=== PATIENT | male | born 1940 | race Caucasian/White ===

== ENCOUNTER → 2016-12-17 | Outpatient (CLI) | payer OTHER ==
[~2016-12-17] MED LIST: ALBUAER2 INH; ALFU10TA30 PO; ATOR-26 PO; B-CO1CAP3 PO; BUPR-79 PO; CALC600T9 PO; FLUT1INH INH; GABA1CAP4 PO; HYDR-4079 PO; HYDR-4313 PO; KLN5 PO; LATA0.009 OPB; LISI-729 PO; MAGN400T5 PO; MOME100A INH; MULT-506 PO; OMEG12006 PO; SENN-61 PO; TEST1INJ3 IM
--- NOTE | 2016-12-17 13:38 | DIAGNOSTIC IMAGING REPORT ---
TWO VIEW CHEST CLINICAL HISTORY: Bronchitis. Bronchospasm. FINDINGS: PA and lateral chest radiographs are compared to study dated 08/18/2016. The examination is modestly degraded by large body habitus. The heart is mildly enlarged and there is atherosclerotic calcification of the thoracic aorta. Bibasilar atelectasis is noted. The lungs and pleural spaces are otherwise clear. There is no pneumothorax. The skeletal structures are osteopenic. Fusion hardware is partially seen in the upper lumbar region. Degenerative change is seen throughout the thoracic spine. IMPRESSION: Mild cardiac enlargement with no active disease in the chest. Electronically signed by: Avery Morgan M.D. 12/17/2016 1:36 PM Dictated Date/Time: 12/17/2016 1:35 PM
== END | disposition home or self-care (01) ==
LOC: C.RADPV 13:19
PROVIDERS: ATTEND Family Medicine
DX: J20.9 Acute bronchitis, unspecified (principal)

== ENCOUNTER → 2016-12-19 | Outpatient (CLI) | payer OTHER | END | disposition home or self-care (01) | LOC: C.LAB1850 15:29 | PROVIDERS: ATTEND Internal Medicine Pulmonary Disease | DX: R00.0 Tachycardia, unspecified (principal); R06.02 Shortness of breath ==

== ENCOUNTER → 2017-02-24 | Outpatient (CLI) | payer OTHER ==
[~2017-02-24] MED LIST changes: +ALFU10TA2 PO; -ALFU10TA30 PO; -BUPR-79 PO; -HYDR-4079 PO; -KLN5 PO; -MOME100A INH; -SENN-61 PO
[2017-02-24 12:31] LABS: ALT/SGPT 45 U/L (12-78); BLOOD UREA NITROGEN 27 mg/dl (7-18); BUN/CREATININE RATIO 31.8 (10-20); CARBON DIOXIDE 26 mmol/L (21-32); CHLORIDE 104 mmol/L (98-107); CHOLESTEROL 243 mg/dl (0-200); CREATININE 0.84 mg/dl (0.60-1.40); GLUCOSE 94 mg/dl (70-99); POTASSIUM 4.3 mmol/L (3.5-5.1); SODIUM 138 mmol/L (136-145); TRIGLYCERIDES 92 mg/dl (0-150); VERY LOW DENSITY LIPOPROT CALC 18 mg/dl
[2017-02-24 12:40] LABS: CALCIUM 10.2 mg/dl (8.5-10.1)
[2017-02-24 12:46] LABS: ALB/GLOB RATIO 1.3 (0.9-2); ALKALINE PHOSPHATASE 64 U/L (45-117); AST/SGOT 26 U/L (15-37); HDL CHOLESTEROL 158 mg/dl
[2017-02-26 07:26] LABS: LDL CHOLESTEROL CALCULATED 67 mg/dl
[2017-02-26 07:27] LABS: CHOLESTEROL/HDL RATIO 1.5
== END | disposition home or self-care (01) ==
LOC: C.LABPVFM 08:44
PROVIDERS: ATTEND Internal Medicine
DX: R97.20 Elevated prostate specific antigen [PSA] (principal); E78.2 Mixed hyperlipidemia; I10 Essential (primary) hypertension

== ENCOUNTER → 2017-06-02 | Outpatient (CLI) | payer OTHER ==
[~2017-06-02] MED LIST changes: -ALFU10TA2 PO; +ALFU10TA30 PO
[2017-06-02 13:33] LABS: CHOLESTEROL/HDL RATIO 2.9
== END | disposition home or self-care (01) ==
LOC: C.LABPVFM 08:47
PROVIDERS: ATTEND Family Medicine
DX: E78.2 Mixed hyperlipidemia (principal)

== ENCOUNTER → 2017-07-01 | Outpatient (CLI) | payer OTHER | END | disposition home or self-care (01) | LOC: C.PATHSPEC 17:50 | PROVIDERS: ATTEND Dermatology | DX: L82.0 Inflamed seborrheic keratosis (principal) ==

== ENCOUNTER → 2017-08-06 | Outpatient (CLI) | payer OTHER | END | disposition home or self-care (01) | LOC: C.MAMM 11:17 | PROVIDERS: ATTEND Family Medicine | DX: M81.0 Age-related osteoporosis without current pathological fracture (principal); M84.30XA Stress fracture, unspecified site, initial encounter for fracture ==

== ENCOUNTER → 2017-08-24 | Outpatient (CLI) | payer OTHER ==
[2017-08-24 13:55] LABS: ALT/SGPT 41 U/L (12-78); BLOOD UREA NITROGEN 23 mg/dl (7-18); BUN/CREATININE RATIO 21.9 (10-20); CALCIUM 9.6 mg/dl (8.5-10.1); CARBON DIOXIDE 25 mmol/L (21-32); CHLORIDE 105 mmol/L (98-107); CHOLESTEROL 241 mg/dl (0-200); CREATININE 1.05 mg/dl (0.60-1.40); GLUCOSE 102 mg/dl (70-99); MAGNESIUM 2.1 mg/dl (1.8-2.4); POTASSIUM 4.3 mmol/L (3.5-5.1); SODIUM 137 mmol/L (136-145)
[2017-08-24 14:01] LABS: ALB/GLOB RATIO 1.2 (0.9-2); ALKALINE PHOSPHATASE 63 U/L (45-117); AST/SGOT 31 U/L (15-37); HDL CHOLESTEROL 118 mg/dl; LDL CHOLESTEROL CALCULATED 95 mg/dl; TRIGLYCERIDES 138 mg/dl (0-150); VERY LOW DENSITY LIPOPROT CALC 28 mg/dl
== END | disposition home or self-care (01) ==
LOC: C.LABPVFM 08:38
PROVIDERS: ATTEND Family Medicine
DX: E83.42 Hypomagnesemia (principal); R97.20 Elevated prostate specific antigen [PSA]; E78.2 Mixed hyperlipidemia; M79.1 Myalgia

== ENCOUNTER → 2017-10-13 | Outpatient (CLI) | payer OTHER ==
[~2017-10-13] MED LIST changes: +ALFU10TA2 PO; -ALFU10TA30 PO
[2017-10-13 13:20] LABS: PROSTATE SPECIFIC ANTIGEN 9.18 ng/ml (0.000-4.000)
== END | disposition home or self-care (01) ==
LOC: C.LABPVFM 09:01
PROVIDERS: ATTEND Family Medicine
DX: R97.20 Elevated prostate specific antigen [PSA] (principal); M79.1 Myalgia

== ENCOUNTER → 2018-06-07 | Outpatient (CLI) | payer BC ==
[~2018-06-07] MED LIST changes: -ALFU10TA2 PO; +FLUO20CA34 PO; +FLUO20CA37 PO; -GABA1CAP4 PO; -LISI-729 PO; +SULF800T23 PO; -TEST1INJ3 IM; +TRAM-10 PO
== END | disposition home or self-care (01) ==
LOC: C.LABBC 14:56
PROVIDERS: ATTEND Internal Medicine
DX: R35.0 Frequency of micturition (principal)

== ENCOUNTER → 2018-06-15 | Day surgery (SDC) | payer BC ==
[2018-06-09 10:17] VITALS: Ht 175.3 cm; Wt 89.1 kg
[~2018-06-15] VITALS: Ht 175.3 cm; Wt 89.1 kg
[~2018-06-15] MED LIST changes: +ATROPINE SULFATE 0.1 MG/ML 5ML SYR IV PRN; -B-CO1CAP3 PO; +BUPIVACAINE 0.5 % 5 MG/1 ML PF 10ML VIAL ONE; -CALC600T9 PO; +CEFAZOLIN 2000MG IV PUSH 15 ML IV SCH; +DEXAMETHASONE SOD INJ 4 MG/ML VIAL ONE; +EpHEDrine SULFATE INJ 50 MG/ML AMP IV PRN; +FENTANYL CITRATE INJ 50 MCG/1 ML 2 ML VIAL ONE; -HYDR-4313 PO; +LIDOCAINE HCL 2% 2 ML VIAL (20MG/ML) ONE; -MAGN400T5 PO; +METHYLPREDNISOLONE ACETATE 80 MG/ML VIAL ONE; +MIDAZOLAM HCL 1 MG/ML 2ML VIAL ONE; -OMEG12006 PO; +ONDANSETRON INJ 2 MG/ML 2 ML VIAL IV PRN; +ONDANSETRON INJ 2 MG/ML 2 ML VIAL ONE; +OXYCODONE/ACETAMINOPHEN 5-325 TAB PO PRN; +PROPOFOL IV EMULSION 10 MG/ML 20 ML VIAL ONE; +SODIUM CHLORIDE 0.9% 1000ML 1,000 ML IV SCH
--- NOTE | 2018-06-15 06:40 | History & Physical Bridge - [place] ---
H&P Re-Evaluation Bridge Note: I have examined the patient, reviewed the History & Physical and in the interval since the performance of the History & Physical I have noted the following changes of clinical significance: No changes noted
[2018-06-15] MEDS: LACTATED RINGER'S 1000ML 1,000 ML IV SCH ×2 (06:54→08:09)
--- NOTE | 2018-06-15 07:38 | [facility] Post Operative Brief Note ---
Immediate Operative Summary Operative Date Jun 15, 2018. Pre-Operative Diagnosis Right Ulnar Nerve Entrapment Post-Operative Diagnosis Same Procedure(s) Performed Right Ulnar Nerve Decompression, Right Carpometacarpal Joint Injection Surgeon Dr. Limon [employer]gr[employer] Internship Surgeon(s) Juan Carlos Cheung PA-C Estimated Blood Loss 0 mL Findings Consistent with Post-Op Diagnosis Specimens None Drains None Anesthesia Type General Complication(s) none Disposition Accompanied Pt To Recover: no Disposition: Recovery Room / PACU
--- NOTE | 2018-06-15 07:48 | Discharge Instructions-SurgCtr ---
Discharge Instructions Date of Service Jun 15, 2018. Visit Reason for Visit: Right Ulnar Nerve Entrapment Discharge Discharge Diagnosis / Problem: SAME ABOVE Discharge Goals Goal(s): Decrease discomfort, Improve function Medications Stopped Medications Name(s): no blood thinners Activity Recommendations Activity Limitations: as noted below Lifting Limitations: gradually increase as tolerated Exercise/Sports Limitations: until after follow-up appointment Shower/Bathe: keep incision dry Anesthesia . Post Anesthesia Instructions: If you have had General Anesthesia or IV Sedation: * Do not drive today. * Resume driving when surgeon permits. * Do not make important decisions or sign legal documents today. * Call surgeon for: 1. Temperature elevations greater than 101 degrees F. 2. Uncontrollable pain. 3. Excessive bleeding. 4. Persistent nausea and vomiting. 5. Medication intolerance (nausea, vomiting or rash). * For nausea and vomiting use only clear liquids such as: tea, soda, bouillon until nausea subsides, then gradually increase diet as tolerated. * If you have any concerns or questions, call your surgeon's office. If physician is unavailable and it is an emergency, call 911 or go to the nearest emergency room. . Instructions / Follow-Up Instructions / Follow-Up MEDICATIONS: * Resume previous medications unless instructed otherwise by your surgeon. * Always take pain medication on a full stomach or with food to avoid upset stomach. * Do not drink alcohol or drive while taking narcotics. * Ibuprofen or Tylenol may be taken if narcotic not needed. SPECIAL CARE INSTRUCTIONS: __ None _X_ Keep extremity elevated and iced x 48 hours; apply ice 20-30 minutes 8-10 times/day. May remove at night. __ Sling __24 hrs/day __ Remove at night __ Shoulder Immobilizer __ 24 hrs/day __ Remove at night _X_ Dressing _X_ Maintain until seen in office, may shower with plastic over site __ Remove dressings in 24-48 hours and then may shower __ Cover incisions with band-aids after showering __ Do not remove steri-strips Call physician if chills or temperature rises above 102 degrees or pain unrelieved by prescribed pain medications at . . Diet Recommendations Home Diet: resume previous diet Procedures Procedures Performed: Right Ulnar Nerve Decompression, Right Carpometacarpal Joint Injection Pending Studies Studies pending at discharge: no Medical Emergencies . Who to Call and When: Medical Emergencies: If at any time you feel your situation is an emergency, please call 911 immediately. . Non-Emergent Contact Non-Emergency issues call your: Primary Care Provider . . "Provider Documentation" section prepared by Bo Cheung. .
[2018-06-15] MEDS: FENTANYL CITRATE INJ 50 MCG/1 ML 2 ML VIAL IV PRN ×2 (07:58→08:14)
--- NOTE | 2018-06-15 08:09 | Anesthesia Progress Nt - [facility] ---
Anesthesia Post Op Note Date & Time Jun 15, 2018 at 08:09 Vital Signs Pain Intensity: 5.0 Vital Signs Past 12 Hours Date Time Temp Pulse Resp B/P (MAP) Pulse Ox O2 Delivery O2 Flow Rate FiO2 06/15/18 08:01 156/96 06/15/18 07:59 76 19 06/15/18 07:59 75 19 95 06/15/18 07:56 145/87 06/15/18 07:54 78 19 06/15/18 07:54 79 19 95 06/15/18 07:51 145/86 06/15/18 07:49 77 15 06/15/18 07:49 78 15 96 06/15/18 07:46 139/79 06/15/18 07:45 140/82 06/15/18 07:44 36.5 66 16 140/82 99 Mask 6 06/15/18 06:34 36.8 86 18 148/78 (101) 94 Room Air Notes Mental Status: alert / awake / arousable, participated in evaluation Pt Amnestic to Procedure: Yes Nausea / Vomiting: adequately controlled Pain: adequately controlled Airway Patency, RR, SpO2: stable & adequate BP & HR: stable & adequate Hydration State: stable & adequate Anesthetic Complications: no major complications apparent
--- NOTE | 2018-06-15 09:11 | OPERATIVE REPORT ---
DATE OF OPERATION: 06/15/2018 PREOPERATIVE DIAGNOSES: 1. Cubital tunnel syndrome, right elbow. 2. Carpometacarpal arthritis grade 4, right thumb. POSTOPERATIVE DIAGNOSES: Same. PROCEDURES: 1. Decompression, ulnar nerve, right elbow. 2. Cortisone injection to right thumb. SURGEON: Jorge Limon MD DIGITAL CARTOGRAPHIC TECHNICIAN: Bo Cheung PA-C. ANESTHESIOLOGIST: Dr. Blancas. ANESTHESIA: LMA. DRAINS: None. COMPLICATIONS: None. CONDITION: Patient tolerated the procedure well and returned to recovery room in apparent satisfactory condition. 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 He has also had chronic CMC arthritis, so would like to go ahead with surgery of decompression nerve, possible transposition and/or do an injection to the thumb. Procedure, expected outcomes, and side effects were all explained in detail. DESCRIPTION OF PROCEDURE: Patient was taken to the OR, at which time he was placed supine on the operating table and put to sleep by anesthesia department. I did a Depo-Medrol 1.5 mL injection into the CMC joint of the thumb. The right arm then was prepped and draped in the usual sterile fashion for surgery. Tourniquet was placed high up in the axilla. Arm was exsanguinated. A curvilinear incision was made over the cubital tunnel, and we dissected down. Identified the ulnar nerve, did see where it was being compressed, right at about a couple of millimeters distal to the epicondyle. There was a plexus of veins there that was compressing the nerve. Very carefully dissected them off and cauterized them. A small portion of the flexor ulnaris muscle was divided to decompress this area and then we went proximally up, divided some and it was decompressed proximally. Arm was taken through range of motion. Nerve was not subluxating but to be freely compressed. Wound then was copiously irrigated, closed with interrupted 2-0 nylon sutures. Marcaine without epinephrine was placed in skin edges and benzoin and Steri-Strips. He was placed in a postop dressing including Xeroform, 4x4, soft roll, posterior splint, and Kyree bandage. Return back to recovery room in apparent satisfactory condition. I attest to the content of the Intraoperative Record and any orders documented therein. Any exception s are noted below.
[2018-06-15 09:13] VITALS: BP 147/86; PULSE 80; O2SAT 93
== END | disposition home or self-care (01) ==
LOC: X.SURG 06:18
PROVIDERS: ATTEND Orthopaedic Surgery
DX: G56.21 Lesion of ulnar nerve, right upper limb (principal); M18.11 Unilateral primary osteoarthritis of first carpometacarpal joint, right hand; J45.909 Unspecified asthma, uncomplicated; I10 Essential (primary) hypertension; Z85.46 Personal history of malignant neoplasm of prostate

== ENCOUNTER → 2018-06-21 | Outpatient (CLI) | payer BC ==
[~2018-06-21] MED LIST changes: -ATROPINE SULFATE 0.1 MG/ML 5ML SYR IV PRN; -BUPIVACAINE 0.5 % 5 MG/1 ML PF 10ML VIAL ONE; -CEFAZOLIN 2000MG IV PUSH 15 ML IV SCH; -DEXAMETHASONE SOD INJ 4 MG/ML VIAL ONE; -EpHEDrine SULFATE INJ 50 MG/ML AMP IV PRN; -FENTANYL CITRATE INJ 50 MCG/1 ML 2 ML VIAL ONE; -LIDOCAINE HCL 2% 2 ML VIAL (20MG/ML) ONE; -METHYLPREDNISOLONE ACETATE 80 MG/ML VIAL ONE; -MIDAZOLAM HCL 1 MG/ML 2ML VIAL ONE; -ONDANSETRON INJ 2 MG/ML 2 ML VIAL IV PRN; -ONDANSETRON INJ 2 MG/ML 2 ML VIAL ONE; -OXYCODONE/ACETAMINOPHEN 5-325 TAB PO PRN; -PROPOFOL IV EMULSION 10 MG/ML 20 ML VIAL ONE; -SODIUM CHLORIDE 0.9% 1000ML 1,000 ML IV SCH
[2018-06-25 10:28] LABS: HERPES SIMPLEX VIRUS CULT NOT ISOLATED (NOT ISOLATED)
== END | disposition home or self-care (01) ==
LOC: C.LABSPEC 14:42
PROVIDERS: ATTEND Internal Medicine
DX: N48.5 Ulcer of penis (principal)

== ENCOUNTER 2021-02-20 04:33 | Observation (INO) ==
[2021-02-20] MEDS ORDERED: oxyCODONE HCL IR 5 MG TAB (IMMEDIATE RELEASE) PO STA (04:54)
--- NOTE | 2021-02-20 04:55 | Emergency Department Note ---
Impression & Plan Left rib fracture ED Provider Note Name: JULIAN BARRERA Jr Age: 80 Sex: M Arrives Via: Family Vehicle Informant: Patient, Daughter ED Provider: Evan Smith MD Chief Complaint: Left rib pain Impression: Left Rib Fractures (Multiple) Medical Decision Makin yr old male with significant COPD arrives after slip and injury to left ribs this evening. This is actually second injury in 2 week with initially being a fall at Gym landing on left side. Initial exam with good breath sounds and thus CXR indicated which revealed multiple left rib fracture and questionable effusion left side. No head injury, headache, neck pain, abdominal pain, blood in urine. CT Chest indicated in setting of pleural effusion and rib fractures. Fortunately CT without evidence pneumothorax nor hemothorax but evidence of ribs 5 through 9 fractured with 8&9 acute, rest sub acute. Suspect may have broken all 2 weeks ago and rebroke tonight. Patient recieved 3 rounds of narcotics while in ED and still unable to move without significant discomfort. Mild hypoxia in to low 90s but no shortness of breath. With these findings hospitalist consulted for management. Prior Medical Record and Triage/Nursing Notes reviewed by Me Additional history obtained from chart Differentials:Fracture, dislocation, pneumothorax, hemothorax, intraabdominal injury amongst other pathologies. Vital Signs: reviewed and remarkable for no significant abnormalities Interventions: Oxy ir po, fentanyl iv, dilaudid iv Labs:Reviewed and remarkable for no significant abnormalities Imaging:X ray results are stated below per my interpretation: Chest with left ribs: 3 view: left lower rib fractures, small pleural effusion Consults:Dr Alice LOERA Hospitalist Plan: Disposition:Hospitalization. Condition: Good History of Present Illness:80 yr old male arrives for evaluation of left rib pain. Patient notes he was working out a gym 2 weeks ago when he had a fall landing on left ribs. Pain with cough/breathing/moving the last 2 weeks but m anageable. Last night he was in the shower when he slipped and landed again awkwardly. No overt trauma to left chest but immediate pain in location of fall last week. Associated with pain on deep inspiration. Worse with cough. Used Vicodin with mild improvement. Unable to sleep due to pain. No syncope, fevers, chills, neck pain, headache, weakness, urinary symptoms, blood in urine/stool, nor other symptoms. Denies other injuries nor head injury. Movement make worse, rest makes better. Is on no blood thinners. Long history of COPD which he notes has been OK recently. ROS: See above HPI for pertinent positives & negatives. A total of 10 systems reviewed and were otherwise negative. Past Medical History:See Below Past Surgical History:See Below Family History:See Below Social History:See Below Home Medications:See Below Allergies:Sulfa, Gentamicin Vitals:Blood Pressure: 151/87, Pulse 96, RR 20, T 36.5C, O2 95% on RA Physical Exam: GENERAL: Patient is uncomfortable appearing and in mild distress. EYES: No scleral icterus, unremarkable pupils. ENT: Mucous membranes moist, no nasal congestion. NECK: No masses appreciated, nomeningismus, trachea is midline. RESPIRATORY: No dyspnea. Clear to auscultation and equal bilaterally. No wheeze, no rhonchi. CHEST: TTP over left lower lateral ribs, no crepitus, no bruising CARDIOVASCULAR: Regular rate and rhythm.No murmurs, rubs, gallops appreciated. GASTROINTESTINAL: Abdomen soft, non-tender, no peritonitis.Bowel sounds positive.No masses appreciated. BACK: No midline tenderness, no CVA tenderness EXTREMITIES: Normal motion all extremities, no cyanosis, no edema. NEUROLOGIC: Alert and oriented, no acute motor or sensory deficits, no focal weakness, cranial nerves grossly intact. SKIN: No rash, no jaundice, no diaphoresis. PSYCH: Appropriate GCS: 15 ED Course: Times/Reassessments: Improvement in pain though still unable to sit up without significant pain/discomfort Evna Smith MD Past Med/Surg History Medical History (Updated 02/20/21 @ 17:32 by Evan Smith MD) Allergic rhinitis Arthritis of carpometacarpal (CMC) joint of right thumb Arthritis of right knee Asthma last asthma attack ~July 2020. treated with prednisone (finished 07/23/20). typically has 3 asthma attacks. Cervical radiculitis Cervical spinal stenosis Multifactorial multilevel most severe at C5-6. 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 to see PCP 08/23/20. Hypomagnesemia Lumbar radiculopathy Macrocytic anemia Moderate persistent asthma Osteoarthritis Spondylolisthesis of lumbar region (12/04/14) Thyroid nodule Surgical History History of cataract surgery RT History of colonoscopy History of endoscopic sinus surgery 1998 History of esophagogastroduodenoscopy (EGD) History of laminectomy lumbar laminectomy (Dr Marcos May 02 2020 -- [facility]) History of parotid gland removal Left gland removal (1964) History of surgical removal of skin lesion History of vasectomy Hx of decompression of ulnar nerve right S/P carpal tunnel release Right S/P lumbar fusion L4-07 December 2014 Family History Grandmother (Paternal) Stroke Sister Breast cancer Father Prostate cancer Mother Atrial fibrillation Social History (Updated 02/20/21 @ 16:56 by Vanna Jenkins MD) Smoking Status: Never smoker Second Hand Exposure: No (N/a); Do You Dip or Chew Tobacco: No (N/a); Tobacco Cessation Education Requested by Patient: No Hx Alcohol Use: Yes Alcohol type: wine Hx Substance Use: No Preferred Language: [place] Communication Ability: Effective Visual Impairment: Limited Hearing Ability: Normal Batch Heat Treat Operator Required: No Beliefs That Will Affect Care: Spiritual marital status: Current Living Situation: Spouse current occupational status: retired current occupation: Physician Other Information That Helps Us Care for You: No Feels Safe at Home: Yes Safety Concerns: Feels Safe At This Time Assistive Devices: Cane Allergies Allergies Allergy/AdvReac Type Severity Reaction Status Date / Time sulfamethoxazole Allergy Severe Rash Verified 02/20/21 07:41 [From Bactrim] trimethoprim [From Bactrim] Allergy Severe Hives Verified 02/20/21 07:41 gentamicin AdvReac Intermediate MADE Verified 02/20/21 07:41 CONDITION WORSE Home Meds Home Medications Medication Instructions Recorded Confirmed albuterol sulfate 1 puff INHALATION Q6H PRN 09/01/18 02/20/21 multivitamin 1 tab PO QDD 09/01/18 02/20/21 vitamin B complex 1 tab PO QDD 09/01/18 02/20/21 latanoprost 0.005 % eye drops 1 drp OPHTHALMIC (EYE) HS ml 03/22/19 02/20/21 alfuzosin 10 mg tablet,extended 10 mg PO QDD 08/10/19 02/20/21 release 24 hr atorvastatin 40 mg tablet 40 mg PO QDD 10/03/19 02/20/21 duloxetine 60 mg capsule,delayed 60 mg PO QAM 10/03/19 02/20/21 release ipratropium 0.5 mg-albuterol 3 mg 3 ml INHALATION TID PRN ml 07/03/20 02/20/21 (2.5 mg base)/3 mL nebulization soln magnesium oxide 400 mg PO BID 07/25/20 02/20/21 cholecalciferol (vitamin D3) 50 mcg PO QDD 08/07/20 02/20/21 [Vitamin D3] acetaminophen [Tylenol Arthritis] 1,300 mg PO Q12H 02/20/21 02/20/21 bupropion HCl 100 mg PO BID 02/20/21 02/20/21 dextromethorphan-guaifenesin 1 tab PO Q12H 02/20/21 02/20/21 [Mucinex DM] fluticasone furoate-vilanterol 1 ea INHALATION QAM 02/20/21 02/20/21 [Breo Ellipta] fluticasone propionate [Flonase 2 spray INTRANASAL DAILY PRN 02/20/21 02/20/21 Allergy Relief] lidocaine 1 applic TOPICAL BID 02/20/21 02/20/21 montelukast 10 mg PO QDD 02/20/21 02/20/21 Previous Rx's Medication Instructions Recorded azithromycin 250 mg tablet See Rx Instructions PO .COMPLEX #6 02/11/21 tab Results & Data (ED) Vital Signs Vital Signs - 24 hr 02/20/21 04:35 02/20/21 06:00 02/20/21 07:01 Temperature 36.5 C Temperature Source Oral Pulse Rate 96 H 77 75 Pulse Rate from SpO2 Sensor 76 76 Respiratory Rate 20 15 15 Blood Pressure 151/87 H 146/92 H 156/76 H Blood Pressure Mean 108 110 102 Blood Pressure Position Sitting Pulse Oximetry 95 93 94 Oxygen Delivery Method Room Air Room Air Sepsis Recent Fever Within 48 Hours No Sepsis New/Unexplained Change in Mental Status No Sepsis Action Taken by Nursing No Action Required 02/20/21 07:30 02/20/21 08:00 02/20/21 08:35 Temperature Temperature Source Pulse Rate 78 75 74 Pulse Rate from SpO2 Sensor 78 74 77 Respiratory Rate 20 15 15 Blood Pressure 137/76 137/86 137/86 Blood Pressure Mean 96 103 103 Blood Pressure Position Pulse Oximetry 92 91 95 Oxygen Delivery Method Room Air Room Air Sepsis Recent Fever Within 48 Hours Sepsis New/Unexplained Change in Mental Status Sepsis Action Taken by Nursing 02/20/21 09:01 Temperature Temperature Source Pulse Rate 77 Pulse Rate from SpO2 Sensor 79 Respiratory Rate 23 Blood Pressure 151/97 H Blood Pressure Mean 115 Blood Pressure Position Pulse Oximetry 90 Oxygen Delivery Method Sepsis Recent Fever Within 48 Hours Sepsis New/Unexplained Change in Mental Status Sepsis Action Taken by Nursing Laboratory Data Result diagrams: 02/20/21 05:50 02/20/21 05:50 Lab Results 02/20/21 02/20/21 02/20/21 Range/Units 05:50 05:50 05:50 WBC 4.74 L (4.8-10.8) K/uL RBC 3.81 L (4.7-6.1) M/uL Hgb 12.8 L (14.0-18.0) g/dL POC Hgb (14.0-18.0) g/dl Hct 37.8 L (42-52) % POC Hct (42-52) % MCV 99.2 (80-100) fL MCH 33.6 (25-34) pg MCHC 33.9 (32-36) g/dL RDW Std Deviation 46.8 H (36.4-46.3) fL RDW Coeff of Shona 13.0 (11.5-14.5) % Plt Count 172 (130-400) K/uL MPV 9.5 (7.4-10.4) fL Immature Gran % (Auto) 0.2 % Neut % (Auto) 59.9 % Lymph % (Auto) 22.2 % [place] % (Auto) 13.9 % Eos % (Auto) 3.2 % Baso % (Auto) 0.6 % Neut # (Auto) 2.84 (1.4-6.5) K/uL Lymph # (Auto) 1.05 L (1.2-3.4) K/uL [place] # (Auto) 0.66 H (0.11-0.59) K/uL Eos # (Auto) 0.15 (0-0.5) K/uL Baso # (Auto) 0.03 (0-0.2) K/uL Immature Gran # (Auto) 0.01 (0.00-0.02) K/uL PT 9.8 (9.0-12.0) Seconds INR 1.0 (0.9-1.1) POC Sodium (135-144) mmol/L Sodium 137 (136-145) mmol/L POC Potassium (3.3-5.0) mmol/L Potassium 4.1 (3.5-5.1) mmol/L POC Chloride (101-112) mmol/L Chloride 105 (98-107) mmol/L Carbon Dioxide 26 (21-32) mmol/L POC Total CO2 (24-31) mmol/L Anion Gap 5.0 (3-11) POC Anion Gap (16-25) mmol/L POC BUN (7-18) mg/dl BUN 26 H (7-18) mg/dl Creatinine 0.88 (0.6-1.4) mg/dl POC Creatinine (0.6-1.3) mg/dl Est Cr Clr Drug Dosing 73.6 ml/min Est GFR ( Amer) 93.4 Est GFR (Non-Af Amer) 80.6 BUN/Creatinine Ratio 28.9 H (10-20) Glucose 118 H (70-99) mg/dl POC Glucose (other) (70-99) mg/dl Calcium 9.7 (8.5-10.1) mg/dl POC Ioniz Calcium Devin (1.12-1.32) mmol/l Troponin I < 0.015 (0-0.045) ng/ml COVID-19 Eval Order SARS-CoV-2 (PCR) (Negative) Influenza Type A (PCR) (Neg) Influenza Type B (PCR) (Neg) RSV (RT-PCR) (Neg) 02/20/21 02/20/21 02/20/21 Range/Units 05:56 07:47 07:47 WBC (4.8-10.8) K/uL RBC (4.7-6.1) M/uL Hgb (14.0-18.0) g/dL POC Hgb 12.6 L (14.0-18.0) g/dl Hct (42-52) % POC Hct 37 L (42-52) % MCV (80-100) fL MCH (25-34) pg MCHC (32-36) g/dL RDW Std Deviation (36.4-46.3) fL RDW Coeff of Sh[place] (11.5-14.5) % Plt Count (130-400) K/uL MPV (7.4-10.4) fL Immature Gran % (Auto) % Neut % (Auto) % Lymph % (Auto) % [place] % (Auto) % Eos % (Auto) % Baso % (Auto) % Neut # (Auto) (1.4-6.5) K/uL Lymph # (Auto) (1.2-3.4) K/uL [place] # (Auto) (0.11-0.59) K/uL Eos # (Auto) (0-0.5) K/uL Baso # (Auto) (0-0.2) K/uL Immature Gran # (Auto) (0.00-0.02) K/uL PT (9.0-12.0) Seconds INR (0.9-1.1) POC Sodium 137 (135-144) mmol/L Sodium (136-145) mmol/L POC Potassium 4.2 (3.3-5.0) mmol/L Potassium (3.5-5.1) mmol/L POC Chloride 103 (101-112) mmol/L Chloride (98-107) mmol/L Carbon Dioxide (21-32) mmol/L POC Total CO2 25 (24-31) mmol/L Anion Gap (3-11) POC Anion Gap 15.0 L (16-25) mmol/L POC BUN 24 H (7-18) mg/dl BUN (7-18) mg/dl Creatinine (0.6-1.4) mg/dl POC Creatinine 0.8 (0.6-1.3) mg/dl Est Cr Clr Drug Dosing ml/min Est GFR ( Amer) Est GFR (Non-Af Amer) BUN/Creatinine Ratio (10-20) Glucose (70-99) mg/dl POC Glucose (other) 120 H (70-99) mg/dl Calcium (8.5-10.1) mg/dl POC Ioniz Calcium Devin 1.33 H (1.12-1.32) mmol/l Troponin I (0-0.045) ng/ml COVID-[address] Eval [address] CovFluRsv at [facility] SARS-CoV-2 (PCR) NEGATIVE (Negative) Influenza Type A (PCR) Negative (Neg) Influenza Type B (PCR) Negative (Neg) RSV (RT-PCR) Negative (Neg) Administered Medications Acetaminophen (Acetaminophen 500 Mg Tab) 1,000 mg PO BID [facility] Stop: 03/22/21 11:59 Last Admin: 02/20/21 12:52 Dose: 1,000 mg Documented by: [id number] Albuterol (Albut/Ipratrop 3mg/0.5mg Neb 3 Ml Vial) 3 ml INH TIDR [facility] Stop: 03/22/21 12:59 Last Admin: 02/20/21 12:04 Dose: 3 ml Documented by: [id number] Budesonide (Budesonide 0.5 Mg/2 Ml Vial (Pulmicort)) 0.5 mg NEB BIDR [facility] Stop: 03/22/21 09:19 Last Admin: 02/20/21 12:04 Dose: 0.5 mg Documented by: [id number] Bupropion HCl (Bupropion Sr 100 Mg Tabcr) 100 mg PO BID [facility] Stop: 03/22/21 09:19 Last Admin: 02/20/21 12:54 Dose: Not Given Documented by: [id number] Duloxetine HCl (Duloxetine Hcl 60 Mg Cap) 60 mg PO QAM [facility] Stop: 03/22/21 09:19 Last Admin: 02/20/21 12:55 Dose: Not Given Documented by: [id number] Lidocaine (Lidocaine 5% 1 Patch) 1 patch TD QAM [facility] Stop: 03/22/21 09:29 Last Admin: 02/20/21 13:35 Dose: 1 patch Documented by: [id number] Magnesium Oxide (Magnesium Oxide 400 Mg Tab) 400 mg PO BID [facility] Stop: 03/22/21 11:59 Last Admin: 02/20/21 12:51 Dose: 400 mg Documented by: [id number] Discontinued Medications Fentanyl Citrate (Fentanyl Citrate 100 Mcg/2 Ml Vial) 50 mcg IV NOW STA Stop: 02/20/21 05:28 Last Admin: 02/20/21 05:53 Dose: 50 mcg Documented by: [id number] Hydromorphone HCl (Hydromorphone Inj 0.5 Mg/0.5 Ml Syr) 0.5 mg IV NOW STA Stop: 02/20/21 06:07 Last Admin: 02/20/21 06:10 Dose: 0.5 mg Documented by: [id number] Hydromorphone HCl (Hydromorphone Inj 0.5 Mg/0.5 Ml Syr) 0.5 mg IV Q15M PRN PRN Reason: Pain Stop: 03/06/21 07:58 Last Admin: 02/20/21 11:10 Dose: 0.5 mg Documented by: [id number] Sodium Chloride (Nss 1000ml) 500 mls @ 999 mls/hr IV .Q31M ONE Stop: 02/20/21 05:57 Last Infusion: 02/20/21 06:27 Dose: 0 mls/hr Documented by: [id number] Admin: 02/20/21 05:53 Dose: 999 mls/hr Documented by: [id number] Ioversol (Optiray 320 100ml) 100 ml IV ONCE ONE Stop: 02/20/21 06:31 Last Admin: 02/20/21 06:30 Dose: 81 ml Documented by: [id number] Non-Formulary Medication (Acetaminophen) 1,300 mg PO Q12H [facility] Stop: 03/22/21 09:19 Last Admin: 02/20/21 13:21 Dose: Not Given Documented by: [id number] Non-Formulary Medication (Magnesium Oxide) 400 mg PO BID [facility] Stop: 03/22/21 09:19 Last Admin: 02/20/21 13:22 Dose: Not Given Documented by: [id number] Oxycodone HCl (Oxycodone Hcl Ir 5 Mg Tab (Immediate Release)) 5 mg PO NOW STA Stop: 02/20/21 04:55 Last Admin: 02/20/21 05:01 Dose: 5 mg Documented by: [id number] Oxycodone HCl (Oxycodone Hcl Ir 5 Mg Tab (Immediate Release)) 5 mg PO Q4H PRN PRN Reason: Pain Stop: 03/06/21 09:19 Last Admin: 02/20/21 12:07 Dose: 5 mg Documented by: [id number] Imaging Data Radiologist's Impression: Ribs w/Chest X-Ray 02/20/21 04:54 XR ribs LT min 2V w CXR1V CLINICAL HISTORY: Left rib pain following fall. COMPARISON: Chest CT December 27, 2020. FINDINGS: There is no pneumothorax. There is a trace left pleural effusion. There are multiple subacute to chronic bilateral rib fractures. Note is made of acute appearing nondisplaced fractures of the lateral left eighth and ninth ribs. Cardiomegaly is noted. No evidence for pneumonia or pulmonary edema. IMPRESSION: 1. No pneumothorax. 2. Acute appearing nondisplaced fractures of the lateral left eighth and ninth ribs. 3. Numerous subacute to chronic bilateral rib fractures. ACT 112: Negative or not required by law. Electronically signed by: Johnson Llamas M.D. 02/20/2021 6:[address] 02/20/21 05:27 CT OF THE CHEST WITH IV CONTRAST CLINICAL HISTORY: left rib fracture, worsening shob COMPARISON STUDY: Chest CT December 27, 2020. Chest radiograph and left rib series February 20, 2021 at 5:20 AM. TECHNIQUE: Following IV administration of Optiray, helical axial images of the chest were obtained. Sagittal and coronal reconstructions were viewed as well as maximal intensity projections on an independent 3-D workstation. Automated exposure control was utilized for the study. A dose lowering technique was utilized adhering to the principles of ALARA. CT DOSE: 660.88 mGy.cm FINDINGS: There is no pneumothorax. Trace bilateral pleural effusions are noted with associated atelectasis. Note is made of mild cardiomegaly with moderate coronary artery calcification. There is no thoracic lymphadenopathy. There are acute nondisplaced fractures of the lateral left eighth and ninth ribs. There are multiple subacute left-sided rib fractures, including subacute fractures of the left fifth, sixth and seventh ribs. These fractures are new since CT of December 27, 2020. Additional bilateral rib fractures are also noted. These are subacute to chronic. Many of these were present on prior examination. There is no consolidation to suggest pneumonia. Subpleural opacities reflect atelectasis. There is no pulmonary contusion. IMPRESSION: 1. Acute nondisplaced fractures of the lateral left eighth and ninth ribs. Subacute healing fractures of the left fifth, sixth and seventh ribs. Numerous additional subacute to chronic bilateral rib fractures. No pneumothorax. 2. Trace bilateral pleural effusions. 3. No consolidation to suggest pneumonia. ACT 112: Negative or not required by law. Electronically signed by: Johnson Llamas M.D. 02/20/2021 6:44 AM Discharge Plan Visit Data Chief Complaint: Rib Injury/Pain Stated Complaint: SEVERE RIB PAIN ED Provider: Evan Smith Discharge Problem: Left rib fracture Patient Disposition: Admitted As Inpatient Discharge Instructions Interventions: ED Discharge Assessment Last Done: 02/20/21 11:10 Discharge Problem: Left rib fracture Qualifiers: Encounter type: initial encounter Rib fracture type: multiple ribs Fracture type: closed Qualified Code(s): S22.42XA - Multiple fractures of ribs, left s rocio, initial encounter for closed fracture
[2021-02-20] MEDS ORDERED: SODIUM CHLORIDE 0.9% 1000ML 500 ML IV ONE (05:27)
[2021-02-20] MEDS ORDERED: fentaNYL citrate 100 MCG/2 ML VIAL IV STA (05:27)
[2021-02-20 06:00] LABS: Basophils # (auto) 0.03 K/uL (0-0.2); Basophils % (auto) 0.6 %; Eosinophils # (auto) 0.15 K/uL (0-0.5); Eosinophils % (auto) 3.2 %; Hematocrit (blood only) 37.8 % (42-52); Hemoglobin 12.8 g/dL (14.0-18.0); Immature Granulocytes # (auto) 0.01 K/uL (0.00-0.02); Immature Granulocytes % (auto) 0.2 %; Lymphocytes # (auto) 1.05 K/uL (1.2-3.4); Lymphocytes % (auto) 22.2 %; Mean Corpuscular Hemoglobin 33.6 pg (25-34); Mean Corpuscular Hgb Conc 33.9 g/dL (32-36); Mean Corpuscular Volume 99.2 fL (80-100); Mean Platelet Volume 9.5 fL (7.4-10.4); Monocytes # (auto) 0.66 K/uL (0.11-0.59); Monocytes % (auto) 13.9 %; Neutrophils # (auto) 2.84 K/uL (1.4-6.5); Neutrophils % (auto) 59.9 %; Platelet Count 172 K/uL (130-400); RDW Standard Deviation 46.8 fL (36.4-46.3); Red Blood Count 3.81 M/uL (4.7-6.1); White Blood Count 4.74 K/uL (4.8-10.8)
[2021-02-20 06:06] LABS: Prothrombin Time 9.8 Seconds (9.0-12.0)
[2021-02-20] MEDS ORDERED: HYDROmorphone INJ 0.5 MG/0.5 ML SYR IV STA (06:06)
[2021-02-20 06:24] LABS: BUN Creatinine Ratio 28.9 (10-20); Blood Urea Nitrogen 26 mg/dl (7-18); Calcium 9.7 mg/dl (8.5-10.1); Carbon Dioxide 26 mmol/L (21-32); Chloride 105 mmol/L (98-107); Creatinine Clr Calc Pharmacy 73.6 ml/min; Est GFR (African American) 93.4; Est GFR (Non-African American) 80.6; Glucose 118 mg/dl (70-99); Potassium 4.1 mmol/L (3.5-5.1); Sodium 137 mmol/L (136-145)
[2021-02-20 06:29] LABS: Troponin I < 0.015 ng/ml (0-0.045)
[2021-02-20] MEDS ORDERED: OPTIRAY 320 100ml IV ONE (06:30)
--- NOTE | 2021-02-20 06:45 | CT Scan Report ---
CT OF THE CHEST WITH IV CONTRAST CLINICAL HISTORY: left rib fracture, worsening shob COMPARISON STUDY: Chest CT December 27, 2020. Chest radiograph and left rib series February 20, 2021 at 5:20 AM. TECHNIQUE: Following IV administration of Optiray, helical axial images of the chest were obtained. Sagittal and coronal reconstructions were viewed as well as maximal intensity projections on an [employer] 3-D workstation. Automated exposure control was utilized for the study. A dose lowering simon hnique was utilized adhering to the principles of ALARA. CT DOSE: 660.88 mGy.cm FINDINGS: There is no pneumothorax. Trace bilateral pleural effusions are noted with associated atel ectasis. Note is made of mild cardiomegaly with moderate coronary artery calcification. There is no t horacic lymphadenopathy. There are acute nondisplaced fractures of the lateral left eighth and ninth ribs. There are multiple subacute left-sided rib fractures, including subacute fractures of the left fifth, sixth and seventh ribs. These fractures are new since CT of December 27, 2020. Additional bila teral rib fractures are also noted. These are subacute to chronic. Many of these were present on prio r examination. There is no consolidation to suggest pneumonia. Subpleural opacities reflect atelectas is. There is no pulmonary contusion. IMPRESSION: 1. Acute nondisplaced fractures of the lateral left eighth and ninth ribs. Subacute healing fractures of the left fifth, sixth and seventh ribs. Numerous additional subacute to chronic bilateral rib fra ctures. No pneumothorax. 2. Trace bilateral pleural effusions. 3. No consolidation to suggest pneumonia. ACT 112: Negative or not required by law. Electronically signed by: Johnson Llamas M.D. 02/20/2021 6:44 AM
--- NOTE | 2021-02-20 06:47 | XRay Report ---
XR ribs LT min 2V w CXR1V CLINICAL HISTORY: Left rib pain following fall. COMPARISON: Chest CT December 27, 2020. FINDINGS: There is no pneumothorax. There is a trace left pleural effusion. There are multiple subac mi'kmaq to chronic bilateral rib fractures. Note is made of acute appearing nondisplaced fractures of the lateral left eighth and ninth ribs. Cardiomegaly is noted. No evidence for pneumonia or pulmonary edema. IMPRESSION: 1. No pneumothorax. 2. Acute appearing nondisplaced fractures of the lateral left eighth and ninth ribs. 3. Numerous subacute to chronic bilateral rib fractures. ACT 112: Negative or not required by law. Electronically signed by: Johnson Llamas M.D. 02/20/2021 6:46 AM
[2021-02-20 07:12] LABS: iSTAT Creatinine 0.8 mg/dl (0.6-1.3); iSTAT Hemoglobin 12.6 g/dl (14.0-18.0); iSTAT Ionized Calcium 1.33 mmol/l (1.12-1.32); iSTAT Potassium 4.2 mmol/L (3.3-5.0)
--- NOTE | 2021-02-20 07:33 | History & Physical Report ---
Date of Service February 20, 2021 Assessment & Plan (1) Rib fractures: With left fifth through ninth subacute and acute rib fractures due to multiple falls last 3 weeks. Here with intractable pain, causing some atelectasis No evidence of pneumonia or pneumothorax, no pleural effusion on CT scan, and no flail chest -Bring in on observation for pain control -Continue Dilaudid 0.5 mg IV every 4 hours as needed severe pain, continue oxycodone 5-10 mg p.o. every 4 hours as needed pain, continue Tylenol 1000 mg p.o. twice daily from home -Start lidocaine patch to the rib -Incentive spirometry every hour while awake encouraged -Follow chest x-ray in the morning to ensure no development of pleural effusion -Supplemental O2 as needed to keep pulse ox greater than 92% (2) Fall: With 2 falls in the last several weeks He attributes this to his history of spinal stenosis in the lumbar spine Consider PT/OT consults if not stable on his feet by tomorrow No other acute injuries except right fourth and fifth fingers with mild edema, he declines x-ray at this time as the fingers are functional (3) Asthma: No acute issues although pulse ox slightly lower than his baseline at 92 of 93% He has been unable to inhale his maintenance inhalers and has not taken them for 2 weeks due to his pain from the rib fractures -Start inhaled budesonide nebulizers twice daily and DuoNeb scheduled (4) Dyslipidemia: Continue Lipitor (5) Essential hypertension: No longer taking lisinopril as blood pressures have normalized since retir ement Follow blood pressures here (6) Lumbar spinal stenosis: Status post L4-5 fusion and subsequent lumbar laminectomy Continue Tylenol twice daily Continue Cymbalta (7) Enlarged prostate with lower urinary tract symptoms (LUTS): No acute issues but will watch for this given opioid use Continue Uroxatrol at bedtime (8) Hypomagnesemia: Follow magnesium level in the morning Continue on home magnesium twice daily (9) Depression: No acute issues, stable Continue home Cymbalta and Wellbutrin (10) Macrocytic anemia: Mild, hemoglobin 12.8, MCV 99.2 B12 and folate levels were normal 6 months ago Follow-up with PCP (11) DVT prophylaxis: SCDs only in case of bleeding from rib fractures Disposition-bring in on observation medical telemetry Full code History of Present Illness Chief Complaint: Rib pain Primary Care Provider: Carmelo Haddad MD This patient is an 80-year-old now with a history of asthma, BPH, depression, chronic lower back pain, hyperlipidemia, and hypertension not currently on medications, who presents to the ER with left-sided rib pain that is severe. He reports he tripped over a rug and fell approximately 3 weeks ago. He had some left-sided rib pain at the time but it was manageable at home. He then fell again about 1-1/2 weeks ago after slipping and again hurt the left side after falling onto it. He denies hitting his head or loss of consciousness, denies any injuries anywhere else except for his right fourth and fifth fingers have been swollen but functional. Then, last evening, he stretched his left arm out and all of a sudden had severe left-sided rib pain. He tried taking hydrocodone he had at home but continued to have severe pain. In the ER, he was found on CT scan of the chest to have numerous left-sided rib fractures; the left 5th-7th ribs had subacute fractures and the left eighth and ninth ribs were fractured and appeared more acute. He was given IV fentanyl, 5 mg of p.o. oxycodone, and finally had some relief with Dilaudid 0.5 mg IV x1. His pulse ox was mildly low at 92 with 93% on room air down from his baseline of 95-96%. He had no pneumothorax or hemothorax, no pneumonia but did have evidence of small amount of atelectasis on CT scan. He denies any fevers or chills, no nausea or vomiting, no chest pain other than the rib pain, no cough. He has not been able to use his typical Breo Ellipta or albuterol inhalers as he cannot take deep breaths to get them into his lungs. His laboratory values were otherwise fairly unremarkable except for mild macrocytic anemia, and a mildly elevated BUN and ionized calcium likely secondary to dehydration. Covid test was negative. Troponin was negative. He will be brought in on observation for intractable pain due to falls with rib fractures. Allergies Allergy/AdvReac Type Severity Reaction Status Date / Time sulfamethoxazole Allergy Severe Rash Verified 02/20/21 07:41 [From Bactrim] trimethoprim [From Bactrim] Allergy Severe Hives Verified 02/20/21 07:41 gentamicin AdvReac Intermediate MADE Verified 02/20/21 07:41 CONDITION WORSE Home Medications Medication Instructions Recorded Confirmed Type albuterol sulfate 1 puff INHALATION Q6H PRN 09/01/18 02/20/21 History multivitamin 1 tab PO QDD 09/01/18 02/20/21 History vitamin B complex 1 tab PO QDD 09/01/18 02/20/21 History latanoprost 0.005 % eye drops 1 drp OPHTHALMIC (EYE) HS ml 03/22/19 02/20/21 History alfuzosin 10 mg tablet,extended 10 mg PO QDD 08/10/19 02/20/21 History release 24 hr atorvastatin 40 mg tablet 40 mg PO QDD 10/03/19 02/20/21 History duloxetine 60 mg capsule,delayed 60 mg PO QAM 10/03/19 02/20/21 History release ipratropium 0.5 mg-albuterol 3 mg 3 ml INHALATION TID PRN ml 07/03/20 02/20/21 History (2.5 mg base)/3 mL nebulization soln magnesium oxide 400 mg PO BID 07/25/20 02/20/21 History cholecalciferol (vitamin D3) 50 mcg PO QDD 08/07/20 02/20/21 History [Vitamin D3] azithromycin 250 mg tablet See Rx Instructions PO .COMPLEX #6 02/11/21 02/20/21 Rx tab acetaminophen [Tylenol Arthritis] 1,300 mg PO Q12H 02/20/21 02/20/21 History bupropion HCl 100 mg PO BID 02/20/21 02/20/21 History dextromethorphan-guaifenesin 1 tab PO Q12H 02/20/21 02/20/21 History [Mucinex DM] fluticasone furoate-vilanterol 1 ea INHALATION QAM 02/20/21 02/20/21 History [Breo Ellipta] fluticasone propionate [Flonase 2 spray INTRANASAL DAILY PRN 02/20/21 02/20/21 History Allergy Relief] lidocaine 1 applic TOPICAL BID 02/20/21 02/20/21 History montelukast 10 mg PO QDD 02/20/21 02/20/21 History Past Med/Surg History Medical History (Updated 02/20/21 @ 17:06 by Vanna Jenkins MD) Allergic rhinitis Arthritis of carpometacarpal (CMC) joint of right thumb Arthritis of right knee Asthma last asthma attack ~July 2020. treated with prednisone (finished 07/23/20). typically has 3 asthma attacks. Cervical radiculitis Cervical spinal stenosis Multifactorial multilevel most severe at C5-6. 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 to see PCP 08/23/20. Hypomagnesemia Lumbar radiculopathy Macrocytic anemia Moderate persistent asthma Osteoarthritis Spondylolisthesis of lumbar region (12/04/14) Thyroid nodule Surgical History History of cataract surgery RT History of colonoscopy History of endoscopic sinus surgery 1998 History of esophagogastroduodenoscopy (EGD) History of laminectomy lumbar laminectomy (Dr Marcos May 02 2020 -- [facility]) History of parotid gland removal Left gland removal (1964) History of surgical removal of skin lesion History of vasectomy Hx of decompression of ulnar nerve right S/P carpal tunnel release Right S/P lumbar fusion L4-07 December 2014 Family History Grandmother (Paternal) Stroke Sister Breast cancer Father Prostate cancer Mother Atrial fibrillation Social History (Updated 02/20/21 @ 16:56 by Vanna Jenkins MD) Smoking Status: Never smoker Second Hand Exposure: No (N/a); Do You Dip or Chew Tobacco: No (N/a); Tobacco Cessation Education Requested by Patient: No Hx Alcohol Use: Yes Alcohol type: wine Hx Substance Use: No Preferred Language: Turkish Communication Ability: Effective Visual Impairment: Limited Hearing Ability: Normal Tensile Tester Required: No Beliefs That Will Affect Care: Spiritual marital status: Current Living Situation: Spouse current occupational status: retired current occupation: Physician Other Information That Helps Us Care for You: No Feels Safe at Home: Yes Safety Concerns: Feels Safe At This Time Assistive Devices: Cane Review of Systems Review of Systems: All systems reviewed & are unremarkable except as noted in HPI & below Physical Exam Constitutional: WD/WN, vitals as above Eyes: PERRL, conjunctivae normal, anicteric sclerae ENMT: external ear and nose normal, oropharynx normal (except mild erythema posterior oropharynx) Neck: trachea midline, no thyromegaly Respiratory: normal respiratory effort; no cough and not tachypneic Auscultation: + crackles (at left base); no rhonchi and no wheezes Cardiovascular: RRR, no murmur, no edema Chest (Breasts): Chest: normal inspection of chest Additional Comments: +TTP over left anterior mid rib cage Gastrointestinal (Abdomen): normal bowel sounds, soft, nontender, no hepatosplenomegaly Musculoskeletal: Extremities: extremities normal to inspection; no cyanosis and no clubbing Skin: no rashes, warm and dry Neurologic: moves all extremities and awake; no focal motor deficits Psychiatric: A+Ox3, euthymic affect Lymphatic: no lymphedema Results & Data Results & Data ([facility]) Vital Signs (Past 12 Hours) Vital Signs Temp Pulse Resp BP Pulse Ox 02/20/21 06:00 77 15 146/92 H 93 02/20/21 04:35 36.5 C 96 H 20 151/87 H 95 Laboratory Results 02/20/21 02/20/21 02/20/21 Range/Units 07:47 07:47 05:56 WBC (4.8-10.8) K/uL RBC (4.7-6.1) M/uL Hgb (14.0-18.0) g/dL POC Hgb 12.6 L (14.0-18.0) g/dl Hct (42-52) % POC Hct 37 L (42-52) % MCV (80-100) fL MCH (25-34) pg MCHC (32-36) g/dL RDW Std Deviation (36.4-46.3) fL RDW Coeff of Shona (11.5-14.5) % Plt Count (130-400) K/uL MPV (7.4-10.4) fL Immature Gran % (Auto) % Neut % (Auto) % Lymph % (Auto) % [place] % (Auto) % Eos % (Auto) % Baso % (Auto) % Neut # (Auto) (1.4-6.5) K/uL Lymph # (Auto) (1.2-3.4) K/uL [place] # (Auto) (0.11-0.59) K/uL Eos # (Auto) (0-0.5) K/uL Baso # (Auto) (0-0.2) K/uL Immature Gran # (Auto) (0.00-0.02) K/uL PT (9.0-12.0) Seconds INR (0.9-1.1) POC Sodium 137 (135-144) mmol/L Sodium (136-145) mmol/L POC Potassium 4.2 (3.3-5.0) mmol/L Potassium (3.5-5.1) mmol/L POC Chloride 103 (101-112) mmol/L Chloride (98-107) mmol/L Carbon Dioxide (21-32) mmol/L POC Total CO2 25 (24-31) mmol/L Anion Gap (3-11) POC Anion Gap 15.0 L (16-25) mmol/L POC BUN 24 H (7-18) mg/dl BUN (7-18) mg/dl Creatinine (0.6-1.4) mg/dl POC Creatinine 0.8 (0.6-1.3) mg/dl Est Cr Clr Drug Dosing ml/min Est GFR ( Amer) Est GFR (Non-Af Amer) BUN/Creatinine Ratio (10-20) Glucose (70-99) mg/dl POC Glucose (other) 120 H (70-99) mg/dl Calcium (8.5-10.1) mg/dl POC Ioniz Calcium Devin 1.33 H (1.12-1.32) mmol/l Troponin I (0-0.045) ng/ml COVID-19 Eval Order CovFluRsv at [facility] SARS-CoV-2 (PCR) NEGATIVE (Negative) Influenza Type A (PCR) Negative (Neg) Influenza Type B (PCR) Negative (Neg) RSV (RT-PCR) Negative (Neg) 02/20/21 02/20/21 02/20/21 Range/Units 05:50 05:50 05:50 WBC 4.74 L (4.8-10.8) K/uL RBC 3.81 L (4.7-6.1) M/uL Hgb 12.8 L (14.0-18.0) g/dL POC Hgb (14.0-18.0) g/dl Hct 37.8 L (42-52) % POC Hct (42-52) % MCV 99.2 (80-100) fL MCH 33.6 (25-34) pg MCHC 33.9 (32-36) g/dL RDW Std Deviation 46.8 H (36.4-46.3) fL RDW Coeff of Shona 13.0 (11.5-14.5) % Plt Count 172 (130-400) K/uL MPV 9.5 (7.4-10.4) fL Immature Gran % (Auto) 0.2 % Neut % (Auto) 59.9 % Lymph % (Auto) 22.2 % [place] % (Auto) 13.9 % Eos % (Auto) 3.2 % Baso % (Auto) 0.6 % Neut # (Auto) 2.84 (1.4-6.5) K/uL Lymph # (Auto) 1.05 L (1.2-3.4) K/uL [place] # (Auto) 0.66 H (0.11-0.59) K/uL Eos # (Auto) 0.15 (0-0.5) K/uL Baso # (Auto) 0.03 (0-0.2) K/uL Immature Gran # (Auto) 0.01 (0.00-0.02) K/uL PT 9.8 (9.0-12.0) Seconds INR 1.0 (0.9-1.1) POC Sodium (135-144) mmol/L Sodium 137 (136-145) mmol/L POC Potassium (3.3-5.0) mmol/L Potassium 4.1 (3.5-5.1) mmol/L POC Chloride (101-112) mmol/L Chloride 105 (98-107) mmol/L Carbon Dioxide 26 (21-32) mmol/L POC Total CO2 (24-31) mmol/L Anion Gap 5.0 (3-11) POC Anion Gap (16-25) mmol/L POC BUN (7-18) mg/dl BUN 26 H (7-18) mg/dl Creatinine 0.88 (0.6-1.4) mg/dl POC Creatinine (0.6-1.3) mg/dl Est Cr Clr Drug Dosing 73.6 ml/min Est GFR ( Amer) 93.4 Est GFR (Non-Af Amer) 80.6 BUN/Creatinine Ratio 28.9 H (10-20) Glucose 118 H (70-99) mg/dl POC Glucose (other) (70-99) mg/dl Calcium 9.7 (8.5-10.1) mg/dl POC Ioniz Calcium Devin (1.12-1.32) mmol/l Troponin I < 0.015 (0-0.045) ng/ml COVID-19 Eval Order SARS-CoV-2 (PCR) (Negative) Influenza Type A (PCR) (Neg) Influenza Type B (PCR) (Neg) RSV (RT-PCR) (Neg) Diagnostic Findings Ribs w/Chest X-Ray 02/20/21 04:54 XR ribs LT min 2V w CXR1V CLINICAL HISTORY: Left rib pain following fall. COMPARISON: Chest CT December 27, 2020. FINDINGS: There is no pneumothorax. There is a trace left pleural effusion. There are multiple subacute to chronic bilateral rib fractures. Note is made of acute appearing nondisplaced fractures of the lateral left eighth and ninth ribs. Cardiomegaly is noted. No evidence for pneumonia or pulmonary edema. IMPRESSION: 1. No pneumothorax. 2. Acute appearing nondisplaced fractures of the lateral left eighth and ninth ribs. 3. Numerous subacute to chronic bilateral rib fractures. ACT 112: Negative or not required by law. Electronically signed by: Johnson Llamas M.D. 02/20/2021 6:[address] 02/20/21 05:27 CT OF THE CHEST WITH IV CONTRAST CLINICAL HISTORY: left rib fracture, worsening shob COMPARISON STUDY: Chest CT December 27, 2020. Chest radiograph and left rib series February 20, 2021 at 5:20 AM. TECHNIQUE: Following IV administration of Optiray, helical axial images of the chest were obtained. Sagittal and coronal reconstructions were viewed as well as maximal intensity projections on an independent 3-D workstation. Automated exposure control was utilized for the study. A dose lowering technique was utilized adhering to the principles of ALARA. CT DOSE: 660.88 mGy.cm FINDINGS: There is no pneumothorax. Trace bilateral pleural effusions are noted with associated atelectasis. Note is made of mild cardiomegaly with moderate coronary artery calcification. There is no thoracic lymphadenopathy. There are acute nondisplaced fractures of the lateral left eighth and ninth ribs. There are multiple subacute left-sided rib fractures, including subacute fractures of the left fifth, sixth and seventh ribs. These fractures are new since CT of December 27, 2020. Additional bilateral rib fractures are also noted. These are subacute to chronic. Many of these were present on prior examination. There is no consolidation to suggest pneumonia. Subpleural opacities reflect atelectasis. There is no pulmonary contusion. IMPRESSION: 1. Acute nondisplaced fractures of the lateral left eighth and ninth ribs. Subacute healing fractures of the left fifth, sixth and seventh ribs. Numerous additional subacute to chronic bilateral rib fractures. No pneumothorax. 2. Trace bilateral pleural effusions. 3. No consolidation to suggest pneumonia. ACT 112: Negative or not required by law. Electronically signed by: Johnson Llamas M.D. 02/20/2021 6:44 AM ECG Additional Comments: No ECG performed Code Status & VTE Plan Code Status Full code, but has advanced directive that if he is in a state with a very poor prognosis such as stroke and inability eat, would not want to prolong his life with artificial hydration or nutrition or ventilation VTE Prophylaxis Plan VTE Prophylaxis will be ordered: Yes PG Care Time/CCT Total # of Minutes Spent Total Time Spent with Patient: Total time spent is greater than 50% in coordination of care (as documented) at patient's floor/unit and/or counseling patient: Coding Level of Care Code 11723 OBS Care - Level 3 Diagnoses Rib fractures S22.49XA Fall W19.XXXA Asthma J45.909 Dyslipidemia E78.5 Essential hypertension I10 Lumbar spinal stenosis M48.061 Enlarged prostate with lower urinary tract symptoms (LUTS) N40.1 Hypomagnesemia E83.42 Depression F32.9 Macrocytic anemia D53.9 DVT prophylaxis Z29.9
[2021-02-20] MEDS ORDERED: HYDROmorphone INJ 0.5 MG/0.5 ML SYR IV PRN (07:59)
[2021-02-20 09:07] LABS: Influenza A virus by PCR Negative (Neg); Influenza B virus by PCR Negative (Neg); RSV by PCR Negative (Neg); SARS CoV2 RNA(COVID-19) InHosp NEGATIVE (Negative)
[2021-02-20] MEDS ORDERED: oxyCODONE HCL IR 5 MG TAB (IMMEDIATE RELEASE) PO PRN (09:20)
[2021-02-20] MEDS ORDERED: FLUTICASONE PROPIONATE NA SPR 16 GM BTL NAE PRN (11:22)
[2021-02-20] MEDS ORDERED: POLYETHYLENE (MIRALAX) 17 GM PACK PO PRN (11:22)
[2021-02-20] MEDS ORDERED: ONDANSETRON INJ 2 MG/ML 2 ML VIAL IV PRN (11:22)
[2021-02-20] MEDS: BUDESONIDE 0.5 MG/2 ML VIAL (PULMICORT) NEB SCH ×2 (12:04→19:55)
[2021-02-20] MEDS: ALBUT/IPRATROP 3MG/0.5MG NEB 3 ML VIAL INH SCH ×2 (12:04→19:55)
[2021-02-20] MEDS: MAGNESIUM OXIDE 400 MG TAB PO SCH ×2 (12:51→20:30)
[2021-02-20] MEDS: ACETAMINOPHEN 500 MG TAB PO SCH ×2 (12:52→20:27)
[2021-02-20] MEDS: buPROPion SR 100 MG TABCR PO SCH ×2 (12:54→20:30)
[2021-02-20] MEDS: DULoxetine HCL 60 MG CAP PO SCH (12:55)
[2021-02-20] MEDS: LIDOCAINE 5% 1 PATCH TD SCH (13:35)
[2021-02-20] MEDS ORDERED: ALBUT/IPRATROP 3MG/0.5MG NEB 3 ML VIAL INH SCH (14:00)
[2021-02-20] MEDS ORDERED: ALFUZOSIN HCL 10 MG TAB PO SCH (16:30)
[2021-02-20] MEDS ORDERED: MONTELUKAST SODIUM 10 MG TABLET PO SCH (16:30)
[2021-02-20] MEDS ORDERED: ATORVASTATIN 40 MG TAB PO SCH (16:30)
[2021-02-20] MEDS: HYDROmorphone INJ 0.5 MG/0.5 ML SYR IV PRN ×2 (17:36→22:45)
[2021-02-20] MEDS: oxyCODONE HCL IR 5 MG TAB (IMMEDIATE RELEASE) PO PRN (20:30)
[2021-02-20] MEDS ORDERED: LATANOPROST 0.005% OP SOLN 2.5 ML BTL OP SCH (21:00)
[2021-02-20] MEDS: LIDOCAINE 4% CREAM 15 GM TUBE EXT SCH (21:51)
[2021-02-21] MEDS ORDERED: oxyCODONE HCL IR 5 MG TAB (IMMEDIATE RELEASE) PO STA (00:35)
[2021-02-21] MEDS: HYDROmorphone INJ 0.5 MG/0.5 ML SYR IV PRN (02:31)
[2021-02-21 06:32] LABS: Basophils # (auto) 0.02 K/uL (0-0.2); Basophils % (auto) 0.4 %; Eosinophils # (auto) 0.13 K/uL (0-0.5); Eosinophils % (auto) 2.3 %; Hematocrit (blood only) 36.1 % (42-52); Hemoglobin 12.1 g/dL (14.0-18.0); Immature Granulocytes # (auto) 0.01 K/uL (0.00-0.02); Immature Granulocytes % (auto) 0.2 %; Lymphocytes # (auto) 0.61 K/uL (1.2-3.4); Lymphocytes % (auto) 10.8 %; Mean Corpuscular Hemoglobin 33.4 pg (25-34); Mean Corpuscular Hgb Conc 33.5 g/dL (32-36); Mean Corpuscular Volume 99.7 fL (80-100); Mean Platelet Volume 10.2 fL (7.4-10.4); Monocytes # (auto) 0.68 K/uL (0.11-0.59); Neutrophils # (auto) 4.21 K/uL (1.4-6.5); Neutrophils % (auto) 74.3 %; Platelet Count 166 K/uL (130-400); RDW Coefficient of Variation 13.1 % (11.5-14.5); RDW Standard Deviation 47.6 fL (36.4-46.3); Red Blood Count 3.62 M/uL (4.7-6.1); White Blood Count 5.66 K/uL (4.8-10.8)
[2021-02-21 07:04] LABS: BUN Creatinine Ratio 23.1 (10-20); Calcium 9.3 mg/dl (8.5-10.1); Creatinine Clr Calc Pharmacy 80.3 ml/min; Est GFR (African American) 96.6; Est GFR (Non-African American) 83.4; Magnesium 2.2 mg/dl (1.8-2.4); Potassium 3.9 mmol/L (3.5-5.1)
[2021-02-21] MEDS: BUDESONIDE 0.5 MG/2 ML VIAL (PULMICORT) NEB SCH (07:24)
[2021-02-21] MEDS: ALBUT/IPRATROP 3MG/0.5MG NEB 3 ML VIAL INH SCH ×2 (07:24→13:18)
[2021-02-21] MEDS: oxyCODONE HCL IR 5 MG TAB (IMMEDIATE RELEASE) PO PRN (07:42)
[2021-02-21] MEDS: buPROPion SR 100 MG TABCR PO SCH (07:43)
[2021-02-21] MEDS: MAGNESIUM OXIDE 400 MG TAB PO SCH (07:43)
[2021-02-21] MEDS: DULoxetine HCL 60 MG CAP PO SCH (07:43)
[2021-02-21] MEDS: ACETAMINOPHEN 500 MG TAB PO SCH (07:44)
[2021-02-21] MEDS: LIDOCAINE 5% 1 PATCH TD SCH (07:45)
[2021-02-21] MEDS: LIDOCAINE 4% CREAM 15 GM TUBE EXT SCH (07:47)
--- NOTE | 2021-02-21 07:47 | XRay Report ---
XR chest 1V portable CLINICAL HISTORY: f/u rib fractures,assess for effusion COMPARISON STUDY: Chest radiograph and chest CT February 20, 2021. FINDINGS: There is no pneumothorax. Left-sided rib fractures shown on prior chest radiograph and ches t CT are not well visualized on this exam due to technique. Left basilar opacity has increased. A sma ll left pleural effusion is increased. There is no evidence for pulmonary edema. Cardiomediastinal si lhouette is stable. IMPRESSION: 1. No pneumothorax. 2. Increase in left basilar opacity and a small left pleural effusion since prior exams. 3. Left-sided rib fractures on prior chest CT not well visualized on this exam due to radiographic te chnique. ACT 112: Negative or not required by law. Electronically signed by: Johnson Llamas M.D. 02/21/2021 7:46 AM
--- NOTE | 2021-02-21 08:24 | Pulmonary Consultation ---
Date of Consultation February 21, 2021 Assessment & Plan (1) Left rib fracture: CT chest 02/20/2021 personally reviewed: Right upper lobe accessory lobe appreciated, minimal dependent atelectasis bilateral lower lobes Multiple nondisplaced left-sided rib fractures appreciated. No mediastinal lymphadenopathy Chest x-ray 02/21/2021 personally reviewed: Portable film, there is blunting of the left costophrenic and cardiophrenic angles, increased cardiac silhouette. --Atelectasis left lower lobe Not appreciated on CAT scan yesterday It seems to be from likely splinting because of the pain that patient is having from the fractured ribs. It is undisplaced fracture Pain management along with incentive spirometry will help with that I highly doubt it to be infectious or any other etiology. --Nondisplaced left-sided rib fracture Pain management Continue with incentive spirometry --Asthma Well-controlled Continue with Breo on a daily basis along with Singulair As needed albuterol Plan: Continue with incentive spirometry and pain management. Continue with Breo. Case was discussed with Dr. Jenkins Please note the above document was generated using voice recognition software. It may contain grammatical, syntax or spelling errors.Any formal questions or concerns about the content, text or information contained within the body of this dictation should be directly addressed to the provider for clarification. Encounter type: initial encounter Fracture type: closed Rib fracture type: multiple ribs Qualified Code(s): S22.42XA - Multiple fractures of ribs, left side, initial encounter for closed fracture (2) Rib fractures: (3) Asthma: (4) Atelectasis: History of Present Illness Attending Physician: Vanna Jenkins MD History of Present Illness 80-year-old male past medical history of asthma, depression, BPH, chronic low back pain, dyslipidemia and hypertension was admitted to the hospital because of left-sided rib pain status post fall Pulmonary were consulted because of abnormal chest x-ray which was done today. At the time of examination patient was sitting on the bed. Not in any acute dis tress. He did say that he is having pain when he takes deep breath. He has been using incentive spirometry. Denies any cough. He is compliant with his inhaler when it comes to his asthma. He has been using Breo inhaler 1 puff on a daily basis. He is also using Singulair. He hardly has to use the rescue. Last time he has to use the rescue and it was more than 3 weeks ago. Denies any fever or chills. No hemoptysis. No headache, no dizziness. Social history: Non-smoker, no exposure to any chemicals or fumes. History of asthma since childhood. Allergies Allergy/AdvReac Type Severity Reaction Status Date / Time sulfamethoxazole Allergy Severe Rash Verified 02/20/21 07:41 [From Bactrim] trimethoprim [From Bactrim] Allergy Severe Hives Verified 02/20/21 07:41 gentamicin AdvReac Intermediate MADE Verified 02/20/21 07:41 CONDITION WORSE Home Medications Medication Instructions Recorded Confirmed Type albuterol sulfate 1 puff INHALATION Q6H PRN 09/01/18 02/20/21 History multivitamin 1 tab PO QDD 09/01/18 02/20/21 History vitamin B complex 1 tab PO QDD 09/01/18 02/20/21 History latanoprost 0.005 % eye drops 1 drp OPHTHALMIC (EYE) HS ml 03/22/19 02/20/21 History alfuzosin 10 mg tablet,extended 10 mg PO QDD 08/10/19 02/20/21 History release 24 hr atorvastatin 40 mg tablet 40 mg PO QDD 10/03/19 02/20/21 History duloxetine 60 mg capsule,delayed 60 mg PO QAM 10/03/19 02/20/21 History release ipratropium 0.5 mg-albuterol 3 mg 3 ml INHALATION TID PRN ml 07/03/20 02/20/21 History (2.5 mg base)/3 mL nebulization soln magnesium oxide 400 mg PO BID 07/25/20 02/20/21 History cholecalciferol (vitamin D3) 50 mcg PO QDD 08/07/20 02/20/21 History [Vitamin D3] Breo Ellipta 1 ea INHALATION QAM 02/20/21 02/20/21 History Mucinex DM 1 tab PO Q12H 02/20/21 02/20/21 History acetaminophen 1,300 mg PO Q12H 02/20/21 02/20/21 History bupropion HCl 100 mg PO BID 02/20/21 02/20/21 History fluticasone propionate [Flonase 2 spray INTRANASAL DAILY PRN 02/20/21 02/20/21 History Allergy Relief] lidocaine 1 applic TOPICAL BID 02/20/21 02/20/21 History montelukast 10 mg PO QDD 02/20/21 02/20/21 History budesonide 0.5 mg NEB BIDR 30 Days #120 ml 02/21/21 Rx oxycodone 10 mg PO Q6 PRN #30 tab 02/21/21 Rx Patient History Medical History (Updated 02/21/21 @ 14:14 by Valdo Coronado MD) Allergic rhinitis Arthritis of carpometacarpal (CMC) joint of right thumb Arthritis of right knee Asthma last asthma attack ~July 2020. treated with prednisone (finished 07/23/20). typically has 3 asthma attacks. Cervical radiculitis Cervical spinal stenosis Multifactorial multilevel most severe at C5-6. 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 to see PCP 08/23/20. Hypomagnesemia Lumbar radiculopathy Macrocytic anemia Moderate persistent asthma Osteoarthritis Spondylolisthesis of lumbar region (12/04/14) Thyroid nodule Surgical History History of cataract surgery RT History of colonoscopy History of endoscopic sinus surgery 1998 History of esophagogastroduodenoscopy (EGD) History of laminectomy lumbar laminectomy (Dr Marcos May 02 2020 -- [facility]) History of parotid gland removal Left gland removal (1964) History of surgical removal of skin lesion History of vasectomy Hx of decompression of ulnar nerve right S/P carpal tunnel release Right S/P lumbar fusion L4-07 December 2014 Family History Grandmother (Paternal) Stroke Sister Breast cancer Father Prostate cancer Mother Atrial fibrillation Social History (Updated 02/20/21 @ 16:56 by Vanna Jenkins MD) Smoking Status: Never smoker Second Hand Exposure: No (N/a); Do You Dip or Chew Tobacco: No (N/a); Tobacco Cessation Education Requested by Patient: No Hx Alcohol Use: Yes Alcohol type: wine Hx Substance Use: No Preferred Language: Ethiopian Communication Ability: Effective Visual Impairment: Limited Hearing Ability: Normal Animal Assisted Therapist Required: No Beliefs That Will Affect Care: Spiritual marital status: Current Living Situation: Spouse current occupational status: retired current occupation: Physician Other Information That Helps Us Care for You: No Feels Safe at Home: Yes Safety Concerns: Feels Safe At This Time Assistive Devices: None Review of Systems Review of Systems: All systems reviewed & are unremarkable except as noted in HPI & below Physical Exam Physical Exam: Constitutional: No acute distress HEENT: EOMI, PERRLA Respiratory system: Mild decrease in air entry on the left lower side, no wheeze, no rhonchi, no crackles CVS: S1-S2 positive, no murmurs or gallops Abdomen: Soft, nontender, nondistended, positive bowel sounds x4 Extremities: +2 pulses bilaterally radialis/ dorsalis pedis, no cyanosis, +2 pitting edema bilateral lower extremity Neuro: Awake alert oriented x3 Psych: Normal mood and affect G/U: No Blunt Skin: no rashes, warm and dry Lymphatic: no cervical or axillary lymphadenopathy Results & Data Results & Data ([facility]) Vital Signs (Past 12 Hours) Vital Signs Temp Pulse Pulse Resp BP Pulse Ox 02/21/21 07:44 36.6 C 76 20 123/80 92 02/21/21 07:27 72 16 93 02/21/21 03:58 36.7 C 71 16 128/74 90 02/20/21 23:59 74 02/20/21 23:11 36.6 C 78 18 128/70 93 02/21/21 05:44 02/21/21 05:44 PG Care Time/CCT Total # of Minutes Spent Total Time Spent with Patient: Total time spent is greater than 50% in coordination of care (as documented) at patient's floor/unit and/or counseling patient: Coding Level of Care Code 47097 Office/OBS Consult Lvl 3 Diagnoses Left rib fracture S22.42XA Encounter type: initial encounter Fracture type: closed Rib fracture type: multiple ribs Rib fractures S22.49XA Asthma J45.909 Atelectasis J98.11
--- NOTE | 2021-02-21 13:28 | Discharge Summary ---
Date of Service February 21, 2021 Admission HPI Per Admitting Provider This patient is an 80-year-old now with a history of asthma, BPH, depression, chronic lower back pain, hyperlipidemia, and hypertension not currently on medications, who presents to the ER with left-sided rib pain that is severe. He reports he tripped over a rug and fell approximately 3 weeks ago. He had some left-sided rib pain at the time but it was manageable at home. He then fell again about 1-1/2 weeks ago after slipping and again hurt the left side after falling onto it. He denies hitting his head or loss of consciousness, denies any injuries anywhere else except for his right fourth and fifth fingers have been swollen but functional. Then, last evening, he stretched his left arm out and all of a sudden had severe left-sided rib pain. He tried taking hydrocodone he had at home but continued to have severe pain. In the ER, he was found on CT scan of the chest to have numerous left-sided rib fractures; the left 5th-7th ribs had subacute fractures and the left eighth and ninth ribs were fractured and appeared more acute. He was given IV fentanyl, 5 mg of p.o. oxycodone, and finally had some relief with Dilaudid 0.5 mg IV x1. His pulse ox was mildly low at 92 with 93% on room air down from his baseline of 95-96%. He had no pneumothorax or hemothorax, no pneumonia but did have evidence of small amount of atelectasis on CT scan. He denies any fevers or chills, no nausea or vomiting, no chest pain other than the rib pain, no cough. He has not been able to use his typical Breo Ellipta or albuterol inhalers as he cannot take deep breaths to get them into his lungs. His laboratory values were otherwise fairly unremarkable except for mild macrocytic anemia, and a mildly elevated BUN and ionized calcium likely secondary to dehydration. Covid test was negative. Troponin was negative. He will be brought in on observation for intractable pain due to falls with rib fractures. Principal Diagnosis Fall with left sided multiple rib fractures, intractable pain Discharge Exam Constitutional WD/WN, vitals as above Eyes + anicteric sclerae Neck trachea midline, no thyromegaly Respiratory normal respiratory effort; no cough and not tachypneic Auscultation: + diminished lung sounds (at left base); no crackles, no rhonchi and no wheezes Cardiovascular RRR, no murmur, no edema Chest (Breasts) Chest: normal inspection of chest Gastrointestinal (Abdomen) normal bowel sounds, soft, nontender, no hepatosplenomegaly Musculoskeletal Extremities: extremities normal to inspection; no cyanosis and no clubbing Skin no rashes, warm and dry Neurologic moves all extremities and awake; no focal motor deficits Psychiatric A+Ox3, euthymic affect Lymphatic no lymphedema Discharge Data Allergies Allergy/AdvReac Type Severity Reaction Status Date / Time sulfamethoxazole Allergy Severe Rash Verified 02/20/21 07:41 [From Bactrim] trimethoprim [From Bactrim] Allergy Severe Hives Verified 02/20/21 07:41 gentamicin AdvReac Intermediate MADE Verified 02/20/21 07:41 CONDITION WORSE Consultations 02/20/21 07:28 ED Decision to Admit Stat 02/21/21 07:44 Consult Pulmonology Routine Ordered Studies 02/20/21 05:27 CT chest diagnostic w con Stat Ribs w/Chest X-Ray 02/20/21 04:54 XR ribs LT min 2V w CXR1V CLINICAL HISTORY: Left rib pain following fall. COMPARISON: Chest CT December 27, 2020. FINDINGS: There is no pneumothorax. There is a trace left pleural effusion. There are multiple subacute to chronic bilateral rib fractures. Note is made of acute appearing nondisplaced fractures of the lateral left eighth and ninth ribs. Cardiomegaly is noted. No evidence for pneumonia or pulmonary edema. IMPRESSION: 1. No pneumothorax. 2. Acute appearing nondisplaced fractures of the lateral left eighth and ninth ribs. 3. Numerous subacute to chronic bilateral rib fractures. ACT 112: Negative or not required by law. Electronically signed by: Johnson Llamas M.D. 02/20/2021 6:[address] 02/20/21 05:27 CT OF THE CHEST WITH IV CONTRAST CLINICAL HISTORY: left rib fracture, worsening shob COMPARISON STUDY: Chest CT December 27, 2020. Chest radiograph and left rib series February 20, 2021 at 5:20 AM. TECHNIQUE: Following IV administration of Optiray, helical axial images of the chest were obtained. Sagittal and coronal reconstructions were viewed as well as maximal intensity projections on an independent 3-D workstation. Automated exposure control was utilized for the study. A dose lowering technique was utilized adhering to the principles of ALARA. CT DOSE: 660.88 mGy.cm FINDINGS: There is no pneumothorax. Trace bilateral pleural effusions are noted with associated atelectasis. Note is made of mild cardiomegaly with moderate coronary artery calcification. There is no thoracic lymphadenopathy. There are acute nondisplaced fractures of the lateral left eighth and ninth ribs. There are multiple subacute left-sided rib fractures, including subacute fractures of the left fifth, sixth and seventh ribs. These fractures are new since CT of December 27, 2020. Additional bilateral rib fractures are also noted. These are subacute to chronic. Many of these were present on prior examination. There is no consolidation to suggest pneumonia. Subpleural opacities reflect atelectasis. There is no pulmonary contusion. IMPRESSION: 1. Acute nondisplaced fractures of the lateral left eighth and ninth ribs. Subacute healing fractures of the left fifth, sixth and seventh ribs. Numerous additional subacute to chronic bilateral rib fractures. No pneumothorax. 2. Trace bilateral pleural effusions. 3. No consolidation to suggest pneumonia. ACT 112: Negative or not required by law. Electronically signed by: Johnson Llamas M.D. 02/20/2021 6:44 AM Chest X-Ray 02/21/21 07:00 XR chest 1V portable CLINICAL HISTORY: f/u rib fractures,assess for effusion COMPARISON STUDY: Chest radiograph and chest CT February 20, 2021. FINDINGS: There is no pneumothorax. Left-sided rib fractures shown on prior chest radiograph and chest CT are not well visualized on this exam due to technique. Left basilar opacity has increased. A small left pleural effusion is increased. There is no evidence for pulmonary edema. Cardiomediastinal silhouette is stable. IMPRESSION: 1. No pneumothorax. 2. Increase in left basilar opacity and a small left pleural effusion since prior exams. 3. Left-sided rib fractures on prior chest CT not well visualized on this exam due to radiographic technique. ACT 112: Negative or not required by law. Electronically signed by: Johnson Llamas M.D. 02/21/2021 7:46 AM Hospital Course (1) Rib fractures: With left fifth through ninth subacute and acute rib fractures due to multiple falls last 3 weeks. Here with intractable pain, causing some atelectasis No evidence of pneumonia or pneumothorax, no pleural effusion on CT scan, and no flail chest -Brought in on observation for pain control -received Dilaudid 0.5 mg IV every 4 hours as needed for severe pain, oxycodone 5-10 mg p.o. every 4 hours as needed pain, Tylenol 1000 mg p.o. twice daily, and added lidocaine patch -pain much improved by the next day and was not requiring IV dilaudid -repeat CXR the next day showed slightly worse atelectasis--> consulted PULM who suggested continued pain control, incentive spirometry -Incentive spirometry every hour while awake encouraged -was not hypoxic, doing well, stable for dc to home with po oxycodone, lidocaine patch -advised good bowel regimen with opioids (2) Fall: With 2 falls in the last several weeks He attributes this to his history of spinal stenosis in the lumbar spine No other acute injuries except right fourth and fifth fingers with mild edema, he declines x-ray at this time as the fingers are functional AMbulating independently in room (3) Asthma: No acute issues although pulse ox slightly lower than his baseline at 92 of 93% He has been unable to inhale his maintenance inhalers and has not taken them for 2 weeks due to his pain from the rib fractures -Started inhaled budesonide nebulizers twice daily and DuoNeb scheduled (4) Dyslipidemia: Continue Lipitor (5) Essential hypertension: No longer taking lisinopril as blood pressures have normalized since nursing home Follow blood pressures here (6) Lumbar spinal stenosis: Status post L4-5 fusion and subsequent lumbar laminectomy Continue Tylenol twice daily Continue Cymbalta (7) Enlarged prostate with lower urinary tract symptoms (LUTS): No acute issues but will watch for this given opioid use Continue Uroxatrol at bedtime (8) Hypomagnesemia: magnesium level here is normal Continue on home magnesium twice daily (9) Depression: No acute issues, stable Continue home Cymbalta and Wellbutrin (10) Macrocytic anemia: Mild, hemoglobin 12.8, MCV 99.2 B12 and folate levels were normal 6 months ago Follow-up with PCP (11) DVT prophylaxis: SCDs Disposition-stable for dc to home Full code Total Time Total Time Spent Total Time Spent (In Minutes): 35 min Total Time Includes: Examination of the Patient, Discharge Planning, Medication Reconciliation and Communication With Other Providers (Pulmonology) Discharge Plan Discharge Items Patient Disposition: Home - Self-Care Reason For Visit: RIB FRACTURES Discharge Diagnosis: Rib fractures, intractable pain Condition on Discharge: Good Activity: As commented below Lifting: None Bathing: No limitations Exercise/Sports: Gradually increase as tolerated Non-emergency contact: Primary Care Provider Call non-emergency contact if: you have any medication questions, your symptoms worsen, your pain is not controlled, your pain is worsening, your pain is unusual for you, your pain is concerning for you and you have a fever Follow-up/Referrals: Carmelo Haddad MD [Primary Care Provider] - (Please follow-up with your PCP within 1 to 2 weeks. Patient prefers to make his own appointment.) Diet: Regular Addtl Attending Provider Instructions: Please continue to use your incentive spirometer 10 times each hour while awake. You can continue to take your usual Tylenol as well as oxycodone as needed for pain. Be sure to take stool softeners and/or laxatives as needed to prevent opioid-induced constipation. Please follow-up with your primary care physician within 1 to 2 weeks after discharge. It was a pleasure taking care of you! -Vanna Jenkins MD Pending Studies at Discharge: No Stand-Alone Forms: My [facility] DigitalMR Medications and DC Order Prescriptions: New budesonide 0.5 mg/2 mL Suspension For Nebulization 0.5 mg NEB BIDR 30 Days Qty: 120 RF: 0 oxycodone 5 mg Tablet 10 mg PO Q6 PRN (Reason: pain) Qty: 30 RF: 0 Continued alfuzosin [Uroxatral] 10 mg tablet extended release 24 hr 10 mg PO QDD RF: 0 duloxetine [Cymbalta] 60 mg capsule,delayed release(DR/EC) 60 mg PO QAM RF: 0 atorvastatin [Lipitor] 40 mg tablet 40 mg PO QDD RF: 0 ipratropium-albuterol 0.5 mg-3 mg(2.5 mg base)/3 mL solution for nebulization 3 ml inhalation TID PRN (Reason: sob) RF: 0 magnesium oxide 400 mg magnesium tablet 400 mg PO BID RF: 0 multivitamin Tablet 1 tab PO QDD RF: 0 vitamin B complex Tablet 1 tab PO QDD RF: 0 albuterol sulfate 90 mcg/actuation Aerosol Powdr Breath Activated 1 puff INHALATION Q6H PRN (Reason: Wheezing) RF: 0 latanoprost 0.005 % drops 1 drp ophthalmic (eye) HS RF: 0 cholecalciferol (vitamin D3) [Vitamin D3] 50 mcg (2,000 unit) Capsule 50 mcg PO QDD RF: 0 lidocaine 4 % Cream 1 applic TOPICAL BID RF: 0 bupropion HCl 100 mg tablet sustained-release 12 hr 100 mg PO BID RF: 0 acetaminophen 650 mg Tablet Extended Release 1,300 mg PO Q12H RF: 0 Mucinex DM 30-600 mg Tablet Extended Release 12 Hr 1 tab PO Q12H RF: 0 montelukast 10 mg tablet 10 mg PO QDD RF: 0 fluticasone propionate [Flonase Allergy Relief] 50 mcg/actuation spray,suspension 2 spray intranasal DAILY PRN (Reason: Congestion) RF: 0 Breo Ellipta 200-25 mcg/dose blister with device 1 ea Inhalation QAM RF: 0 Discontinued pneumoc 13-sadia conj-dip cr(PF) 0.5 mL syringe 0.5 ml IM ONCE Qty: 0.5 RF: 0 azithromycin 250 mg tablet See Rx Instructions PO .COMPLEX Qty: 6 RF: 1 Discharge Orders: Discharge Order (Routine); Ordered 02/21/21 Ordered By: Vanna Jenkins Admission Data Admit Date/Time: 02/20/21 09:20 Attending Provider: Vanna Jenkins Admit Provider: Vanna Jenkins Primary Care Provider: Carmelo Haddad Other Providers: Vanna Jenkins ; Valdo Coronado Other Interventions: Discharge Summary Assessment (RN) Last Done: 02/21/21 13:16 Coding Level of Care Code 51108 OBS Care - Discharge Diagnoses Rib fractures S22.49XA Fall W19.XXXA Asthma J45.909 Dyslipidemia E78.5 Essential hypertension I10 Lumbar spinal stenosis M48.061 Enlarged prostate with lower urinary tract symptoms (LUTS) N40.1 Hypomagnesemia E83.42 Depression F32.9 Macrocytic anemia D53.9 DVT prophylaxis Z29.9
== END 2021-02-21 14:31 | disposition home or self-care (01) ==
LOC: 2N 04:33 → ED 04:33 → 2N 11:10

== ENCOUNTER 2023-07-07 05:18 | Observation (INO) ==
--- NOTE | 2023-05-28 12:59 | PAT Medication Instructions ---
Medication Instructions Date of Service May 28, 2023 Home Medications Medication Instructions Recorded alfuzosin 10 mg tablet,extended 10 mg PO QDD #90 tabs 08/24/22 release 24 hr (Uroxatral) atorvastatin 40 mg tablet (Lipitor) 40 mg PO QDD #90 tabs 08/24/22 ipratropium 0.5 mg-albuterol 3 mg 3 ml inhalation TID PRN sob #180 mL 11/13/22 (2.5 mg base)/3 mL nebulization soln hydrocodone 5 mg-acetaminophen 325 1 tab PO Q6 PRN pain #12 tabs 02/05/23 mg tablet pregabalin 150 mg capsule 150 mg PO BID #60 caps 04/07/23 albuterol sulfate 90 mcg/actuation breath activated powder inhaler 1 puff inhalation Q6H PRN multivitamin 1 tab PO QDD vitamin B complex 1 tab PO QDD latanoprost 0.005 % eye drops 1 drp ophthalmic (eye) HS magnesium oxide 400 mg PO BID cholecalciferol (vitamin D3) 50 mcg (2,000 unit) capsule (Vitamin D3) 50 mcg PO QDD acetaminophen 650 mg tablet,extended release 1,300 mg PO QAM lidocaine 4 % topical cream 1 applic topical UD PRN guaifenesin 1,200 mg tablet, extended release 12 hr (Mucinex) 1,200 mg PO BID alfuzosin 10 mg tablet,extended release 24 hr (Uroxatral) 10 mg PO QDD atorvastatin 40 mg tablet (Lipitor) 40 mg PO QDD ipratropium 0.5 mg-albuterol 3 mg (2.5 mg base)/3 mL nebulization soln 3 ml inha lation TID PRN hydrocodone 5 mg-acetaminophen 325 mg tablet 1 tab PO Q6 PRN diclofenac sodium 1 % topical gel 2 g topical QID PRN pregabalin 150 mg capsule 150 mg PO BID bupropion HCl 100 mg tablet,12 hr sustained-release 100 mg PO HS bupropion HCl 100 mg tablet,12 hr sustained-release 200 mg PO QAM fluticasone furoate 100 mcg-vilanterol 25 mcg/dose inhalation powder (Breo Ellipta) 1 inh inhalation QAM fluticasone propionate 50 mcg/actuation nasal spray,suspension (Flonase Allergy Relief) 2 spray intranasal UD PRN montelukast 10 mg tablet 10 mg PO QDD triamcinolone acetonide 0.1 % topical cream 1 applic topical UD PRN Continue as directed alfuzosin 10 mg tablet,extended release 24 hr (Uroxatral) 10 mg PO QDD montelukast 10 mg tablet 10 mg PO QDD atorvastatin 40 mg tablet (Lipitor) 40 mg PO QDD fluticasone propionate 50 mcg/actuation nasal spray,suspension (Flonase Allergy Relief) 2 spray intranasal UD PRN(if needed) STOP taking 24 hours before surgery lidocaine 4 % topical cream 1 applic topical UD PRN diclofenac sodium 1 % topical gel 2 g topical QID PRN triamcinolone acetonide 0.1 % topical cream 1 applic topical UD PRN DO NOT take the morning of surgery multivitamin 1 tab PO QDD vitamin B complex 1 tab PO QDD magnesium oxide 400 mg PO BID cholecalciferol (vitamin D3) 50 mcg (2,000 unit) capsule (Vitamin D3) 50 mcg PO QDD guaifenesin 1,200 mg tablet, extended release 12 hr (Mucinex) 1,200 mg PO BID Take morning of surgery With a small sip of water, OTHERWISE NOTHING TO EAT OR DRINK AFTER MIDNIGHT: albuterol sulfate 90 mcg/actuation breath activated powder inhaler 1 puff inhalation Q6H PRN(use if needed; please bring with you to hospital day of surgery if possible) acetaminophen 650 mg tablet,extended release 1,300 mg PO QAM ipratropium 0.5 mg-albuterol 3 mg (2.5 mg base)/3 mL nebulization soln 3 ml inhalation TID PRN(if needed) hydrocodone 5 mg-acetaminophen 325 mg tablet 1 tab PO Q6 PRN(if needed) pregabalin 150 mg capsule 150 mg PO BID bupropion HCl 100 mg tablet,12 hr sustained-release 200 mg PO QAM fluticasone furoate 100 mcg-vilanterol 25 mcg/dose inhalation powder (Breo Ellipta) 1 inh inhalation QAM Take evening before surgery albuterol sulfate 90 mcg/actuation breath activated powder inhaler 1 puff inhalation Q6H PRN(if needed) latanoprost 0.005 % eye drops 1 drp ophthalmic (eye) HS magnesium oxide 400 mg PO BID guaifenesin 1,200 mg tablet, extended release 12 hr (Mucinex) 1,200 mg PO BID ipratropium 0.5 mg-albuterol 3 mg (2.5 mg base)/3 mL nebulization soln 3 ml inhalation TID PRN(if needed) hydrocodone 5 mg-acetaminophen 325 mg tablet 1 tab PO Q6 PRN(if needed) pregabalin 150 mg capsule 150 mg PO BID bupropion HCl 100 mg tablet,12 hr sustained-release 100 mg PO HS Other Notes If you have any questions please call us at [phone] or [phone] or [phone] or [phone]
--- NOTE | 2023-06-16 13:55 | Anesthesiology Consultation ---
Date of Service June 16, 2023 Assessment & Plan (1) Encounter for pre-operative examination: - awaiting PCP clearance. - recent COVID illness, patient reporting residual cough and last used rescue inhaler several nights ago. He was advised to follow-up with his PCP. Case also discussed with Dr. Russell who advised patient will need PCP clearance prior to surgery. This has been scheduled for 06/18/23 at which time EKG will be completed confirmed by Alfonso and Bhavana Fuller PA-C with PCP office. He plans to also keep PCP appointment 06/26/23. Carolin with surgeon's office made aware of needed PCP clearance and labs/CXR being moved back to Dr. Ramirez's orders. (Gely was not available today). - allergy visit 03/03/23 [place]: "...will continue to monitor his antibody and strep pneumonia titers. The latter has been consistently decreasing over time. Some of this is expected for everyone, and right now his levels are still mostly protective assuming we use a cutoff of 1 mcg/mL. I will touch base with him once I get the most recent blood work, and if they have dropped off significantly for the last 1, I recommend that we give him a booster vaccine Prevnar this fall. It would be ideal to give Prevnar 20 if it is available. If we do not have this, I would recommend we give Prevnar 13 and then 6 months later give the Pneumovax 23. This will hopefully promote better long-lasting protection..." - pulmonology 11/13/22 [place]: "...Uncertain of asthma diagnosis given no significant postbronchodilator response in the last 2 PFTs. Will defer methacholine challenge test at this time and simply decrease the dose of Breo to see response. PFTs without obstructive pathology. Moderate restriction seen possibly related to weight gain. His DLCO was actually improved compared to prior. I do not suspect ILD given the normal chest imaging and unremarkable DLCO. He did have COVID-19 last year which she recovered from completely. His x-ray as noted above was unremarkable. Cardiac work-up was also unremarkable. D yspnea is likely multifactorial from deconditioning and weight gain. I prescribed him azithromycin and Augmentin to be used in case of infectious symptoms given his history of hypogammaglobulinemia..." - cardiology 10/06/22 [place]: "...Dyspnea on exertion: Significantly improved. Noncardiac etiology. Advanced age and some deconditioning per his admission. Encourage increased cardiovascular exercise. Dyslipidemia: No more than intermediate risk with normal coronaries and absence of diabetes..." - Outpatient joint assessment: Patient is currently scheduled for inpatient p athway. If re-evaluated and patient/surgeon requests outpatient pathway, patient is not acceptable candidate for outpatient joint program from anesthesia standpoint. Chart Review Chart Review: Pending: Refer to Additional Notes / Consult section and Patient seen in Pre Admission Testing Teaching & Discussion Pre-Anesthesia Teaching/Discussion Notes: Instructed NPO after midnight before surgery, except medications with 15 cc of water. Medication instructions provided according to the PAT guidelines. History Surgery Operation Date: 07/07/23 07:00 Proposed Procedures p Right Unicompartmental Knee versus - Mauro Ramirez MD s Right Total Knee Arthroplasty - Mauro Ramirez MD Height/Weight Height: 5 ft 8.5 in Weight: 102.4 kg Allergies Allergy/AdvReac Type Severity Reaction Status Date / Time sulfamethoxazole Allergy Severe major Verified 05/28/23 11:20 [From Bactrim] reaction - serum sickness / hives, profound fatigue gentamicin Allergy Unknown compounded Verified 06/16/23 13:57 infection, was advised not to have gentamicin trimethoprim [From Bactrim] Allergy Unknown major Verified 05/28/23 11:20 reaction- serum sickness/hives, profound fatigue Medications Home Medications Medication Instructions Recorded Confirmed Last Taken albuterol sulfate 90 mcg/actuation 1 puff inhalation Q6H PRN Wheezing 09/01/18 05/28/23 05/08/21 05:30 breath activated powder inhaler multivitamin 1 tab PO QDD 09/01/18 05/28/23 05/07/21 vitamin B complex 1 tab PO QDD 09/01/18 05/28/23 05/07/21 latanoprost 0.005 % eye drops 1 drp ophthalmic (eye) HS 03/22/19 05/28/23 05/07/21 magnesium oxide 400 mg PO BID 07/25/20 05/28/23 05/07/21 cholecalciferol (vitamin D3) 50 50 mcg PO QDD 08/07/20 05/28/23 05/07/21 mcg (2,000 unit) capsule (Vitamin D3) acetaminophen 650 mg 1,300 mg PO QAM 02/20/21 05/28/23 02/19/21 tablet,extended release lidocaine 4 % topical cream 1 applic topical UD PRN right 02/20/21 05/28/23 05/07/21 wrist arthritis guaifenesin 1,200 mg tablet, 1,200 mg PO BID 02/19/22 05/28/23 Unknown extended release 12 hr (Mucinex) alfuzosin 10 mg tablet,extended 10 mg PO QDD #90 tabs 08/24/22 05/28/23 Unknown release 24 hr (Uroxatral) atorvastatin 40 mg tablet (Lipitor) 40 mg PO QDD #90 tabs 08/24/22 05/28/23 Unknown ipratropium 0.5 mg-albuterol 3 mg 3 ml inhalation TID PRN sob #180 mL 11/13/22 05/28/23 Unknown (2.5 mg base)/3 mL nebulization soln hydrocodone 5 mg-acetaminophen 325 1 tab PO Q6 PRN pain #12 tabs 02/05/23 05/28/23 Unknown mg tablet diclofenac sodium 1 % topical gel 2 g topical QID PRN Pain 03/05/23 05/28/23 Unknown bupropion HCl 100 mg tablet,12 hr 100 mg PO HS 05/28/23 05/28/23 Unknown sustained-release bupropion HCl 100 mg tablet,12 hr 200 mg PO QAM 05/28/23 05/28/23 Unknown sustained-release fluticasone furoate 100 1 inh inhalation QAM 05/28/23 05/28/23 Unknown mcg-vilanterol 25 mcg/dose inhalation powder (Breo Ellipta) fluticasone propionate 50 2 spray intranasal UD PRN 05/28/23 05/28/23 Unknown mcg/actuation nasal Congestion spray,suspension (Flonase Allergy Relief) montelukast 10 mg tablet 10 mg PO QDD 05/28/23 05/28/23 Unknown triamcinolone acetonide 0.1 % 1 applic topical UD PRN Skin 05/28/23 05/28/23 Unknown topical cream Irritation pregabalin 150 mg capsule 150 mg PO BID #60 caps 06/01/23 Unknown Past Medical History Medical History (Updated 06/17/23 @ 12:48 by Bhavana Barrientos PA-C) Anemia mild Cervical radiculitis Cervical spinal stenosis Multifactorial multilevel most severe at C5-6. 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 Rodriguez, ongoing monitoring Hypomagnesemia hx following with PCP --> r/t recent prednisone treatment and pantoprazole which has since been stopped. Lumbar radiculopathy Moderate persistent asthma well controlled per pt > last rescue inhaler use last evening since covid illness Spondylolisthesis of lumbar region (12/04/14) Thyroid nodule Patient denies h/o stroke, seizures, heart attack, DM, blood clots or blood transfusions. Exercise / Class Metabolic Activity III < 4 Walking/Shop/Light housework (dyspnea on exertion ongoing since 2019 with usual activities, denies chest discomfort with usual activities) Past Family History Family History Grandmother (Paternal) Stroke Sister Breast cancer Father Prostate cancer Mother Atrial fibrillation Denies family history of Ovarian cancer Myocardial infarction Colorectal cancer Past Surgical History Surgical History History of cardiac cath questionable stress test .fall cath/ no stent(s) - [facility] History of cataract surgery bilat History of colonoscopy History of endoscopic sinus surgery 1998 History of esophagogastroduodenoscopy (EGD) 1989 History of laminectomy lumbar laminectomy (Dr Marcos May 02 2020 -- [facility]) History of parotid gland removal Left gland removal (1964) History of surgical removal of skin lesion forehead, removal of SCC History of vasectomy Hx of decompression of ulnar nerve right, transposition S/P carpal tunnel release Right S/P lumbar fusion L4-L5 December 2014 Past Anesthesia History No Hx of Anesthesia Complications and No Family Hx of Anesthesia Complications History of PONV No Hx of PONV and No Hx of Motion Sickness Social History Smoking Status: Never smoker Do You Dip or Chew Tobacco: No Hx Alcohol Use: Yes Alcohol type: wine alcohol intake frequency: 3 or more drinks per day (6 oz liquor and 12 oz wine, denies any withdrawal history, DTs, seizures) Hx Substance Use: No substance use type: does not use Review of Systems Occasional snoring, denies witnessed apneas. Patient denies chest pain, fever, chills, or palpitations. Physical Exam Vital Signs Vitals BP 144/80 P 72 TEMP 98.2 SP02 95% on RA RESP 18 Physical Patient resting comfortably in chair in NAD, alert and oriented, responding appropriately throughout visit Full cervical extension range of motion without pain TMD 3.5 finger breadths Mallampati Score 3 Dentition: permanent bridge right lower side, implant left lower back and a crown, denies chipped or loose teeth Lungs: normal respiratory effort. Good air movement, clear throughout to auscultation, no adventitious breath sounds Cardiac: regular rate and rhythm, no murmurs noted Carotid arteries: negative bruit bilat Lab Results Anesthesia Preop Results Results Anesthesia Widget: WBC 4.19 K/ul (4.8-10.8) L 06/16/23 Hgb 12.8 g/dl (14.0-18.0) L 06/16/23 Hct 38.3 % (42.0-52.0) L 06/16/23 Plt 141 K/uL (130-400) 06/16/23 Na 138 mmol/L (136-145) 06/16/23 K 4.2 mmol/L (3.5-5.1) 06/16/23 Cl 106 mmol/L (98-107) 06/16/23 CO2 28 mmol/L (21-32) 06/16/23 BUN 19 mg/dl (6-23) 06/16/23 Creat 0.88 mg/dl (0.6-1.4) 06/16/23 Glucose Level 108 mg/dl (70-99(Fasting)) H 06/16/23 PT 10.4 Seconds (9.0-12.0) 06/16/23 PTT 23.6 Seconds (21.0-31.0) 06/16/23 INR 0.9 (0.9-1.1) 06/16/23 Urine Color Dark Yellow 05/29/23 Urine Appearance Clear (Clear) 05/29/23 Urine pH 8.5 (4.5-7.5) H 05/29/23 Urine Specific [place] 1.024 (1.000-1.030) 05/29/23 Urine Protein Trace (Negative) H 05/29/23 Urine Glucose (UA) Negative (Negative) 05/29/23 Urine Ketones Trace (Negative) H 05/29/23 Urine Blood Negative (Negative) 05/29/23 Urine Nitrite Negative (Negative) 05/29/23 Urine Bilirubin Negative (Negative) 05/29/23 Urine Urobilinogen Negative (Negative) 05/29/23 Urine Leukocyte Esterase Negative (Negative) 05/29/23 Urine WBC (Auto) 1-5 /hpf (0-5) 05/29/23 Urine RBC (Auto) 0-4 /hpf (0-4) 05/29/23 Urine Hyaline Casts (Auto) 1-5 /lpf (0-5) 05/29/23 Urine Epithelial Cells (Auto) 0-5 /lpf (0-5) 05/29/23 Urine Bacteria (Auto) Negative (Negative) 05/29/23 Blood Type AB Negative 06/16/23 Antibody Screen POSITIVE A 06/16/23 Testing Laboratory Results Nothing additional needed with antibodies per Kate with blood bank. Chest X-Ray Date: 06/16/23 1. Right basilar linear densities are nonspecific but favor subsegmental atelectasis. Follow-up chest x-ray in 3 months is recommended to ensure stability/resolution. 2. Otherwise, no acute process within the chest. Echocardiogram Date: 04/24/20 EF 60-65% No regional wall motion abnormalities Mild cLVH No significant valvular pathology Stress Test Date: 08/01/22 Dobutamine Negative stress echo for myocardial ischemia at 94% MPHR Peak stress EKG with borderline [address] depression in leads III, aVF Baseline first degree AVB progresses to intermittent Weinkebach 2nd degree AVB with dobutamine infusion Mild cLVH No evidence of wall motion abnormalities Cardiac Catheterization Date: 09/19/22 LMT: Large-caliber short vessel which bifurcates into the LAD and left circumflex. It has no angiographically evident disease. LAD: Large caliber and transapical vessel. Proximal segment is normal. Provides a medium to large caliber branching first diagonal. It then has a larg e septal branch followed by several smaller septal branches. The mid segment has mild diffuse luminal irregularities there is a small to medium caliber second diagonal and the distal LAD becomes a medium in caliber tapering as it wraps the apex and terminates. It is somewhat tortuous in the distal segment and has no more than mild luminal irregularities. LCx: This is a large caliber and dominant vessel. First major branch arising from the AV groove is a large in caliber and branching. The branches are very tortuous consistent with age and hypertension. The AV groove vessel continues as a large caliber vessel distally where it provides a large caliber posterior lateral branch followed by a small to medium caliber posterior lateral branch #2 and finally terminates as a large caliber long PDA. These vessels have mild distal tortuosity. There is no angiographically evident disease in the remainder of the circumflex and its branches. RCA: Medium caliber nondominant vessel providing the RV marginal branches which are very tortuous. There is no significant disease in this vessel. Summary: 1. There is no angiographically significant coronary disease. Branch vessels demonstrate findings consistent with hypertension and advanced age. 2. Normal LV filling pressures 3. Incidentally noted brief episodes of Mobitz type I second-degree AV block. 4. 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 Should the patient require further cardiac catheterization I would recommend femoral approach for left radial approach. Other Testing PFT 11/23/22 Nonspecific spirometric pattern without a significant postbronchodilator response. Lung volumes with evidence of mild restrictive physiology. DLCO unremarkable.
--- NOTE | 2023-07-04 09:49 | History & Physical Report ---
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 He failed conservative treatment would like to proceed with intervention/surgical management/arthroplasty. He is really hoping to have a partial knee replacement. Plan: We will take him to the operating plan doing a right partial knee replacement. If we get in there is too bad we will do a full knee replacement. The risks and benefits of this procedure plan the patient include but not limited to DVT PE infection neurological and vascular bleeding palm pain limb range of motion test is fairly with symptoms incomplete relief of symptoms need for further surgery in the future fracture dislocation exceptor. Patient understands and desires to proceed. Informed consent was obtained. Especially considering his multiple comorbidities I think a partial knee replacement is a good option for this gentleman. Hopefully his intraoperative exam will confirm this. As far as pain control he is not done well with tramadol. Will likely use oxycodone. Avoid using a Blunt catheter at his request. He is plan on staying overnight and discharged postop day 1 if does okay in therapy (2) Knee pain with avascular necrosis determined by x-ray: History of Present Illness Chief Complaint: . Persistent right medial knee pain and discomfort. Primary Care Provider: Bernice Mitchell MD . 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 I been following for the past 4 years for medial compartment arthritis likely related to avascular necrosis. He has been treated extensively with injections which really did not help too much. He did have a cryoablation treatment which did help him for a while ago. He had this repeated and the most recent one did not help much. Describes mostly of knee medial pain. He is interested in a partial knee replacement. He does use a cane to get around due to the pain. Once again his pain is all medial. Allergies Allergy/AdvReac Type Severity Reaction Status Date / Time sulfamethoxazole Allergy Severe major Verified 06/26/23 13:21 [From Bactrim] reaction - serum sickness / hives, profound fatigue gentamicin Allergy Unknown compounded Verified 06/26/23 13:21 infection, was advised not to have gentamicin trimethoprim [From Bactrim] Allergy Unknown major Verified 06/26/23 13:21 reaction- serum sickness/hives, profound fatigue Home Medications Medication Instructions Recorded Confirmed Type albuterol sulfate 90 mcg/actuation 1 puff inhalation Q6H PRN Wheezing 09/01/18 06/26/23 History breath activated powder inhaler multivitamin 1 tab PO QDD 09/01/18 06/26/23 History vitamin B complex 1 tab PO QDD 09/01/18 06/26/23 History latanoprost 0.005 % eye drops 1 drp ophthalmic (eye) HS 03/22/19 06/26/23 History magnesium oxide 400 mg PO BID 07/25/20 06/26/23 History cholecalciferol (vitamin D3) 50 50 mcg PO QDD 08/07/20 06/26/23 History mcg (2,000 unit) capsule (Vitamin D3) acetaminophen 650 mg 1,300 mg PO QAM 02/20/21 06/26/23 History tablet,extended release lidocaine 4 % topical cream 1 applic topical UD PRN right 02/20/21 06/26/23 History wrist arthritis guaifenesin 1,200 mg tablet, 1,200 mg PO BID 02/19/22 06/26/23 History extended release 12 hr (Mucinex) alfuzosin 10 mg tablet,extended 10 mg PO QDD #90 tabs 08/24/22 06/26/23 Rx release 24 hr (Uroxatral) atorvastatin 40 mg tablet (Lipitor) 40 mg PO QDD #90 tabs 08/24/22 06/26/23 Rx ipratropium 0.5 mg-albuterol 3 mg 3 ml inhalation TID PRN sob #180 mL 11/13/22 06/26/23 Rx (2.5 mg base)/3 mL nebulization soln diclofenac sodium 1 % topical gel 2 g topical QID PRN Pain 03/05/23 06/26/23 History bupropion HCl 100 mg tablet,12 hr 100 mg PO HS 05/28/23 06/26/23 History sustained-release bupropion HCl 100 mg tablet,12 hr 200 mg PO QAM 05/28/23 06/26/23 History sustained-release fluticasone furoate 100 1 inh inhalation QAM 05/28/23 06/26/23 History mcg-vilanterol 25 mcg/dose inhalation powder (Breo Ellipta) fluticasone propionate 50 2 spray intranasal UD PRN 05/28/23 06/26/23 History mcg/actuation nasal Congestion spray,suspension (Flonase Allergy Relief) montelukast 10 mg tablet 10 mg PO QDD 05/28/23 06/26/23 History triamcinolone acetonide 0.1 % 1 applic topical UD PRN Skin 05/28/23 06/26/23 History topical cream Irritation pregabalin 150 mg capsule 150 mg PO BID #180 caps 06/26/23 06/26/23 Rx Past Med/Surg History Medical History (Updated 07/04/23 @ 09:47 by Mauro Ramirez MD) Anemia mild Asthma last asthma attack ~July 2020. treated with prednisone (finished 07/23/20). typically has 3 asthma attacks. Cervical radiculitis Cervical spinal stenosis Multifactorial multilevel most severe at C5-6. 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 Rodriguez, ongoing monitoring Hypomagnesemia hx following with PCP --> r/t recent prednisone treatment and pantoprazole which has since been stopped. Lumbar radiculopathy Moderate persistent asthma well controlled per pt > last rescue inhaler use last evening since covid illness Right knee DJD Spondylolisthesis of lumbar region (12/04/14) Thyroid nodule Surgical History History of cardiac cath questionable stress test .fall cath/ no stent(s) - [facility] History of cataract surgery bilat History of colonoscopy History of endoscopic sinus surgery 1998 History of esophagogastroduodenoscopy (EGD) 1989 History of laminectomy lumbar laminectomy (Dr Marcos May 02 2020 -- [facility]) History of parotid gland removal Left gland removal (1964) History of surgical removal of skin lesion forehead, removal of SCC History of vasectomy Hx of decompression of ulnar nerve right, transposition S/P carpal tunnel release Right S/P lumbar fusion L4-L5 December 2014 Family History Grandmother (Paternal) Stroke Sister Breast cancer Father Prostate cancer Mother Atrial fibrillation Denies family history of Ovarian cancer Myocardial infarction Colorectal cancer Social History Smoking Status: Never smoker Second Hand Exposure: No (N/a); Do You Dip or Chew Tobacco: No; Hx Alcohol Use: Yes Alcohol type: wine Hx Substance Use: No Preferred Language: Albanian Communication Ability: Effective Visual Impairment: Limited Hearing Ability: Use of Hearing Aid Templer Head Required: No Beliefs That Will Affect Care: None marital status: Current Living Situation: Spouse current occupational status: retired current occupation: Physician Other Information That Helps Us Care for You: No Feels Safe at Home: Yes Dental Care, Regularly: Yes Physical Activity Frequency: 3-4 Times per Week Seatbelt Use: always Sunscreen Use: Yes Assistive Devices: Hearing Aid - Bilateral and Other Assistive Devices Comment: reading glasses Review of Systems All systems reviewed & are unremarkable except as noted in HPI & below. Physical Exam . Physical examination was a pleasant elderly male. Looks to be in pretty good health. Examination of the right knee reveals the patient ambulates independently. Is got varus alignment to his knee. Is tender over the medial joint line. Small knee effusion. There is no instability. ACL appears intact. Range of motion is 0-1 25. No pain with hip motion. Constitutional WD/WN, vitals as above Respiratory normal respiratory effort, lungs clear to auscultation Cardiovascular RRR, no murmur, no edema Results & Data Results & Data Laboratory Results . Diagnostic Findings . X-rays of the right knee were reviewed. Shows advanced medial compartment arthritis. Got complete loss of medial joint space. Got osteophytes primarily medially. The lack lateral compartment looks pretty well-preserved. Fairly minimal patellofemoral arthritis. 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
[2023-07-07] MEDS ORDERED: BUPIVACAINE LIPOSOME/PF 266 MG, BUPIVACAINE/EPINEPHRINE 50 ML, SODIUM CHLORIDE 0.9% PF ... INFIL SCH (06:00)
[2023-07-07] MEDS ORDERED: FAMOTIDINE 20 MG TAB PO SCH (06:00)
[2023-07-07] MEDS ORDERED: ceFAZolin 2000MG 2,000 MG/15 ML SYR IV SCH (06:00)
[2023-07-07] MEDS ORDERED: TRANEXAMIC ACID 1,000 MG **IV Intra-op IV SCH (06:00)
[2023-07-07] MEDS ORDERED: dexAMETHasone**PF** 10 MG/ML VIAL IV SCH (06:00)
[2023-07-07] MEDS ORDERED: LR 60ML/HR IV SCH (06:00)
[2023-07-07] MEDS ORDERED: METOCLOPRAMIDE HCL 10 MG TABLET PO SCH (06:00)
[2023-07-07] MEDS ORDERED: ACETAMINOPHEN 500 MG TAB PO SCH (06:00)
[2023-07-07] MEDS ORDERED: CeleBREX 200 MG CAP PO SCH (06:00)
[2023-07-07] MEDS ORDERED: LR 500ML BOLUS, THEN 15ML/HR IV SCH (06:00)
[2023-07-07] MEDS ORDERED: BUPIVACAINE 0.5 % 5 MG/1 ML PF 10ML VIAL ONE (06:18)
[2023-07-07] MEDS ORDERED: BUPIVACAINE 0.25% PF 30 ML VIAL ONE (06:19)
[2023-07-07] MEDS ORDERED: SODIUM CHLORIDE 0.9% PF 50 ML VIAL ONE (06:37)
[2023-07-07] MEDS ORDERED: PROPOFOL IV EMULSION 10 MG/ML 20 ML VIAL IV ONE (06:37)
[2023-07-07] MEDS ORDERED: BUPIVACAINE/EPINEPHRINE 0.25% 1:200,000 30 ML VIAL ONE (06:37)
[2023-07-07] MEDS ORDERED: MIDAZOLAM HCL 1 MG/ML 2ML VIAL ONE ×2 (06:38→07:24)
[2023-07-07] MEDS ORDERED: BUPIVACAINE LIPOSOME 1.3% 266 MG/20 ML VIAL ONE (06:43)
--- NOTE | 2023-07-07 06:57 | History & Physical Bridge Note ---
Date of Service July 07, 2023 History & Physical Bridge Note I have examined the patient, reviewed the History & Physical and in the interval since the performance of the History & Physical I have noted the following changes of clinical significance: no changes noted
[2023-07-07] MEDS ORDERED: ATROPINE SULFATE 0.1 MG/ML 10ML SYR IV PRN (07:15)
[2023-07-07] MEDS ORDERED: ePHEDrine sulfate 50 MG/ML AMP IV PRN (07:15)
[2023-07-07] MEDS ORDERED: fentaNYL citrate PF 100 MCG/2 ML VIAL IV PRN (07:15)
[2023-07-07] MEDS ORDERED: ONDANSETRON INJ 2 MG/ML 2 ML VIAL IV PRN ×2 (07:15→10:33)
--- NOTE | 2023-07-07 09:12 | Operative Report ---
PG Post Operative Report Pre & Post Diagnosis Operation Date: 07/07/23 07:00 Pre-Op Diagnosis: Right Knee Degenerative Joint Disease Post-Op Diagnosis: Right Knee Degenerative Joint Disease I identified the patient and participated in the time-out.: Yes Procedure Operation Date: 07/07/23 07:00 Actual Procedures p Right Unicompartmental Knee Arthroplasty(Right) - Mauro Ramirez MD Surgeon Mauro Ramirez MD Wood Heel Attacher Isaac Valencia PA-C Estimated Blood Loss 25 Findings Consistent with Post-Op Diagnosis Operative findings revealed advanced right medial compartment arthritis. He had extensive grade 4 [id number] disease the medial femoral condyle medial tibial plateau. The lateral and patellofemoral compartments were fairly well- preserved. His ACL was intact. Moderate-sized joint effusion. 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 Is been through extensive conservative treatment over the past 4 years which became less successful over time. X-rays show progressive knee arthritis isolated the medial side of his knee. His symptoms are isolated to the medial side of his knee. He elected proceed with right partial knee replacement. Description of Procedure Operative implants consist of: 1 [employer] [place] size medium unicompartment femoral component. 2. [employer] [place] right medial size C tibial tray. 3. 5 mm mobile-bearing polyethylene insert. The patient was taken to the operating, identified, placed on the operating table supine position. All contact areas were appropriately padded. IV antibiotics tried by anesthesia team. A spinal anesthetic and abductor canal block had been provided in the holding area. Right thigh tourniquet was then placed. The right lower extremity was then prepped and draped in usual sterile fashion. The right leg was elevated and exsanguinated with use of an Esmarch and the tourniquet was placed at 300 mmHg. An anterior approach to the right knee was then performed to longitudinal incision beginning at the superior pole of the patella and extending just medial to the tibial tubercle. Sharp dissection Through subcutaneous tissue down the extensor mechanism. A medial parapatellar arthrotomy incision was made. Some slight subperiosteal dissection was carried out medially. Great care was taken throughout the procedure to protect the MCL ligament. The fat pad was resected. Some osteophytes were taken off the intercondylar notch area. I then examined the lateral and patellofemoral compartments and they were fairly well-preserved. We elected proceed with a partial knee replacement. The femur was sized to a size medium. The medium spoon was placed. The external tibial alignment jig was then placed in the interface the tibia and adjusted and attached to the medium spoon with a 4G clamp. The tibial guide was pinned in place. The proximal tibial cut was made. The tibia was sized to a size C. Attention drawn the femur. The distal femur was entered with a sharp drill. The intramedullary mae was then placed. The medial femoral template set at 4 was placed and attached to the IM mae. The holes were drilled for the femoral component. The posterior cutting guide was placed in the posterior cut was made. The medial meniscus was excised. There is 0 spigot was placed in the distal femur was milled. I then trialed the knee and the 5 feeler gauge fit in flexion and the 3 in extension. I did he seem like he had some wear of the distal femur. The 2 spigot was then placed in the distal femur was milled. We then trialed the knee again and the 5 feeler gauge fit appropriate in flexion extension. We elect to place these implants. All trial implants were removed. The cement drill was used to create holes in the distal femur for cement interdigitation. The distal femoral prepped device was placed in the posterior osteophyte was removed. The anterior femur was then milled with a milling device. The tibial tray was then pinned in place and the toothbrush blade saw was used to create the defect for the tibial tray. We then trialed the knee 1 more time with the keel the tibial tray and the femoral component. The 5 insert fit appropriately. We elect to place these implants. Nupathe all trial implants were removed. I irrigated the wound extensively. We injected locally with 100 cc of combination of 20 cc of Exparel, 30 cc normal saline, 50 cc of quarter percent Marcaine with epinephrine. A single batch of [place] G cement was mixed. A right medial size C tibial tray was then cemented in position followed by medial femoral component. All extraneous cement was removed. I brought the knee out to about 30 degrees short of extension and placed the 5 feeler gauge until the cement hardened. Once the cement hardened final cement check was then performed. We then placed a 5 mm mobile-bearing insert. Attention drawn toward closing. The wound was irrigated coconuts pulsatile lavage solution. The extensor mechanism then closed with a #1 Vicryl suture in a [id number] fashion. The subcutaneous tissues then closed with 2 Dexon suture in a buried interrupted fashion skin was closed skin andrea. Leg was then cleaned and dried and a sterile dressing with Xeroform, 4 fours, sterile cast padding, Kyree bandage were applied. The patient was then transferred to the recovery room in stable condition. Patient tolerated procedure well and there were no complications. Isaac Valencia, my physician captain's assistant, was present for the entire procedure. His assistance was essential and required for appropriate patient positioning, prepping and draping, surgical exposure, performing the technical details of the operation, placement the implants, closure of the wound, and placement of the sterile bandage. I attest to the content of the Intraoperative Record and any orders documented therein. Any exceptions are noted below.
[2023-07-07] MEDS ORDERED: LIDOCAINE 4% CREAM 15 GM TUBE EXT PRN (10:33)
[2023-07-07] MEDS ORDERED: TRIAMCINOLONE ACET 0.1% CR 15 GM TUBE TOP PRN (10:33)
[2023-07-07] MEDS ORDERED: MAGNESIUM HYDROXIDE SUSP 30 ML UDC PO PRN (10:33)
[2023-07-07] MEDS ORDERED: bisacodyL 10 MG SUPP PR PRN (10:33)
[2023-07-07] MEDS ORDERED: SODIUM CHLORIDE 0.9% 1,000 ML IV SCH (10:33)
[2023-07-07] MEDS ORDERED: METOCLOPRAMIDE HCL INJ 5 MG/ML 2 ML VIAL IV PRN (10:33)
[2023-07-07] MEDS ORDERED: ALUMINUM/MAGNESIUM SUSP 30 ML UDC PO PRN (10:33)
[2023-07-07] MEDS ORDERED: FLUTICASONE PROPIONATE NA SPR 16 GM BTL NAE PRN (10:33)
[2023-07-07] MEDS ORDERED: NALOXONE HCL 0.4 MG/1 ML VIAL/CARP IV PRN (10:33)
[2023-07-07] MEDS ORDERED: HYDROmorphone INJ 0.5 MG/0.5 ML SYR IV PRN (10:33)
[2023-07-07] MEDS ORDERED: ALBUT/IPRATROP 3MG/0.5MG NEB 3 ML VIAL INH PRN (10:33)
[2023-07-07] MEDS ORDERED: ALBUTEROL HFA INHALER 8.5 GM INH PRN (10:50)
--- NOTE | 2023-07-07 11:05 | XRay Report ---
XR knee RT 1 or 2V routine CLINICAL HISTORY: Surgical Post Op TECHNIQUE: 2 views of the right knee were obtained. Comparison: Comparison is made to right knee radiographs 02/19/2022 FINDINGS: Patient is status partial total knee arthroplasty with expected postsurgical changes including soft t issue swelling and subcutaneous emphysema. No periarticular lucency or hardware fracture is seen. IMPRESSION: Expected postoperative appearance status post placement of partial knee arthroplasty. ACT 112: Negative or not required by law. Electronically signed by: Rick Jacobsen M.D. 07/07/2023 11:04 AM
[2023-07-07] MEDS: FLUTICASONE/VILANTEROL 100/25MCG 14 PUFFS/INHALER INH SCH (11:23)
[2023-07-07] MEDS: PREGABALIN 150 MG CAP PO SCH ×2 (11:24→22:03)
[2023-07-07] MEDS: buPROPion SR 100 MG TABCR PO SCH (11:24)
[2023-07-07] MEDS: SENNA 8.6 MG TAB PO SCH ×2 (11:25→22:02)
[2023-07-07] MEDS: ASPIRIN 81 MG ECTAB PO SCH ×2 (11:25→22:03)
[2023-07-07] MEDS: KETOROLAC TROMETHAMINE 15 MG/ML VIAL IV SCH ×5 (11:25→22:04)
[2023-07-07] MEDS: guaiFENesin 600 MG TABCR PO SCH ×2 (11:25→22:03)
[2023-07-07] MEDS: DOCUSATE SODIUM 100 MG CAP PO SCH ×2 (11:26→22:03)
[2023-07-07] MEDS: ACETAMINOPHEN 500 MG TAB PO SCH ×3 (11:26→22:02)
[2023-07-07] MEDS: MULTIVITAMIN TAB PO SCH (11:27)
[2023-07-07] MEDS: oxyCODONE HCL IR 5 MG TAB (IMMEDIATE RELEASE) PO PRN ×2 (13:47→19:40)
--- NOTE | 2023-07-07 14:15 | Anesthesiology Progress Note ---
Date of Service July 07, 2023 Anesthesia Post Procedure Vital Signs Vital Signs: Temp Pulse Pulse Pulse Resp BP Pulse Ox 07/07/23 13:15 36.2 C L 72 18 154/77 H 93 07/07/23 12:15 36.4 C L 75 16 166/82 H 95 07/07/23 10:45 36.2 C L 63 16 131/78 95 07/07/23 11:15 36.2 C L 57 L 18 145/83 H 96 07/07/23 10:15 07/07/23 10:15 36.3 C L 63 16 125/76 96 07/07/23 10:00 68 13 134/70 93 07/07/23 09:50 69 17 137/71 95 07/07/23 09:40 36.6 C 68 17 131/67 89 L 07/07/23 09:30 68 15 134/66 98 07/07/23 09:20 67 20 134/73 100 07/07/23 09:10 71 15 133/70 100 07/07/23 09:03 36.7 C 81 19 123/68 98 07/07/23 05:40 36.6 C 81 20 158/77 H 92 O2 Del Method O2 Flow Rate 07/07/23 13:15 Room Air 07/07/23 12:15 Nasal Cannula 2 07/07/23 10:45 Nasal Cannula 2 07/07/23 11:15 Room Air 07/07/23 10:15 Nasal Cannula 2 07/07/23 10:15 Nasal Cannula 2 07/07/23 10:00 Nasal Cannula 2 07/07/23 09:50 Nasal Cannula 2 07/07/23 09:40 Room Air 07/07/23 09:30 Oxymask 2 07/07/23 09:20 Oxymask 4 07/07/23 09:10 Oxymask 4 07/07/23 09:03 Oxymask 6 07/07/23 05:40 Room Air Transfer of Care Handoff Completed per policy Notes Mental Status: alert / awake / arousable and participated in evaluation Patient Amnestic to Procedure: Yes Nausea / Vomiting: adequately controlled Pain: adequately controlled Airway Patency, RR, SpO2: stable & adequate BP & HR: stable & adequate Hydration State: stable & adequate Neuraxial Anesthesia: was administered and sensory block is resolving Anesthetic Complications: no major complications apparent and Pt Satisfied with anesthetic care
[2023-07-07] MEDS ORDERED: TRANEXAMIC ACID / 0.7% NACL 1,000 MG/100 ML BAG IV SCH (15:00)
[2023-07-07] MEDS: ceFAZolin 2000MG 2,000 MG/15 ML SYR IV SCH ×2 (15:16→22:09)
[2023-07-07] MEDS ORDERED: TAMSULOSIN HCL 0.4 MG CAP PO SCH (16:30)
[2023-07-07] MEDS ORDERED: MONTELUKAST SODIUM 10 MG TABLET PO SCH (16:30)
[2023-07-07] MEDS ORDERED: ATORVASTATIN 40 MG TAB PO SCH (16:30)
[2023-07-07] MEDS ORDERED: CHOLECALCIFEROL 1,000 UNITS 25 MCG TAB PO SCH (16:30)
[2023-07-07] MEDS ORDERED: MULTIVITAMIN TAB PO SCH (16:30)
[2023-07-07] MEDS: VITAMIN B COMPLEX TAB PO SCH ×2 (16:50→17:12)
[2023-07-07] MEDS: ASCORBIC ACID 500 MG TAB PO SCH (17:12)
[2023-07-07] MEDS ORDERED: SENNA 8.6 MG TAB PO SCH (21:00)
[2023-07-07] MEDS ORDERED: LATANOPROST 0.005% OP SOLN 2.5 ML BTL OP SCH (21:00)
[2023-07-07] MEDS ORDERED: buPROPion SR 100 MG TABCR PO SCH (21:00)
[2023-07-07] MEDS: MAGNESIUM OXIDE 400 MG TAB PO SCH (22:03)
[2023-07-08] MEDS: KETOROLAC TROMETHAMINE 15 MG/ML VIAL IV SCH ×2 (04:31→10:34)
[2023-07-08 06:48] LABS: Hematocrit (blood only) 33.1 % (42.0-52.0); Hemoglobin 11.4 g/dl (14.0-18.0); Mean Corpuscular Hemoglobin 33.5 pg (25.0-34.0); Mean Corpuscular Hgb Conc 34.4 g/dL (32.0-36.0); Mean Corpuscular Volume 97.4 fL (80.0-100.0); Mean Platelet Volume 10.8 fL (9.4-12.4); Platelet Count 148 K/uL (130-400); RDW Coefficient of Variation 12.9 % (11.5-14.5); RDW Standard Deviation 46.1 fL (36.4-46.3); White Blood Count 8.32 K/ul (4.8-10.8)
[2023-07-08 07:19] LABS: BUN Creatinine Ratio 32.6 (10-20); Calcium 9.2 mg/dl (8.6-10.3); Creatinine Clr Calc Pharmacy 75.5 ml/min; Est GFR (African American) 92.9 ml/min; Est GFR (Non-African American) 80.2 ml/min; Potassium 4.4 mmol/L (3.5-5.1)
[2023-07-08] MEDS: ASPIRIN 81 MG ECTAB PO SCH (07:21)
[2023-07-08] MEDS: oxyCODONE HCL IR 5 MG TAB (IMMEDIATE RELEASE) PO PRN (07:21)
[2023-07-08] MEDS: PREGABALIN 150 MG CAP PO SCH (07:22)
[2023-07-08] MEDS: MAGNESIUM OXIDE 400 MG TAB PO SCH (07:22)
[2023-07-08] MEDS: ASCORBIC ACID 500 MG TAB PO SCH (07:22)
[2023-07-08] MEDS: DOCUSATE SODIUM 100 MG CAP PO SCH (07:22)
[2023-07-08] MEDS: MULTIVITAMIN TAB PO SCH (07:22)
[2023-07-08] MEDS: ACETAMINOPHEN 500 MG TAB PO SCH (07:22)
[2023-07-08] MEDS: SENNA 8.6 MG TAB PO SCH (07:23)
[2023-07-08] MEDS: buPROPion SR 100 MG TABCR PO SCH (07:23)
[2023-07-08] MEDS: guaiFENesin 600 MG TABCR PO SCH (07:23)
[2023-07-08] MEDS: FLUTICASONE/VILANTEROL 100/25MCG 14 PUFFS/INHALER INH SCH (07:24)
[2023-07-08] MEDS ORDERED: dexAMETHasone 10 MG in SYRINGE 0 ML IV SCH (08:00)
--- NOTE | 2023-07-08 10:46 | Orthopedic Progress Note ---
Date of Service July 08, 2023 Assessment & Plan (1) Status post right partial knee replacement: 82-year-old male postop day 1 from right partial knee replacement. He is doing well. Pain is controlled. He is neurologically intact. Plan: 1. DVT prophylaxis including thigh-high teds, SCDs, aspirin twice a day. 2. PT OT. Weight-bear as tolerated right total knee protocol. 3. Pain control doing well with current pain regimen. 4. Disposition plan to discharge to home with some home health today Subjective . 82-year-old gentleman postop day 1 from partial knee replacement. He is doing well. Had a good night. Pains been controlled. Therapy went well. Hoping to go home today. Review of Systems All systems reviewed & are unremarkable except as noted in HPI & below. Physical Exam . Physical examination was a pleasant elderly male. He is lying in bed and talking to his family looks comfortable. Examination of the right leg reveals dressing clean dry and intact. Can dorsiflex and plantarflex his foot appropriately. He is neurologically intact he can do a straight leg raise. Results & Data Results & Data Laboratory Results . Diagnostic Findings . Hemoglobin 11.4. Hematocrit 33.1. Electrolytes are stable. PG Care Time/CCT Total # of Minutes Spent Total Time Spent with Patient: Total time spent is greater than 50% in coordination of care (as documented) at patient's floor/unit and/or counseling patient: Coding Level of Care Code 71802 Post Operative Follow-Up Diagnoses Status post right partial knee replacement Z96.651
--- NOTE | 2023-07-14 12:43 | Discharge Summary ---
Date of Service July 14, 2023 Discharge Data Procedures Performed Operation Date: 07/07/23 07:00 Actual Procedures p Right Unicompartmental Knee Arthroplasty(Right) - Mauro Ramirez MD Hospital Course (1) Status post right partial knee replacement: This is a 82 year old patient admitted on 07/07/23 and underwent partial knee replacement. He tolerated the procedure well and there were no complications. Transferred to the PACU post op and later to the orthopedic floor for further care. He was given ancef for antibiotic prophylaxis. He was also given GWEN stockings, SCDs, and aspirin for DVT prophylaxis. Hemoglobin, hematocrit, and vital signs were monitored during his hospital stay and remained stable. Did not require any blood transfusions. There were no complications during his hospital stay. By post op day #1 the patient was tolerating a regular diet, pain was reasonably controlled with oral pain medicine, and he was participating in physical therapy. On post op day #1 the patient was discharged home and set up with home health care. He was given printed discharge instructions including prescriptions for extra strength tylenol, aspirin, cefadroxil, ketorolac, zofran, senokot, and oxycodone. Continue physical therapy, weight bearing as tolerated. Continue GWEN stockings. Follow up approximately 2 weeks post op or sooner if there are problems or concerns. Coding Level of Care Code None Diagnoses Status post right partial knee replacement Z96.651
== END 2023-07-08 11:39 | disposition home health service (06) ==
LOC: ASU 05:18 → 3E 05:18
DX: M17.11 Unilateral primary osteoarthritis, right knee; I10 Essential (primary) hypertension; M25.761 Osteophyte, right knee; M25.461 Effusion, right knee; Z79.899 Other long term (current) drug therapy; E66.9 Obesity, unspecified; Z68.33 Body mass index [BMI] 33.0-33.9, adult; M87.88 Other osteonecrosis, other site; Z79.82 Long term (current) use of aspirin; K21.9 Gastro-esophageal reflux disease without esophagitis; Z88.1 Allergy status to other antibiotic agents; Z88.2 Allergy status to sulfonamides; D80.1 Nonfamilial hypogammaglobulinemia; Z96.651 Presence of right artificial knee joint; D64.9 Anemia, unspecified; J45.909 Unspecified asthma, uncomplicated

== ENCOUNTER 2024-02-23 05:58 | Observation (INO) ==
--- NOTE | 2024-01-20 12:59 | PAT Medication Instructions ---
Medication Instructions Date of Service January 20, 2024 Home Medications Medication Instructions Recorded Breo Ellipta 100 mcg-25 mcg/dose 1 inh inhalation QAM #3 Inhalers 08/31/23 powder for inhalation (fluticasone furoate-vilanterol) bupropion HCl 100 mg tablet,12 hr 100 mg PO HS #90 ea 12/01/23 sustained-release bupropion HCl 200 mg tablet,12 hr 200 mg PO QAM #90 ea 12/01/23 sustained-release pregabalin 150 mg capsule 150 mg PO BID #180 caps 12/28/23 albuterol sulfate 90 mcg/actuation breath activated powder inhaler 1 puff inhalation Q6H PRN Wheezing multivitamin 1 tab PO QPM vitamin B complex 1 tab PO QPM latanoprost 0.005 % eye drops 1 drp ophthalmic (eye) HS magnesium oxide 400 mg PO BID cholecalciferol (vitamin D3) 50 mcg (2,000 unit) capsule (Vitamin D3) 50 mcg PO QPM Breo Ellipta 100 mcg-25 mcg/dose powder for inhalation (fluticasone furoate- vilanterol) 1 inh inhalation QAM acetaminophen 650 mg tablet,extended release (Tylenol Arthritis Pain) 1,300 mg PO QAM bupropion HCl 100 mg tablet,12 hr sustained-release 100 mg PO HS bupropion HCl 200 mg tablet,12 hr sustained-release 200 mg PO QAM pregabalin 150 mg capsule 150 mg PO BID alfuzosin 10 mg tablet,extended release 24 hr (Uroxatral) 10 mg PO QPM amoxicillin 500 mg tablet 2,000 mg PO ONCE PRN dental prophylaxis atorvastatin 40 mg tablet (Lipitor) 40 mg PO QPM azithromycin 250 mg tablet See Rx Instructions PO .COMPLEX PRN illness celecoxib 200 mg capsule (Celebrex) 200 mg PO QAM ciprofloxacin HCl 500 mg tablet 500 mg PO BID PRN Prostatitis duloxetine 60 mg capsule,delayed release 60 mg PO QPM levofloxacin 250 mg tablet 500 mg PO Q24H PRN infection montelukast 10 mg tablet 10 mg PO QPM Continue as directed amoxicillin 500 mg tablet 2,000 mg PO ONCE PRN dental prophylaxis ciprofloxacin HCl 500 mg tablet 500 mg PO BID PRN Prostatitis levofloxacin 250 mg tablet 500 mg PO Q24H PRN infection ASK your surgeon for instructions celecoxib 200 mg capsule (Celebrex) 200 mg PO QAM DO NOT take the morning of surgery magnesium oxide 400 mg PO BID Take morning of surgery With a small sip of water, OTHERWISE NOTHING TO EAT OR DRINK AFTER MIDNIGHT: albuterol sulfate 90 mcg/actuation breath activated powder inhaler 1 puff inhalation Q6H PRN Wheezing (use if needed; please bring rescue inhaler with you to hospital day of surgery if possible) Breo Ellipta 100 mcg-25 mcg/dose powder for inhalation (fluticasone furoate- vilanterol) 1 inh inhalation QAM acetaminophen 650 mg tablet,extended release (Tylenol Arthritis Pain) 1,300 mg PO QAM bupropion HCl 200 mg tablet,12 hr sustained-release 200 mg PO QAM pregabalin 150 mg capsule 150 mg PO BID Take evening before surgery albuterol sulfate 90 mcg/actuation breath activated powder inhaler 1 puff inhalation Q6H PRN Wheezing (if needed) multivitamin 1 tab PO QPM vitamin B complex 1 tab PO QPM latanoprost 0.005 % eye drops 1 drp ophthalmic (eye) HS magnesium oxide 400 mg PO BID cholecalciferol (vitamin D3) 50 mcg (2,000 unit) capsule (Vitamin D3) 50 mcg PO QPM bupropion HCl 100 mg tablet,12 hr sustained-release 100 mg PO HS pregabalin 150 mg capsule 150 mg PO BID alfuzosin 10 mg tablet,extended release 24 hr (Uroxatral) 10 mg PO QPM atorvastatin 40 mg tablet (Lipitor) 40 mg PO QPM duloxetine 60 mg capsule,delayed release 60 mg PO QPM montelukast 10 mg tablet 10 mg PO QPM Other Notes If you have any questions please call us at [phone] or [phone] or [phone] or [phone]
--- NOTE | 2024-01-27 10:41 | Anesthesiology Consultation ---
Date of Service January 27, 2024 Assessment & Plan (1) Encounter for pre-operative examination: - Case discussed in detail with Dr. Mcguire who advised patient needs cardiology evaluation prior to surgery given volume overload requiring diuresis after partial knee replacement and that he have vascular imaging including of vertebral arteries prior to surgery and recommendation would be for neurology evaluation prior to surgery. Surgeon's office made aware. I discussed above with Dr. Nixon and he prefers to see ID cardiology and neurology-[facility] stenographer secretary made aware. - Patient reports falling 2 weeks ago when he tripped walking down steps at a store; denies hitting his head. He states has experienced left sided rib discomfort and requests rib imaging today. Denies cough, pleuritic chest discomfort or change in shortness of breath. Rib imaging 01/27/24: No acute/di splaced left-sided rib fracture is clearly identified. This is difficult to assess as there are numerous chronic/healed rib fractures. - awaiting signed 01/27/24 ID pulmonology office visit. Chart Review Chart Review: Pending: Refer to Additional Notes / Consult section and Patient seen in Pre Admission Testing Teaching & Discussion Pre-Anesthesia Teaching/Discussion Notes: Instructed NPO after midnight before surgery, except medications with 15 cc of water. Medication instructions provided according to the PAT guidelines. History Surgery Operation Date: 02/23/24 07:15 Proposed Procedures p C4-C5, C5-C6, C6-C7 Anterior Cervical Disc Fusion with Inter-Body Grafts/Cages with Spinal Cord Monitoring - Jose Mark MD Height/Weight Height: 5 ft 8 in Weight: 95 kg Allergies Allergy/AdvReac Type Severity Reaction Status Date / Time sulfamethoxazole Allergy Severe major Verified 01/14/24 14:47 [From Bactrim] reaction - serum sickness / hives, profound fatigue gentamicin Allergy Unknown compounded Verified 01/14/24 14:47 infection, was advised not to have gentamicin trimethoprim [From Bactrim] Allergy Unknown major Verified 01/14/24 14:47 reaction- serum sickness/hives, profound fatigue Medications Home Medications Medication Instructions Recorded Confirmed Last Taken albuterol sulfate 90 mcg/actuation 1 puff inhalation Q6H PRN Wheezing 09/01/18 01/14/24 07/06/23 breath activated powder inhaler multivitamin 1 tab PO QPM 09/01/18 01/14/24 07/05/23 vitamin B complex 1 tab PO QPM 09/01/18 01/14/24 07/05/23 latanoprost 0.005 % eye drops 1 drp ophthalmic (eye) HS 03/22/19 01/14/24 07/06/23 magnesium oxide 400 mg PO BID 07/25/20 01/14/24 07/06/23 21:00 cholecalciferol (vitamin D3) 50 50 mcg PO QPM 08/07/20 01/14/24 07/05/23 mcg (2,000 unit) capsule (Vitamin D3) Breo Ellipta 100 mcg-25 mcg/dose 1 inh inhalation QAM #3 Inhalers 08/31/23 01/14/24 Unknown powder for inhalation (fluticasone furoate-vilanterol) acetaminophen 650 mg 1,300 mg PO QAM 11/19/23 01/14/24 Unknown tablet,extended release (Tylenol Arthritis Pain) bupropion HCl 100 mg tablet,12 hr 100 mg PO HS #90 ea 12/01/23 01/14/24 Unknown sustained-release bupropion HCl 200 mg tablet,12 hr 200 mg PO QAM #90 ea 12/01/23 01/14/24 Unknown sustained-release pregabalin 150 mg capsule 150 mg PO BID #180 caps 12/28/23 01/14/24 Unknown alfuzosin 10 mg tablet,extended 10 mg PO QPM 01/14/24 01/14/24 Unknown release 24 hr (Uroxatral) amoxicillin 500 mg tablet 2,000 mg PO ONCE PRN dental 01/14/24 01/14/24 Unknown prophylaxis atorvastatin 40 mg tablet (Lipitor) 40 mg PO QPM 01/14/24 01/14/24 Unknown azithromycin 250 mg tablet See Rx Instructions PO .COMPLEX 01/14/24 01/14/24 Unknown PRN illness celecoxib 200 mg capsule (Celebrex) 200 mg PO QAM 01/14/24 01/14/24 Unknown ciprofloxacin HCl 500 mg tablet 500 mg PO BID PRN Prostatitis 01/14/24 01/14/24 Unknown duloxetine 60 mg capsule,delayed 60 mg PO QPM 01/14/24 01/14/24 Unknown release levofloxacin 250 mg tablet 500 mg PO Q24H PRN infection 01/14/24 01/14/24 Unknown montelukast 10 mg tablet 10 mg PO QPM 01/14/24 01/14/24 Unknown Past Medical History Medical History (Updated 01/28/24 @ 09:52 by Bhavana Barrientos PA-C) Anemia mild Asthma last asthma attack ~ 2yrs ago, sees Pulm at [facility]- last rescue inhaler use 4 weeks ago Cervical radiculitis Cervical spinal stenosis Multifactorial multilevel most severe at C5-6. 80% relief status post C7-T1 interlaminar epidural steroid injection limited ROM Diastolic CHF 2021 stress echo, echo 07/2023 EF 60-65% Dizziness intermittent, chronic-if has neck back for extended time-denies change or worsening Dyslipidemia Enlarged prostate with lower urinary tract symptoms (LUTS) Hiatal hernia small History of anesthesia reaction BP dropped with spinal anesthesia after recent knee surgery 2022, needed IV fluids to correct per pt which resulted in fluid overload (25 lb wt gain) and need for diuresis, follows with PCP for HF management History of depression controlled with meds History of parotid cancer Left status post excision, 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, ongoing monitoring Lumbar radiculopathy Sensorineural hearing loss (SNHL) of both ears b/l hearing aides Stress fracture of right tibia 10/2023-following with ID orthopedics Thyroid nodule No bx Patient denies h/o stroke, seizures, heart attack, DM, blood clots/DVTs or blood transfusions. 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 History of colonoscopy History of endoscopic sinus surgery (~1998) History of esophagogastroduodenoscopy (EGD) (~2004) History of laminectomy (~05/2020) lumbar laminectomy- [facility] History of parotid gland removal (~1964) Superficial lobe of Left gland removal History of vasectomy Hx of bilateral cataract extraction (~2019) Hx of decompression of ulnar nerve right, transposition S/P carpal tunnel release Right S/P lumbar fusion (~12/2014) L4-L5 Status post right partial knee replacement (~07/07/23) Past Anesthesia History No Family Hx of Anesthesia Complications and Other (see above) History of PONV No Hx of PONV and No Hx of Motion Sickness Social History Smoking Status: Never smoker Do You Dip or Chew Tobacco: No Hx Alcohol Use: Yes Alcohol type: wine alcohol intake frequency: 0-2 drinks per day (2-3) Hx Substance Use: No substance use type: does not use Review of Systems Patient denies chest pain, snoring, witnessed apneas, fever, chills, change in chronic cough, wheezing, or palpitations. Physical Exam Vital Signs Vitals BP 124/69 P 73 TEMP 98.3 SP02 94% on RA RESP 17 Physical Patient resting comfortably in chair in no acute distress, alert and oriented, responding appropriately throughout visit Full cervical extension range of motion without pain TMD 3.5 finger breadths Mallampati Score 3 Dentition: several caps/crowns and two implants, denies chipped or loose teeth, or bridges Lungs: normal respiratory effort. Good air movement, clear throughout to auscultation, no adventitious breath sounds Cardiac: regular rate and rhythm, no murmurs noted Carotid arteries: negative bruit bilat Lab Results Anesthesia Preop Results Results Anesthesia Widget: WBC 3.96 K/ul (4.8-10.8) L 01/27/24 Hgb 12.0 g/dl (14.0-18.0) L 01/27/24 Hct 36.3 % (42.0-52.0) L 01/27/24 Plt 152 K/uL (130-400) 01/27/24 Na 136 mmol/L (136-145) 01/27/24 K 4.2 mmol/L (3.5-5.1) 01/27/24 Cl 103 mmol/L (98-107) 01/27/24 CO2 29 mmol/L (21-32) 01/27/24 BUN 27 mg/dl (6-23) H 01/27/24 Creat 0.85 mg/dl (0.6-1.4) 01/27/24 Glucose Level 88 mg/dl (70-99(Fasting)) 01/27/24 PT 10.9 Seconds (9.0-12.0) 01/27/24 PTT 25 Seconds (21-31) 01/27/24 INR 1.0 (0.9-1.1) 01/27/24 Blood Type AB Negative 01/27/24 Antibody Screen NEGATIVE 01/27/24 Testing Electrocardiogram Date: 07/14/23 Sinus rhythm with 1st degree AV block, rate 83 bpm Chest X-Ray Date: 01/27/24 No acute chest disease. No acute/displaced left-sided rib fracture is clearly identified. This is difficult to assess as there are numerous chronic/healed rib fractures. Echocardiogram Date: 07/29/23 EF 60-65% No LV regional wall motion abnormalities Moderate cLVH Sclerotic aortic valve without significant stenosis Mild mitral regurgitation Type 1 diastolic dysfunction Stress Test Date: 08/01/22 Dobutamine Negative stress echo for myocardial ischemia at 94% MPHR Peak stress EKG with borderline [address] depression in leads III, aVF Baseline first degree AVB progresses to intermittent Weinkebach 2nd degree AVB with dobutamine infusion Mild cLVH No evidence of wall motion abnormalities Cardiac Catheterization Date: 09/19/22 LMT: Large-caliber short vessel which bifurcates into the LAD and left circumflex. It has no angiographically evident disease. LAD: Large caliber and transapical vessel. Proximal segment is normal. Provides a medium to large caliber branching first diagonal. It then has a large septal branch followed by several smaller septal branches. The mid segment has mild diffuse luminal irregularities there is a small to medium caliber second diagonal and the distal LAD becomes a medium in caliber tapering as it wraps the apex and terminates. It is somewhat tortuous in the distal segment and has no more than mild luminal irregularities. LCx: This is a large caliber and dominant vessel. First major branch arising from the AV groove is a large in caliber and branching. The branches are very tortuous consistent with age and hypertension. The AV groove vessel continues as a large caliber vessel distally where it provides a large caliber posterior lateral branch followed by a small to medium caliber posterior lateral branch #2 and finally terminates as a large caliber long PDA. These vessels have mild distal tortuosity. There is no angiographically evident disease in the remainder of the circumflex and its branches. RCA: Medium caliber nondominant vessel providing the RV marginal branches which are very tortuous. There is no significant disease in this vessel. Summary: 1. There is no angiographically significant coronary disease. Branch vessels demonstrate findings consistent with hypertension and advanced age. 2. Normal LV filling pressures 3. Incidentally noted brief episodes of Mobitz type I second-degree AV block. 4. 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 Should the patient require further cardiac catheterization I would recommend femoral approach for left radial approach. Pulmonary Function Test Date: 11/10/23 Nonspecific spirometry Mild restrictive physiology DLCO is moderately reduced FEV1 and DLCO with significant decline compared to 11/13/2022 Cervical Spine Date: 11/23/23 1. Moderate to severe multilevel degenerative disc disease and facet arthrosis with slight progression since MRI of December 31, 2012. 2. Severe central canal stenosis at C5-C6, as detailed above. Otherwise, mild to moderate multilevel central canal stenosis. 3. Severe multilevel neural foraminal stenosis, as detailed above. 4. Subtle nonspecific increased linear T2 signal within the cord at the C5-C6 level which may been present on previous exam. Other Testing Chest CTA 07/14/23 1. No pulmonary emboli identified. 2. Trace pleural effusions with mild subsegmental bibasilar atelectasis. 3. No lymphadenopathy. 4. Additional findings as above.
[2024-02-23] MEDS: LR 60ML/HR IV SCH (06:48)
[2024-02-23] MEDS: LR 15ML/HR IV SCH (06:48)
--- NOTE | 2024-02-23 06:56 | History & Physical Bridge Note ---
Date of Service February 23, 2024 History & Physical Bridge Note I have examined the patient, reviewed the History & Physical and in the interval since the performance of the History & Physical I have noted the following changes of clinical significance: no changes noted
[2024-02-23] MEDS ORDERED: PROPOFOL IV EMULSION 10 MG/ML 20 ML VIAL IV ONE ×6 (07:02→11:07)
[2024-02-23] MEDS ORDERED: ONDANSETRON INJ 2 MG/ML 2 ML VIAL ONE (07:02)
[2024-02-23] MEDS ORDERED: DEXAMETHASONE SOD INJ 4 MG/ML VIAL ONE (07:02)
[2024-02-23] MEDS ORDERED: ROCURONIUM BROMIDE 10 MG/ML 5 ML VIAL IV ONE (07:02)
[2024-02-23] MEDS ORDERED: LIDOCAINE 2% 2 ML VIAL/AMP(20MG/ML) INFIL ONE (07:02)
[2024-02-23] MEDS ORDERED: fentaNYL citrate PF 100 MCG/2 ML VIAL ONE (07:02)
[2024-02-23] MEDS ORDERED: SUCCINYLCHOLINE CHLORIDE 20 MG/ML 10 ML VIAL IV ONE (07:02)
[2024-02-23] MEDS ORDERED: ePHEDrine sulfate 50 MG/ML AMP IV PRN (07:10)
[2024-02-23] MEDS ORDERED: ATROPINE SULFATE 0.1 MG/ML 10ML SYR IV PRN (07:10)
[2024-02-23] MEDS ORDERED: ONDANSETRON INJ 2 MG/ML 2 ML VIAL IV PRN ×2 (07:10→14:57)
[2024-02-23] MEDS ORDERED: KETAMINE HCL INJ 50 MG/ML 10 ML VIAL ONE (07:16)
[2024-02-23] MEDS ORDERED: REMIFENTANIL HCL 1 MG VIAL IV ONE ×2 (07:17→11:10)
[2024-02-23] MEDS: ceFAZolin 2000MG 2,000 MG/15 ML SYR IV SCH (08:00)
[2024-02-23] MEDS: VANCOMYCIN HCL 1000MG/20ML VIAL ONE (12:20)
[2024-02-23] MEDS: GELATIN SPONGE 12-7MM ONE (12:22)
[2024-02-23] MEDS: THROMBIN 5000 UNITS KIT ONE (12:22)
[2024-02-23] MEDS: FLOSEAL HEMOSTATIC MATRIX 5ML TOP ONE (12:23)
[2024-02-23] MEDS ORDERED: ceFAZolin 330 MG/ML 1 GM VIAL ONE (12:24)
[2024-02-23] MEDS: fentaNYL citrate PF 100 MCG/2 ML VIAL IV PRN (12:54)
--- NOTE | 2024-02-23 12:59 | Post Operative Brief Note ---
PG Immediate Post Op with CF Date of Surgery February 23, 2024 Pre & Post Diagnosis Operation Date: 02/23/24 07:15 Pre-Op Diagnosis: Difficulty Balancing, Cervical Radiculopathy, Degenerative spinal stenosis Post-Op Diagnosis: Difficulty Balancing, Cervical Radiculopathy, Degenerative spinal stenosis I identified the patient and participated in the time-out.: Yes Procedure Operation Date: 02/23/24 07:15 Actual Procedures p C4-C5, C5-C6, C6-C7 Anterior Cervical Disc Fusion with Interbody Grafts/Cages with Spinal Cord Monitoring(Not Applicable) - Jose Mark MD Surgeon Jose Mark MD Visitor Service Assistant none Estimated Blood Loss 30 Findings Consistent with Post-Op Diagnosis Specimens Specimen Description: None per surgeon Drains Blunt Catheter (16Fr Blunt placed without difficulty by Lynnette Rodrigez. To be removed at end of case)
[2024-02-23] MEDS: HYDROmorphone INJ 0.5 MG/0.5 ML SYR IV STA ×4 (13:21→13:48)
[2024-02-23] MEDS: HYDROmorphone INJ 0.5 MG/0.5 ML SYR ONE (13:24)
--- NOTE | 2024-02-23 14:04 | Anesthesiology Progress Note ---
Date of Service February 23, 2024 Anesthesia Post Procedure Vital Signs Vital Signs: Temp Pulse Pulse Resp BP BP Pulse Ox 02/23/24 13:50 79 18 139/70 94 02/23/24 13:40 77 15 140/76 96 02/23/24 13:30 77 16 139/75 99 02/23/24 13:20 78 15 134/76 98 02/23/24 13:10 74 20 136/72 94 02/23/24 13:00 80 22 145/77 H 97 02/23/24 12:50 85 18 136/75 93 02/23/24 12:44 36.5 C 78 16 135/83 97 02/23/24 06:24 36.5 C 48 L 20 121/82 92 O2 Del Method O2 Flow Rate 02/23/24 13:50 Nasal Cannula 2 02/23/24 13:40 Nasal Cannula 2 02/23/24 13:30 Nasal Cannula 2 02/23/24 13:20 Nasal Cannula 2 02/23/24 13:10 Nasal Cannula 2 02/23/24 13:00 Oxymask 9 02/23/24 12:50 Oxymask 9 02/23/24 12:44 Oxymask 9 02/23/24 06:24 Room Air Pain Intensity Neck: Pain Intensity: 6 Transfer of Care Handoff Completed per policy Notes Mental Status: alert / awake / arousable and participated in evaluation Patient Amnestic to Procedure: Yes Nausea / Vomiting: adequately controlled Pain: adequately controlled Airway Patency, RR, SpO2: stable & adequate BP & HR: stable & adequate Hydration State: stable & adequate Anesthetic Complications: no major complications apparent
[2024-02-23] MEDS ORDERED: PROMETHAZINE HCL 12.5 MG in SODIUM CHLORIDE 0.9% 50 ML IV PRN (14:57)
[2024-02-23] MEDS ORDERED: ACETAMINOPHEN 500 MG TAB PO PRN (14:57)
[2024-02-23] MEDS ORDERED: SOD PHOSPHATE/SOD BIPHOSPHATE ENEMA 132 ML BTL PR PRN (14:57)
[2024-02-23] MEDS ORDERED: ONDANSETRON 4 MG OD TAB PO PRN (14:57)
[2024-02-23] MEDS ORDERED: hydrOXYzine HCl 25 MG TAB PO PRN (14:57)
[2024-02-23] MEDS ORDERED: METOCLOPRAMIDE HCL INJ 5 MG/ML 2 ML VIAL IV PRN (14:57)
[2024-02-23] MEDS ORDERED: dexAMETHasone 8 MG in SYRINGE 0 ML IV PRN (14:57)
[2024-02-23] MEDS ORDERED: DO NOT ADMINISTER PNEUMOCOCCAL VACCINE PRN (14:57)
[2024-02-23] MEDS ORDERED: ALUMINUM/MAGNESIUM SUSP 30 ML UDC PO PRN (14:57)
[2024-02-23] MEDS ORDERED: DO NOT ADMINISTER FLU VACCINE PRN (14:57)
[2024-02-23] MEDS ORDERED: LORazepam 0.5 MG in SYRINGE 0.25 ML IV PRN (14:57)
[2024-02-23] MEDS ORDERED: bisacodyL 10 MG SUPP PR PRN (14:57)
[2024-02-23] MEDS ORDERED: LORazepam 0.5 MG TAB PO PRN (14:57)
[2024-02-23] MEDS ORDERED: RACEPINEPHRINE 2.25% NEBU SOLN 0.5 ML VIAL INH PRN (14:57)
[2024-02-23] MEDS ORDERED: diphenhydrAMINE Capsule 25 MG CAP PO PRN (14:57)
[2024-02-23] MEDS ORDERED: NALOXONE HCL 0.4 MG/1 ML VIAL/CARP IV PRN (14:57)
[2024-02-23] MEDS ORDERED: FAMOTIDINE 20 MG TAB PO PRN (14:57)
[2024-02-23] MEDS ORDERED: MAGNESIUM HYDROXIDE SUSP 30 ML UDC PO PRN (14:57)
--- NOTE | 2024-02-23 15:35 | Fluoroscopy Report ---
FL cervical 2-3V CLINICAL HISTORY: C4-C7 ACDF w/interbody COMPARISON STUDY: None. FLUOROSCOPY TIME: 4 mm and 56 seconds. FLUOROSCOPY IMAGES: 17 Ka,r: 288.0 mGy FINDINGS: Anterior cervical discectomy and fusion noted within the lower thoracic spine. The exact le vels are difficult to identify on this study but appear to be from C4 through C7. The visualized hard wick is intact. Endotracheal tube is partially visualized. There is a thermometer which is seen withi n the hypopharynx. However, the tip of the thermometer terminates lateral to the thyroid cartilage be st seen on image 2. This could be within a lateral pharyngeal pouch. However, clinical correlation re commended to exclude the possibility of perforation of the hypopharynx. IMPRESSION: There is a thermometer which is seen within the hypopharynx. However, the tip of the ther mometer terminates lateral to the thyroid cartilage best seen on image 2. This could be within a late ral pharyngeal pouch. However, clinical correlation recommended to exclude the possibility of perfora tion of the hypopharynx. This report was called/faxed to the referring physician following dictation. ACT 112: Negative or not required by law. Electronically signed by: Marko Fischer M.D. 02/23/2024 3:34 PM
[2024-02-23] MEDS: oxyCODONE HCL IR 5 MG TAB (IMMEDIATE RELEASE) PO PRN (15:49)
[2024-02-23] MEDS: ceFAZolin 1000MG 1,000 MG/7.5 ML SYR IV SCH (16:42)
[2024-02-23] MEDS: HYDROmorphone INJ 0.5 MG/0.5 ML SYR IV PRN (19:36)
--- NOTE | 2024-02-23 19:56 | Orthopedic Progress Note ---
Date of Service February 23, 2024 Subjective . Patient seen and examined postoperatively while in room status post surgery. He reports no specific issues, has been tolerating some liquids, does not report coughing up any blood or other new symptomatology. Exam reveals incision site to be relatively unremarkable, motor intact. Patient is alert awake and cooperative in good spirits. Review of intraoperative fluoroscopy radiographs reveals the patient to have a temperature probe which appears to angle to the right, exact location unknown as per radiologist interpretation. Impression: Stable postoperative course, but abnormality relative to the temperature probe as noted. Plan: Today I met and discussed the finding with Dr. Blancas from anesthesia, we reviewed the images, and then also examined and talked to the patient together. Our decision was to contact ENT, I talked to a Dr. Chuck Cherry, ENT and will place a consultation for him relative to evaluating the patient. We will continue antibiotics, keep the patient n.p.o., and do further evaluation, this was discussed with the patient and family, I also related the discussion to Dr. Blancas. Review of Systems All systems reviewed & are unremarkable except as noted in HPI & below. Physical Exam . Results & Data Results & Data Laboratory Results . Diagnostic Findings . PG Care Time/CCT Total # of Minutes Spent Total Time Spent with Patient: Total time spent is greater than 50% in coordination of care (as documented) at patient's floor/unit and/or counseling patient: Coding Level of Care Code 66587 Post Operative Follow-Up
[2024-02-23] MEDS: buPROPion SR 100 MG TABCR PO SCH (20:41)
[2024-02-23] MEDS: MAGNESIUM OXIDE 400 MG TAB PO SCH (20:41)
[2024-02-23] MEDS: TAMSULOSIN HCL 0.4 MG CAP PO SCH (20:41)
[2024-02-23] MEDS: MONTELUKAST SODIUM 10 MG TABLET PO SCH (20:41)
[2024-02-23] MEDS: PREGABALIN 150 MG CAP PO SCH (20:41)
[2024-02-23] MEDS: LATANOPROST 0.005% OP SOLN 2.5 ML BTL OPB SCH (20:41)
[2024-02-23] MEDS: ATORVASTATIN 40 MG TAB PO SCH (20:41)
[2024-02-23] MEDS: DULoxetine HCL 60 MG CAP PO SCH (20:41)
[2024-02-23] MEDS: DOCUSATE SODIUM/SENNA 50/8.6MG TAB PO SCH (20:41)
[2024-02-23] MEDS: LACTATED RINGER'S 1,000 ML IV SCH (21:14)
--- NOTE | 2024-02-23 21:29 | Hospitalist Consultation ---
Date of Consultation February 23, 2024 Assessment & Plan (1) Status post cervical spinal fusion: VTE/bowel/pain management per primary team Concern for potential perforation per radiographs (2) Cervical spondylosis with myelopathy and radiculopathy: (3) GERD (gastroesophageal reflux disease): History of Present Illness Attending Physician: Jose Mark MD Allergies Allergy/AdvReac Type Severity Reaction Status Date / Time sulfamethoxazole Allergy Severe major Verified 02/23/24 06:14 [From Bactrim] reaction - serum sickness / hives, profound fatigue gentamicin Allergy Unknown compounded Verified 02/23/24 06:14 infection, was advised not to have gentamicin trimethoprim [From Bactrim] Allergy Unknown major Verified 02/23/24 06:14 reaction- serum sickness/hives, profound fatigue Home Medications Medication Instructions Recorded Confirmed Type albuterol sulfate 90 mcg/actuation 1 puff inhalation Q6H PRN Wheezing 09/01/18 02/23/24 History breath activated powder inhaler multivitamin 1 tab PO QPM 09/01/18 02/23/24 History vitamin B complex 1 tab PO QPM 09/01/18 02/23/24 History latanoprost 0.005 % eye drops 1 drp ophthalmic (eye) HS 03/22/19 02/23/24 History magnesium oxide 400 mg PO BID 07/25/20 02/23/24 History cholecalciferol (vitamin D3) 50 50 mcg PO QPM 08/07/20 02/23/24 History mcg (2,000 unit) capsule (Vitamin D3) Breo Ellipta 100 mcg-25 mcg/dose 1 inh inhalation QAM #3 Inhalers 08/31/23 02/23/24 Rx powder for inhalation (fluticasone furoate-vilanterol) acetaminophen 650 mg 1,300 mg PO QAM 11/19/23 02/23/24 History tablet,extended release (Tylenol Arthritis Pain) bupropion HCl 100 mg tablet,12 hr 100 mg PO HS #90 ea 12/01/23 02/23/24 Rx sustained-release bupropion HCl 200 mg tablet,12 hr 200 mg PO QAM #90 ea 12/01/23 02/23/24 Rx sustained-release pregabalin 150 mg capsule 150 mg PO BID #180 caps 12/28/23 02/23/24 Rx alfuzosin 10 mg tablet,extended 10 mg PO QPM 03/14/24 04/23/24 History release 24 hr (Uroxatral) amoxicillin 500 mg tablet 2,000 mg PO ONCE PRN dental 01/14/24 02/23/24 History prophylaxis atorvastatin 40 mg tablet (Lipitor) 40 mg PO QPM 01/14/24 02/23/24 History celecoxib 200 mg capsule (Celebrex) 200 mg PO QAM 01/14/24 02/23/24 History montelukast 10 mg tablet 10 mg PO QPM 01/14/24 02/23/24 History duloxetine 60 mg capsule,delayed 60 mg PO QPM #90 caps 02/15/24 02/23/24 Rx release Patient History Medical History Obesity (BMI 30-39.9) Dizziness intermittent, chronic-if has neck back for extended time-denies change or worsening History of depression controlled with meds Hx of gastroesophageal reflux (GERD) controlled, stable per pt Sensorineural hearing loss (SNHL) of both ears b/l hearing aides Hx of primary hypertension per pt. 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 Surgical History (Updated 02/23/24 @ 21:26 by Rowdy Rosen MD) Hx of bilateral cataract extraction (~2019) Status post right partial knee replacement (~07/07/23) History of cardiac cath (~2021) questionable stress test; no stent - [facility], no policy adviser at present History of esophagogastroduodenoscopy (EGD) (~2004) History of colonoscopy History of endoscopic sinus surgery (~1998) History of parotid gland removal (~1964) Superficial lobe of Left gland removal Hx of decompression of ulnar nerve right, transposition History of laminectomy (~05/2020) lumbar laminectomy- [facility] History of vasectomy S/P carpal tunnel release Right S/P lumbar fusion (~12/2014) L4-L5 Family History Grandmother (Paternal) Stroke Sister Breast cancer Father Prostate cancer Mother Atrial fibrillation Denies family history of Ovarian cancer Myocardial infarction Colorectal cancer Social History Smoking Status: Never smoker Second Hand Exposure: No (N/a); Do You Dip or Chew Tobacco: No; Tobacco Cessation Education Requested by Patient: No Hx Alcohol Use: Yes Alcohol type: wine Hx Substance Use: No Preferred Language: Azeri Communication Ability: Effective Visual Impairment: Limited Hearing Ability: Use of Hearing Aid Needle Grinder Required: No Beliefs That Will Affect Care: None marital status: Current Living Situation: Spouse current occupational status: retired current occupation: Physician Other Information That Helps Us Care for You: No Feels Safe at Home: Yes Safety Concerns: Feels Safe At This Time Dental Care, Regularly: Yes Physical Activity Frequency: 3-4 Times per Week Seatbelt Use: always Sunscreen Use: Yes Assistive Devices: Cane, Raised Toilet Seat, Walker and Other Results & Data Results & Data Vital Signs (Past 12 Hours) Vital Signs Temp Pulse Pulse Resp BP Pulse Ox Pulse Ox 02/23/24 19:45 68 18 95 02/23/24 19:27 36.4 C L 65 18 127/68 96 02/23/24 17:27 36.4 C L 77 18 142/76 H 92 02/23/24 16:27 36.6 C 72 18 138/75 93 02/23/24 15:27 36.4 C L 80 18 142/79 H 94 02/23/24 15:00 36.5 C 76 18 133/75 95 02/23/24 14:57 95 02/23/24 14:46 78 20 93 02/23/24 14:30 02/23/24 14:30 36.7 C 81 18 125/67 93 02/23/24 14:10 77 15 136/72 95 02/23/24 14:00 36.9 C 82 18 144/66 H 97 02/23/24 13:50 79 18 139/70 94 02/23/24 13:40 77 15 140/76 96 02/23/24 13:30 77 16 139/75 99 02/23/24 13:20 78 15 134/76 98 02/23/24 13:10 74 20 136/72 94 02/23/24 13:00 80 22 145/77 H 97 02/23/24 12:50 85 18 136/75 93 02/23/24 12:44 36.5 C 78 16 135/83 97 O2 Del Method O2 Del Method O2 Flow Rate O2 Flow Rate 02/23/24 19:45 Nasal Cannula 2 02/23/24 19:27 Nasal Cannula 2 02/23/24 17:27 Nasal Cannula 2 02/23/24 16:27 Nasal Cannula 2 02/23/24 15:27 Nasal Cannula 2 02/23/24 15:00 Nasal Cannula 2 02/23/24 14:57 Nasal Cannula 2 02/23/24 14:46 Nasal Cannula 2 02/23/24 14:30 Nasal Cannula 2 02/23/24 14:30 Nasal Cannula 2 02/23/24 14:10 Nasal Cannula 2 02/23/24 14:00 Nasal Cannula 2 02/23/24 13:50 Nasal Cannula 2 02/23/24 13:40 Nasal Cannula 2 02/23/24 13:30 Nasal Cannula 2 02/23/24 13:20 Nasal Cannula 2 02/23/24 13:10 Nasal Cannula 2 02/23/24 13:00 Oxymask 9 02/23/24 12:50 Oxymask 9 02/23/24 12:44 Oxymask 9 PG Care Time/CCT Total # of Minutes Spent Total Time Spent with Patient: Total time spent is greater than 50% in coordination of care (as documented) at patient's floor/unit and/or counseling patient: Coding Diagnoses Status post cervical spinal fusion Z98.1 Cervical spondylosis with myelopathy and radiculopathy M47.12; M47.22 GERD (gastroesophageal reflux disease) K21.9
[2024-02-23] MEDS: FAMOTIDINE 20MG IV PUSH 20 MG/5 ML SYR IV SCH (21:38)
[2024-02-23] MEDS ORDERED: LIDOCAINE 2% JELLY 5 ML TUBE EXT PRN (22:19)
--- NOTE | 2024-02-23 22:48 | Hospitalist Consultation ---
Date of Consultation February 23, 2024 Assessment & Plan (1) Status post cervical spinal fusion: - POD 0 from p C4-C5, C5-C6, C6-C7 Anterior Cervical Disc Fusion with Interbody Grafts/Cages - Pain management per primary team (2) Abnormal finding on imaging: - concern for possible esophageal perforation noted on post-op imaging - primary team discussed with ENT this evening - ENT consulted - plan for NPO until ENT evaluation - recommend broader antibiotic coverage given risk for potential intraabdominal infection; will switch from Ancef to Zosyn (3) Dyslipidemia: - continue atorvastatin; hold while NPO pending ENT evaluation (4) BPH loc w urin obs/LUTS: - on flomax; hold while NPO pending ENT evaluation (5) Diastolic CHF: - cautious with fluids- currently on LR @ 75ml/hr - + 1.6L at present - required dieresis after prior surgery - continue to monitor I/Os and daily weight, stop fluids as soon as appropriate/no longer NPO (6) Asthma: - no daily inhalers, rescue inhaler prn; has not had to use recently (7) GERD (gastroesophageal reflux disease): - on famotidine; will give IV hold while NPO pending ENT evaluation (8) Depression: - on Wellbutrin; hold while NPO pending ENT evaluation History of Present Illness Attending Physician: Jose Mark MD History of Present Illness 83 year old male with a past medical history of HLD, BPH, GERD, HFpEF, HTN, moderate persistent asthma, IgG deficiency, Depression s/p p C4-C5, C5-C6, C6-C7 Anterior Cervical Disc Fusion with Interbody Grafts/Cages. Noted cervical stenosis/DDD on imaging post-op. Chronic pain, UE weakness, issues with dexterity, and balance issues. Doing well post-op. Pain is well controlled. Denies nausea/vomiting, fever/chills, chest pain, dyspnea. No issues with swallowing, no abdominal pain. No new weakness or change in sensation. Follows with cardiology; noted history of HFpEF. Required Lasix post-op after right partial knee replacement. Was on prn Lasix for a period after, has not taken since 11/2023. Allergies Allergy/AdvReac Type Severity Reaction Status Date / Time sulfamethoxazole Allergy Severe major Verified 02/23/24 06:14 [From Bactrim] reaction - serum sickness / hives, profound fatigue gentamicin Allergy Unknown compounded Verified 02/23/24 06:14 infection, was advised not to have gentamicin trimethoprim [From Bactrim] Allergy Unknown major Verified 02/23/24 06:14 reaction- serum sickness/hives, profound fatigue Home Medications Medication Instructions Recorded Confirmed Type albuterol sulfate 90 mcg/actuation 1 puff inhalation Q6H PRN Wheezing 09/01/18 02/23/24 History breath activated powder inhaler multivitamin 1 tab PO QPM 09/01/18 02/23/24 History vitamin B complex 1 tab PO QPM 09/01/18 02/23/24 History latanoprost 0.005 % eye drops 1 drp ophthalmic (eye) HS 03/22/19 02/23/24 History magnesium oxide 400 mg PO BID 07/25/20 02/23/24 History cholecalciferol (vitamin D3) 50 50 mcg PO QPM 08/07/20 02/23/24 History mcg (2,000 unit) capsule (Vitamin D3) Breo Ellipta 100 mcg-25 mcg/dose 1 inh inhalation QAM #3 Inhalers 08/31/23 02/23/24 Rx powder for inhalation (fluticasone furoate-vilanterol) acetaminophen 650 mg 1,300 mg PO QAM 11/19/23 02/23/24 History tablet,extended release (Tylenol Arthritis Pain) bupropion HCl 100 mg tablet,12 hr 100 mg PO HS #90 ea 12/01/23 02/23/24 Rx sustained-release bupropion HCl 200 mg tablet,12 hr 200 mg PO QAM #90 ea 12/01/23 02/23/24 Rx sustained-release pregabalin 150 mg capsule 150 mg PO BID #180 caps 12/28/23 02/23/24 Rx alfuzosin 10 mg tablet,extended 10 mg PO QPM 01/14/24 02/23/24 History release 24 hr (Uroxatral) amoxicillin 500 mg tablet 2,000 mg PO ONCE PRN dental 01/14/24 02/23/24 History prophylaxis atorvastatin 40 mg tablet (Lipitor) 40 mg PO QPM 01/14/24 02/23/24 History celecoxib 200 mg capsule (Celebrex) 200 mg PO QAM 01/14/24 02/23/24 History montelukast 10 mg tablet 10 mg PO QPM 01/14/24 02/23/24 History duloxetine 60 mg capsule,delayed 60 mg PO QPM #90 caps 02/15/24 02/23/24 Rx release Patient History Medical History Anemia mild Asthma last asthma attack ~ 2yrs ago, sees Pulm at [facility]- last rescue inhaler use 4 weeks ago Cervical radiculitis Cervical spinal stenosis Multifactorial multilevel most severe at C5-6. 80% relief status post C7-T1 interlaminar epidural steroid injection limited ROM Diastolic CHF 2021 stress echo, echo 07/2023 EF 60-65% Dizziness intermittent, chronic-if has neck back for extended time-denies change or worsening Dyslipidemia Enlarged prostate with lower urinary tract symptoms (LUTS) Hiatal hernia small History of anesthesia reaction BP dropped with spinal anesthesia after recent knee surgery 2022, needed IV fluids to correct per pt which resulted in fluid overload (25 lb wt gain) and need for diuresis, follows with PCP for HF management History of depression controlled with meds History of parotid cancer Left status post excision, 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, ongoing monitoring Lumbar radiculopathy Obesity (BMI 30-39.9) Sensorineural hearing loss (SNHL) of both ears b/l hearing aides Stress fracture of right tibia 10/2023-following with [place] [facility] Thyroid nodule No bx Surgical History History of cardiac cath (~2021) questionable stress test; no stent - [facility], no neuro ophthalmologist at present History of colonoscopy History of endoscopic sinus surgery (~1998) History of esophagogastroduodenoscopy (EGD) (~2004) History of laminectomy (~05/2020) lumbar laminectomy- [facility] [address] History of parotid gland removal (~1964) Superficial lobe of Left gland removal History of vasectomy Hx of bilateral cataract extraction (~2019) Hx of decompression of ulnar nerve right, transposition S/P carpal tunnel release Right S/P lumbar fusion (~12/2014) L4-L5 Status post right partial knee replacement (~07/07/23) Family History Grandmother (Paternal) Stroke Sister Breast cancer Father Prostate cancer Mother Atrial fibrillation Denies family history of Ovarian cancer Myocardial infarction Colorectal cancer Social History Smoking Status: Never smoker Second Hand Exposure: No (N/a); Do You Dip or Chew Tobacco: No; Tobacco Cessation Education Requested by Patient: No Hx Alcohol Use: Yes Alcohol type: wine Hx Substance Use: No Preferred Language: Chinese Communication Ability: Effective Visual Impairment: Limited Hearing Ability: Use of Hearing Aid Digital Cartographer Required: No Beliefs That Will Affect Care: None marital status: Current Living Situation: Spouse current occupational status: retired current occupation: Physician Other Information That Helps Us Care for You: No Feels Safe at Home: Yes Safety Concerns: Feels Safe At This Time Dental Care, Regularly: Yes Physical Activity Frequency: 3-4 Times per Week Seatbelt Use: always Sunscreen Use: Yes Assistive Devices: Cane, Raised Toilet Seat, Walker and Other Review of Systems Review of Systems: As per above Physical Exam Physical Exam: Constitutional: well-appearing, no acute distress HEENT: NCAT, no conjunctival injection CV: regular rhythm, no murmur appreciated, extremities well-perfused, no LE edema Resp: CTABL, no wheezes/rales/rhonchi appreciated, no increased work of breat nadir MSK: no gross deformities appreciated Skin: warm, dry, no rash appreciated Neuro: alert, oriented, no focal neurologic deficit appreciated Results & Data Results & Data Vital Signs (Past 12 Hours) Vital Signs Temp Pulse Pulse Resp BP Pulse Ox Pulse Ox 02/23/24 21:27 36.4 C L 66 16 138/78 99 02/23/24 19:45 68 18 95 02/23/24 19:27 36.4 C L 65 18 127/68 96 02/23/24 17:27 36.4 C L 77 18 142/76 H 92 02/23/24 16:27 36.6 C 72 18 138/75 93 02/23/24 15:27 36.4 C L 80 18 142/79 H 94 02/23/24 15:00 36.5 C 76 18 133/75 95 02/23/24 14:57 95 02/23/24 14:46 78 20 93 02/23/24 14:30 02/23/24 14:30 36.7 C 81 18 125/67 93 02/23/24 14:10 77 15 136/72 95 02/23/24 14:00 36.9 C 82 18 144/66 H 97 02/23/24 13:50 79 18 139/70 94 02/23/24 13:40 77 15 140/76 96 02/23/24 13:30 77 16 139/75 99 02/23/24 13:20 78 15 134/76 98 02/23/24 13:10 74 20 136/72 94 02/23/24 13:00 80 22 145/77 H 97 02/23/24 12:50 85 18 136/75 93 02/23/24 12:44 36.5 C 78 16 135/83 97 O2 Del Method O2 Del Method O2 Flow Rate O2 Flow Rate 02/23/24 21:27 Nasal Cannula 2 02/23/24 19:45 Nasal Cannula 2 02/23/24 19:27 Nasal Cannula 2 02/23/24 17:27 Nasal Cannula 2 02/23/24 16:27 Nasal Cannula 2 02/23/24 15:27 Nasal Cannula 2 02/23/24 15:00 Nasal Cannula 2 02/23/24 14:57 Nasal Cannula 2 02/23/24 14:46 Nasal Cannula 2 02/23/24 14:30 Nasal Cannula 2 02/23/24 14:30 Nasal Cannula 2 02/23/24 14:10 Nasal Cannula 2 02/23/24 14:00 Nasal Cannula 2 02/23/24 13:50 Nasal Cannula 2 02/23/24 13:40 Nasal Cannula 2 02/23/24 13:30 Nasal Cannula 2 02/23/24 13:20 Nasal Cannula 2 02/23/24 13:10 Nasal Cannula 2 02/23/24 13:00 Oxymask 9 02/23/24 12:50 Oxymask 9 02/23/24 12:44 Oxymask 9 Resident Activity Tracking Resident Involvement: Resident Care Provided Care Provided: Adult Hospital Medicine
[2024-02-23] MEDS: HYDROmorphone INJ 1 MG/ML SYRINGE IV PRN (22:56)
[2024-02-23] MEDS: PIPER/TAZO 4.5g in D5W MINI-B 100 ML IV ONE (23:10)
--- NOTE | 2024-02-23 23:21 | ENT Consultation ---
Date of Consultation February 23, 2024 Assessment & Plan (1) Cervical pain: IMPRESSION: I do NOT find any evidence that the temperature probe was falsely inserted into any tissue tract of the upper aerodigestive tract. I do NOT find any evidence false tract. There is NO ecchymosis NOR edema or bleeding of the hypopharynx. There is NO subcutaneous air in the soft tissues either. RECOMMENDATIONS: I believe the temperature probe was curled in the hypopharynx and resting in the piriform sinus, extracorporal, without consequence and was never in any false tract of the soft tissues of the neck or aerodigestive tract. 1. There is NO false tissue tract. 2. Nutritional Diet may be advanced as needed per Dr Mark. 3. There is no need for antibiotic therapy for any false tissue tract. History of Present Illness Reason for Consultation: Called by Dr. Mark for patient evaluation of the head and neck for possible errant placement of temperature probe. Requesting Physician: Jose Mark MD Attending Physician: Jose Mark MD History of Present Illness Patient is an 83 yo male who was admitted to [facility] on (02/23/2024) and underwent an Anterior Cervical Disc Fusion today. Surgery was uncomplicated, with patient having an uncomplicated recovery course in PACU and transferred to Floor Bed in standard fashion. Review of radiology films indicates possible errant placement of temperature probe in the Nasopharyngeal airway, on a previous Fluoroscopy Film - but this is unsure. The temperature probe was removed prior to extubation in the operating room without complication after general anesthesia in standard fashion. Patient has been stable in PACU and on Hospital Floor, and ENT - Head & Neck Service evaluation is requested. Allergies Allergy/AdvReac Type Severity Reaction Status Date / Time sulfamethoxazole Allergy Severe major Verified 02/23/24 06:14 [From Bactrim] reaction - serum sickness / hives, profound fatigue gentamicin Allergy Unknown compounded Verified 02/23/24 06:14 infection, was advised not to have gentamicin trimethoprim [From Bactrim] Allergy Unknown major Verified 02/23/24 06:14 reaction- serum sickness/hives, profound fatigue Home Medications Medication Instructions Recorded Confirmed Type albuterol sulfate 90 mcg/actuation 1 puff inhalation Q6H PRN Wheezing 09/01/18 02/23/24 History breath activated powder inhaler multivitamin 1 tab PO QPM 09/01/18 02/23/24 History vitamin B complex 1 tab PO QPM 09/01/18 02/23/24 History latanoprost 0.005 % eye drops 1 drp ophthalmic (eye) HS 03/22/19 02/23/24 History magnesium oxide 400 mg PO BID 07/25/20 02/23/24 History cholecalciferol (vitamin D3) 50 50 mcg PO QPM 08/07/20 02/23/24 History mcg (2,000 unit) capsule (Vitamin D3) Breo Ellipta 100 mcg-25 mcg/dose 1 inh inhalation QAM #3 Inhalers 08/31/23 02/23/24 Rx powder for inhalation (fluticasone furoate-vilanterol) acetaminophen 650 mg 1,300 mg PO QAM 11/19/23 02/23/24 History tablet,extended release (Tylenol Arthritis Pain) bupropion HCl 100 mg tablet,12 hr 100 mg PO HS #90 ea 12/01/23 02/23/24 Rx sustained-release bupropion HCl 200 mg tablet,12 hr 200 mg PO QAM #90 ea 12/01/23 02/23/24 Rx sustained-release pregabalin 150 mg capsule 150 mg PO BID #180 caps 12/28/23 02/23/24 Rx alfuzosin 10 mg tablet,extended 10 mg PO QPM 01/14/24 02/23/24 History release 24 hr (Uroxatral) amoxicillin 500 mg tablet 2,000 mg PO ONCE PRN dental 01/14/24 02/23/24 History prophylaxis atorvastatin 40 mg tablet (Lipitor) 40 mg PO QPM 01/14/24 02/23/24 History celecoxib 200 mg capsule (Celebrex) 200 mg PO QAM 01/14/24 02/23/24 History montelukast 10 mg tablet 10 mg PO QPM 01/14/24 02/23/24 History duloxetine 60 mg capsule,delayed 60 mg PO QPM #90 caps 02/15/24 02/23/24 Rx release Patient History Medical History Anemia mild Asthma last asthma attack ~ 2yrs ago, sees Pulm at [facility]- last rescue inhaler use 4 weeks ago Cervical radiculitis Cervical spinal stenosis Multifactorial multilevel most severe at C5-6. 80% relief status post C7-T1 interlaminar epidural steroid injection limited ROM Diastolic CHF 2021 stress echo, echo 07/2023 EF 60-65% Dizziness intermittent, chronic-if has neck back for extended time-denies change or worsening Dyslipidemia Enlarged prostate with lower urinary tract symptoms (LUTS) Hiatal hernia small History of anesthesia reaction BP dropped with spinal anesthesia after recent knee surgery 2022, needed IV fluids to correct per pt which resulted in fluid overload (25 lb wt gain) and need for diuresis, follows with PCP for HF management History of depression controlled with meds History of parotid cancer Left status post excision, 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 History of colonoscopy History of endoscopic sinus surgery (~1998) History of esophagogastroduodenoscopy (EGD) (~2004) History of laminectomy (~05/2020) lumbar [facility]aminectomy- [facility] History of parotid gland removal (~1964) Superficial lobe of Left gland removal History of vasectomy Hx of bilateral cataract extraction (~2019) Hx of decompression of ulnar nerve right, transposition S/P carpal tunnel release Right S/P lumbar fusion (~12/2014) L4-L5 Status post right partial knee replacement (~07/07/23) Family History Grandmother (Paternal) Stroke Sister Breast cancer Father Prostate cancer Mother Atrial fibrillation Denies family history of Ovarian cancer Myocardial infarction Colorectal cancer Social History Smoking Status: Never smoker Second Hand Exposure: No (N/a); Do You Dip or Chew Tobacco: No; Tobacco Cessation Education Requested by Patient: No Hx Alcohol Use: Yes Alcohol type: wine Hx Substance Use: No Preferred Language: Martiniquais Communication Ability: Effective Visual Impairment: Limited Hearing Ability: Use of Hearing Aid Offset Second Press Operator Required: No Beliefs That Will Affect Care: None marital status: Current Living Situation: Spouse current occupational status: retired current occupation: Physician Other Information That Helps Us Care for You: No Feels Safe at Home: Yes Safety Concerns: Feels Safe At This Time Dental Care, Regularly: Yes Physical Activity Frequency: 3-4 Times per Week Seatbelt Use: always Sunscreen Use: Yes Assistive Devices: Cane, Raised Toilet Seat, Walker and Other Review of Systems Review of Systems: General: DENIES any fever, chills, night sweats. Head / Neurological: Prior to admission some episodes vertigo, imbalance. NO diplopia, NO visual changes. DENIES Migraines or Headaches Ears: DENIES any otorrhea Occasional tinnitus YES Hearing Loss wears hearing aids. Nose: DENIES epistaxis NO Nasal Congestion NO Post Nasal Drip Throat: MILD Hoarseness after general anesthesia and surgery - but strong, NO breathiness. NO swallowing issues - but currently NPO and has Dry mouth. Respiratory: DENIES Shortness of Breath NO wheezing Cardiovascular: DENIES any irregular heart rate. DENIES Chest pain. GI: DENIES any nausea / emesis. DENIES any melena Musculoskeletal: NO weakness. Normal ROM of extremities. Hematologic / Immune: NO bleeding disorders or easy bruising. DENIES any anti-coagulation. DENIES Night sweats. DENIES Seasonal Allergies NO Tongue swelling Physical Exam Physical Exam: HEAD: Normocephalic CRANIAL NERVES: CN II - XII Intact NO Facial Weakness FACE: NO Erythema NO Rash Lips Normal EYES: EOMI PERRL Ears: External Ears - Normal Ext Aud. Canals - CLEAR Bilateral - Hearing Aids present. Easily removed. Tympanic Membranes - Normal Bilateral Middle Ears - CLEAR Bilateral NOSE: External Dorsum - NO Deformity Septum - Deviated slightly anteriorly to the RIGHT (( - but otherwise mostly Midline Turbinate - Normal shape & mucosa - NO Polyps MOUTH: Dentition - Good Repair Floor of Mouth - CLEAR. NO Edema - SMALL Rafaela Mandibulari present. Roosevelt's Ducts normal Tongue - NO masses - NO Ulcers. - Full ROM of Tongue. - Base of Tongue SOFT - NO induration. OROPHARYNX: Tonsils Normal +1 (SMALL) - There is a small focus of erythema and ecchymosis of the RIGHT Anterior Tonsillar pillar and RIGHT Tonsil fossa - superficial about 12 mm round. NO signs of a puncture site. Uvula Midline - normal size & shape. SOFT PALATE elevates NORMAL and Symmetrical. NO signs of injury or swelling of the SOFT PALATE. NECK: Trachea Midline - Soft tissue is supple. NO crepitance. NO masses - Lower LEFT neck Dressing INTACT. NO adenopathy PROCEDURE: FLEXIBLE LARYNGOSCOPY . Surgeon: Chuck Cherry MD, [facility] Anesthesia: Topical Bupivicaine 0.75% mixed with Oxymetazoline 0.05% in a 1:1 Topical solution. NOTE: Bupivicaine / Afrin solution soaked on a small cotton ball and inserted into each nostril / nasal airway for topical anesthetic. A total of 2 ml used. The Flexible Fiberoptic Laryngoscope was easily passed through the Nasal airway and Nasopharynx - and then directed to the Hypopharynx were the Larynx was inspected and observed with breathing and swallowing of the patient. FINDINGS: Glottic Airway is patent - vocal cords are CLEAR and MOBILE. NO airway compromise - - Epiglottis - Normal Spatula Shape PIRIFORM Sinus - BOTH are smooth, clear - NO ecchymosis. NO pooling of secretions. Arytenoids are within normal size and NOT compromising the air way. Aryepiglottic Folds are THIN and SMOOTH. MUCOSA is PINK - NOT Erythematous. Nasopharynx Findings: Adenoids - smooth small Eustachian Tube Openings Normal COMPLICATIONS: NONE CONDITION: Patient tolerated the procedure well X-rays of neck from yesterday and this morning have been reviewed by myself. IMPRESSION: I do NOT find any evidence that the temperature probe was falsely inserted into any tissue tract of the upper aerodigestive tract. I do NOT find any evidence false tract. There is NO ecchymosis NOR edema or bleeding of the hypopharynx. There is NO subcutaneous air in the soft tissues either. RECOMMENDATIONS: I believe the temperature probe was curled in the hypopharynx and resting in the piriform sinus, extracorporal, without consequence and was never in any false tract of the soft tissues of the neck or aerodigestive tract. 1. There is NO false tissue tract. 2. Nutritional Diet may be advanced as needed per Dr Mark. 3. There is no need for antibiotic therapy for any false tissue tract. Results & Data Vital Signs (Past 12 Hours) Vital Signs Temp Pulse Pulse Resp BP Pulse Ox Pulse Ox 02/23/24 22:32 68 98 02/23/24 21:27 36.4 C L 66 16 138/78 99 02/23/24 19:45 68 18 95 02/23/24 19:27 36.4 C L 65 18 127/68 96 02/23/24 17:27 36.4 C L 77 18 142/76 H 92 02/23/24 16:27 36.6 C 72 18 138/75 93 02/23/24 15:27 36.4 C L 80 18 142/79 H 94 02/23/24 15:00 36.5 C 76 18 133/75 95 02/23/24 14:57 95 02/23/24 14:46 78 20 93 02/23/24 14:30 02/23/24 14:30 36.7 C 81 18 125/67 93 02/23/24 14:10 77 15 136/72 95 02/23/24 14:00 36.9 C 82 18 144/66 H 97 02/23/24 13:50 79 18 139/70 94 02/23/24 13:40 77 15 140/76 96 02/23/24 13:30 77 16 139/75 99 02/23/24 13:20 78 15 134/76 98 02/23/24 13:10 74 20 136/72 94 02/23/24 13:00 80 22 145/77 H 97 02/23/24 12:50 85 18 136/75 93 02/23/24 12:44 36.5 C 78 16 135/83 97 O2 Del Method O2 Del Method O2 Flow Rate O2 Flow Rate 02/23/24 22:32 Nasal Cannula 2 02/23/24 21:27 Nasal Cannula 2 02/23/24 19:45 Nasal Cannula 2 02/23/24 19:27 Nasal Cannula 2 02/23/24 17:27 Nasal Cannula 2 02/23/24 16:27 Nasal Cannula 2 02/23/24 15:27 Nasal Cannula 2 02/23/24 15:00 Nasal Cannula 2 02/23/24 14:57 Nasal Cannula 2 02/23/24 14:46 Nasal Cannula 2 02/23/24 14:30 Nasal Cannula 2 02/23/24 14:30 Nasal Cannula 2 02/23/24 14:10 Nasal Cannula 2 02/23/24 14:00 Nasal Cannula 2 02/23/24 13:50 Nasal Cannula 2 02/23/24 13:40 Nasal Cannula 2 02/23/24 13:30 Nasal Cannula 2 02/23/24 13:20 Nasal Cannula 2 02/23/24 13:10 Nasal Cannula 2 02/23/24 13:00 Oxymask 9 02/23/24 12:50 Oxymask 9 02/23/24 12:44 Oxymask 9 Diagnostic Findings IMAGING of 23 FEBRUARY 2024 FL cervical 2-3V CLINICAL HISTORY: C4-C7 ACDF w/interbody COMPARISON STUDY: None. FLUOROSCOPY TIME: 4 mm and 56 seconds. FLUOROSCOPY IMAGES: 17 Ka,r: 288.0 mGy FINDINGS: Anterior cervical discectomy and fusion noted within the lower t horacic spine. The exact levels are difficult to identify on this study but appear to be from C4 through C7. The visualized hardware is intact. Endotracheal tube is partially visualized. There is a thermometer which is seen within the hypopharynx. However, the tip of the thermometer terminates lateral to the thyroid cartilage best seen on image 2. This could be within a lateral pharyngeal pouch. However, clinical correlation recommended to exclude the possibility of perforation of the hypopharynx. IMPRESSION: There is a thermometer which is seen within the hypopharynx. However, the tip of the thermometer terminates lateral to the thyroid cartilage best seen on image 2. This could be within a lateral pharyngeal pouch. However, clinical correlation recommended to exclude the possibility of perforation of the hypopharynx. This report was called/faxed to the referring physician following dictation. ACT 112: Negative or not required by law. Electronically signed by: Marko Fischer M.D. 02/23/2024 3:34 PM IMAGING of 24 FEBRUARY 2024 XR soft tissue neck HISTORY: 83 years-old Male AP Lat Film to evaluate possible crepitance acute neck pain COMPARISON: Cervical spine radiographs of same day TECHNIQUE: 2 views of the soft tissues of the neck FINDINGS: There are postoperative findings consistent with C4-C5, C5-C6 and C6-C7 anterior discectomy and fusion. The hardware appears intact. Slight anterolisthesis of C7 on T1 is similar to previous MRI. Moderate multilevel facet arthrosis is again noted. There is disc space narrowing at C2-C3 and C3-C4. No fractures are identified. There are no radiopaque foreign bodies. Prevertebral soft tissues are prominent at the C4-C7 levels. IMPRESSION: 1. Postoperative and degenerative changes of the cervical spine as above. 2. Prevertebral soft tissue prominence is likely postoperative. ACT 112: Negative or not required by law. The above report was generated using voice recognition software. It may contain grammatical, syntax or spelling errors. Electronically signed by: Kenyon Honeycutt M.D. 02/24/2024 10:06 AM PG Care Time/CCT Total # of Minutes Spent Total Time Spent with Patient: Total time spent is greater than 50% in coordination of care (as documented) at patient's floor/unit and/or counseling patient: Coding Level of Care Code 16038 INT INP/OBS CARE 2/55MIN Diagnoses Cervical pain M54.2 CPT Codes LARYNGOSCOPY DIAGNOSTIC FLEXIBLE - 17651 ([id number])
[2024-02-24] MEDS: PIPERACILLIN/TAZOBACTAM 4.5 GM in DEXTROSE 5% MINI-B 100 ML IV SCH (03:16)
[2024-02-24] MEDS: POLYETHYLENE (MIRALAX) 17 GM PACK PO SCH (05:04)
[2024-02-24 06:16] LABS: Basophils # (auto) 0.01 K/uL (0.00-0.20); Basophils % (auto) 0.1 %; Hematocrit (blood only) 34.8 % (42.0-52.0); Hemoglobin 11.9 g/dl (14.0-18.0); Immature Granulocytes # (auto) 0.03 K/uL (0.01-0.20); Immature Granulocytes % (auto) 0.4 %; Lymphocytes # (auto) 0.52 K/uL (1.20-3.40); Lymphocytes % (auto) 6.5 %; Mean Corpuscular Hemoglobin 33.8 pg (25.0-34.0); Mean Corpuscular Hgb Conc 34.2 g/dL (32.0-36.0); Mean Corpuscular Volume 98.9 fL (80.0-100.0); Mean Platelet Volume 10.6 fL (9.4-12.4); Monocytes # (auto) 0.85 K/uL (0.11-0.59); Monocytes % (auto) 10.7 %; Neutrophils # (auto) 6.57 K/uL (1.40-6.50); Neutrophils % (auto) 82.3 %; Platelet Count 148 K/uL (130-400); RDW Coefficient of Variation 13.2 % (11.5-14.5); RDW Standard Deviation 48.1 fL (36.4-46.3); Red Blood Count 3.52 M/uL (4.70-6.10); White Blood Count 7.98 K/ul (4.8-10.8)
[2024-02-24 06:35] LABS: BUN Creatinine Ratio 28.8 (10-20); Calcium 9.4 mg/dl (8.6-10.3); Est GFR (African American) 107.8 ml/min; Magnesium 2.1 mg/dl (1.7-2.4); Potassium 4.4 mmol/L (3.5-5.1)
--- NOTE | 2024-02-24 09:51 | XRay Report ---
XR cervical spine 2 or 3V CLINICAL HISTORY: post-op spine surgery COMPARISON STUDY: MRI of the cervical spine November 23, 2023. CTA of the neck February 22, 2024. FINDINGS: There are postoperative findings consistent with C4-C5, C5-C6 and C6-C7 anterior discectomy and fusion. The hardware appears intact. Slight anterolisthesis of C7 on T1 is similar to previous M RI. Moderate multilevel facet arthrosis is again noted. There is disc space narrowing at C2-C3 and C3 -C4. No fractures are identified. There are no radiopaque foreign bodies. Prevertebral soft tissues a re prominent at the C4-C7 levels. IMPRESSION: 1. Status post C4-C5, C5-C6 and C6-C7 anterior discectomy and fusion. Hardware intact. No unexpected radiopaque foreign bodies. 2. Prominent prevertebral soft tissues at the C4-C7 levels. This may reflect postoperative edema. ACT 112: Negative or not required by law. Electronically signed by: Johnson Llamas M.D. 02/24/2024 9:49 AM
--- NOTE | 2024-02-24 10:07 | XRay Report ---
XR soft tissue neck HISTORY: 83 years-old Male AP Lat Film to evaluate possible crepitance acute neck pain COMPARISON: Cervical spine radiographs of same day TECHNIQUE: 2 views of the soft tissues of the neck FINDINGS: There are postoperative findings consistent with C4-C5, C5-C6 and C6-C7 anterior discectomy and fusio n. The hardware appears intact. Slight anterolisthesis of C7 on T1 is similar to previous MRI. Modera te multilevel facet arthrosis is again noted. There is disc space narrowing at C2-C3 and C3-C4. No fr actures are identified. There are no radiopaque foreign bodies. Prevertebral soft tissues are promine nt at the C4-C7 levels. IMPRESSION: 1. Postoperative and degenerative changes of the cervical spine as above. 2. Prevertebral soft tissue prominence is likely postoperative. ACT 112: Negative or not required by law. The above report was generated using voice recognition software. It may contain grammatical, syntax o r spelling errors. Electronically signed by: Kenyon Honeycutt M.D. 02/24/2024 10:06 AM
--- NOTE | 2024-02-24 10:24 | Communication Note ---
Date of Service: February 24, 2024 I attempted to see Jorge this morning on rounds but he was away at radiology. I did discuss with the nurse about his care. We are currently awaiting ENTs recommendations for him if he would be stable for discharge today or not. Per his nurse, he was able to get out of bed and ambulate without much discomfort. He also has not been having much pain today. He is currently n.p.o. for possible ENT procedure. I will reevaluate him later this morning for a more definitive plan.
--- NOTE | 2024-02-24 11:03 | Orthopedic Progress Note ---
Date of Service February 24, 2024 Subjective . Patient seen and examined this morning, he reports no issues overnight, no swallowing issues or any coughing up of any material. He finds he clears his throat slightly, no other new complaints. Exam reveals his incision site to be relatively dry, dressing is intact, no change in upper extremities with strength still maintained. Impression: 1 day status post three-level anterior cervical decompression and fusion, abnormality on radiographs relative to the temperature probe, ENT consulted. Plan: Today I did spend time talking with Dr. Cherry who was also present, the plan will be to order radiographs and review these along with also perhaps doing a scope later on today. Our plan will be to continue him on antibiotics and n.p.o. at least through today. The patient can be mobilized out of bed. Patient was evaluated by Dr. Cherry with scope, he commented he could not find any perforations or issues. He related that the patient does not have to be n.p.o. and we can stop antibiotics and the patient can be discharged. Review of Systems All systems reviewed & are unremarkable except as noted in HPI & below. Physical Exam . Results & Data Results & Data Laboratory Results . Diagnostic Findings . PG Care Time/CCT Total # of Minutes Spent Total Time Spent with Patient: Total time spent is greater than 50% in coordination of care (as documented) at patient's floor/unit and/or counseling patient: Coding Level of Care Code 58705 Post Operative Follow-Up
[2024-02-24] MEDS: buPROPion SR 100 MG TABCR PO SCH (11:14)
[2024-02-24] MEDS: FLUTICASONE/VILANTEROL 100/25MCG 14 PUFFS/INHALER INH SCH (11:19)
[2024-02-24] MEDS: ACETAMINOPHEN 1,000 MG/100 ML VIAL IV PRN (13:02)
--- NOTE | 2024-02-24 16:25 | Discharge Summary ---
Date of Service February 24, 2024 Admission HPI (Per Admitting) Patient admitted for anterior cervical decompression performed on February 22. Principal Diagnosis Same as "Discharge Diagnosis" noted below under Discharge Instructions. Discharge Exam . Discharge Data Consultations 02/23/24 14:57 Consult Hospitalist Routine 02/23/24 20:23 Consult Otolaryngology (Head and Neck) Routine Procedures Performed Operation Date: 02/23/24 07:15 Actual Procedures p C4-C5, C5-C6, C6-C7 Anterior Cervical Disc Fusion with Interbody Grafts/Cages with Spinal Cord Monitoring(Not Applicable) - Jose Mark MD Ordered Studies 02/23/24 07:00 FL cervical 2-3V Routine Hospital Course (1) Status post cervical spinal fusion: (2) Cervical spondylosis with myelopathy and radiculopathy: Anterior cervical decompression/fusion Plan Discharge home with follow-up in 2 weeks. PG Care Time/CCT Total # of Minutes Spent Total Time Spent with Patient: Total time spent is greater than 50% in coordination of care (as documented) at patient's floor/unit and/or counseling patient: Discharge Plan Discharge Items Patient Disposition: Home - Self-Care Reason For Visit: POST OP Discharge Diagnosis: Cervical stenosis Activity: As commented below Lifting: No more than 5 pounds Bathing: May shower/bathe in 3 days Exercise/Sports: Wait until after follow-up appointment Non-emergency contact: Surgeon Call non-emergency contact if: your pain is worsening Follow-up/Referrals: Bernice Mitchell MD [Primary Care Provider] - Diet: Regular Addtl Attending Provider Instructions: Advance diet as tolerated. Pending Studies at Discharge: No Stand-Alone Forms: [facility] [place], Smoking Cessation Medications and DC Order Prescriptions: Continued fluticasone furoate-vilanterol [Breo Ellipta] 100-25 mcg/dose blister with device 1 inh inhalation QAM Qty: 3 3RF bupropion HCl 100 mg tablet sustained-release 12 hr 100 mg PO HS Qty: 90 3RF bupropion HCl 200 mg tablet sustained-release 12 hr 200 mg PO QAM Qty: 90 3RF magnesium oxide 400 mg magnesium tablet 400 mg PO BID pregabalin 150 mg capsule 150 mg PO BID Qty: 180 0RF acetaminophen [Tylenol Arthritis Pain] 650 mg tablet extended release 1,300 mg PO QAM duloxetine 60 mg capsule,delayed release(DR/EC) 60 mg PO QPM Qty: 90 3RF multivitamin Tablet 1 tab PO QPM vitamin B complex Tablet 1 tab PO QPM albuterol sulfate 90 mcg/actuation Aerosol Powdr Breath Activated 1 puff INHALATION Q6H PRN (Reason: Wheezing) latanoprost 0.005 % drops 1 drp ophthalmic (eye) HS Patient Comments: both eyes cholecalciferol (vitamin D3) [Vitamin D3] 50 mcg (2,000 unit) Capsule 50 mcg PO QPM atorvastatin [Lipitor] 40 mg tablet 40 mg PO QPM montelukast 10 mg tablet 10 mg PO QPM alfuzosin [Uroxatral] 10 mg tablet extended release 24 hr 10 mg PO QPM Held celecoxib [Celebrex] 200 mg capsule 200 mg PO QAM Hold Instructions: Hold for 2 months. Discontinued amoxicillin 500 mg tablet 2,000 mg PO ONCE PRN (Reason: dental prophylaxis) Rx Instructions: 4 tabs 1 hour prior to procedure No Action oxycodone-acetaminophen 5-325 mg tablet 1 tab PO Q6H Qty: 24 0RF Discharge Orders: Discharge Order (Routine); Ordered 02/24/24 Ordered By: Jose De Guzman/Other Patient Handouts: Cervical Fusion Dc Admission Data Admit Date/Time: 02/23/24 12:10 Attending Provider: Jose Mark Admit Provider: Jose Mark Primary Care Provider: Bernice Mitchell Other Providers: Rowdy Oropeza Mark J. Other Interventions: Discharge Summary Assessment (RN) Last Done: 02/24/24 17:15
--- NOTE | 2024-02-24 16:53 | Hospitalist Progress Note ---
Date of Service February 24, 2024 Assessment & Plan (1) Status post cervical spinal fusion: Plan: - Patient had C4-C5, C5-C6, C6-C7 Anterior Cervical Disc Fusion with Interbody Grafts/Cages on 02/23/[address] Mark. - Pain control, DVT prophylaxis, activity level, discharge planning per the primary team. (2) Abnormal finding on imaging: Plan: - There was concern for possible esophageal perforation noted on postop imaging. - ENT was consulted, and patient was evaluated by Dr. Cherry with scope. He did not find any perforations or issues. He advised that the patient does not need antibiotics and can be discharged. (3) Dyslipidemia: Plan: - Continue atorvastatin (4) BPH loc w urin obs/LUTS: Plan: - Continue flomax (5) Diastolic CHF: Plan: - cautious with fluids. stop fluids as soon as appropriate - required dieresis after prior surgery -Patient euvolemic upon discharge. (6) Asthma: Plan: - no daily inhalers, rescue inhaler prn; has not had to use recently (7) GERD (gastroesophageal reflux disease): Plan: - Continue famotidine (8) Depression: Plan: - Continue Wellbutrin Plan Pain control, DVT prophylaxis, activity level, discharge planning per the primary team. Patient is stable for discharge from medical perspective. Medicine will sign off at this time. CODE STATUS: Full code Admission and Anticipated Discharge Date Admission Date: February 23, 2024 Subjective Patient seen and evaluated at bedside. He had C4-C5, C5-C6, C6-C7 Anterior Cervical Disc Fusion with Interbody Grafts/Cages with Dr. Mark on 02/23/24. Surgery was uncomplicated, however review of radiology films revealed possible errant placement of temp Bircher probe in the nasopharyngeal airway. ENT was consulted and felt that there was no perforations, no false tissue tract, no need for antibiotic therapy. Patient reports that he feels well overall. He notes a minimal headache and some neck pain, which is well-controlled with medication. He reports he has a full appetite. He denies any complaints at this time. Patient is stable for discharge from medical perspective. Medicine will sign off at this time. Physical Exam Physical Exam: General: No acute distress, nondiaphoretic, well-developed, well-nourished. Skin: The skin was without rashes, erythema, edema, or bruising. Lower left neck dressing intact, dry. Cardiac: Regular rate and rhythm without murmurs gallops or rubs. Pulm: Clear to auscultation bilaterally without wheezes, rales or rhonchi. No retractions or accessory muscle use. Abdominal: Positive bowel sounds x 4. Soft, nontender, without masses or organomegaly. No guarding or rebound tenderness. Neuro: A&O x3. No focal neurological deficits. Results & Data Results & Data Vital Signs (Past 12 Hours) Vital Signs Temp Pulse Pulse Resp BP Pulse Ox Pulse Ox 02/24/24 16:00 58 L 16 94 02/24/24 10:51 61 18 93 02/24/24 09:57 02/24/24 08:46 95 02/24/24 08:40 36.6 C 59 L 18 128/81 98 02/24/24 08:01 96 H 16 100 02/24/24 05:27 36.5 C 60 16 131/78 99 O2 Del Method O2 Del Method O2 Flow Rate O2 Flow Rate 02/24/24 16:00 Room Air 02/24/24 10:51 Nasal Cannula 1 02/24/24 09:57 Room Air 1 02/24/24 08:46 Nasal Cannula 1 02/24/24 08:40 Nasal Cannula 1 02/24/24 08:01 Nasal Cannula 3 02/24/24 05:27 Nasal Cannula 2 Laboratory Results Reviewed CBC Reviewed chemistries Diagnostic Findings Soft tissue neck x-ray 02/24/24 FINDINGS: There are postoperative findings consistent with C4-C5, C5-C6 and C6-C7 anterior discectomy and fusion. The hardware appears intact. Slight anterolisthesis of C7 on T1 is similar to previous MRI. Moderate multilevel facet arthrosis is again noted. There is disc space narrowing at C2-C3 and C3-C4. No fractures are identified. There are no radiopaque foreign bodies. Prevertebral soft tissues are prominent at the C4-C7 levels. IMPRESSION: 1. Postoperative and degenerative changes of the cervical spine as above. 2. Prevertebral soft tissue prominence is likely postoperative. Cervical spine x-ray 02/24/24 FINDINGS: There are postoperative findings consistent with C4-C5, C5-C6 and C6- C7 anterior discectomy and fusion. The hardware appears intact. Slight ante rolisthesis of C7 on T1 is similar to previous MRI. Moderate multilevel facet arthrosis is again noted. There is disc space narrowing at C2-C3 and C3-C4. No fractures are identified. There are no radiopaque foreign bodies. Prevertebral soft tissues are prominent at the C4-C7 levels. IMPRESSION: 1. Status post C4-C5, C5-C6 and C6-C7 anterior discectomy and fusion. Hardware intact. No unexpected radiopaque foreign bodies. 2. Prominent prevertebral soft tissues at the C4-C7 levels. This may reflect postoperative edema. PG Care Time/CCT Total # of Minutes Spent Total Time Spent with Patient: Total time spent is greater than 50% in coordination of care (as documented) at patient's floor/unit and/or counseling patient: Coding Level of Care Code 05529 SUB INP/OBS CARE 2/35MIN Diagnoses Status post cervical spinal fusion Z98.1 Abnormal finding on imaging R93.89 Dyslipidemia E78.5 BPH loc w urin obs/LUTS N40.1 Diastolic CHF I50.30 Asthma J45.909 GERD (gastroesophageal reflux disease) K21.9 Depression F32.9
[2024-02-24] MEDS: oxyCODONE IR HOME PACK PO ONE (18:06)
--- NOTE | 2024-02-25 16:16 | Operative Report ---
PG Post Operative Report Pre & Post Diagnosis Operation Date: 02/23/24 07:15 Pre-Op Diagnosis: Difficulty Balancing, Cervical Radiculopathy, Degenerative spinal stenosis Post-Op Diagnosis: Difficulty Balancing, Cervical Radiculopathy, Degenerative spinal stenosis I identified the patient and participated in the time-out.: Yes Procedure Operation Date: 02/23/24 07:15 Actual Procedures p C4-C5, C5-C6, C6-C7 Anterior Cervical Disc Fusion with Interbody Grafts/Cages with Spinal Cord Monitoring(Not Applicable) - Jose Mark MD Surgeon Jose Mark MD Alternative Dispute Resolution Mediator none Estimated Blood Loss 30 Findings Consistent with Post-Op Diagnosis Specimens None Description of Procedure 1. C4-5 anterior cervical decompression and arthrodesis (54798) 2. C5-6 anterior cervical decompression and arthrodesis (14672) 3. C6-7 anterior cervical decompression and arthrodesis (79345) 4. C4-5 anterior interbody cage with screw fixation, NuVasive interlock II, 6 mm x 17 mm x 14 mm lordotic (34302) 5. C5-6 anterior interbody cage with screw fixation, NuVasive interlock II, 7 mm x 17 mm x 14 mm lordotic (79506) 6. C6-7 anterior interbody cage with screw fixation, NuVasive interlock II, 8 mm x 17 mm x 14 mm lordotic (34417) Patient was taken the operating room and after adequate anesthesia was carefully positioned supine on the OSI flat top table. Positioning was then performed along with a preprepped for the cervical region followed by bringing in fluoroscopy where I then marked for the location of the incision to address the level stated. This area was marked, prep and drape was performed. I began the procedure with a transverse incision on the left side of the cervical spine and advanced down the anterior aspect of the cervical spine. Using fluoroscopy I documented the levels to be addressed, and then began at the C6-7 level with fluoroscopic guidance of insertion of distractor pins at this level. Once the pins were in place, retractors were set and I began the procedure at this level with an anterior annulotomy followed by removal of some disc material. I then worked to elevate the disc space using a combination of paddle distractors. Once the achieved height was of attained to allow for decompression, the posterior spondylosis was then removed across the interspace along with a decompression down to the dura across the level. Trial spacers were then inserted selecting the size interbody cage as noted, and this was then secured in position using 15 mm screws inferiorly. Due to the body habitus I was unable to insert a superior screw due to the position of the cervical spine relative to the anterior structures. With this completed, I then removed the distractor pin at C7, and this was moved then to the C5 level, using fluoroscopy I inserted the distractor pin. In a similar fashion, the retractors were then set, I performed an anterior annulotomy I removed some of the degenerative disc from this level. Distractors were then used once again to mobilize the disc space to a better height followed by then performing the posterior decompression across this level to decompress the canal and out to the uncinates on both sides. With this completed I then used the trial spacers once again and selected a size cage as noted. This was also then filled with demineralized bone matrix in a similar fashion and inserted into the disc space. Inferior screw fixation was then inserted 15 mm and/or 60 mm length screws. The distractor pin at C6 was then removed and advanced up to the C4 level and in a similar fashion using fluoroscopy I inserted the distractor pin and then reset the retractors. Anterior annulotomy was performed followed by then a thorough discectomy, distraction of the interspace followed by then once again the posterior decompression. In each instance cartilage was removed from the endplates, and the decompression was completed with then insertion of the intervertebral cage as noted after utilizing trials. The final screw fixation was then completed for these 2 cephalad levels with excellent purchase. Distractor pins were removed, Floseal was inserted in each one of the distractor pin sites followed by bone wax, final inspection revealed no specific issues, the operative site had been irrigated and vancomycin powder was placed. I closed the operative area with combination of 3-0 Vicryl sutures followed by an additional layer of 3-0 Vicryl sutures, benzoin and Steri-Strips followed by sterile dressing. Patient tolerated procedure well was taken recovery room in satisfactory condition. I attest to the content of the Intraoperative Record and any orders documented therein. Any exceptions are noted below.
== END 2024-02-24 18:49 | disposition home or self-care (01) ==
LOC: 3E 05:58 → ASU 05:58
DX: F32.A Depression, unspecified; M54.12 Radiculopathy, cervical region; N40.1 Benign prostatic hyperplasia with lower urinary tract symptoms; E78.5 Hyperlipidemia, unspecified; Z88.1 Allergy status to other antibiotic agents; I25.10 Atherosclerotic heart disease of native coronary artery without angina pectoris; I11.0 Hypertensive heart disease with heart failure; M48.02 Spinal stenosis, cervical region; K21.9 Gastro-esophageal reflux disease without esophagitis; Z88.2 Allergy status to sulfonamides; J45.909 Unspecified asthma, uncomplicated; I50.30 Unspecified diastolic (congestive) heart failure; Z79.899 Other long term (current) drug therapy; R93.89 Abnormal findings on diagnostic imaging of other specified body structures

== ENCOUNTER 2024-07-26 06:11 | Inpatient (IN) ==
--- NOTE | 2024-06-23 15:28 | PAT Medication Instructions ---
Medication Instructions Date of Service June 23, 2024 Home Medications Medication Instructions Recorded Breo Ellipta 100 mcg-25 mcg/dose 1 inh inhalation QAM #3 Inhalers 08/31/23 powder for inhalation (fluticasone furoate-vilanterol) bupropion HCl 100 mg tablet,12 hr 100 mg PO HS #90 ea 12/01/23 sustained-release bupropion HCl 200 mg tablet,12 hr 200 mg PO QAM #90 ea 12/01/23 sustained-release duloxetine 60 mg capsule,delayed 60 mg PO QPM #90 caps 02/15/24 release pregabalin 150 mg capsule 150 mg PO BID #180 caps 03/29/24 albuterol sulfate 90 mcg/actuation breath activated powder inhaler 1 puff inhalation Q6H PRN multivitamin 1 tab PO QPM vitamin B complex 1 tab PO QPM latanoprost 0.005 % eye drops 1 drp ophthalmic (eye) HS magnesium oxide 400 mg PO BID cholecalciferol (vitamin D3) 50 mcg (2,000 unit) capsule (Vitamin D3) 50 mcg PO QPM Breo Ellipta 100 mcg-25 mcg/dose powder for inhalation (fluticasone furoate- vilanterol) 1 inh inhalation QAM acetaminophen 650 mg tablet,extended release (Tylenol Arthritis Pain) 1,300 mg PO QAM bupropion HCl 100 mg tablet,12 hr sustained-release 100 mg PO HS bupropion HCl 200 mg tablet,12 hr sustained-release 200 mg PO QAM atorvastatin 40 mg tablet (Lipitor) 40 mg PO QPM celecoxib 200 mg capsule (Celebrex) 200 mg PO QAM montelukast 10 mg tablet 10 mg PO QPM duloxetine 60 mg capsule,delayed release 60 mg PO QPM pregabalin 150 mg capsule 150 mg PO BID tadalafil 5 mg tablet 5 mg PO DAILY PRN ASK your surgeon for instructions celecoxib 200 mg capsule (Celebrex) 200 mg PO QAM DO NOT take the morning of surgery magnesium oxide 400 mg PO BID tadalafil 5 mg tablet 5 mg PO DAILY PRN Take morning of surgery With a small sip of water, OTHERWISE NOTHING TO EAT OR DRINK AFTER MIDNIGHT: albuterol sulfate 90 mcg/actuation breath activated powder inhaler 1 puff inhalation Q6H PRN(use if needed; please bring with you to hospital day of surgery if possible) Breo Ellipta 100 mcg-25 mcg/dose powder for inhalation (fluticasone furoate- vilanterol) 1 inh inhalation QAM acetaminophen 650 mg tablet,extended release (Tylenol Arthritis Pain) 1,300 mg PO QAM bupropion HCl 200 mg tablet,12 hr sustained-release 200 mg PO QAM pregabalin 150 mg capsule 150 mg PO BID Take evening before surgery albuterol sulfate 90 mcg/actuation breath activated powder inhaler 1 puff inhalation Q6H PRN(if needed) multivitamin 1 tab PO QPM vitamin B complex 1 tab PO QPM latanoprost 0.005 % eye drops 1 drp ophthalmic (eye) HS magnesium oxide 400 mg PO BID cholecalciferol (vitamin D3) 50 mcg (2,000 unit) capsule (Vitamin D3) 50 mcg PO QPM bupropion HCl 100 mg tablet,12 hr sustained-release 100 mg PO HS atorvastatin 40 mg tablet (Lipitor) 40 mg PO QPM montelukast 10 mg tablet 10 mg PO QPM duloxetine 60 mg capsule,delayed release 60 mg PO QPM pregabalin 150 mg capsule 150 mg PO BID Other Notes If you have any questions please call us at [phone] or [phone] or [phone] or [phone]
--- NOTE | 2024-07-06 13:44 | Anesthesiology Consultation ---
Date of Service July 06, 2024 Assessment & Plan (1) Encounter for pre-operative examination: - Infectious disease screening: Per assessment on 07/06/24: No known recent infectious disease contacts or current infectious disease symptoms. - Cardiology visit (02/03/24): "83-year-old male who underwent cardiac catheterization in September 2022 demonstrating normal coronary arteries. He presents for preoperative cardiovascular evaluation prior to cervical spine surgery on 02/23/[address] Mark. He is currently stable and asymptomatic from a cardiovascular standpoint with no anginal symptoms occurring at >4 METS of activity. He has no evidence of CHF or significant valvular abnormality. Given this information, patient is at an acceptable risk to proceed with upcoming surgery without any additional cardiovascular testing or intervention. Recommend judicious use of fluids throughout the perioperative period given his history of post-op fluid retention. Recommend usual precautions including close monitoring and avoidance of hypotension, hypertension, tachycardia, hypoxia, and significant anemia throughout the perioperative period to reduce myocardial oxygen demand and meet myocardial oxygen delivery. - S/P C4-7 ACDF (02/23/24, [facility]): * Grade 2 view, Glidescope#4, ETT 7.5 * ENT inpatient evaluation (02/23/24): "Called by Dr. Mark for patient evaluation of the head and neck for possible errant placement of temperature probe. Impression: I do NOT find any evidence that the temperature probe was falsely inserted into any tissue tract of the upper aerodigestive tract. I do NOT find any evidence false tract. There is NO ecchymosis NOR edema or bleeding of the hypopharynx. There is NO subcutaneous air in the soft tissues either. Recommendations: I believe the temperature probe was curled in the hypopharynx and resting in the piriform sinus, extracorporal, without consequence and was never in any false tract of the soft tissues of the neck or aerodigestive tract. 1. There is NO false tissue tract. 2. Nutritional Diet may be advanced as needed per Dr Mark. 3. There is no need for antibiotic therapy for any false tissue tract." * Discharge summary 02/24/24): "There was concern for possible esophageal perforation noted on postop imaging.. ENT was consulted, and patient was evaluated by Dr. Cherry with scope. He did not find any perforations or issues. He advised that the patient does not need antibiotics and can be discharged." Chart Review Chart Review: Acceptable Risk for Surgery and Patient seen in Pre Admission Testing Teaching & Discussion Pre-Anesthesia Teaching/Discussion Notes: Instructed NPO after midnight before surgery,except medications with 15 cc of water. Medication instructions provided according to the PAT guidelines. History Surgery Operation Date: 07/26/24 07:15 Proposed Procedures p L2-L4 Lateral Lumbar Interbody Fusion with Cage Placement, L2-L4 Posterior Instrumentation, L4-L5 Hardware Removal and Exploration of Fusion, With Spinal Cord Monitoring - Jose Mark MD Height/Weight Height: 5 ft 9 in Weight: 97.5 kg Allergies Allergy/AdvReac Type Severity Reaction Status Date / Time sulfamethoxazole Allergy Severe major Verified 06/22/24 14:59 [From Bactrim] reaction - serum sickness / hives, profound fatigue gentamicin Allergy Unknown compounded Verified 06/22/24 14:59 infection, was advised not to have gentamicin trimethoprim [From Bactrim] Allergy Unknown major Verified 06/22/24 14:59 reaction- serum sickness/hives, profound fatigue Medications Home Medications Medication Instructions Recorded Confirmed Last Taken albuterol sulfate 90 mcg/actuation 1 puff inhalation Q6H PRN Wheezing 09/01/18 06/22/24 07/06/23 breath activated powder inhaler multivitamin 1 tab PO QPM 09/01/18 06/22/24 02/22/24 19:00 vitamin B complex 1 tab PO QPM 09/01/18 06/22/24 02/22/24 19:00 latanoprost 0.005 % eye drops 1 drp ophthalmic (eye) HS 03/22/19 06/22/24 02/22/24 19:00 magnesium oxide 400 mg PO BID 07/25/20 06/22/24 02/22/24 19:00 cholecalciferol (vitamin D3) 50 50 mcg PO QPM 08/07/20 06/22/24 02/22/24 19:00 mcg (2,000 unit) capsule (Vitamin D3) Breo Ellipta 100 mcg-25 mcg/dose 1 inh inhalation QAM #3 Inhalers 08/31/23 06/22/24 02/22/24 12:00 powder for inhalation (fluticasone furoate-vilanterol) acetaminophen 650 mg 1,300 mg PO QAM 11/19/23 06/22/2402/21/24 12:00 tablet,extended release (Tylenol Arthritis Pain) bupropion HCl 100 mg tablet,12 hr 100 mg PO HS #90 ea 12/01/23 06/22/24 02/22/24 19:00 sustained-release bupropion HCl 200 mg tablet,12 hr 200 mg PO QAM #90 ea 12/01/23 06/22/24 02/23/24 05:00 sustained-release atorvastatin 40 mg tablet (Lipitor) 40 mg PO QPM 01/14/24 06/22/24 02/22/24 19:00 celecoxib 200 mg capsule (Celebrex) 200 mg PO QAM 01/14/24 06/22/24 02/16/24 duloxetine 60 mg capsule,delayed 60 mg PO QPM #90 caps 02/15/24 06/22/24 02/22/24 19:00 release tadalafil 5 mg tablet 5 mg PO DAILY PRN Sexual Activity 06/22/24 06/22/24 Unknown pregabalin 150 mg capsule 150 mg PO BID #180 caps 06/24/24 Unknown tadalafil 20 mg tablet 20 mg PO DAILY #15 tabs 06/28/24 Unknown montelukast 10 mg tablet 10 mg PO QPM #90 tabs 07/01/24 Unknown Past Medical History Medical History (Updated 07/06/24 @ 16:20 by Kenya Tadeo) Anemia Chronic Bilateral tinnitus Cervical radiculitis Cervical spinal stenosis Diastolic CHF Episode of fluid overload in setting of "anesthesia overloading me with fluids on my partial knee replacement" Enlarged prostate with lower urinary tract symptoms (LUTS) Hiatal hernia small History of depression History of parotid cancer Left status post excision, 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 Rodriguez, ongoing monitoring Leg length discrepancy Lumbar radiculopathy Sensorineural hearing loss (SNHL) of both ears Mild sloping to severe SNHL bilaterally Stress fracture of right tibia 10/2023-following with [place] [facility] Thyroid nodule No bx Exercise / Class Metabolic Activity III < 4 Walking/Shop/Light housework Past Family History Family History Grandmother (Paternal) Stroke Sister Breast cancer Father Prostate cancer Mother Atrial fibrillation Denies family history of Ovarian cancer Myocardial infarction Colorectal cancer Past Surgical History Surgical History Fibroma (06/14/24) Lip, upper (excision) History of anesthesia reaction BP dropped with spinal anesthesia after recent knee surgery 2022, needed IV fluids to correct per pt which resulted in fluid overload (25 lb wt gain) and need for diuresis History of cardiac cath 2021- no stents History of colonoscopy History of endoscopic sinus surgery (~1998) History of esophagogastroduodenoscopy (EGD) (~2004) History of laminectomy (~05/2020) lumbar laminectomy- [facility] History of parotid gland removal (~1964) Superficial lobe of Left gland removal History of vasectomy Hx of bilateral cataract extraction (~2019) Hx of decompression of ulnar nerve right, transposition S/P carpal tunnel release Right S/P lumbar fusion (~12/2014) L4-L5 Status post cervical spinal fusion C4-7 ACDF (02/23/24, [facility]): Grade 2 view, Glidescope#4, ETT 7.5 ENT inpatient evaluation (02/23/24): "Called by Dr. Mark for patient evaluation of the head and neck for possible errant placement of temperature probe. IMPRESSION: I do NOT find any evidence that the temperature probe was falsely inserted into any tissue tract of the upper aerodigestive tract. I do NOT find any evidence false tract. There is NO ecchymosis NOR edema or bleeding of the hypopharynx. There is NO subcutaneous air in the soft tissues either. RECOMMENDATIONS: I believe the temperature probe was curled in the hypopharynx and resting in the piriform sinus, extracorporal, without consequence and was never in any false tract of the soft tissues of the neck or aerodigestive tract. 1. There is NO false tissue tract. 2. Nutritional Diet may be advanced as needed per Dr Mark. 3. There is no need for antibiotic therapy for any false tissue tract." Status post right partial knee replacement (~07/07/23) Past Anesthesia History Other * BP dropped with spinal anesthesia after recent knee surgery 2022, needed IV fluids to correct per pt which resulted in fluid overload (25 lb wt gain) and need for diuresis History of PONV No Hx of PONV and No Hx of Motion Sickness Social History Smoking Status: Never smoker Do You Dip or Chew Tobacco: No Hx Alcohol Use: Yes Alcohol type: wine and hard liquor alcohol intake frequency: 0-2 drinks per day (2 drinks/day) Hx Substance Use: No substance use type: does not use Review of Systems Patient denies chest pain, shortness of breath, fever, chills, cough, wheezing, palpitations. Physical Exam Vital Signs BP 153/81 P 74 TEMP 97.9 SP02 95%RA RESP 16 Physical Decreased cervical extension range of motion. Full TMJ range of motion. TMD > 3.5 finger breaths Mallampati Score II Dentition: intact Lungs: clear throughout to auscultation Cardiac: regular rate and rhythm, faint systolic murmur Spine: normal Carotid arteries: negative bruit Extremities: no LE edema Lab Results Anesthesia Preop Results Results Anesthesia Widget: WBC 5.02 K/ul (4.8-10.8) 07/06/24 Hgb 12.0 g/dl (14.0-18.0) L 07/06/24 Hct 35.4 % (42.0-52.0) L 07/06/24 Plt 178 K/uL (130-400) 07/06/24 Na 139 mmol/L (136-145) 07/06/24 K 4.0 mmol/L (3.5-5.1) 07/06/24 Cl 105 mmol/L (98-107) 07/06/24 CO2 29 mmol/L (21-32) 07/06/24 BUN 20 mg/dl (6-23) 07/06/24 Creat 0.78 mg/dl (0.6-1.4) 07/06/24 Glucose Level 103 mg/dl (70-99(Fasting)) H 07/06/24 PT 10.5 Seconds (9.0-12.0) 07/06/24 PTT 25 Seconds (21-31) 07/06/24 INR 1.0 (0.9-1.1) 07/06/24 Blood Type AB Negative 07/06/24 Antibody Screen NEGATIVE 07/06/24 Testing Electrocardiogram Date: 07/06/24 SR with first degree AVB at 68bpm. "Otherwise normal ECG" Chest X-Ray Date: 01/27/24 No acute chest disease. No acute/displaced left-sided rib fracture is clearly identified. This is diff icult to assess as there are numerous chronic/healed rib fractures. Echocardiogram Date: 07/29/23 EF 60-65% No LV regional wall motion abnormalities Moderate cLVH Sclerotic aortic valve without significant stenosis Mild mitral regurgitation Type 1 diastolic dysfunction Stress Test Date: 08/01/22 Dobutamine Negative stress echo for myocardial ischemia at 94% MPHR Peak stress EKG with borderline [address] depression in leads III, aVF Baseline first degree AVB progresses to intermittent Weinkebach 2nd degree AVB with dobutamine infusion Mild cLVH No evidence of wall motion abnormalities Cardiac Catheterization Date: 09/19/22 LMT: Large-caliber short vessel which bifurcates into the LAD and left circumflex. It has no angiographically evident disease. LAD: Large caliber and transapical vessel. Proximal segment is normal. Provides a medium to large caliber branching first diagonal. It then has a large septal branch followed by several smaller septal branches. The mid segment has mild diffuse luminal irregularities there is a small to medium caliber second diagonal and the distal LAD becomes a medium in caliber tapering as it wraps the apex and terminates. It is somewhat tortuous in the distal segment and has no more than mild luminal irregularities. LCx: This is a large caliber and dominant vessel. First major branch arising from the AV groove is a large in caliber and branching. The branches are very tortuous consistent with age and hypertension. The AV groove vessel continues as a large caliber vessel distally where it provides a large caliber posterior lateral branch followed by a small to medium caliber posterior lateral branch #2 and finally terminates as a large caliber long PDA. These vessels have mild distal tortuosity. There is no angiographically evident disease in the remainder of the circumflex and its branches. RCA: Medium caliber nondominant vessel providing the RV marginal branches which are very tortuous. There is no significant disease in this vessel. Summary: 1. There is no angiographically significant coronary disease. Branch vessels demonstrate findings consistent with hypertension and advanced age. 2. Normal LV filling pressures 3. Incidentally noted brief episodes of Mobitz type I second-degree AV block. 4. 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 Should the patient require further cardiac catheterization I would recommend femoral approach for left radial approach. Pulmonary Function Test Date: 11/10/23 Nonspecific spirometry Mild restrictive physiology DLCO is moderately reduced FEV1 and DLCO with significant decline compared to 11/13/2022
[~2024-07-26 06:11] MED LIST changes: -ALBUAER2 INH; -ATOR-26 PO; -FLUO20CA34 PO; -FLUO20CA37 PO; -FLUT1INH INH; +General Order Problem(s) SCH; -LATA0.009 OPB; -MULT-506 PO; -SULF800T23 PO; -TRAM-10 PO
--- NOTE | 2024-07-26 06:46 | History & Physical Bridge Note ---
Date of Service July 26, 2024 History & Physical Bridge Note I have examined the patient, reviewed the History & Physical and in the interval since the performance of the History & Physical I have noted the following changes of clinical significance: no changes noted
[2024-07-26] MEDS ORDERED: ONDANSETRON INJ 2 MG/ML 2 ML VIAL IV PRN ×2 (06:57→16:18)
[2024-07-26] MEDS ORDERED: ePHEDrine sulfate 50 MG/ML AMP IV PRN (06:57)
[2024-07-26] MEDS ORDERED: ATROPINE SULFATE 0.1 MG/ML 10ML SYR IV PRN (06:57)
[2024-07-26] MEDS ORDERED: HYDROmorphone INJ 2 MG/ML SYR/VIAL IV PRN (06:57)
[2024-07-26] MEDS ORDERED: fentaNYL citrate PF 100 MCG/2 ML VIAL IV PRN (06:57)
[2024-07-26] MEDS ORDERED: REMIFENTANIL HCL 1 MG VIAL IV ONE (07:03)
[2024-07-26] MEDS ORDERED: ALBUMIN HUMAN 5% 12.5 GM/250 ML VIAL IV ONE ×2 (07:04→13:44)
[2024-07-26] MEDS: ACETAMINOPHEN 500 MG TAB PO SCH (07:07)
[2024-07-26] MEDS: GABAPENTIN 300 MG CAP PO SCH (07:09)
[2024-07-26] MEDS: LR 60ML/HR IV SCH (07:09)
[2024-07-26] MEDS ORDERED: fentaNYL citrate PF 100 MCG/2 ML VIAL ONE (07:12)
[2024-07-26] MEDS ORDERED: ROCURONIUM BROMIDE 10 MG/ML 5 ML VIAL IV ONE ×2 (07:15→11:33)
[2024-07-26] MEDS ORDERED: LIDOCAINE 2% 2 ML VIAL/AMP(20MG/ML) INFIL ONE (07:15)
[2024-07-26] MEDS ORDERED: PROPOFOL IV EMULSION 10 MG/ML 20 ML VIAL IV ONE ×5 (07:15→12:33)
[2024-07-26] MEDS ORDERED: DEXAMETHASONE SOD INJ 4 MG/ML VIAL ONE ×2 (07:16)
[2024-07-26] MEDS ORDERED: GLYCOPYRROLATE 0.2 MG/ML VIAL ONE ×4 (07:16→14:47)
[2024-07-26] MEDS: LR 15ML/HR IV SCH (07:31)
[2024-07-26] MEDS: ceFAZolin 2000MG 2,000 MG/15 ML SYR IV SCH ×2 (08:35→23:38)
[2024-07-26] MEDS ORDERED: PHENYLEPHRINE HCL 10 MG/ML VIAL ONE (09:12)
[2024-07-26] MEDS ORDERED: ePHEDrine sulfate 50 MG/5 ML SYR ONE (09:33)
[2024-07-26] MEDS: VANCOMYCIN HCL 1000MG/20ML VIAL ONE (11:51)
[2024-07-26] MEDS ORDERED: ceFAZolin 330 MG/ML 1 GM VIAL ONE (12:05)
[2024-07-26] MEDS ORDERED: HYDROmorphone INJ 2 MG/ML SYR/VIAL ONE (13:08)
[2024-07-26] MEDS ORDERED: NEOSTIGMINE METHYLSULFATE 1 MG/ML 10ML VIAL ONE (14:47)
[2024-07-26] MEDS: THROMBIN FOR SOLN 20000 UNIT KIT ONE (14:50)
[2024-07-26] MEDS: GELATIN SPONGE 12-7MM ONE (14:50)
[2024-07-26] MEDS: FLOSEAL HEMOSTATIC MATRIX 10ML TOP ONE (15:02)
[2024-07-26] MEDS: BUPIVACAINE/EPINEPHRINE 0.5% MPF 1:200,000 30 ML VIAL ONE (15:02)
[2024-07-26 16:04] LABS: Basophils # (auto) 0.01 K/uL (0.00-0.20); Basophils % (auto) 0.1 %; Hematocrit (blood only) 31.2 % (42.0-52.0); Hemoglobin 10.3 g/dl (14.0-18.0); Immature Granulocytes # (auto) 0.09 K/uL (0.01-0.20); Immature Granulocytes % (auto) 0.7 %; Lymphocytes # (auto) 0.58 K/uL (1.20-3.40); Lymphocytes % (auto) 4.6 %; Mean Corpuscular Hemoglobin 32.6 pg (25.0-34.0); Mean Corpuscular Volume 98.7 fL (80.0-100.0); Monocytes # (auto) 0.61 K/uL (0.11-0.59); Monocytes % (auto) 4.8 %; Neutrophils # (auto) 11.39 K/uL (1.40-6.50); Neutrophils % (auto) 89.8 %; Platelet Count 177 K/uL (130-400); RDW Coefficient of Variation 13.1 % (11.5-14.5); RDW Standard Deviation 47.8 fL (36.4-46.3); Red Blood Count 3.16 M/uL (4.70-6.10); White Blood Count 12.68 K/ul (4.8-10.8)
[2024-07-26] MEDS ORDERED: MAGNESIUM HYDROXIDE SUSP 30 ML UDC PO PRN (16:18)
[2024-07-26] MEDS ORDERED: PROMETHAZINE 12.5 MG/50.5 ML BAG IV PRN (16:18)
[2024-07-26] MEDS ORDERED: bisacodyL 10 MG SUPP PR PRN (16:18)
[2024-07-26] MEDS ORDERED: ACETAMINOPHEN 1,000 MG/100 ML VIAL IV PRN (16:18)
[2024-07-26] MEDS ORDERED: diphenhydrAMINE Capsule 25 MG CAP PO PRN (16:18)
[2024-07-26] MEDS ORDERED: FAMOTIDINE 20 MG TAB PO PRN (16:18)
[2024-07-26] MEDS ORDERED: ONDANSETRON 4 MG OD TAB PO PRN (16:18)
[2024-07-26] MEDS ORDERED: ACETAMINOPHEN 500 MG TAB PO PRN (16:18)
[2024-07-26] MEDS ORDERED: ALUMINUM/MAGNESIUM SUSP 30 ML UDC PO PRN (16:18)
[2024-07-26] MEDS ORDERED: NALOXONE HCL 0.4 MG/1 ML VIAL/CARP IV PRN (16:18)
[2024-07-26] MEDS ORDERED: DO NOT ADMINISTER FLU VACCINE PRN (16:18)
[2024-07-26] MEDS ORDERED: DO NOT ADMINISTER PNEUMOCOCCAL VACCINE PRN (16:18)
[2024-07-26] MEDS ORDERED: SOD PHOSPHATE/SOD BIPHOSPHATE ENEMA 132 ML BTL PR PRN (16:18)
[2024-07-26] MEDS ORDERED: LORazepam 2 MG/1 ML VIAL IV PRN (16:18)
[2024-07-26] MEDS ORDERED: LORazepam 0.5 MG TAB PO PRN (16:18)
[2024-07-26] MEDS ORDERED: hydrOXYzine HCl 25 MG TAB PO PRN (16:18)
[2024-07-26] MEDS ORDERED: METOCLOPRAMIDE HCL INJ 5 MG/ML 2 ML VIAL IV PRN (16:18)
--- NOTE | 2024-07-26 16:18 | Post Operative Brief Note ---
PG Immediate Post Op with CF Date of Surgery July 26, 2024 Pre & Post Diagnosis Operation Date: 07/26/24 07:30 Pre-Op Diagnosis: Lumbar Spinal Stenosis Post-Op Diagnosis: Lumbar Spinal Stenosis I identified the patient and participated in the time-out.: Yes Procedure Operation Date: 07/26/24 07:30 Actual Procedures p L2-L4 Lateral Lumbar Interbody Fusion with Cage Placement, L2-L4 Posterior Instrumentation, L4-L5 Hardware Removal and Exploration of Fusion, Spinal Cord Monitoring(Not Applicable) - Jose Mark MD Surgeon Jose Mark MD Exhibition Carver none Estimated Blood Loss 600 Findings Consistent with Post-Op Diagnosis Specimens Specimen Description: None per surgeon Drains Blunt Catheter
[2024-07-26 16:22] LABS: BUN Creatinine Ratio 31.4 (10-20); Calcium 8.9 mg/dl (8.6-10.3); Creatinine Clr Calc Pharmacy 89.3 ml/min; Est GFR (African American) 100.4 ml/min; Est GFR (Non-African American) 86.7 ml/min; Potassium 4.6 mmol/L (3.5-5.1)
--- NOTE | 2024-07-26 16:35 | Fluoroscopy Report ---
FL lumbar spine 2-3V CLINICAL HISTORY: L2-L4 LATERAL LUMBAR INTERBODY L2-L4 FUSION HW REMOVAL L4-L5 TECHNIQUE: 14 views were obtained with the C-arm in the OR with the above procedure. Total fluoroscop y time was 300.6 seconds. Radiation dose was 236.11 mGy. Comparison: Comparison is made to MRI lumbar spine 11/23/2023 FINDINGS/IMPRESSION: Intraoperative images were obtained of posterior fixation hardware placement. Please correlate with intraoperative fluoroscopy and operative report. ACT 112: Negative or not required by law. Electronically signed by: Rick Jacobsen M.D. 07/26/2024 4:34 PM
[2024-07-26] MEDS: LACTATED RINGER'S 1,000 ML IV SCH (17:39)
--- NOTE | 2024-07-26 17:42 | Anesthesiology Progress Note ---
Date of Service July 26, 2024 Anesthesia Post Procedure Vital Signs Vital Signs: Temp Pulse Pulse Resp BP Pulse Ox O2 Del Method 07/26/24 17:00 59 L 14 107/61 99 Nasal Cannula 07/26/24 16:50 36.1 C L 55 L 16 111/69 99 Oxymask 07/26/24 16:40 62 16 113/57 L 100 Oxymask 07/26/24 16:30 61 16 99/51 L 95 Oxymask 07/26/24 16:20 59 L 16 125/67 100 Oxymask 07/26/24 16:10 57 L 16 90/54 L 94 Oxymask 07/26/24 16:00 61 16 93/62 L 96 Oxymask 07/26/24 15:50 76 17 143/69 H 98 Oxymask 07/26/24 15:41 36.0 C L 60 17 143/76 H 95 Oxymask 07/26/24 06:49 36.4 C L 78 20 143/74 H 95 Room Air O2 Flow Rate 07/26/24 17:00 4 07/26/24 16:50 7 07/26/24 16:40 7 07/26/24 16:30 10 07/26/24 16:20 10 07/26/24 16:10 10 07/26/24 16:00 5 07/26/24 15:50 5 07/26/24 15:41 5 07/26/24 06:49 Transfer of Care Handoff Completed per policy Notes Mental Status: alert / awake / arousable and participated in evaluation Patient Amnestic to Procedure: Yes Nausea / Vomiting: adequately controlled Pain: adequately controlled Airway Patency, RR, SpO2: stable & adequate BP & HR: stable & adequate Hydration State: stable & adequate Anesthetic Complications: no major complications apparent and Pt Satisfied with anesthetic care
[2024-07-26] MEDS ORDERED: ALBUTEROL HFA 8 GM INHALER INH PRN (17:51)
--- NOTE | 2024-07-26 18:39 | Hospitalist Consultation ---
Date of Consultation July 26, 2024 Assessment & Plan (1) S/P lumbar fusion: VTE / bowel / pain management per primary ortho spine team Noted to have excess fluids after prior operations causing hypervolemia, usually his BP runs on the lower side post operatively May need Lasix if remains hypoxic, limit IV fluids to 1L Continue venlafaxine and pregabalin (2) Asthma: Continue Breo Ellipta (3) BPH loc w urin obs/LUTS: Continue tadalafil 5mg PO HS or hospital formulary equivalent (4) Depression: Continue Wellbutrin History of Present Illness Reason for Consultation: surgery Attending Physician: Jose Mark MD History of Present Illness Jorge Nixon is an 83 year old male POD#0 lumbar spinal fusion. Not yet been out of bed. No acute concerns or complaints. Allergies Allergy/AdvReac Type Severity Reaction Status Date / Time sulfamethoxazole Allergy Severe major Verified 07/26/24 06:01 [From Bactrim] reaction - serum sickness / hives, profound fatigue gentamicin Allergy Unknown compounded Verified 07/26/24 06:01 infection, was advised not to have gentamicin trimethoprim [From Bactrim] Allergy Unknown major Verified 07/26/24 06:01 reaction- serum sickness/hives, profound fatigue Home Medications Medication Instructions Recorded Confirmed Type albuterol sulfate 90 mcg/actuation 1 puff inhalation Q6H PRN Wheezing 09/01/18 07/26/24 History breath activated powder inhaler multivitamin 1 tab PO QPM 09/01/18 07/26/24 History vitamin B complex 1 tab PO QPM 09/01/18 07/26/24 History latanoprost 0.005 % eye drops 1 drp ophthalmic (eye) HS 03/22/19 07/26/24 History magnesium oxide 400 mg PO BID 07/25/20 07/26/24 History cholecalciferol (vitamin D3) 50 50 mcg PO QPM 08/07/20 07/26/24 History mcg (2,000 unit) capsule (Vitamin D3) Breo Ellipta 100 mcg-25 mcg/dose 1 inh inhalation QAM #3 Inhalers 08/31/23 07/26/24 Rx powder for inhalation (fluticasone furoate-vilanterol) acetaminophen 650 mg 1,300 mg PO QAM 11/19/23 07/26/24 History tablet,extended release (Tylenol Arthritis Pain) bupropion HCl 100 mg tablet,12 hr 100 mg PO HS #90 ea 12/01/23 07/26/24 Rx sustained-release bupropion HCl 200 mg tablet,12 hr 200 mg PO QAM #90 ea 12/01/23 07/26/24 Rx sustained-release atorvastatin 40 mg tablet (Lipitor) 40 mg PO QPM 01/14/24 07/26/24 History celecoxib 200 mg capsule (Celebrex) 200 mg PO QAM 01/14/24 07/26/24 History duloxetine 60 mg capsule,delayed 60 mg PO QPM #90 caps 02/15/24 07/26/24 Rx release pregabalin 150 mg capsule 150 mg PO BID #180 caps 06/24/24 Rx montelukast 10 mg tablet 10 mg PO QPM #90 tabs 07/01/24 Rx hydrocodone 5 mg-acetaminophen 325 1 tab PO BID PRN severe rib pain 07/13/24 Rx mg tablet #15 tabs amoxicillin 500 mg capsule 2,000 mg PRN prophylactic for 07/26/24 History dental tadalafil 20 mg tablet 20 mg PO Q24H PRN Sexual Activity 07/26/24 07/26/24 History tadalafil 5 mg tablet 5 mg PO HS 07/26/24 07/26/24 History Patient History Medical History Diastolic CHF Episode of fluid overload in setting of "anesthesia overloading me with fluids on my partial knee replacement" Stress fracture of right tibia 10/2023-following with [place] [facility] Leg length discrepancy Bilateral tinnitus Sensorineural hearing loss (SNHL) of both ears Mild sloping to severe SNHL bilaterally History of depression Hx of gastroesophageal reflux (GERD) Hypogammaglobulinemia follows with Dr. 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 Mark for patient evaluation of the head and neck for possible errant placement of temperature probe. IMPRESSION: I do NOT find any evidence that the temperature probe was falsely inserted into any tissue tract of the upper aerodigestive tract. I do NOT find any evidence false tract. There is NO ecchymosis NOR edema or bleeding of the hypopharynx. There is NO subcutaneous air in the soft tissues either. RECOMMENDATIONS: I believe the temperature probe was curled in the hypopharynx and resting in the piriform sinus, extracorporal, without consequence and was never in any false tract of the soft tissues of the neck or aerodigestive tract. 1. There is NO false tissue tract. 2. Nutritional Diet may be advanced as needed per Dr Mark. 3. There is no need for antibiotic therapy for any false tissue tract." Status post right partial knee replacement (~07/07/23) Hx of bilateral cataract extraction (~2019) History of cardiac cath 2021- no stents History of esophagogastroduodenoscopy (EGD) (~2004) History of colonoscopy History of endoscopic sinus surgery (~1998) History of parotid gland removal (~1964) Superficial lobe of Left gland removal Hx of decompression of ulnar nerve right, transposition History of laminectomy (~05/2020) lumbar laminectomy- [facility] History of vasectomy S/P carpal tunnel release Right Family History Grandmother (Paternal) Stroke Sister Breast cancer Father Prostate cancer Mother Atrial fibrillation Denies family history of Ovarian cancer Myocardial infarction Colorectal cancer Social History Smoking Status: Never smoker Second Hand Exposure: No; Do You Dip or Chew Tobacco: No; Tobacco Cessation Education Requested by Patient: No Hx Alcohol Use: Yes Alcohol type: wine and hard liquor Hx Substance Use: No Preferred Language: [place] Communication Ability: Effective Visual Impairment: Limited Hearing Ability: Use of Hearing Aid Order Department Supervisor Required: No Beliefs That Will Affect Care: None marital status: Current Living Situation: Spouse current occupational status: retired current occupation: Physician Other Information That Helps Us Care for You: No Feels Safe at Home: Yes Safety Concerns: Feels Safe At This Time Dental Care, Regularly: Yes Physical Activity Frequency: 3-4 Times per Week Seatbelt Use: always Sunscreen Use: Yes Assistive Devices: Cane and Hearing Aid - Bilateral Review of Systems Review of Systems: All systems reviewed & are unremarkable except as noted in HPI & below Physical Exam Constitutional: WD/WN, vitals as above Respiratory: normal respiratory effort, lungs clear to auscultation Cardiovascular: RRR, no murmur, no edema Gastrointestinal (Abdomen): normal bowel sounds, soft, nontender, no hepatosplenomegaly Neurologic: bilateral ankles 5/5 dorsi/plantarflexion Psychiatric: A+Ox3, euthymic affect Results & Data Results & Data Vital Signs (Past 12 Hours) Vital Signs Temp Pulse Pulse Resp BP BP Pulse Ox 07/26/24 18:32 36.2 C L 77 16 100/56 L 96 07/26/24 18:16 07/26/24 18:00 35.4 C L 84 16 98/60 L 99 07/26/24 17:30 34.8 C L 68 18 97/62 L 99 07/26/24 17:00 59 L 14 107/61 99 07/26/24 16:50 36.1 C L 55 L 16 111/69 99 07/26/24 16:40 62 16 113/57 L 100 07/26/24 16:30 61 16 99/51 L 95 07/26/24 16:20 59 L 16 125/67 100 07/26/24 16:10 57 L 16 90/54 L 94 07/26/24 16:00 61 16 93/62 L 96 07/26/24 15:50 76 17 143/69 H 98 07/26/24 15:41 36.0 C L 60 17 143/76 H 95 07/26/24 06:49 36.4 C L 78 20 143/74 H 95 O2 Del Method O2 Flow Rate 07/26/24 18:32 Nasal Cannula 3 09/24/24 18:16 Nasal Cannula 3 07/26/24 18:00 Nasal Cannula 3 07/26/24 17:30 Nasal Cannula 4 07/26/24 17:00 Nasal Cannula 4 07/26/24 16:50 Oxymask 7 07/26/24 16:40 Oxymask 7 07/26/24 16:30 Oxymask 10 07/26/24 16:20 Oxymask 10 07/26/24 16:10 Oxymask 10 07/26/24 16:00 Oxymask 5 07/26/24 15:50 Oxymask 5 07/26/24 15:41 Oxymask 5 07/26/24 06:49 Room Air Laboratory Results Abnormal lab results 07/26/24 Range/Units 15:54 WBC 12.68 H (4.8-10.8) K/ul RBC 3.16 L (4.70-6.10) M/uL Hgb 10.3 L (14.0-18.0) g/dl Hct 31.2 L (42.0-52.0) % RDW Std Deviation 47.8 H (36.4-46.3) fL Neut # (Auto) 11.39 H (1.40-6.50) K/uL Lymph # (Auto) 0.58 L (1.20-3.40) K/uL Tucker # (Auto) 0.61 H (0.11-0.59) K/uL BUN/Creatinine Ratio 31.4 H (10-20) Glucose 168 H (70-99(Fasting)) mg/dl PG Care Time/CCT Total # of Minutes Spent Total Time Spent with Patient: Total time spent is greater than 50% in coordination of care (as documented) at patient's floor/unit and/or counseling patient: Coding Level of Care Code 83911 IN/OBS CONSULT LVL 3,45M Diagnoses S/P lumbar fusion Z98.1 Asthma J45.909 BPH loc w urin obs/LUTS N40.1 Depression F32.9
[2024-07-26] MEDS: oxyCODONE/ACETAMINOPHEN 5mg/325mg TAB PO PRN (19:02)
[2024-07-26] MEDS: buPROPion SR 100 MG TABCR PO SCH (20:23)
[2024-07-26] MEDS: DOCUSATE SODIUM/SENNA 50/8.6MG TAB PO SCH (20:23)
[2024-07-26] MEDS: PREGABALIN 150 MG CAP PO SCH (20:23)
[2024-07-26] MEDS: MONTELUKAST SODIUM 10 MG TABLET PO SCH (20:23)
[2024-07-26] MEDS: ATORVASTATIN 40 MG TAB PO SCH (20:23)
[2024-07-26] MEDS: MAGNESIUM OXIDE 400 MG TAB PO SCH (20:24)
[2024-07-26] MEDS: LATANOPROST 0.005% OP SOLN 2.5 ML BTL OP SCH (20:24)
[2024-07-26] MEDS: CHOLECALCIFEROL 25 MCG (1000 UNITS) TAB PO SCH (20:24)
--- NOTE | 2024-07-26 20:49 | Electrocardiogram Report ---
Test Reason : Blood Pressure : */* mmHG Vent. Rate : 55 BPM Atrial Rate : 55 BPM P-R Int : 296 ms QRS Dur : 110 ms QT Int : 460 ms P-R-T Axes : 61 4 47 degrees QTcB Int : 440 ms Sinus bradycardia with marked sinus arrhythmia with 1st degree A-V block Otherwise normal ECG When compared with ECG of 06-Jul-2024 14:46, Questionable change in QRS axis QT has lengthened Confirmed by Farhad Michelle ([id number]) on 07/26/2024 8:48:50 PM Referred By: Jose Mark Confirmed By: Farhad Michelle
[2024-07-26] MEDS: DULoxetine HCL 60 MG CAP PO SCH (23:38)
[2024-07-27] MEDS: POLYETHYLENE (MIRALAX) 17 GM PACK PO SCH (06:11)
[2024-07-27] MEDS: buPROPion SR 100 MG TABCR PO SCH (09:12)
--- NOTE | 2024-07-27 09:28 | Orthopedic Progress Note ---
Date of Service July 27, 2024 Subjective Patient seen and examined, he notes an improvement in his leg radicular symptoms, overall feeling well, when I saw him in the room, he was standing up at the sink and overall noting some incisional pain but felt he was doing well. Motor intact, some additional drainage posteriorly. Impression: Postop day 1 from L2-3 L3-4 lateral cage placement posterior instrumentation and additional removal hardware L4-5. Plan: Today we will mobilize with physical therapy, I advised the nurse to do a dressing change, and we will see how he does over the day. Review of Systems All systems reviewed & are unremarkable except as noted in HPI & below. Physical Exam . Results & Data Results & Data Laboratory Results . Diagnostic Findings . PG Care Time/CCT Total # of Minutes Spent Total Time Spent with Patient: Total time spent is greater than 50% in coordination of care (as documented) at patient's floor/unit and/or counseling patient: Coding Level of Care Code 59909 Post Operative Follow-Up
--- NOTE | 2024-07-27 09:50 | Hospitalist Progress Note ---
Date of Service July 27, 2024 Assessment & Plan (1) BPH loc w urin obs/LUTS: (2) Depression: (3) Asthma: (4) Degenerative cervical spinal stenosis: Plan 83 year old male POD#1 lumbar spinal fusion S/P lumbar fusion: VTE / bowel / pain management per primary ortho spine team Noted to have excess fluids after prior operations causing hypervolemia Soft BPs overnight, stable during the day Continue venlafaxine and pregabalin Asthma: Continue Breo Ellipta BPH loc w urin obs/LUTS: Continue tadalafil 5mg PO HS or hospital formulary equivalent Depression: Continue Wellbutrin Patient medically stable. Medicine will sign out. Feel free to contact us with questions or concerns Admission and Anticipated Discharge Date Admission Date: July 26, 2024 Supervising Physician Co-Signing Physician Notes I personally examined the patient and verified all rahman points of history and exam, discussed case, and agree with decision making with Dr Thien Gregorio Feeling pretty good overall. Pain under reasonable control. Able to get around, no orthostasis walking reasonably well. No shortness of breath. Vitals noted, in general he is awake and alert pleasant no distress. HEENT normocephalic atraumatic mucous membranes moist. Breathing unlabored no accessory muscle use good effort. Skin without rashes pallor or icterus. Neuro without focal deficits. Status post lumbar surgerydoing well. Per orthopedics expected acute blood loss/dilutional anemiahemodynamically stable. No indications for transfusion asthmano dyspnea otherwise as above medically stable. Hospitalist team will sign off at this time, will be available if we can be of any further assistancedo not hesitate to reach out Subjective Seen this morning. Refers feel well. Found sitting in the chair, eating breakfast. Denied any chest pain SOB, palpitations, abdominal pain. Review of Systems Review of Systems: as per HPI Physical Exam Constitutional: WD/WN, vitals as above Respiratory: normal respiratory effort, lungs clear to auscultation Cardiovascular: RRR, no murmur, no edema Gastrointestinal (Abdomen): normal bowel sounds, soft, nontender, no hepatosplenomegaly Psychiatric: A+Ox3, euthymic affect Results & Data Results & Data Vital Signs (Past 12 Hours) Vital Signs Temp Pulse Resp BP BP Pulse Ox O2 Del Method 07/27/24 08:26 36.3 C L 77 18 104/62 96 Nasal Cannula 07/27/24 08:00 Room Air 07/27/24 04:19 36.8 C 81 18 106/72 98 Nasal Cannula 07/27/24 02:46 36.8 C 90 18 110/64 96 Nasal Cannula 07/26/24 22:55 36.7 C 93 H 18 112/62 95 Nasal Cannula O2 Flow Rate 07/27/24 08:26 2 07/27/24 08:00 07/27/24 04:19 2 07/27/24 02:46 3 07/26/24 22:55 3.0 Resident Activity Tracking Resident Involvement: Resident Care Provided Care Provided: Adult Hospital Medicine
[2024-07-27] MEDS: FLUTICASONE/VILANTEROL 100/25MCG 14 PUFFS/INHALER INH SCH (10:25)
[2024-07-27 12:22] LABS: Basophils # (auto) 0.02 K/uL (0.00-0.20); Basophils % (auto) 0.2 %; Hematocrit (blood only) 30.6 % (42.0-52.0); Hemoglobin 9.8 g/dl (14.0-18.0); Immature Granulocytes # (auto) 0.07 K/uL (0.01-0.20); Immature Granulocytes % (auto) 0.5 %; Lymphocytes # (auto) 1.09 K/uL (1.20-3.40); Lymphocytes % (auto) 8.4 %; Mean Corpuscular Hemoglobin 32.7 pg (25.0-34.0); Mean Platelet Volume 10.8 fL (9.4-12.4); Neutrophils # (auto) 10.47 K/uL (1.40-6.50); Neutrophils % (auto) 80.9 %; Platelet Count 164 K/uL (130-400); RDW Coefficient of Variation 13.5 % (11.5-14.5); RDW Standard Deviation 50.4 fL (36.4-46.3); White Blood Count 12.95 K/ul (4.8-10.8)
[2024-07-27 12:27] LABS: BUN Creatinine Ratio 24.2 (10-20); Calcium 9.2 mg/dl (8.6-10.3); Creatinine Clr Calc Pharmacy 50.4 ml/min; Est GFR (African American) 61.5 ml/min; Est GFR (Non-African American) 53.1 ml/min; Potassium 4.3 mmol/L (3.5-5.1)
--- NOTE | 2024-07-27 16:46 | Billing Data ---
Date of Service July 27, 2024 Coding Level of Care Code 55441 SUB INP/OBS CARE
[2024-07-27] MEDS: HYDROmorphone INJ 0.5 MG/0.5 ML SYR IV PRN (20:30)
[2024-07-28 14:31] VITALS: BP 143/67; PULSE 73; RESP 18; TEMP 98.2; O2SAT 90
--- NOTE | 2024-07-28 15:59 | Orthopedic Progress Note ---
Date of Service July 28, 2024 Subjective Patient seen and examined, continuing to improve status post surgery at L2-3 and L3-4. Limited drainage, neuro intact. Impression/plan: Patient feels he is doing well enough that he would like to be discharged to home, he is passed physical therapy and no specific issues. Oxycodone is covering his symptoms. Review of Systems All systems reviewed & are unremarkable except as noted in HPI & below. Physical Exam . Results & Data Results & Data Laboratory Results . Diagnostic Findings . PG Care Time/CCT Total # of Minutes Spent Total Time Spent with Patient: Total time spent is greater than 50% in coordination of care (as documented) at patient's floor/unit and/or counseling patient: Coding Level of Care Code 80217 Post Operative Follow-Up
--- NOTE | 2024-07-28 16:04 | Discharge Summary ---
Date of Service July 28, 2024 Admission HPI (Per Admitting) Surgery on July 26 for lumbar stenosis and degeneration. Principal Diagnosis Same as "Discharge Diagnosis" noted below under Discharge Instructions. Discharge Exam . Discharge Data Consultations 07/26/24 16:24 Consult Hospitalist Routine Procedures Performed Operation Date: 07/26/24 07:30 Actual Procedures p L2-L4 Lateral Lumbar Interbody Fusion with Cage Placement, L2-L4 Posterior Instrumentation, and Exploration of Fusion, Spinal Cord Monitoring(Not Applicable) - Jose Mark MD s L4-L5 Hardware Removal (Not Applicable) - Jose Mark MD Ordered Studies 07/26/24 07:30 FL lumbar spine 2-3V Routine Hospital Course (1) Lumbar spinal stenosis due to adjacent segment disease after fusion procedure: L2-3 and L3-4 lumbar instrumentation and fusion. (2) Scoliosis of lumbar region due to degenerative disease of spine in adult: PG Care Time/CCT Total # of Minutes Spent Total Time Spent with Patient: Total time spent is greater than 50% in coordination of care (as documented) at patient's floor/unit and/or counseling patient: Discharge Plan Discharge Items Patient Disposition: Home - Self-Care Reason For Visit: Status Post Cervical Spinal Fusion, Lumbar Spinal Discharge Diagnosis: Lumbar stenosis with disc degeneration, above prior fusion L4-5. Activity: As commented below Lifting: No more than 10 pounds Bathing: May shower/bathe in 3 days Exercise Comment: Ambulation encouraged. Driving/Machine Use: Resume 3 days after discharge Weightbearing: Full weightbearing Non-emergency contact: Surgeon Call non-emergency contact if: your pain is worsening Follow-up/Referrals: Bernice Mitchell MD [Primary Care Provider] - Diet: Regular Addtl Attending Provider Instructions: Prescription for Percocet will be sent through ambulatory chart, follow-up in 2 weeks. Pending Studies at Discharge: No Stand-Alone Forms: My [employer], Smoking Cessation Medications and DC Order Prescriptions: Continued fluticasone furoate-vilanterol [Breo Ellipta] 100-25 mcg/dose blister with device 1 inh inhalation QAM Qty: 3 3RF bupropion HCl 100 mg tablet sustained-release 12 hr 100 mg PO HS Qty: 90 3RF bupropion HCl 200 mg tablet sustained-release 12 hr 200 mg PO QAM Qty: 90 3RF pregabalin 150 mg capsule 150 mg PO BID Qty: 180 0RF montelukast 10 mg tablet 10 mg PO QPM Qty: 90 3RF hydrocodone-acetaminophen 5-325 mg tablet 1 tab PO BID PRN (Reason: severe rib pain) Qty: 15 0RF magnesium oxide 400 mg magnesium tablet 400 mg PO BID acetaminophen [Tylenol Arthritis Pain] 650 mg tablet extended release 1,300 mg PO QAM duloxetine 60 mg capsule,delayed release(DR/EC) 60 mg PO QPM Qty: 90 3RF multivitamin Tablet 1 tab PO QPM vitamin B complex Tablet 1 tab PO QPM albuterol sulfate 90 mcg/actuation Aerosol Powdr Breath Activated 1 puff INHALATION Q6H PRN (Reason: Wheezing) latanoprost 0.005 % drops 1 drp ophthalmic (eye) HS Patient Comments: both eyes cholecalciferol (vitamin D3) [Vitamin D3] 50 mcg (2,000 unit) Capsule 50 mcg PO QPM celecoxib [Celebrex] 200 mg capsule 200 mg PO QAM Hold Instructions: Hold for 2 months. atorvastatin [Lipitor] 40 mg tablet 40 mg PO QPM amoxicillin 500 mg Capsule 2,000 mg PRN (Reason: prophylactic for dental ) Rx Instructions: prior to dental appointments tadalafil 5 mg tablet 5 mg PO HS tadalafil 20 mg tablet 20 mg PO Q24H PRN (Reason: Sexual Activity) Discharge Orders: Discharge Order (Routine); Ordered 07/28/24 Ordered By: Jose Mark Admission Data Admit Date/Time: 07/26/24 16:18 Attending Provider: Jose Mark Admit Provider: Jose Mark Primary Care Provider: Bernice Mitchell Other Providers: Clifford Larson
--- NOTE | 2024-08-01 08:52 | Operative Report ---
PG Post Operative Report Pre & Post Diagnosis Operation Date: 07/26/24 07:30 Pre-Op Diagnosis: Lumbar Spinal Stenosis Post-Op Diagnosis: Lumbar Spinal Stenosis I identified the patient and participated in the time-out.: Yes Procedure Operation Date: 07/26/24 07:30 Actual Procedures p L2-L4 Lateral Lumbar Interbody Fusion with Cage Placement, L2-L4 Posterior Instrumentation, and Exploration of Fusion, Spinal Cord Monitoring(Not Applicable) - Jose Mark MD s L4-L5 Hardware Removal (Not Applicable) - Jose Mark MD Surgeon Jose Mark MD [facility] none Estimated Blood Loss 600 Findings Consistent with Post-Op Diagnosis Specimens NONE Description of Procedure 1. Right L2-3 lateral interbody arthrodesis. (12744) 2. L2-3 interbody cage NuVasive cohere XL 8 x 18 x 55 mm lordotic. (10415) 3. Right L3-4 lateral interbody arthrodesis. (95383) 4. L3-4 interbody cage NuVasive cohere XL 8 x 18 x 55 mm lordotic. (42834) 5. L2-3, L3-4 posterior lumbar fusion. (15969) (08318) 6. Posterior segmental instrumentation, L234, NuVasive reline. (39480) 7. Removal of nonsegmental instrumentation L4-5. (18438) 8. Exploration of arthrodesis L4-5. (98662). Patient taken operating room after adequate anesthesia was carefully positioned left lateral decubitus right side up positioning for a right-sided approach to the L2-3 and L3-4 levels. After doing so he was secured in routine fashion and made adjustments using fluoroscopy and then securing in the table in routine fashion. Preprepped was performed, brought in fluoroscopy and then marked for the approximate locations of the incisions for the approach. Prep and drape was performed, then began the procedure starting at the L3-4 level with a transverse incision on the lateral aspect on the right side, and from here slowly advanced down through the subcutaneous tissues and into the retroperitoneal without any issue. I was able to palpate the psoas, and at this time I was able to insert the initial dilator from the base of set down onto the midportion of the L3-4 disc space. Monitoring was employed along with fluoroscopy and I was able to find a good location for the start point guidewire was inserted. Additional dilators were then inserted along the access apparatus to the L3-4 region followed by insertion of the gladis. This was visually inspected with the probe before inserting the gladis, once this was set and confirmed fluoroscopically for the right position, I then incised the annulus. A variety of different instruments including mike, curettes and pituitary were then utilized to remove the disc L3 and 4. After doing so, trials were inserted, and the size cage was selected. Fusion tools were obtained, placed in the disc base and also within the cage, this was tapped into position. After doing so final inspection revealed no issues at the insertion site, excellent placement via fluoroscopy, and the access apparatus was removed. The procedure was then repeated slightly more cephalad underneath rib cage for the L2-3 level. I was able to palpate through the prior incision and allow for easier access underneath the rib and gain access to the retroperitoneal area in the region of the L2-3 disc space. Once again I was able to insert the dilator and place it on the midportion of L2-3, followed by insertion of the guidewire after monitoring the region. Additional dilators and access apparatus were then inserted. With this using fluoroscopic control I was able to insert the gladis and once again get adequate access to the disc base. The same instruments were then utilized to remove the disc material, and once this was completed, I then went through trials once again this looked the same forfor this level. At this low risk. This case was irrigated thoroughly with each placement time was spent in removal of the disc material and cartilage from the endplates, and then from there I then completed the insertion of fusion materials in the cage at L2-3. Access apparatus was removed after final inspection, no issues were noted, vancomycin powder was placed in both areas, again obtain final images followed by then closing both areas with 0 Vicryl sutures, 2-0 Vicryl sutures and andrea for the skin. Sterile dressings were then applied. Patient was then repositioned prone on the Jimenez frame, preprepped was performed, I brought in fluoroscopy and marked for the area of the incision midline over the area to be addressed from L2 down to the L5 region. Midline incision was then made carried out through the subcutaneous tissues and down onto the remaining superior spinous processes which are still present and then angling out to the hardware at L4-5. Time was spent in exposing the bony surfaces at L2-3 to L4 and also exposing the hardware on either side. Once this exposure was complete including the posterior bony structures at L2-L3 and the superior aspect of L4 mass, within loosen the setscrews at L4 and L5 bilaterally and then remove the mass. The fusion material was then exposed on either side for L4-5, once this was completed distraction was applied, no obvious motion was noted at L4-5 indicating a pseudoarthrosis. With this noted I then remove the L5 pedicle screws, followed by the L4 pedicle screws. I then used fluoroscopy to make the start points for the pedicle screws at L2 and L3, high-speed bur was utilized to make the start point followed by the gearshift probe and monitoring was utilized to guide this along with fluoroscopy. 6.5 millimeter screws were inserted at all 3 levels followed by then making slight adjustments to the overall alignment and then tightening down all the setscrews for proper fashion torqued down. The fusion surfaces were then accessed, I utilized the high-speed bur to decorticate these regions including the facets and remaining lateral laminar edges. Patient materials were then obtained and placed in this region along the area of the hardware. The area was previously irrigated, I then placed vancomycin powder and closed the operative site with 2 layers of 0 Vicryl sutures, 2-0 Vicryl sutures and andrea for the skin. Patient tolerated procedure well was taken recovery room centrally condition. I attest to the content of the Intraoperative Record and any orders documented therein. Any exceptions are noted below.
== END 2024-07-28 17:20 | disposition home or self-care (01) | DRG 454 ==
LOC: ASU 06:11 → 3E 16:18

== ENCOUNTER 2025-08-08 23:14 | Inpatient (IN) ==
--- NOTE | 2025-08-08 23:34 | Emergency Department Note ---
Impression & Plan Fall, Acute pain of right shoulder, Fracture of metacarpal bone of left hand, Multiple abrasions ED Provider Note HISTORY OF PRESENT ILLNESS: Patient is an 84-year-old male presenting with right shoulder pain and right sided chest pain after being hit by a horse. Patient reports that his horse accidentally hit him from behind and knocked him forward, causing him to fall face first and strike the right shoulder on the ground. He reports this occurred around 6 PM. Current complaining of pain in the right shoulder, right sided chest and left hand. He is not on any anticoagulation or antiplatelet therapies. He denies any loss of consciousness. Reports his last tetanus shot was within the last 6 years. He denies any nausea or vomiting. He is also complaining of some pain in his right upper quadrant. He states that he was trying to wait until tomorrow to be evaluated by his primary doctor, but he was having such excruciating pain in his right shoulder he decided to come in to be evaluated. ROS: as above PHYSICAL EXAM: Primary Survey Airway: Intact Breathing: Normal, breath sounds equal bilaterally Circulation: Skin warm, distal pulses 2+, capillary refill less than 2 seconds Disability Pupils: Equal and reactive to light, 3 mm, brisk GCS: 15, E = 4, V=5, M= 6 Motor Function: Moves all extremities. Sensory: No deficits Secondary Survey GEN: Well developed and well-nourished HENT: Head: Scattered abrasions to the bridge of the nose and forehead. Mouth/Throat: Midface stable. No malocclusion. Eyes: EOMI. Pupils are 3 mm, round and reactive bilaterally. Nose: No nasal septal hematoma. No gross deformity. Neck: No midline C-spine tenderness. No step-offs. Cardiovascular: RRR. Pulses present in all 4 extremities. Pulmonary/Chest: BS equal bilaterally. No ecchymosis or evidence of flail chest. Patient has reproducible tenderness to palpation to the right lower lateral rib cage. Abdomen: No ecchymosis. Tender to palpation in the right upper quadrant. Musculoskeletal: Pelvis: No instability. Back: No midline tenderness. No step-offs or deformities. Extremities: No gross deformities. Diffusely tender to palpation overlying the right shoulder. No open wounds. Tender to palpation throughout the metacarpals of the left hand. Able to give thumbs up, okay sign and cross fingers. Skin: Abrasions as above. Neuro: No focal neurological deficits. GCS as above. Psych: Normal mood and affect. MDM: - Vitals signs stable. - History obtained via patient. History as above. - Chronic conditions affecting care: GERD; CHF; HLD; BPH - Differential diagnoses include, but are not limited to: Rib fracture; humerus fracture; shoulder dislocation; pneumothorax; liver laceration - Order placed for continuous cardiac monitoring. At this time, monitor showed rate of 72 bpm with normal sinus rhythm, per my interpretation. - External medical records reviewed. - Laboratory workup interpreted by myself showed normal WBC; normal PT/INR; stable electrolytes; normal AST/ALT; normal lipase; normal troponin - UA negative for infection - CXR image reviewed by myself is negative for pneumothorax, per my interpretation. Radiology notes cardiomegaly with increased cardiac size and healed fractures on the left 7th through 10th ribs. - Xray left hand showed a irregularity at the head and neck at the fifth metacarpal suggestive of a fracture. Patient was placed in a volar Ortho-Glass wrist splint. - Xray right shoulder showed a old fracture of the proximal right humerus. Right AC joint arthritic changes. Right upper extremity is placed in a sling. - Patient given 1g IV tylenol and 50 mcg IV fentanyl. On reassessment, he still complaining of significant pain in his arm. He was given 4 mg IV morphine. However, he still complaining of 10 out of 10 pain in the right arm even after morphine dosing. He was given an additional 50 mcg of IV fentanyl. Patient did desaturate after opioid administration and was placed on 3 L nasal cannula. - CT head wo contrast negative for acute intracranial pathology. - CT cervical spine wo contrast negative for acute injury. - CT chest with IV contrast negative for acute traumatic injury. - CT abdomen/pelvis with IV contrast negative for acute traumatic injury. - Given patient's continued pain in the ER, will discuss case with hospitalist service. - Discussion was had with porter sample case about patient's case and need for admission - Hospitalist consulted for admission - Patient admitted to [facility] hospitalist service for further evaluation and management. 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 Erectile dysfunction Obesity (BMI 30-39.9) Vertebrobasilar artery insufficiency Urinary urgency BPH loc w urin obs/LUTS Degenerative cervical spinal stenosis Cervical spondylosis with myelopathy and radiculopathy Lumbar spinal stenosis due to adjacent segment disease after fusion procedure Scoliosis of lumbar region due to degenerative disease of spine in adult Depression Cervical radiculopathy Arthritis of carpometacarpal (CMC) joint of right thumb Allergic rhinitis GERD (gastroesophageal reflux disease) Asthma (Chronic) Dyslipidemia Medical History Anemia Bilateral tinnitus Cervical radiculitis Cervical spinal stenosis Diastolic CHF Enlarged prostate with lower urinary tract symptoms (LUTS) Hiatal hernia History of depression History of parotid cancer History of SCC (squamous cell carcinoma) of skin Hx of gastroesophageal reflux (GERD) Hypogammaglobulinemia Leg length discrepancy Sensorineural hearing loss (SNHL) of both ears Stress fracture of right tibia Thyroid nodule Surgical History Fibroma (06/14/24) History of anesthesia reaction History of cardiac cath History of colonoscopy History of endoscopic sinus surgery (~1998) History of esophagogastroduodenoscopy (EGD) (~2004) History of laminectomy (~05/2020) History of parotid gland removal (~1964) History of vasectomy Hx of bilateral cataract extraction (~2019) Hx of decompression of ulnar nerve S/P carpal tunnel release Status post cervical spinal fusion Status post right partial knee replacement (~07/07/23) Family History Grandmother (Paternal) Stroke Sister Breast cancer Father Prostate cancer Mother Atrial fibrillation Denies family history of Ovarian cancer Myocardial infarction Colorectal cancer Social History Smoking Status: Never smoker Second Hand Exposure: No; Do You Dip or Chew Tobacco: No; Hx Alcohol Use: Yes Alcohol type: wine and hard liquor Hx Substance Use: No Preferred Language: Hungarian Communication Ability: Effective Visual Impairment: Limited Hearing Ability: Use of Hearing Aid Improvement Leader Required: No Beliefs That Will Affect Care: None marital status: Current Living Situation: Spouse current occupational status: retired current occupation: Physician Feels Safe at Home: Yes Dental Care, Regularly: Yes Physical Activity Frequency: 3-4 Times per Week Seatbelt Use: always Sunscreen Use: Yes Assistive Devices: Cane and Walker Allergies Allergies Allergy/AdvReac Type Severity Reaction Status Date / Time sulfamethoxazole Allergy Severe major Verified 07/05/25 11:19 [From Bactrim] reaction - serum sickness / hives, profound fatigue gentamicin Allergy Unknown compounded Verified 07/05/25 11:19 infection, was advised not to have gentamicin trimethoprim [From Bactrim] Allergy Unknown major Verified 07/05/25 11:19 reaction- serum sickness/hives, profound fatigue Home Meds Home Medications Medication Instructions Recorded Confirmed albuterol sulfate 90 mcg/actuation 1 puff inhalation Q6H PRN Wheezing 09/01/18 07/19/25 breath activated powder inhaler multivitamin 1 tab PO QPM 09/01/18 07/19/25 vitamin B complex 1 tab PO QPM 09/01/18 07/19/25 latanoprost 0.005 % eye drops 1 drp ophthalmic (eye) HS 03/22/19 07/19/25 magnesium oxide 400 mg PO BID 07/25/20 07/19/25 cholecalciferol (vitamin D3) 50 50 mcg PO QPM 08/07/20 07/19/25 mcg (2,000 unit) capsule (Vitamin D3) acetaminophen 650 mg 1,300 mg PO QAM 11/19/23 07/19/25 tablet,extended release (Tylenol Arthritis Pain) amoxicillin 500 mg capsule 2,000 mg PRN prophylactic for 07/26/24 07/19/25 dental Previous Rx's Medication Instructions Recorded aspirin 81 mg tablet,delayed 81 mg PO DAILY #90 tabs 09/13/24 release Breo Ellipta 100 mcg-25 mcg/dose 1 inh inhalation QAM #3 Inhalers 01/31/25 powder for inhalation (fluticasone furoate-vilanterol) tadalafil 20 mg tablet 20 mg PO Q24H PRN Sexual Activity 03/15/25 #20 tabs atorvastatin 40 mg tablet (Lipitor) 40 mg PO QPM #90 tabs 06/02/25 bupropion HCl 100 mg tablet,12 hr 100 mg PO HS #90 ea 06/02/25 sustained-release bupropion HCl 200 mg tablet,12 hr 200 mg PO QAM #90 ea 06/02/25 sustained-release duloxetine 60 mg capsule,delayed 60 mg PO QPM #90 caps 06/02/25 release furosemide 20 mg tablet 20 mg PO DAILY PRN edema #60 tabs 06/02/25 pregabalin 150 mg capsule 150 mg PO BID #180 caps 06/02/25 tadalafil 5 mg tablet 5 mg PO HS #90 tabs 06/19/25 montelukast 10 mg tablet 10 mg PO QPM #90 tabs 08/08/25 Results & Data (ED) Vital Signs Vital Signs - 24 hr 08/08/25 23:17 08/08/25 23:45 08/08/25 23:54 Temperature 36.8 C Temperature Source Temporal Artery Scan Pulse Rate 75 67 Pulse Rate [Apical] Pulse Rhythm [Apical] Pulse Strength [Apical] Respiratory Rate 20 Respiratory Effort / Characteristics Non-Labored Spontaneous Respiratory Depth Normal Respiratory Pattern Blood Pressure 129/76 Blood Pressure [Left Arm] Blood Pressure Mean 93 Blood Pressure Mean [Left Arm] Pulse Oximetry 94 92 Oxygen Delivery Method Room Air Room Air Oxygen Flow Rate Sepsis Recent Fever Within 48 Hours No Sepsis New/Unexplained Change in Mental Status N/A Sepsis Action Taken by Nursing No Action Required 08/09/25 00:07 08/09/25 01:16 08/09/25 03:19 Temperature Temperature Source Pulse Rate Pulse Rate [Apical] 63 74 70 Pulse Rhythm [Apical] Regular Regular Pulse Strength [Apical] Normal Respiratory Rate 13 16 16 Respiratory Effort / Characteristics Non-Labored Spontaneous Respiratory Depth Normal Normal Normal Respiratory Pattern Regular Blood Pressure Blood Pressure [Left Arm] 139/89 114/75 140/83 Blood Pressure Mean Blood Pressure Mean [Left Arm] 105 88 102 Pulse Oximetry 91 97 93 Oxygen Delivery Method Room Air Nasal Cannula Nasal Cannula Oxygen Flow Rate 3 3 Sepsis Recent Fever Within 48 Hours Sepsis New/Unexplained Change in Mental Status Sepsis Action Taken by Nursing 08/09/25 03:41 Temperature Temperature Source Pulse Rate 72 Pulse Rate [Apical] Pulse Rhythm [Apical] Pulse Strength [Apical] Respiratory Rate Respiratory Effort / Characteristics Respiratory Depth Respiratory Pattern Blood Pressure Blood Pressure [Left Arm] Blood Pressure Mean Blood Pressure Mean [Left Arm] Pulse Oximetry Oxygen Delivery Method Oxygen Flow Rate Sepsis Recent Fever Within 48 Hours Sepsis New/Unexplained Change in Mental Status Sepsis Action Taken by Nursing Laboratory Data 08/08/25 23:30 08/08/25 23:30 Lab Results 08/08/25 08/09/25 08/09/25 Range/Units 23:30 00:02 03:20 WBC 8.43 (4.8-10.8) K/ul RBC 3.76 L (4.70-6.10) M/uL Hgb 12.5 L (14.0-18.0) g/dl POC Hgb 12.9 L (14.0-18.0) g/dl Hct 36.9 L (42.0-52.0) % POC Hct 38 L (42-52) % MCV 98.1 (80.0-100.0) fL MCH 33.2 (25.0-34.0) pg MCHC 33.9 (32.0-36.0) g/dL RDW Std Deviation 48.3 H (36.4-46.3) fL RDW Coeff of Shona 13.5 (11.5-14.5) % Plt Count 181 (130-400) K/uL MPV 10.5 (9.4-12.4) fL Immature Gran % (Auto) 0.4 % Neut % (Auto) 74.6 % Lymph % (Auto) 13.0 % Pettis % (Auto) 10.4 % Eos % (Auto) 1.1 % Baso % (Auto) 0.5 % Neut # (Auto) 6.29 (1.40-6.50) K/uL Lymph # (Auto) 1.10 L (1.20-3.40) K/uL Pettis # (Auto) 0.88 H (0.11-0.59) K/uL Eos # (Auto) 0.09 (0.00-0.50) K/uL Baso # (Auto) 0.04 (0.00-0.20) K/uL Immature Gran # (Auto) 0.03 (0.01-0.20) K/uL PT 10.3 (9.0-12.0) Seconds INR 1.0 (0.9-1.1) APTT 23 (21-31) Seconds PTT Ratio 0.8 POC Sodium 139 (135-144) mmol/L Sodium 138 (136-145) mmol/L POC Potassium 4.0 (3.3-5.0) mmol/L Potassium 4.0 (3.5-5.1) mmol/L POC Chloride 105 (101-112) mmol/L Chloride 105 (98-107) mmol/L Carbon Dioxide 23 (21-32) mmol/L POC Total CO2 22 L (24-31) mmol/L Anion Gap 10 (3-11) POC Anion Gap 16.0 (16-25) mmol/L POC BUN 27 H (7-18) mg/dl BUN 27 H (6-23) mg/dl Creatinine 1.27 (0.6-1.4) mg/dl POC Creatinine 1.4 H (0.6-1.3) mg/dl Est Cr Clr Drug Dosing 48.9 ml/min eGFR 55.36 BUN/Creatinine Ratio 21.3 H (10-20) Glucose 101 H (70-99(Fasting)) mg/dl POC Glucose (other) 102 H (70-99) mg/dl Calcium 10.0 (8.6-10.3) mg/dl POC Ioniz Calcium Devin 1.25 (1.12-1.32) mmol/l Total Bilirubin 0.7 (0.2-1.0) mg/dl AST 22 (13-39) U/L ALT 19 (7-52) U/L Alkaline Phosphatase 84 (34-104) U/L Troponin I High Sens 5.9 (0-20) pg/ml Total Protein 6.8 (6.0-8.3) gm/dl Albumin 4.5 (3.4-5.0) gm/dl Globulin 2.3 L (2.5-4.0) gm/dl Albumin/Globulin Ratio 2.0 (0.9-2) Lipase 57 (11-82) U/L Urine Color Yellow Urine Appearance Clear (Clear) Urine pH 5.5 (4.5-7.5) Ur Specific [place] > 1.045 H (1.000-1.030) Urine Protein Negative (Negative) Urine Glucose (UA) Negative (Negative) Urine Ketones Trace H (Negative) Urine Blood Negative (Negative) Urine Nitrite Negative (Negative) Urine Bilirubin Negative (Negative) Urine Urobilinogen Negative (Negative) Ur Leukocyte Esterase Negative (Negative) Urine Comment Administered Medications Discontinued Medications Fentanyl Citrate (Fentanyl Citrate Pf 100 Mcg/2 Ml Vial) 50 mcg IV NOW STA Stop: 08/08/25 23:31 Last Admin: 08/09/25 00:03 Dose: 50 mcg Documented By: EMB Fentanyl Citrate (Fentanyl Citrate Pf 100 Mcg/2 Ml Vial) 50 mcg IV NOW STA Stop: 08/09/25 02:26 Last Admin: 08/09/25 02:40 Dose: 50 mcg Documented By: EMB Acetaminophen (Ofirmev) 1,000 mg in 100 mls @ 400 mls/hr IV NOW STA Stop: 08/08/25 23:44 Last Infusion: 08/09/25 00:40 Dose: Infused Documented By: Admin: 08/09/25 00:04 Dose: 400 mls/hr Documented By: EMB Ioversol (Optiray 320 100ml) 94 ml IV ONCE ONE Stop: 08/09/25 00:57 Last Admin: 08/09/25 00:57 Dose: 94 ml Documented By: SH Morphine Sulfate (Morphine Sulfate 4 Mg/Ml 1 Ml Carp\Vial) 4 mg IV NOW STA Stop: 08/09/25 01:19 Last Admin: 08/09/25 01:23 Dose: 4 mg Documented By: EMB Imaging Data Radiologist's Impression: Abdomen/Pelvis CT 08/08/25 23:30 EXAM: CT abd pelvis IV con only CLINICAL HISTORY: Trauma TECHNIQUE: Contiguous axial images were obtained from the level of the diaphragm to the pubic symphysis with intravenous contrast. Coronal and sagittal reconstructions were likewise performed and indicated to increase the sensitivity for detecting clinically relevant pathology. If IV contrast material had not been administered, the likelihood of detecting abnormalities relevant to the patient's condition would have been substantially decreased. The CT scan was performed according to ALARA (as low as reasonably achievable). COMPARISON: 11:31:20 [facility] PHYSICIAN. FINDINGS: The visualized lung bases are clear. The liver is normal in size and attenuation. No focal liver lesions are seen. There is no intra- or extrahepatic biliary ductal dilatation. Hepatic vasculature is patent. The gallbladder is present. The spleen, pancreas, and adrenal glands are unremarkable. The kidneys are normal in size and attenuation. There is no hydronephrosis or perinephric fat stranding. No renal calculi or renal masses are identified. The ureters are normal in caliber, and no ureteral calculi are seen. The bladder is normal in contour. The prostate appears enlarged in size, measuring about 48 x 42 mm. No focal or diffuse bowel wall thickening or evidence of bowel obstruction is identified. There is no imaging evidence of appendicitis. Abdominal and pelvic vasculature is patent. No adenopathy or fluid collections are seen. No aggressive-appearing osseous lesions are identified. Fat-containing bilateral inguinal herniae are present. Postoperative changes involving lumbar spine fixation screws are seen in situ. Degenerative changes seen in lumbar spine. IMPRESSION: Enlarged prostate?stable. Fat-containing bilateral inguinal herniae?stable. No acute trauma-related abnormality is seen. Electronically signed by Naga Skinner 08-09-2025 02:[address] 08/08/25 23:30 EXAM: CT cervical spine wo con CLINICAL HISTORY: Trauma TECHNIQUE: CT scan of the cervical spine was performed without the administration of intravenous contrast. Contiguous axial images were obtained from the skull base to the upper thoracic spine. Coronal and sagittal reformatted images were also reviewed. One of the following dose reduction techniques was utilized for this exam: automated exposure control, adjustment of the mA and/or kV according to patient size, and use of iterative reconstruction. COMPARISON: No previous studies are available for comparison. FINDINGS: Vertebrae: Internal fixation of the cervical spine from C4 down to C7 with related disc spacers has been applied. 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 The vertebral bodies are preserved in height. There is no evidence of acute fracture or dislocation. Grade 1 anterolisthesis of C7 over T1, without related fracture, is seen. Diffuse decreased bone densities of the examined bones are present. There are no signs of lytic or sclerotic lesions. The configuration of the posterior elements is normal. Intervertebral Discs: The C2-3 and C3-4 discs demonstrate marked narrowing with associated sclerosis. Facet Joints: There is no evidence of dislocation or subluxation. Significant degenerative changes are noted. Neural Foramina: The neural foramina are patent bilaterally at all levels, with mild narrowing. Prevertebral Soft Tissues: The prevertebral soft tissues are normal in thickness, without evidence of mass or abnormal fluid collection. IMPRESSION: 1. There is no evidence of acute fracture or dislocation. 2. Degenerative Grade 1 anterolisthesis of C7 over T1, without related fracture, is seen. 3. Internal fixation of the cervical spine from C4 down to C7, with related disc spacers, has been applied. 4. 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 Electronically signed by Kevin Palacios 08-09-2025 02:[address] 08/08/25 23:30 EXAM: CT chest diagnostic w con CLINICAL HISTORY: Trauma TECHNIQUE: Contiguous axial images were obtained from the neck base through the upper abdomen following intravenous administration of contrast material. If IV contrast material had not been administered, the likelihood of detecting abnormalities relevant to the patient's condition would have been substantially decreased. In addition, sagittal and coronal reconstructions were performed. CT scan was performed according to ALARA (as low as reasonably achievable). COMPARISON: 15:14:35 [facility] PHYSICIAN. FINDINGS: Few atelectatic bands are noted involving the bilateral lung bases. Mild dilatation of the pulmonary trunk and bilateral main pulmonary arteries up to the subsegmental level, with mild tortuosity, suggests the possibility of pulmonary arterial hypertension. Old, healed fractures of multiple bilateral ribs. No pulmonary nodules are seen. The central airways are patent. There are no pleural effusions. No pneumothorax is seen. No axillary, hilar, or mediastinal adenopathy is identified. The visualized thyroid shows a small hypodense lesion in the right lobe; ultrasound correlation is suggested. The heart, aorta, and pulmonary arteries are of normal size and configuration. No pericardial effusion is identified. Imaged portions of the upper abdomen are unremarkable. No aggressive-appearing osseous lesions are identified. IMPRESSION: Few atelectatic bands are noted involving the bilateral lung bases. Stable. Mild dilatation of the pulmonary trunk and bilateral main pulmonary arteries up to the subsegmental level with mild tortuosity, suggesting the possibility of pulmonary arterial hypertension. Stable. Old, healed fractures of multiple bilateral ribs. Stable. No acute trauma-related abnormality is seen. Prior right-sided pleural effusion is resolved. Electronically signed by Naga Skinner 08-09-2025 02:08 AM Chest X-Ray 08/08/25 23:30 EXAM: XR chest 1V portable CLINICAL HISTORY: Trauma TECHNIQUE: An X-ray image of the chest is obtained in AP portable projection. COMPARISON: Prior study done on 07/15/2024 reviewed. FINDINGS: Pulmonary Parenchyma: Lungs are clear bilaterally. No evidence of consolidation, collapse, or focal opacities. No pulmonary nodules are identified. Obscured left costophrenic angle by the cardiomegaly. No evidence of right pleural effusion or pleural thickening. Heart and Mediastinum: Cardiomegaly (Interval increase in size). No mediastinal widening or masses. No hilar or mediastinal lymphadenopathy. Bony Thorax: Old fractures of left 7th, 8th, 9th and 10th ribs. Cervical screws are noted. Bony thorax appears intact without fractures or deformities. Soft Tissues: Soft tissues overlying the chest wall are unremarkable. IMPRESSION: 1. Cardiomegaly with interval increase in cardiac size compared to the prior study. 2. Old healed fractures of the left 7th?10th ribs. 3. No acute pulmonary, pleural, or bony abnormalities identified. Electronically signed by Kevin Palacios 08-09-2025 01:07 AM Hand X-Ray 08/08/25 23:30 EXAM: XR hand LT 2V CLINICAL HISTORY: L hand pain s/p fall. TECHNIQUE: X-ray images of the left hand were obtained in PA, lateral, and oblique projections. COMPARISON: None. FINDINGS: Bone Structure: The bone structure is normal and well aligned. There is cortical step-off/irregularity with angulation at the junction of the head and neck of the fifth metacarpal, suggesting fracture. It is associated with mild overlying soft tissue swelling. No osseous lesions or abnormalities are identified. Joint Spaces: Wrist, intercarpal, and diffuse interphalangeal joint osteoarthritis are seen in the form of subchondral sclerosis and articular surface irregularity. Soft Tissues: The soft tissues appear normal and unremarkable. There is no calcification, or foreign bodies noted. Additional Findings: No bone spurs, lytic lesions, or sclerotic lesions are identified. IMPRESSION: 1. There is cortical step-off/irregularity with angulation at the junction of the head and neck of the fifth metacarpal, suggesting fracture. It is associated with mild overlying soft tissue swelling. 2. Wrist, intercarpal, and diffuse interphalangeal joint osteoarthritis. Disclaimer: A subtle bone abnormality or fracture may not be readily apparent on X-rays; thus, clinical correlation and further imaging, including follow-up CT, MRI, or follow-up X-rays, are advised as needed. Electronically signed by Kevin Palacios 08-09-2025 01:[address] 08/08/25 23:30 EXAM: CT head/brain wo con CLINICAL HISTORY: trauma TECHNIQUE: Axial non-contrast CT scan of the brain was performed from the skull base to the high parietal region. One of the following dose reduction techniques were utilized for this exam: Automated exposure control, adjustment of the mA and/or kV according to patient size, use of iterative reconstruction. COMPARISON: 02/22/2024 CR FINDINGS: Brain Parenchyma: Multiple ill-defined hypodensities are appreciated in the bilateral periventricular and subcortical white matter, suggesting microvascular ischemic disease. Normal attenuation of the cerebellum and brainstem. No evidence of acute infarct, hemorrhage, or mass effect. No abnormal areas of hyperattenuation. Ventricular System: Ventricles are dilated in size and configuration. No masses. Subarachnoid Spaces: Prominent sulci and cisterns. No evidence of subarachnoid hemorrhage or extra-axial fluid collections.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
[2025-08-09] MEDS: ACETAMINOPHEN 1,000 MG/100 ML VIAL IV STA (00:04)
[2025-08-09 00:13] LABS: Hematocrit (blood only) 36.9 % (42.0-52.0); Hemoglobin 12.5 g/dl (14.0-18.0); Immature Granulocytes # (auto) 0.03 K/uL (0.01-0.20); Immature Granulocytes % (auto) 0.4 %; Mean Corpuscular Hemoglobin 33.2 pg (25.0-34.0); Mean Corpuscular Volume 98.1 fL (80.0-100.0); Platelet Count 181 K/uL (130-400); RDW Standard Deviation 48.3 fL (36.4-46.3); Red Blood Count 3.76 M/uL (4.70-6.10); White Blood Count 8.43 K/ul (4.8-10.8)
[2025-08-09 00:30] LABS: Alanine Aminotransferase 19.0 U/L (7-52); Albumin Globulin Ratio 2.0 (0.9-2); Albumin Level 4.5 gm/dl (3.4-5.0); Alkaline Phosphatase 84.0 U/L (34-104); Anion Gap 10.0 (3-11); Bilirubin,Total 0.7 mg/dl (0.2-1.0); Blood Urea Nitrogen 27.0 mg/dl (6-23); Calcium 10.0 mg/dl (8.6-10.3); Carbon Dioxide 23.0 mmol/L (21-32); Chloride 105.0 mmol/L (98-107); Creatinine Clr Calc Pharmacy 48.9 ml/min; Globulin 2.3 gm/dl (2.5-4.0); Glucose 101.0 mg/dl (70-99(Fasting)); Lipase 57.0 U/L (11-82); Potassium 4.0 mmol/L (3.5-5.1); Sodium 138.0 mmol/L (136-145); Total Protein 6.8 gm/dl (6.0-8.3)
[2025-08-09 00:38] LABS: INR 1.0 (0.9-1.1); Partial Thromboplastin Time 23 Seconds (21-31); Prothrombin Time 10.3 Seconds (9.0-12.0)
[2025-08-09] MEDS: OPTIRAY 320 100ml IV ONE (00:57)
--- NOTE | 2025-08-09 01:08 | XRay Report ---
EXAM: XR chest 1V portable CLINICAL HISTORY: Trauma TECHNIQUE: An X-ray image of the chest is obtained in AP portable projection. COMPARISON: Prior study done on 07/15/2024 reviewed. FINDINGS: Pulmonary Parenchyma: Lungs are clear bilaterally. No evidence of consolidation, collapse, or focal opacities. No pulmonary nodules are identified. Obscured left costophrenic angle by the cardiomegaly. No evidence of right pleural effusion or pleural thickening. Heart and Mediastinum: Cardiomegaly (Interval increase in size). No mediastinal widening or masses. No hilar or mediastinal lymphadenopathy. Bony Thorax: Old fractures of left 7th, 8th, 9th and 10th ribs. Cervical screws are noted. Bony thorax appears intact without fractures or deformities. Soft Tissues: Soft tissues overlying the chest wall are unremarkable. IMPRESSION: 1. Cardiomegaly with interval increase in cardiac size compared to the prior study. 2. Old healed fractures of the left 7th?10th ribs. 3. No acute pulmonary, pleural, or bony abnormalities identified. Electronically signed by Kevin Palacios 08-09-2025 01:07 AM
--- NOTE | 2025-08-09 01:17 | XRay Report ---
EXAM: XR shoulder RT min 2V routine CLINICAL HISTORY: R shoulder pain s/p fall. TECHNIQUE: X-ray images of the right shoulder were obtained in anteroposterior (AP) and Y-view projections. COMPARISON: No prior studies available for comparison. FINDINGS: Bone Structure: Old, healed fracture of the proximal right humerus. The humeral head is properly positioned in the glenoid fossa. No osseous lesions or abnormalities are identified. No lytic or sclerotic lesions. Joint Spaces: Degenerative changes in the right acromioclavicular joint, as evidenced by narrowing of the joint space. The glenohumeral joint is normal. No evidence of joint effusion or subluxation is present. Soft Tissues: The soft tissues appear normal and unremarkable. No soft tissue swelling, calcifications, or foreign bodies are noted. IMPRESSION: 1. Age indeterminate or probably old fracture of the proximal right humerus. Comparison with prior relevant studies, if available, is suggested. Clinical correlation is suggested. 2. Right acromioclavicular joint arthritic changes. Disclaimer: A subtle bone abnormality or fracture may not be readily apparent on X-rays, thus clinical correlation and further imaging including follow-up CT, MRI, or follow-up X-rays are advised as needed. Electronically signed by Kevin Palacios 08-09-2025 01:16 AM
[2025-08-09] MEDS: MoRPHine SULFATE 4 MG/ML 1 ML CARP\\VIAL IV STA (01:23)
--- NOTE | 2025-08-09 01:42 | XRay Report ---
EXAM: XR hand LT 2V CLINICAL HISTORY: L hand pain s/p fall. TECHNIQUE: X-ray images of the left hand were obtained in PA, lateral, and oblique projections. COMPARISON: None. FINDINGS: Bone Structure: The bone structure is normal and well aligned. There is cortical step-off/irregularity with angulation at the junction of the head and neck of the fifth metacarpal, suggesting fracture. It is associated with mild overlying soft tissue swelling. No osseous lesions or abnormalities are identified. Joint Spaces: Wrist, intercarpal, and diffuse interphalangeal joint osteoarthritis are seen in the form of subchondral sclerosis and articular surface irregularity. Soft Tissues: The soft tissues appear normal and unremarkable. There is no calcification, or foreign bodies noted. Additional Findings: No bone spurs, lytic lesions, or sclerotic lesions are identified. IMPRESSION: 1. There is cortical step-off/irregularity with angulation at the junction of the head and neck of the fifth metacarpal, suggesting fracture. It is associated with mild overlying soft tissue swelling. 2. Wrist, intercarpal, and diffuse interphalangeal joint osteoarthritis. Disclaimer: A subtle bone abnormality or fracture may not be readily apparent on X-rays; thus, clinical correlation and further imaging, including follow-up CT, MRI, or follow-up X-rays, are advised as needed. Electronically signed by Kevin Palacios 08-09-2025 01:42 AM
--- NOTE | 2025-08-09 02:09 | CT Scan Report ---
EXAM: CT chest diagnostic w con CLINICAL HISTORY: Trauma TECHNIQUE: Contiguous axial images were obtained from the neck base through the upper abdomen following intravenous administration of contrast material. If IV contrast material had not been administered, the likelihood of detecting abnormalities relevant to the patient's condition would have been substantially decreased. In addition, sagittal and coronal reconstructions were performed. CT scan was performed according to ALARA (as low as reasonably achievable). 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 FINDINGS: Few atelectatic bands are noted involving the bilateral lung bases. Mild dilatation of the pulmonary trunk and bilateral main pulmonary arteries up to the subsegmental level, with mild tortuosity, suggests the possibility of pulmonary arterial hypertension. Old, healed fractures of multiple bilateral ribs. No pulmonary nodules are seen. The central airways are patent. There are no pleural effusions. No pneumothorax is seen. No axillary, hilar, or mediastinal adenopathy is identified. The visualized thyroid shows a small hypodense lesion in the right lobe; ultrasound correlation is suggested. The heart, aorta, and pulmonary arteries are of normal size and configuration. No pericardial effusion is identified. Imaged portions of the upper abdomen are unremarkable. No aggressive-appearing osseous lesions are identified. IMPRESSION: Few atelectatic bands are noted involving the bilateral lung bases. Stable. Mild dilatation of the pulmonary trunk and bilateral main pulmonary arteries up to the subsegmental level with mild tortuosity, suggesting the possibility of pulmonary arterial hypertension. Stable. Old, healed fractures of multiple bilateral ribs. Stable. No acute trauma-related abnormality is seen. Prior right-sided pleural effusion is resolved. Electronically signed by Naga Skinner 08-09-2025 02:08 AM
--- NOTE | 2025-08-09 02:10 | CT Scan Report ---
EXAM: CT head/brain wo con CLINICAL HISTORY: trauma TECHNIQUE: Axial non-contrast CT scan of the brain was performed from the skull base to the high parietal region. One of the following dose reduction techniques were utilized for this exam: Automated exposure control, adjustment of the mA and/or kV according to patient size, use of iterative reconstruction. COMPARISON: 02/22/2024 CR FINDINGS: Brain Parenchyma: Multiple ill-defined hypodensities are appreciated in the bilateral periventricular and subcortical white matter, suggesting microvascular ischemic disease. Normal attenuation of the cerebellum and brainstem. No evidence of acute infarct, hemorrhage, or mass effect. No abnormal areas of hyperattenuation. Ventricular System: Ventricles are dilated in size and configuration. No masses. Subarachnoid Spaces: Prominent sulci and cisterns. No evidence of subarachnoid hemorrhage or extra-axial fluid collections. Cerebellum and Brainstem: No masses, lesions, or areas of abnormal density. Orbits: Normal appearance of the globes, optic nerves, and extraocular muscles. No evidence of orbital masses or abnormal density. Sinuses: Clear paranasal sinuses. No evidence of sinusitis or mucosal thickening. Mastoid Air Cells: Clear mastoid air cells. No evidence of mastoiditis. Skull: Normal skull morphology. IMPRESSION: 1. No acute hematoma or skull fracture. 2. 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 3. Mild progressive course regarding microvascular ischemic changes compared to the prior study. Electronically signed by Kevin Palacios 08-09-2025 02:09 AM
--- NOTE | 2025-08-09 02:13 | CT Scan Report ---
EXAM: CT abd pelvis IV con only CLINICAL HISTORY: Trauma TECHNIQUE: Contiguous axial images were obtained from the level of the diaphragm to the pubic symphysis with intravenous contrast. Coronal and sagittal reconstructions were likewise performed and indicated to increase the sensitivity for detecting clinically relevant pathology. If IV contrast material had not been administered, the likelihood of detecting abnormalities relevant to the patient's condition would have been substantially decreased. The CT scan was performed according to ALARA (as low as reasonably achievable). 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 FINDINGS: The visualized lung bases are clear. The liver is normal in size and attenuation. No focal liver lesions are seen. There is no intra- or extrahepatic biliary ductal dilatation. Hepatic vasculature is patent. The gallbladder is present. The spleen, pancreas, and adrenal glands are unremarkable. The kidneys are normal in size and attenuation. There is no hydronephrosis or perinephric fat stranding. No renal calculi or renal masses are identified. The ureters are normal in caliber, and no ureteral calculi are seen. The bladder is normal in contour. The prostate appears enlarged in size, measuring about 48 x 42 mm. No focal or diffuse bowel wall thickening or evidence of bowel obstruction is identified. There is no imaging evidence of appendicitis. Abdominal and pelvic vasculature is patent. No adenopathy or fluid collections are seen. No aggressive-appearing osseous lesions are identified. Fat-containing bilateral inguinal herniae are present. Postoperative changes involving lumbar spine fixation screws are seen in situ. Degenerative changes seen in lumbar spine. IMPRESSION: Enlarged prostate?stable. Fat-containing bilateral inguinal herniae?stable. No acute trauma-related abnormality is seen. Electronically signed by Naga Skinner 08-09-2025 02:12 AM
--- NOTE | 2025-08-09 02:34 | CT Scan Report ---
EXAM: CT cervical spine wo con CLINICAL HISTORY: Trauma TECHNIQUE: CT scan of the cervical spine was performed without the administration of intravenous contrast. Contiguous axial images were obtained from the skull base to the upper thoracic spine. Coronal and sagittal reformatted images were also reviewed. One of the following dose reduction techniques was utilized for this exam: automated exposure control, adjustment of the mA and/or kV according to patient size, and use of iterative reconstruction. COMPARISON: No previous studies are available for comparison. FINDINGS: Vertebrae: Internal fixation of the cervical spine from C4 down to C7 with related disc spacers has been applied. 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 The vertebral bodies are preserved in height. There is no evidence of acute fracture or dislocation. Grade 1 anterolisthesis of C7 over T1, without related fracture, is seen. Diffuse decreased bone densities of the examined bones are present. There are no signs of lytic or sclerotic lesions. The configuration of the posterior elements is normal. Intervertebral Discs: The C2-3 and C3-4 discs demonstrate marked narrowing with associated sclerosis. Facet Joints: There is no evidence of dislocation or subluxation. Significant degenerative changes are noted. Neural Foramina: The neural foramina are patent bilaterally at all levels, with mild narrowing. Prevertebral Soft Tissues: The prevertebral soft tissues are normal in thickness, without evidence of mass or abnormal fluid collection. IMPRESSION: 1. There is no evidence of acute fracture or dislocation. 2. Degenerative Grade 1 anterolisthesis of C7 over T1, without related fracture, is seen. 3. Internal fixation of the cervical spine from C4 down to C7, with related disc spacers, has been applied. 4. 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 Electronically signed by Kevin Palacios 08-09-2025 02:33 AM
[2025-08-09 03:29] LABS: Appearance Urine Clear (Clear); Glucose Urine UA Negative (Negative)
--- NOTE | 2025-08-09 03:40 | History & Physical Report ---
Date of Service August 09, 2025 Assessment & Plan (1) Intractable pain: (2) Fall: (3) Fracture of metacarpal bone of left hand: (4) Multiple abrasions: (5) Hypoxia: Plan Patient is an 84-year-old male with past medical history of BPH, ISIS, diastolic CHF, GERD, depression, asthma. Patient presented due to left hand and right arm pain after being struck by his horse resulting in a ground-level fall onto his right shoulder. Diagnostic imaging revealed a left fifth metacarpal fracture and old proximal humerus fracture which patient reports occurred 30 years ago. He is being admitted for intractable pain. #intractable right shoulder pain/fall/left 5th metacarpal fracture - Right shoulder XR revealed old fx of proximal right humerus. Left hand XR revealed fracture at head of 5th metacarpal. Otherwise diagnostic imaging negative for traumatic changes. - MRI right shoulder ordered - Tylenol trice, Toradol prn, and Dilaudid 0.5/1mg prn (for pain not relieved by #1 and 2) - lidoderm patch - orthopedics consulted - PT/OT ordered - splint to right shoulder and left finger ordered in ED #hypoxia - CXR revealed old healed fractures of left 7th and 10th ribs, no acute traumatic changes. Chest CT with possibility of pulmonary arterial HTN, no acute traumatic changes. On 3L NC at time of admission, denies oxygen use at baseline. - possibly 2/2 shallow breathing with pain vs IV opioid use - incentive spirometry - control pain as above - monitor on tele - wean oxygen as tolerated for O2 goal > 92% #lumbar and cervical stenosis - s/p lumbar surgery Jul 2024. Follows with Dr. Mark. #BPH - noted on AP CT. - bladder scan prn #HFpEF - Most recent echo 03/2025 revealed EF 60-65%, borderline LVH, mild TR. Hold prn lasix (takes every 2-3 weeks) #asthma - continue home inhalers, follows with Dr. Mascorro. #HLD - continue asa and atorvastatin #mental health - continue bupropion and duloxetine #iron deficiency anemia - H&H at baseline. VTE ppx: SCDs, low risk Dispo: med/tele with hypoxia Admission and Anticipated Discharge Date Admission Date: 08/09/25 History of Present Illness Chief Complaint: shoulder pain Primary Care Provider: Bernice Alexis MD Patient is an 84-year-old male with past medical history of BPH, ISIS, diastolic CHF, GERD, depression, asthma. Patient presented due to left hand and right arm pain after being struck by his horse resulting in a ground-level fall onto his right shoulder. Diagnostic imaging revealed a left fifth metacarpal fracture and old proximal humerus fracture which patient reports occurred 30 years ago. He is being admitted for intractable pain. Patient seen at bedside with his present. He is a retired physician. His horse was spooked and hit him from behind which was unexpected so it knocked him forward at roughly 6pm 08/08. He fell onto his face and then onto his shoulder, denies any loss of consciousness. he has resulting right arm pain, left hand pain, bilateral knee pain. His arm pain at rest is a 6 out of 10 however 9 out of 10 with movements even after fentanyl 50 mcg x 2 and morphine 4mg IV in the ED. He had an old right humerus fracture 30 years ago in which he wore a splint for. He endorses dizziness if he goes from sitting to standing, denies abd pain, nausea, vomiting. He denies nicotine use. Drinks 2 alcohol beverages per day. He does not use oxygen at baseline. He wishes to be DNR/DNI, his POA is his - Lola. He got his evening medications last night, takes prn lasix every 2-3 weeks depending on weight. Allergies Allergy/AdvReac Type Severity Reaction Status Date / Time sulfamethoxazole Allergy Severe major Verified 07/05/25 11:19 [From Bactrim] reaction - serum sickness / hives, profound fatigue gentamicin Allergy Unknown compounded Verified 07/05/25 11:19 infection, was advised not to have gentamicin trimethoprim [From Bactrim] Allergy Unknown major Verified 07/05/25 11:19 reaction- serum sickness/hives, profound fatigue Home Medications Medication Instructions Recorded Confirmed Type albuterol sulfate 90 mcg/actuation 1 puff inhalation Q6H PRN Wheezing 09/01/18 07/19/25 History breath activated powder inhaler multivitamin 1 tab PO QPM 09/01/18 07/19/25 History vitamin B complex 1 tab PO QPM 09/01/18 07/19/25 History latanoprost 0.005 % eye drops 1 drp ophthalmic (eye) HS 03/22/19 07/19/25 History magnesium oxide 400 mg PO BID 07/25/20 07/19/25 History cholecalciferol (vitamin D3) 50 50 mcg PO QPM 08/07/20 07/19/25 History mcg (2,000 unit) capsule (Vitamin D3) acetaminophen 650 mg 1,300 mg PO QAM 11/19/23 07/19/25 History tablet,extended release (Tylenol Arthritis Pain) amoxicillin 500 mg capsule 2,000 mg PRN prophylactic for 07/26/24 07/19/25 History dental aspirin 81 mg tablet,delayed 81 mg PO DAILY #90 tabs 09/13/24 07/19/25 Rx release Breo Ellipta 100 mcg-25 mcg/dose 1 inh inhalation QAM #3 Inhalers 01/31/25 07/19/25 Rx powder for inhalation (fluticasone furoate-vilanterol) tadalafil 20 mg tablet 20 mg PO Q24H PRN Sexual Activity 03/15/25 07/19/25 Rx #20 tabs bupropion HCl 100 mg tablet,12 hr 100 mg PO HS #90 ea 06/02/25 07/19/25 Rx sustained-release bupropion HCl 200 mg tablet,12 hr 200 mg PO QAM #90 ea 06/02/25 07/19/25 Rx sustained-release duloxetine 60 mg capsule,delayed 60 mg PO QPM #90 caps 06/02/25 07/19/25 Rx release furosemide 20 mg tablet 20 mg PO DAILY PRN edema #60 tabs 06/02/25 07/19/25 Rx pregabalin 150 mg capsule 150 mg PO BID #180 caps 06/02/25 07/19/25 Rx tadalafil 5 mg tablet 5 mg PO HS #90 tabs 06/19/25 07/19/25 Rx montelukast 10 mg tablet 10 mg PO QPM #90 tabs 08/08/25 Rx atorvastatin 40 mg tablet (Lipitor) 40 mg PO QPM #90 tabs 08/09/25 Rx Past Med/Surg History Problem List (Updated 08/09/25 @ 16:46 by Rick Mata DO) Bursitis of shoulder, right Injury of right glenoid labrum Tendinosis of right rotator cuff Tear of right supraspinatus tendon First degree AV block Sinus arrhythmia Sinus bradycardia Fracture of distal end of right humerus Fracture of metacarpal bone of left hand (Acute) Fall (Acute) Olecranon bursitis, left elbow Aortic valve sclerosis Lumbar radiculopathy Scrotal swelling S/P lumbar fusion (~12/2014) L2-3 L3-4, July 26, 2024 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 Erectile dysfunction Obesity (BMI 30-39.9) Vertebrobasilar artery insufficiency Urinary urgency BPH loc w urin obs/LUTS Degenerative cervical spinal stenosis Cervical spondylosis with myelopathy and radiculopathy Lumbar spinal stenosis due to adjacent segment disease after fusion procedure Scoliosis of lumbar region due to degenerative disease of spine in adult Depression Cervical radiculopathy Arthritis of carpometacarpal (CMC) joint of right thumb Allergic rhinitis GERD (gastroesophageal reflux disease) Asthma (Chronic) Dyslipidemia Medical History Diastolic CHF Episode of fluid overload in setting of "anesthesia overloading me with fluids on my partial knee replacement" Stress fracture of right tibia 10/2023-following with [place] [facility] Leg length discrepancy Bilateral tinnitus Sensorineural hearing loss (SNHL) of both ears Mild sloping to severe SNHL bilaterally History of depression Hx of gastroesophageal reflux (GERD) Hypogammaglobulinemia follows with Dr. 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 Mark for patient evaluation of the head and neck for possible errant placement of temperature probe. IMPRESSION: I do NOT find any evidence that the temperature probe was falsely inserted into any tissue tract of the upper aerodigestive tract. I do NOT find any evidence false tract. There is NO ecchymosis NOR edema or bleeding of the hypopharynx. There is NO subcutaneous air in the soft tissues either. RECOMMENDATIONS: I believe the temperature probe was curled in the hypopharynx and resting in the piriform sinus, extracorporal, without consequence and was never in any false tract of the soft tissues of the neck or aerodigestive tract. 1. There is NO false tissue tract. 2. Nutritional Diet may be advanced as needed per Dr Mark. 3. There is no need for antibiotic therapy for any false tissue tract." Status post right partial knee replacement (~07/07/23) Hx of bilateral cataract extraction (~2019) History of cardiac cath 2021- no stents History of esophagogastroduodenoscopy (EGD) (~2004) History of colonoscopy History of endoscopic sinus surgery (~1998) History of parotid gland removal (~1964) Superficial lobe of Left gland removal Hx of decompression of ulnar nerve right, transposition History of laminectomy (~05/2020) lumbar laminectomy- [facility] History of vasectomy S/P carpal tunnel release Right Family History Grandmother (Paternal) Stroke Sister Breast cancer Father Prostate cancer Mother Atrial fibrillation Denies family history of Ovarian cancer Myocardial infarction Colorectal cancer Social History Smoking Status: Never smoker Second Hand Exposure: No; Do You Dip or Chew Tobacco: No; Hx Alcohol Use: No Hx Substance Use: No Preferred Language: Macedonian Communication Ability: Effective Visual Impairment: Limited Hearing Ability: Use of Hearing Aid Acetylene Gas Compressor Required: No Beliefs That Will Affect Care: None marital status: Current Living Situation: Spouse current occupational status: retired current occupation: Physician Feels Safe at Home: Yes Dental Care, Regularly: Yes Physical Activity Frequency: 3-4 Times per Week Seatbelt Use: always Sunscreen Use: Yes Assistive Devices: Cane, Glasses and Hearing Aid - Bilateral Review of Systems Review of Systems: see HPI Physical Exam Physical Exam: The patient is awake, alert and oriented 3, well developed and well nourished, in no acute distress. Non-toxic appearing. HEENT- EOMI, mucous membranes moist. Hearing grossly intact. Heart-normal S1 and S2. No murmurs, rubs or gallops. Lungs-decreased bilaterally, no respiratory distress, no accessory muscle use. On 3L NC. Abdomen-normal bowel sounds and soft. No ascites noted. Non-tender. Extremities- no clubbing, cyanosis, or edema. Rheumatologic-decreased range of motion of RUE. Psychiatric-normal affect. Results & Data Results & Data Vital Signs (Past 12 Hours) Vital Signs Temp Pulse Pulse Resp BP BP Pulse Ox 08/09/25 03:19 70 16 140/83 93 08/09/25 01:16 74 16 114/75 97 08/09/25 00:07 63 13 139/89 91 08/08/25 23:54 92 08/08/25 23:45 67 08/08/25 23:17 36.8 C 75 20 129/76 94 O2 Del Method O2 Flow Rate 08/09/25 03:19 Nasal Cannula 3 08/09/25 01:16 Nasal Cannula 3 08/09/25 00:07 Room Air 08/08/25 23:54 Room Air 08/08/25 23:45 08/08/25 23:17 Room Air Laboratory Results reviewed cbc, cmp, pt/inr, UA Diagnostic Findings reviewed shoulder XR, head CT, left hand XR, CXR, CT chest CT, cervical spine CT, AP CT Medications Administered EDFentanyl 50 mcg twice daily, morphine be giving IVF4mg IV, 1g IV Tylenol Code Status & VTE Plan Code Status dnr/dni VTE Prophylaxis Plan VTE Prophylaxis will be ordered: Yes Supervising Physician Co-Signing Physician Notes Attending addendum: I have physically seen this patient, have supervised the MARGUERITE's activities, and agree with the H&P unless as otherwise noted. Assessment and Plan: The patient is an 84-year-old male with past medical history including BPH, ISIS, diastolic CHF, GERD, depression, asthma, and old right humerus fracture from about 40 years ago. He presents to the emergency department with complaint of right arm and left hand discomfort after being struck by his horse building a ground-level fall onto his right shoulder. Imaging in the emergency department included x-ray showing a left fifth metacarpal fracture, and an age- indeterminate/old proximal humerus fracture. The patient was referred for evaluation admission to the [facility] due to severe right shoulder pain and further evaluation and treatment. Intractable right shoulder pain/history of previous right humeral fractur e/status post ground-level fall after being bumped by a horse- Order MRI of right shoulder and upper arm any acute worsening of previous fracture. Acetaminophen 650 mg by mouth every 6 hours as needed for mild pain or fever Toradol 15 mg IV every 6 hours as needed for moderate pain Dilaudid 0.5 mg - 1 mg IV every 3 hours as needed severe pain Consult orthopedic surgery Shoulder splint for right arm to prevent traction pain Splint for left hand to immobilize left fifth metacarpal fracture Hypoxia- Most likely secondary to decreased inspiration due to chronic chest wall pain History of healed left 7th and 10th rib fractures Now with decreased inspiration due to severe right shoulder and upper arm pain Control pain as noted Oxygen supplementation up titration: 92% Lumbar and cervical spine stenosis- Status post cervical and lumbar spine surgeries, with lumbar most recently July [address] Mark Asthma- Continue home inhalers DuoNebs every 2 hours as needed BPH- Bladder scans per protocol Remaining orders and notations as noted PG Care Time/CCT Total # of Minutes Spent Total Time Spent with Patient: Total time spent is greater than 50% in coordination of care (as documented) at patient's floor/unit and/or counseling patient: Coding Level of Care Code 84297 INT INP/OBS CARE 375MIN Diagnoses Intractable pain R52 Fall W19.XXXA Fracture of metacarpal bone of left hand S62.309A Multiple abrasions T07.XXXA Hypoxia R09.02
[2025-08-09] MEDS ORDERED: NALOXONE HCL 0.4 MG/1 ML VIAL/CARP IV PRN (04:32)
[2025-08-09] MEDS ORDERED: HYDROmorphone INJ 0.5 MG/0.5 ML SYR IV PRN (04:32)
[2025-08-09] MEDS ORDERED: KETOROLAC TROMETHAMINE 15 MG/ML VIAL IV PRN (04:32)
[2025-08-09] MEDS ORDERED: MELATONIN 3 MG TAB PO PRN (04:32)
[2025-08-09] MEDS ORDERED: HYDROmorphone INJ 1 MG/ML SYRINGE IV PRN (04:32)
[2025-08-09] MEDS ORDERED: ONDANSETRON INJ 2 MG/ML 2 ML VIAL IV PRN (04:32)
[2025-08-09] MEDS: HYDROmorphone INJ 1 MG/ML SYRINGE IV STA (04:40)
[2025-08-09] MEDS ORDERED: ALBUTEROL HFA 8 GM INHALER INH PRN (04:41)
[2025-08-09] MEDS: ACETAMINOPHEN 325 MG TAB PO SCH (06:40)
--- NOTE | 2025-08-09 06:59 | Magnetic Resonance Report ---
EXAM: MR shoulder RT wo con CLINICAL HISTORY: right shoulder pain TECHNIQUE: Multiplanar MRI was performed through the right shoulder, acquiring PD axial, BASG axial, T1W coronal, T2W sagittal/coronal, and IR coronal sequences without intravenous contrast. COMPARISON: 08/08/2025 CR. FINDINGS: Glenohumeral Joint: The glenohumeral joint is normal in configuration without dislocation or subluxation. The joint space is intact without significant narrowing. Small osteophytes are noted at the joint edges. Minimal joint effusion is present. No intra-articular loose bodies are identified. Acromioclavicular (AC) Joint: There is no evidence of acromioclavicular (AC) joint separation. Hypertrophic degenerative changes of the AC joint are present. Bones: The humeral head preserves its spherical shape. There is an area of bone bruise at the superoanterior side of the humeral head, extending to the major tubercle. A few subcortical cysts up to 8 mm are present in the humeral head. There is an old, healed fracture at the proximal shaft of the humerus. Rotator Cuff: The supraspinatus tendon shows preserved continuity. There is increased signal on T1WI and T2WI of the supraspinatus tendon. There is a 6 x 3 mm partial-thickness tear at the articular surface at the insertion site of the supraspinatus tendon. The infraspinatus and subscapularis tendons demonstrate preserved continuity without a tear. Increased signal of the tendons is present on T1WI, denoting tendinosis. The teres minor tendon is normal. Labrum: The anterior glenoid labrum shows increased signal, suggesting labral injury or degeneration. Biceps Tendon: There is normal appearance and position of the biceps tendon. No evidence of tendinopathy or tears. Ligaments: The glenohumeral and coracohumeral ligaments demonstrate normal appearance. No evidence of ligamentous injury. Muscles: The surrounding musculature demonstrates normal appearance. There is no muscle atrophy or abnormal density changes. Bursae: There is increased fluid in the subacromial-subdeltoid and subcoracoid bursae, which is compatible with bursitis. Neurovascular Structures: There is normal appearance of the visualized neurovascular structures. No evidence of compression or abnormal density changes. IMPRESSION: 1. Bone edema in the humeral head. 2. Degenerative subcortical cysts in the humeral head. 3. Degenerative changes of the ACJ. 4. Mild effusion of the shoulder joint. 5. Partial tear of the supraspinatus tendon on top of the tendonitis. 6. Tendinosis of the infraspinatus and subscapularis tendons. 7. The anterior glenoid labrum shows increased signal, suggesting labral injury or degeneration. 8. Old, healed fracture of the proximal humeral shaft. 9. Subacromial-subdeltoid and subcoracoid bursitis. 10. Bony changes concur with prior X-ray findings. Electronically signed by Kevin Palacios 08-09-2025 06:59 AM
[2025-08-09] MEDS: ACETAMINOPHEN 500 MG TAB PO SCH (09:22)
[2025-08-09] MEDS: ASPIRIN 81 MG ECTAB PO SCH (09:23)
[2025-08-09] MEDS: KETOROLAC TROMETHAMINE 15 MG/ML VIAL IV SCH (09:23)
[2025-08-09] MEDS: FLUTICASONE/VILANTEROL 100/25MCG 14 PUFFS/INHALER INH SCH (09:26)
[2025-08-09] MEDS: PREGABALIN 150 MG CAP PO SCH (09:27)
[2025-08-09] MEDS: LIDOCAINE 5% 1 PATCH TD SCH (09:27)
--- NOTE | 2025-08-09 10:29 | Orthopedic Consultation ---
Date of Consultation August 09, 2025 Assessment & Plan (1) Fracture of metacarpal bone of left hand: Patient was seen and evaluated today by Dr. Handy as well as myself. Will plan to continue the short arm splint for his left hand. Recommend another x-ray in 7 to 10 days for alignment check. Once swelling improves could consider [place] splint. Ice and elevate above heart to relieve swelling. May move fingers as splint allows. No use of left hand. Keep the splint on at all times and keep it clean and dry. Patient would like to follow-up with Dr. Ramirez or [facility] orthopedics at time of discharge. (2) Fracture of distal end of right humerus: Right upper arm pain and elbow pain. Concern for injury to the right elbow versus bicep strain. X-rays of the right elbow were Ordered and obtained. x-ray show nondisplaced distal humerus, supracondylar fracture. we will plan to place him in a long-arm posterior splint of the right upper extremity. He should be nonweightbearing on the right upper extremity at all times. Sling to the right arm when out of bed. Ice to the elbow as needed for pain or swelling. Elevate right upper extremity as needed for swelling. May do finger range of motion as the splint allows. May do gentle shoulder range of motion as tolerated. Will need repeat x-rays again in 7 to 10 days for an alignment check. Will plan to treat conservatively with no indications for surgical intervention at this time. Findings discussed with Dr. Handy and he agrees with the plan. Patient also understands and agrees with the plan. All questions were answered. Supervising Physician Co-Signing Physician Notes I, Dr. Handy, saw and examined the patient with my PA. I discussed the management with my PA. I reviewed my PAs note and agree with the documented findings and attest to completing the substantive portion of medical decision making and plan of care I developed. 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 He states he rescued 2 horses last week and they are very gentle and well mannered but something spooked them and they took off out of the barn and one of them ran into the back of him and causing him to lose his balance and fall facedown onto the ground. He immediately had pain in his right anterior chest wall and shoulder. He also had some left hand pain. He is had previous neck problems and surgery and knows that he has underlying arthritis. He denies any neck pain today. He states that he occasionally does get some paresthesias down his right arm but he has nothing worse today. He says it is typically in his small finger which is why he had an ulnar nerve transposition done in the past. He denies any loss of consciousness at the time of his fall. States that he does have some mild discomfort at rest but he has a lot of pain when trying to lift his arm. He states he really cannot lift his arm on his own but he is able to do it with the assistance of his other arm. He denies any previous right shoulder problems. He does have history of having a fracture in 1981 but that has not given him issues since that healed. His pain is worse with any type of movement. He is currently lying in bed in a sling. He also states that he injured his left hand. He has some chronic wrist discomfort due to arthritis but during the fall he injured his left hand. He had x-rays in the emergency room he was found to have 1/5 metacarpal fracture. He is currently in a splint. Denies pain at rest and that. He denies any numbness or tingling in his left hand. He is right-hand dominant. He is a regular patient of [facility] orthopedics and typically sees Dr. Ramirez. He would like to continue his care with him. Allergies Allergy/AdvReac Type Severity Reaction Status Date / Time sulfamethoxazole Allergy Severe major Verified 07/05/25 11:19 [From Bactrim] reaction - serum sickness / hives, profound fatigue gentamicin Allergy Unknown compounded Verified 07/05/25 11:19 infection, was advised not to have gentamicin trimethoprim [From Bactrim] Allergy Unknown major Verified 07/05/25 11:19 reaction- serum sickness/hives, profound fatigue Home Medications Medication Instructions Recorded Confirmed Type albuterol sulfate 90 mcg/actuation 1 puff inhalation Q6H PRN Wheezing 09/01/18 07/19/25 History breath activated powder inhaler multivitamin 1 tab PO QPM 09/01/18 07/19/25 History vitamin B complex 1 tab PO QPM 09/01/18 07/19/25 History latanoprost 0.005 % eye drops 1 drp ophthalmic (eye) HS 03/22/19 07/19/25 History magnesium oxide 400 mg PO BID 07/25/20 07/19/25 History cholecalciferol (vitamin D3) 50 50 mcg PO QPM 08/07/20 07/19/25 History mcg (2,000 unit) capsule (Vitamin D3) acetaminophen 650 mg 1,300 mg PO QAM 11/19/23 07/19/25 History tablet,extended release (Tylenol Arthritis Pain) amoxicillin 500 mg capsule 2,000 mg PRN prophylactic for 07/26/24 07/19/25 History dental aspirin 81 mg tablet,delayed 81 mg PO DAILY #90 tabs 09/13/24 07/19/25 Rx release Breo Ellipta 100 mcg-25 mcg/dose 1 inh inhalation QAM #3 Inhalers 01/31/25 07/19/25 Rx powder for inhalation (fluticasone furoate-vilanterol) tadalafil 20 mg tablet 20 mg PO Q24H PRN Sexual Activity 03/15/25 07/19/25 Rx #20 tabs bupropion HCl 100 mg tablet,12 hr 100 mg PO HS #90 ea 06/02/25 07/19/25 Rx sustained-release bupropion HCl 200 mg tablet,12 hr 200 mg PO QAM #90 ea 06/02/25 07/19/25 Rx sustained-release duloxetine 60 mg capsule,delayed 60 mg PO QPM #90 caps 06/02/25 07/19/25 Rx release furosemide 20 mg tablet 20 mg PO DAILY PRN edema #60 tabs 06/02/25 07/19/25 Rx pregabalin 150 mg capsule 150 mg PO BID #180 caps 06/02/25 07/19/25 Rx tadalafil 5 mg tablet 5 mg PO HS #90 tabs 06/19/25 07/19/25 Rx montelukast 10 mg tablet 10 mg PO QPM #90 tabs 08/08/25 Rx atorvastatin 40 mg tablet (Lipitor) 40 mg PO QPM #90 tabs 08/09/25 Rx acetaminophen 500 mg tablet 1,000 mg (2 x 500 mg) PO Q8H 14 08/10/25 Rx (Tylenol Extra Strength) days #84 tabs hydromorphone 2 mg tablet 2 mg PO Q6H PRN breakthrough pain 08/10/25 Rx 3 days #12 tabs ibuprofen 400 mg tablet 400 mg PO Q8H 7 days #21 tabs 08/10/25 Rx naloxone 4 mg/actuation nasal spray 1 spray intranasal ONCE PRN opioid 08/10/25 Rx overdose 1 day #2 ea Patient History Medical History Diastolic CHF Episode of fluid overload in setting of "anesthesia overloading me with fluids on my partial knee replacement" Stress fracture of right tibia 10/2023-following with [place] orth[facility] Leg length discrepancy Bilateral tinnitus Sensorineural hearing loss (SNHL) of both ears Mild sloping to severe SNHL bilaterally History of depression Hx of gastroesophageal reflux (GERD) Hypogammaglobulinemia follows with Dr. 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 Mark for patient evaluation of the head and neck for possible errant placement of temperature probe. IMPRESSION: I do NOT find any evidence that the temperature probe was falsely inserted into any tissue tract of the upper aerodigestive tract. I do NOT find any evidence false tract. There is NO ecchymosis NOR edema or bleeding of the hypopharynx. There is NO subcutaneous air in the soft tissues either. RECOMMENDATIONS: I believe the temperature probe was curled in the hypopharynx and resting in the piriform sinus, extracorporal, without consequence and was never in any false tract of the soft tissues of the neck or aerodigestive tract. 1. There is NO false tissue tract. 2. Nutritional Diet may be advanced as needed per Dr Mark. 3. There is no need for antibiotic therapy for any false tissue tract." Status post right partial knee replacement (~07/07/23) Hx of bilateral cataract extraction (~2019) History of cardiac cath 2021- no stents History of esophagogastroduodenoscopy (EGD) (~2004) History of colonoscopy History of endoscopic sinus surgery (~1998) History of parotid gland removal (~1964) Superficial lobe of Left gland removal Hx of decompression of ulnar nerve right, transposition History of laminectomy (~05/2020) lumbar laminectomy- [facility] History of vasectomy S/P carpal tunnel release Right Family History Grandmother (Paternal) Stroke Sister Breast cancer Father Prostate cancer Mother Atrial fibrillation Denies family history of Ovarian cancer Myocardial infarction Colorectal cancer Social History Smoking Status: Never smoker Second Hand Exposure: No; Do You Dip or Chew Tobacco: No; Hx Alcohol Use: No Hx Substance Use: No Preferred Language: Citizen Of [place] Communication Ability: Effective Visual Impairment: Limited Hearing Ability: Use of Hearing Aid Pharmacist Critical Care Required: No Beliefs That Will Affect Care: None marital status: Current Living Situation: Spouse current occupational status: retired current occupation: Physician Feels Safe at Home: Yes Dental Care, Regularly: Yes Physical Activity Frequency: 3-4 Times per Week Seatbelt Use: always Sunscreen Use: Yes Assistive Devices: Cane, Glasses and Hearing Aid - Bilateral Physical Exam Musculoskeletal: Exam of his right upper extremity: He is nontender with palpation over the AC joint, acromion or scapula. He has some mild tenderness over the proximal biceps tendon area in the anterior aspect of his shoulder and chest wall. Chest wall itself is nontender to palpation. He has tenderness with palpation in the muscle belly of the biceps tendon. He has a negative hook test at the distal biceps tendon but he does have some discomfort especially with flexion and extension of the elbow on the distal tendon. He has a small abrasion on the lateral aspect of his arm just above his elbow. It is covered currently with a Band-Aid. No active bleeding. There is some soft tissue swelling around the shoulder and the upper arm. He is nontender of the triceps or the olecranon. He tolerates passive range of motion of the shoulder without any discomfort. He does have inability to lift his arm today due to pain in the front of his right upper extremity. He is able to make a fist and flex and extend his fingers. 2+ radial pulse of the right upper extremity. No distal edema. Distal sensation is normal. He is not significantly tender around the elbow except for just mildly around the lateral epicondyle. He has some discomfort with pronation against resistance. Passively pronation supination causes some discomfort in the muscle belly of the biceps. Exam of his left upper extremity: Left hand is in a splint. Fingers move freely. Capillary refill is brisk. He is able to approximate his thumb to his index finger. Motor and sensory function is intact. Full active elbow and shoulder range of motion without discomfort. Results & Data Vital Signs (Past 12 Hours) Vital Signs Temp Pulse Pulse Resp BP BP Pulse Ox 08/09/25 09:17 54 L 08/09/25 03:41 72 08/09/25 03:19 70 16 140/83 93 08/09/25 01:16 74 16 114/75 97 08/09/25 00:07 63 13 139/89 91 08/08/25 23:54 92 08/08/25 23:45 67 08/08/25 23:17 36.8 C 75 20 129/76 94 O2 Del Method O2 Flow Rate 08/09/25 09:17 08/09/25 03:41 08/09/25 03:19 Nasal Cannula 3 08/09/25 01:16 Nasal Cannula 3 08/09/25 00:07 Room Air 08/08/25 23:54 Room Air 08/08/25 23:45 08/08/25 23:17 Room Air Laboratory Results 08/09/25 08/09/25 08/08/25 Range/Units 03:20 00:02 23:30 WBC 8.43 (4.8-10.8) K/ul RBC 3.76 L (4.70-6.10) M/uL Hgb 12.5 L (14.0-18.0) g/dl POC Hgb 12.9 L (14.0-18.0) g/dl Hct 36.9 L (42.0-52.0) % POC Hct 38 L (42-52) % MCV 98.1 (80.0-100.0) fL MCH 33.2 (25.0-34.0) pg MCHC 33.9 (32.0-36.0) g/dL RDW Std Deviation 48.3 H (36.4-46.3) fL RDW Coeff of [place] 13.5 (11.5-14.5) % Plt Count 181 (130-400) K/uL MPV 10.5 (9.4-12.4) fL Immature Gran % (Auto) 0.4 % Neut % (Auto) 74.6 % Lymph % (Auto) 13.0 % [place] % (Auto) 10.4 % Eos % (Auto) 1.1 % Baso % (Auto) 0.5 % Neut # (Auto) 6.29 (1.40-6.50) K/uL Lymph # (Auto) 1.10 L (1.20-3.40) K/uL [place] # (Auto) 0.88 H (0.11-0.59) K/uL Eos # (Auto) 0.09 (0.00-0.50) K/uL Baso # (Auto) 0.04 (0.00-0.20) K/uL Immature Gran # (Auto) 0.03 (0.01-0.20) K/uL PT 10.3 (9.0-12.0) Seconds INR 1.0 (0.9-1.1) APTT 23 (21-31) Seconds PTT Ratio 0.8 POC Sodium 139 (135-144) mmol/L Sodium 138 (136-145) mmol/L POC Potassium 4.0 (3.3-5.0) mmol/L Potassium 4.0 (3.5-5.1) mmol/L POC Chloride 105 (101-112) mmol/L Chloride 105 (98-107) mmol/L Carbon Dioxide 23 (21-32) mmol/L POC Total CO2 22 L (24-31) mmol/L Anion Gap 10 (3-11) POC Anion Gap 16.0 (16-25) mmol/L POC BUN 27 H (7-18) mg/dl BUN 27 H (6-23) mg/dl Creatinine 1.27 (0.6-1.4) mg/dl POC Creatinine 1.4 H (0.6-1.3) mg/dl Est Cr Clr Drug Dosing 48.9 ml/min eGFR 55.36 BUN/Creatinine Ratio 21.3 H (10-20) Glucose 101 H (70-99(Fasting)) mg/dl POC Glucose (other) 102 H (70-99) mg/dl Calcium 10.0 (8.6-10.3) mg/dl POC Ioniz Calcium Devin 1.25 (1.12-1.32) mmol/l Total Bilirubin 0.7 (0.2-1.0) mg/dl AST 22 (13-39) U/L ALT 19 (7-52) U/L Alkaline Phosphatase 84 (34-104) U/L Troponin I High Sens 5.9 (0-20) pg/ml Total Protein 6.8 (6.0-8.3) gm/dl Albumin 4.5 (3.4-5.0) gm/dl Globulin 2.3 L (2.5-4.0) gm/dl Albumin/Globulin Ratio 2.0 (0.9-2) Lipase 57 (11-82) U/L Urine Color Yellow Urine Appearance Clear (Clear) Urine pH 5.5 (4.5-7.5) Ur Specific [place] > 1.045 H (1.000-1.030) Urine Protein Negative (Negative) Urine Glucose (UA) Negative (Negative) Urine Ketones Trace H (Negative) Urine Blood Negative (Negative) Urine Nitrite Negative (Negative) Urine Bilirubin Negative (Negative) Urine Urobilinogen Negative (Negative) Ur Leukocyte Esterase Negative (Negative) Urine Comment Diagnostic Findings XR elbow RT min 3V routine CLINICAL HISTORY: s/p fall; elbow pain COMPARISON: None FINDINGS: There is a large joint effusion. There is an acute nondisplaced fracture at the distal humerus. There are mild degenerative changes. IMPRESSION: Acute nondisplaced distal humerus fracture. Abdomen/Pelvis CT 08/08/25 23:30 EXAM: CT abd pelvis IV con only CLINICAL HISTORY: Trauma TECHNIQUE: Contiguous axial images were obtained from the level of the diaphragm to the pubic symphysis with intravenous contrast. Coronal and sagittal reconstructions were likewise performed and indicated to increase the sensitivity for detecting clinically relevant pathology. If IV contrast material had not been administered, the likelihood of detecting abnormalities relevant to the patient's condition would have been substantially decreased. The CT scan was performed according to ALARA (as low as reasonably achievable). COMPARISON: 11:31:20 NAVAL INSPECTOR. FINDINGS: The visualized lung bases are clear. The liver is normal in size and attenuation. No focal liver lesions are seen. There is no intra- or extrahepatic biliary ductal dilatation. Hepatic vasculature is patent. The gallbladder is present. The spleen, pancreas, and adrenal glands are unremarkable. The kidneys are normal in size and attenuation. There is no hydronephrosis or perinephric fat stranding. No renal calculi or renal masses are identified. The ureters are normal in caliber, and no ureteral calculi are seen. The bladder is normal in contour. The prostate appears enlarged in size, measuring about 48 x 42 mm. No focal or diffuse bowel wall thickening or evidence of bowel obstruction is identified. There is no imaging evidence of appendicitis. Abdominal and pelvic vasculature is patent. No adenopathy or fluid collections are seen. No aggressive-appearing osseous lesions are identified. Fat-containing bilateral inguinal herniae are present. Postoperative changes involving lumbar spine fixation screws are seen in situ. Degenerative changes seen in lumbar spine. IMPRESSION: Enlarged prostate?stable. Fat-containing bilateral inguinal herniae?stable. No acute trauma-related abnormality is seen. Electronically signed by Naga Skinner 08-09-2025 02:[address] 08/08/25 23:30 EXAM: CT cervical spine wo con CLINICAL HISTORY: Trauma TECHNIQUE: CT scan of the cervical spine was performed without the administration of intravenous contrast. Contiguous axial images were obtained from the skull base to the upper thoracic spine. Coronal and sagittal reformatted images were also reviewed. One of the following dose reduction techniques was utilized for this exam: automated exposure control, adjustment of the mA and/or kV according to patient size, and use of iterative reconstruction. COMPARISON: No previous studies are available for comparison. FINDINGS: Vertebrae: Internal fixation of the cervical spine from C4 down to C7 with related disc spacers has been applied. 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 The vertebral bodies are preserved in height. There is no evidence of acute fracture or dislocation. Grade 1 anterolisthesis of C7 over T1, without related fracture, is seen. Diffuse decreased bone densities of the examined bones are present. There are no signs of lytic or sclerotic lesions. The configuration of the posterior elements is normal. Intervertebral Discs: The C2-3 and C3-4 discs demonstrate marked narrowing with associated sclerosis. Facet Joints: There is no evidence of dislocation or subluxation. Significant degenerative changes are noted. Neural Foramina: The neural foramina are patent bilaterally at all levels, with mild narrowing. Prevertebral Soft Tissues: The prevertebral soft tissues are normal in thickness, without evidence of mass or abnormal fluid collection. IMPRESSION: 1. There is no evidence of acute fracture or dislocation. 2. Degenerative Grade 1 anterolisthesis of C7 over T1, without related fracture, is seen. 3. Internal fixation of the cervical spine from C4 down to C7, with related disc spacers, has been applied. 4. 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 Electronically signed by Kevin Palacios 08-09-2025 02:[address] 08/08/25 23:30 EXAM: CT chest diagnostic w con CLINICAL HISTORY: Trauma TECHNIQUE: Contiguous axial images were obtained from the neck base through the upper abdomen following intravenous administration of contrast material. If IV contrast material had not been administered, the likelihood of detecting abnormalities relevant to the patient's condition would have been substantially decreased. In addition, sagittal and coronal reconstructions were performed. CT scan was performed according to ALARA (as low as reasonably achievable). COMPARISON: 15:14:35 NAVAL INSPECTOR. FINDINGS: Few atelectatic bands are noted involving the bilateral lung bases. Mild dilatation of the pulmonary trunk and bilateral main pulmonary arteries up to the subsegmental level, with mild tortuosity, suggests the possibility of pulmonary arterial hypertension. Old, healed fractures of multiple bilateral ribs. No pulmonary nodules are seen. The central airways are patent. There are no pleural effusions. No pneumothorax is seen. No axillary, hilar, or mediastinal adenopathy is identified. The visualized thyroid shows a small hypodense lesion in the right lobe; ultrasound correlation is suggested. The heart, aorta, and pulmonary arteries are of normal size and configuration. No pericardial effusion is identified. Imaged portions of the upper abdomen are unremarkable. No aggressive-appearing osseous lesions are identified. IMPRESSION: Few atelectatic bands are noted involving the bilateral lung bases. Stable. Mild dilatation of the pulmonary trunk and bilateral main pulmonary arteries up to the subsegmental level with mild tortuosity, suggesting the possibility of pulmonary arterial hypertension. Stable. Old, healed fractures of multiple bilateral ribs. Stable. No acute trauma-related abnormality is seen. Prior right-sided pleural effusion is resolved. Electronically signed by Naga Skinner 08-09-2025 02:08 AM Chest X-Ray 08/08/25 23:30 EXAM: XR chest 1V portable CLINICAL HISTORY: Trauma TECHNIQUE: An X-ray image of the chest is obtained in AP portable projection. COMPARISON: Prior study done on 07/15/2024 reviewed. FINDINGS: Pulmonary Parenchyma: Lungs are clear bilaterally. No evidence of consolidation, collapse, or focal opacities. No pulmonary nodules are identified. Obscured left costophrenic angle by the cardiomegaly. No evidence of right pleural effusion or pleural thickening. Heart and Mediastinum: Cardiomegaly (Interval increase in size). No mediastinal widening or masses. No hilar or mediastinal lymphadenopathy. Bony Thorax: Old fractures of left 7th, 8th, 9th and 10th ribs. Cervical screws are noted. Bony thorax appears intact without fractures or deformities. Soft Tissues: Soft tissues overlying the chest wall are unremarkable. IMPRESSION: 1. Cardiomegaly with interval increase in cardiac size compared to the prior study. 2. Old healed fractures of the left 7th?10th ribs. 3. No acute pulmonary, pleural, or bony abnormalities identified. Electronically signed by Kevin Palacios 08-09-2025 01:07 AM Hand X-Ray 08/08/25 23:30 EXAM: XR hand LT 2V CLINICAL HISTORY: L hand pain s/p fall. TECHNIQUE: X-ray images of the left hand were obtained in PA, lateral, and oblique projections. COMPARISON: None. FINDINGS: Bone Structure: The bone structure is normal and well aligned. There is cortical step-off/irregularity with angulation at the junction of the head and neck of the fifth metacarpal, suggesting fracture. It is associated with mild overlying soft tissue swelling. No osseous lesions or abnormalities are identified. Joint Spaces: Wrist, intercarpal, and diffuse interphalangeal joint osteoarthritis are seen in the form of subchondral sclerosis and articular surface irregularity. Soft Tissues: The soft tissues appear normal and unremarkable. There is no calcification, or foreign bodies noted. Additional Findings: No bone spurs, lytic lesions, or sclerotic lesions are identified. IMPRESSION: 1. There is cortical step-off/irregularity with angulation at the junction of the head and neck of the fifth metacarpal, suggesting fracture. It is associated with mild overlying soft tissue swelling. 2. Wrist, intercarpal, and diffuse interphalangeal joint osteoarthritis. Disclaimer: A subtle bone abnormality or fracture may not be readily apparent on X-rays; thus, clinical correlation and further imaging, including follow-up CT, MRI, or follow-up X-rays, are advised as needed. Electronically signed by Kevin Palacios 08-09-2025 01:[address] 08/08/25 23:30 EXAM: CT head/brain wo con CLINICAL HISTORY: trauma TECHNIQUE: Axial non-contrast CT scan of the brain was performed from the skull base to the high parietal region. One of the following dose reduction techniques were utilized for this exam: Automated exposure control, adjustment of the mA and/or kV according to patient size, use of iterative reconstruction. COMPARISON: 02/22/2024 CR FINDINGS: Brain Parenchyma: Multiple ill-defined hypodensities are appreciated in the bilateral periventricular and subcortical white matter, suggesting microvascular ischemic disease. Normal attenuation of the cerebellum and brainstem. No evidence of acute infarct, hemorrhage, or mass effect. No abnormal areas of hyperattenuation. Ventricular System: Ventricles are dilated in size and configuration. No masses. Subarachnoid Spaces: Prominent sulci and cisterns. No evidence of subarachnoid hemorrhage or extra-axial fluid collections. Cerebellum and Brainstem: No masses, lesions, or areas of abnormal density. Orbits: Normal appearance of the globes, optic nerves, and extraocular muscles. No evidence of orbital masses or abnormal density. Sinuses: Clear paranasal sinuses. No evidence of sinusitis or mucosal thickening. Mastoid Air Cells: Clear mastoid air cells. No evidence of mastoiditis. Skull: Normal skull morphology. IMPRESSION: 1. No acute hematoma or skull fracture. 2. 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 3. Mild progressive course regarding microvascular ischemic changes compared to the prior study. Electronically signed by Kevin Palacios 08-09-2025 02:09 AM Shoulder X-Ray 08/08/25 23:30 EXAM: XR shoulder RT min 2V routine CLINICAL HISTORY: R shoulder pain s/p fall. TECHNIQUE: X-ray images of the right shoulder were obtained in anteroposterior (AP) and Y-view projections. COMPARISON: No prior studies available for comparison. FINDINGS: Bone Structure: Old, healed fracture of the proximal right humerus. The humeral head is properly positioned in the glenoid fossa. No osseous lesions or abnormalities are identified. No lytic or sclerotic lesions. Joint Spaces: Degenerative changes in the right acromioclavicular joint, as evidenced by narrowing of the joint space. The glenohumeral joint is normal. No evidence of joint effusion or subluxation is present. Soft Tissues: The soft tissues appear normal and unremarkable. No soft tissue swelling, calcifications, or foreign bodies are noted. IMPRESSION: 1. Age indeterminate or probably old fracture of the proximal right humerus. Comparison with prior relevant studies, if available, is suggested. Clinical correlation is suggested. 2. Right acromioclavicular joint arthritic changes. Disclaimer: A subtle bone abnormality or fracture may not be readily apparent on X-rays, thus clinical correlation and further imaging including follow-up CT, MRI, or follow-up X-rays are advised as needed. Electronically signed by Kevin Palacios 08-09-2025 01:16 AM Shoulder MRI 08/09/25 04:23 EXAM: MR shoulder RT wo con CLINICAL HISTORY: right shoulder pain TECHNIQUE: Multiplanar MRI was performed through the right shoulder, acquiring PD axial, BASG axial, T1W coronal, T2W sagittal/coronal, and IR coronal sequences without intravenous contrast. COMPARISON: 08/08/2025 CR. FINDINGS: Glenohumeral Joint: The glenohumeral joint is normal in configuration without dislocation or subluxation. The joint space is intact without significant narrowing. Small osteophytes are noted at the joint edges. Minimal joint effusion is present. No intra-articular loose bodies are identified. Acromioclavicular (AC) Joint: There is no evidence of acromioclavicular (AC) joint separation. Hypertrophic degenerative changes of the AC joint are present. Bones: The humeral head preserves its spherical shape. There is an area of bone bruise at the superoanterior side of the humeral head, extending to the major tubercle. A few subcortical cysts up to 8 mm are present in the humeral head. There is an old, healed fracture at the proximal shaft of the humerus. Rotator Cuff: The supraspinatus tendon shows preserved continuity. There is increased signal on T1WI and T2WI of the supraspinatus tendon. There is a 6 x 3 mm partial-thickness tear at the articular surface at the insertion site of the supraspinatus tendon. The infraspinatus and subscapularis tendons demonstrate preserved continuity without a tear. Increased signal of the tendons is present on T1WI, denoting tendinosis. The teres minor tendon is normal. Labrum: The anterior glenoid labrum shows increased signal, suggesting labral injury or degeneration. Biceps Tendon: There is normal appearance and position of the biceps tendon. No evidence of tendinopathy or tears. Ligaments: The glenohumeral and coracohumeral ligaments demonstrate normal appearance. No evidence of ligamentous injury. Muscles: The surrounding musculature demonstrates normal appearance. There is no muscle atrophy or abnormal density changes. Bursae: There is increased fluid in the subacromial-subdeltoid and subcoracoid bursae, which is compatible with bursitis. Neurovascular Structures: There is normal appearance of the visualized neurovascular structures. No evidence of compression or abnormal density changes. IMPRESSION: 1. Bone edema in the humeral head. 2. Degenerative subcortical cysts in the humeral head. 3. Degenerative changes of the ACJ. 4. Mild effusion of the shoulder joint. 5. Partial tear of the supraspinatus tendon on top of the tendonitis. 6. Tendinosis of the infraspinatus and subscapularis tendons. 7. The anterior glenoid labrum shows increased signal, suggesting labral injury or degeneration. 8. Old, healed fracture of the proximal humeral shaft. 9. Subacromial-subdeltoid and subcoracoid bursitis. 10. Bony changes concur with prior X-ray findings. Electronically signed by Kevin Palacios 08-09-2025 06:59 AM
[2025-08-09] MEDS: HYDROmorphone INJ 1 MG/ML SYRINGE IV PRN (12:47)
--- NOTE | 2025-08-09 12:47 | XRay Report ---
XR elbow RT min 3V routine CLINICAL HISTORY: s/p fall; elbow pain COMPARISON: None FINDINGS: There is a large joint effusion. There is an acute nondisplaced fracture at the distal hum erus. There are mild degenerative changes. IMPRESSION: Acute nondisplaced distal humerus fracture. ACT 112: Negative or not required by law. Electronically signed by: Charles Zarate M.D. 08/09/2025 12:46 PM
--- NOTE | 2025-08-09 16:41 | Hospitalist Progress Note ---
Date of Service August 09, 2025 Assessment & Plan (1) Fracture of distal end of right humerus: (2) Fracture of metacarpal bone of left hand: (3) Fall: (4) Sinus bradycardia: (5) Sinus arrhythmia: (6) First degree AV block: (7) Tear of right supraspinatus tendon: (8) Tendinosis of right rotator cuff: (9) Injury of right glenoid labrum: (10) Bursitis of shoulder, right: Plan In summary this is an 84-year-old male who presented to the [facility] after an unwitnessed fall without associated loss of consciousness resulting in multiple upper extremity orthopedic injuries #Right distal humeral fracture // Left fifth metacarpal fracture Patient was found to have a fracture of the left fifth metacarpal as well as the distal right humerus both of which have been splinted; patient follows in the outpatient setting with [facility] orthopedics, images will be provided on a disk at discharge, and a referral for close follow-up for continued care Continue acetaminophen 1000 mg p.o. every 8 hours Continue Toradol 15 mg IV every 6 hours scheduled through 08/14 or upon discharge, whichever occurs first Continue hydromorphone 1 mg IV every 3 hours as needed for breakthrough pain Orthopedic surgery consulted OT and PT consulted #Pleuritic chest wall pain, right anterior Without evidence of acute fracture in the area of discomfort, suspect this is more likely to be consequential of cartilaginous damage sustained in the fall or a periosteal injury resulting in pleuritic discomfort; continue analgesic regimen as above #Sinus bradycardia // Sinus arrhythmia // First degree AV block Patient was found during physical exam and reviewed the patient's telemetry to be in persistent sinus bradycardia with irregular RR intervals; EKG was obtained which reveals sinus bradycardia with sinus arrhythmia and a persistent first- degree AV block, without significant change from previous EKG in 2023; this requires no further assessment during his hospitalization nor in the outpatient setting #Partial right supraspinatus tear // Tendinosis of right infraspinatus and subscapularis // Right anterior glenoid labrum injury //Subacromial, subdeltoid, and subcoracoid bursitis The patient was found during imaging obtained for his orthopedic injuries detailed above to have multiple injuries to the right shoulder joint of varying degrees of acuity and chronicity; specifically there is noted partial tear of the right supraspinatus tendon insertion, tendinosis of the subscapularis and infraspinatus, a partial tear or degenerative change to the right glenoid labrum, as well as acute bursitis of multiple bursae within the right shoulder joint; at this time does not require further intervention during his hospitalization, can have further discussion in the outpatient setting with his orthopedic team to determine adequate/necessary treatment avenues Admission and Anticipated Discharge Date Admission Date: August 09, 2025 Subjective Mr. 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 Patient continues to have discomfort though it has improved since his initial presentation with his current pharmacologic and nonpharmacologic interventions. When discussing the patient's discomfort at bedside he describes his "shoulder pain" but gestures to the distal right humerus. He states he continues to be at rest a 5 out of 10 and when doing any kind of movement it significantly worsens to an 8-10 out of 10. He denies any paresthesias or numbness affecting the right upper extremity distal of his injuries. He denies any significant discomfort or paresthesia has been noted of the left upper extremity since placement of a temporary splint for the previously noted left fifth metacarpal fracture. Review of Systems Review of Systems: Review of cardiovascular, pulmonary, neurologic, musculoskeletal systems was unremarkable except for pertinent positives and negatives detailed above Physical Exam Physical Exam: General: Elderly male in no acute distress Vital Signs: Reviewed; noted to be bradycardic with irregular RR intervals on telemetry HEENT: Dried blood overlying the nasal bridge without any evidence of acute fracture or injury; pupils equally round and reactive to light, extraocular motion intact Pulmonary: Symmetric chest wall excursion with slight restriction secondary to discomfort in the right 5th/6th intercostal space in anterior axillary line; clear to auscultation bilaterally Cardiovascular: Bradycardic rate with regular rhythm without murmurs, rubs, or gallops; S1 and S2 normal; right radial pulse 2+ with brisk capillary refill in the nailbeds bilaterally Musculoskeletal: Limited orthopedic exam was performed given more thorough exam already performed by orthopedic surgery, given the patient's discomfort with exam; no significant findings were found in opposition to their exam Neurologic: Cranial nerves II through XII grossly intact; no discernible focal weakness nor paresthesia specifically involving the upper extremities Results & Data Results & Data Vital Signs (Past 12 Hours) Vital Signs Temp Pulse Pulse Resp BP Pulse Ox O2 Del Method 08/09/25 16:17 Nasal Cannula 08/09/25 15:19 36.7 C 66 20 128/57 L 98 Nasal Cannula 08/09/25 14:04 36.6 C 62 18 108/66 95 Nasal Cannula 08/09/25 12:48 59 L 17 127/67 97 Nasal Cannula 08/09/25 09:17 54 L O2 Flow Rate 08/09/25 16:17 3 08/09/25 15:19 2 08/09/25 14:04 3 08/09/25 12:48 3 08/09/25 09:17 PG Care Time/CCT Total # of Minutes Spent Total Time Spent with Patient: Total time spent is greater than 50% in coordination of care (as documented) at patient's floor/unit and/or counseling patient: Coding Level of Care Code 52643 SUB INP/OBS CARE 2/35MIN Diagnoses Other closed nondisplaced fracture of distal end of right humerus, initial encounter S42.494A Encounter type: initial encounter Fracture type: closed Fracture morphology: other fracture Fracture alignment: nondisplaced Fracture of metacarpal bone of left hand S62.309A Fall, initial encounter W19.XXXA Encounter type: initial encounter Sinus bradycardia R00.1 Sinus arrhythmia I49.8 First degree AV block I44.0 Tear of right supraspinatus tendon M75.101 Tendinosis of right rotator cuff M67.813 Injury of right glenoid labrum S49.91XA Bursitis of shoulder, right M75.51 (1) Fracture of distal end of right humerus Encounter type: initial encounter Fracture type: closed Fracture morphology: other fracture Fracture alignment: nondisplaced Qualified Code(s): S42.494A - Other nondisplaced fracture of lower end of right humerus, initial encounter for closed fracture (3) Fall Encounter type: initial encounter Qualified Code(s): W19.XXXA - Unspecified fall, initial encounter
[2025-08-09] MEDS: MONTELUKAST SODIUM 10 MG TABLET PO SCH (21:17)
[2025-08-09] MEDS: ATORVASTATIN 40 MG TAB PO SCH (21:17)
[2025-08-09] MEDS: REMOVE LIDODERM PATCH SCH (21:39)
[2025-08-09] MEDS: LATANOPROST 0.005% OP SOLN 2.5 ML BTL OP SCH (21:39)
[2025-08-10] MEDS: DOCUSATE SODIUM 100 MG CAP PO PRN (08:47)
--- NOTE | 2025-08-10 08:59 | Electrocardiogram Report ---
Test Reason : Blood Pressure : */* mmHG Vent. Rate : 54 BPM Atrial Rate : 54 BPM P-R Int : 330 ms QRS Dur : 104 ms QT Int : 384 ms P-R-T Axes : 71 19 37 degrees QTcB Int : 364 ms Sinus bradycardia with sinus arrhythmia with 1st degree A-V block Otherwise normal ECG When compared with ECG of 26-Jul-2024 15:44, QT has shortened Confirmed by Jimmy Mcgee ([id number]) on 08/10/2025 8:59:29 AM Referred By: REFERRED SELF Confirmed By: Jimmy Mcgee
--- NOTE | 2025-08-10 09:30 | Orthopedic Progress Note ---
Date of Service August 10, 2025 Assessment & Plan (1) Fracture of metacarpal bone of left hand: Plan: Continue the short arm splint for his left hand. His posterior right arm splint was reassessed. He is comfortable with it and no modifications are needed at this time. Recommend another x-ray in 7 to 10 days for alignment check. Once swelling improves in the left hand could consider Traverse splint. Ice and elevate arms above heart to relieve swelling. continue finger motion as splints allow No use of left hand. Keep the splints on at all times and keep them clean and dry. the patient states he would like to discuss surgical intervention for his left hand, preferably before the weekend. Given his metacarpal fracture placement and angulation, I am not sure that surgical intervention is needed. I will have Dr. Handy speak with him later today to discuss his options. (2) Fracture of distal end of right humerus: Plan: See above Admission and Anticipated Discharge Date Admission Date: August 09, 2025 Supervising Physician Co-Signing Physician Notes I, Dr. Handy, saw and examined the patient. I discussed the management with my PA. I reviewed my PAs note and agree with the documented findings and attest to completing the substantive portion of medical decision making and plan of care I developed. I removed the left wrist splint. NV intact. + TTP L 5th metacarpal neck. No rotational deformity with flexion or extension. + Bruising dorsum hand, minimal swelling. Explanined that he did not require surgery and would be treated conservatively. He was placed into a Traverse splint and his SF will be aliya taped to his RF. The splint and aliya tape should be removed daily for skin check and hygiene. Subjective This 84-year-old male is seen today in his room. He is 2 days status post ground-level fall onto the right side. He states the right arm feels much better after being placed in the posterior Ortho-Glass splint last evening. He denies any areas of pressure or discomfort from the splint. There is still soreness at the fracture site near the elbow. Patient continues to have generalized discomfort. he states he is developing more new sore areas as other areas improved.He denies any paresthesias or numbness affecting the right upper extremity distal of his injuries. He states the left hand is quite uncomfortable in the splint, and he would like to have surgical intervention, preferably before the weekend. He states he would like to discuss he states he would like to discuss the injury, fixation, and prognosis with Dr. Handy. Physical Exam Physical Exam: General: Well-developed, well-nourished, elderly male, in no acute distress. Sitting in a chair. Alert and oriented. Skin: Warm and dry with good turgor. Splints are present on his left wrist and hand as well as right arm. Abrasions are still present on his face with healing scabs. Musculoskeletal: The patient has intact motor function of his right digits. Shoulder, elbow, and wrist motion were not attempted due to the splint. He has intact motor function of the left shoulder and elbow. Wrist and finger motions were not attempted due to his splint. Neurologic: Gross sensation is intact across each of the upper extremities by soft touch. Capillary refill is equal for each of the fingers. Results & Data Vital Signs (Past 12 Hours) Vital Signs Temp Pulse Pulse Resp BP Pulse Ox O2 Del Method 08/10/25 07:35 58 L 08/10/25 03:13 36.3 C L 67 18 125/74 95 Nasal Cannula 08/09/25 22:14 36.8 C 60 18 124/68 97 Nasal Cannula 08/09/25 22:02 63 O2 Flow Rate 08/10/25 07:35 08/10/25 03:13 2 08/09/25 22:14 2 08/09/25 22:02 (2) Fracture of distal end of right humerus Encounter type: initial encounter Fracture type: closed Fracture morphology: other fracture Fracture alignment: nondisplaced Qualified Code(s): S42.494A - Other nondisplaced fracture of lower end of right humerus, initial encounter for closed fracture
--- NOTE | 2025-08-10 09:39 | Hospitalist Progress Note ---
Date of Service August 10, 2025 Assessment & Plan (1) Fracture of distal end of right humerus: (2) Fracture of metacarpal bone of left hand: (3) Fall: (4) Sinus bradycardia: (5) Sinus arrhythmia: (6) First degree AV block: (7) Tear of right supraspinatus tendon: (8) Tendinosis of right rotator cuff: (9) Injury of right glenoid labrum: (10) Bursitis of shoulder, right: Plan In summary this is an 84-year-old male who presented to the [facility] after an unwitnessed fall without associated loss of consciousness resulting in multiple upper extremity orthopedic injuries #Right distal humeral fracture // Left fifth metacarpal fracture Patient was found to have a fracture of the left fifth metacarpal as well as the distal right humerus both of which have been splinted; patient follows in the outpatient setting with [facility] orthopedics, images will be provided on a disk at discharge, and a referral for close follow-up for continued care Continue acetaminophen 1000 mg p.o. every 8 hours Continue Toradol 15 mg IV every 6 hours scheduled through 08/14 or upon discharge, whichever occurs first Continue hydromorphone 1 mg IV every 3 hours as needed for breakthrough pain Orthopedic surgery consulted; pending recommendations regarding surgical options with respect to left metacarpal fractures OT and PT consulted #Pleuritic chest wall pain, right anterior Without evidence of acute fracture in the area of discomfort, suspect this is more likely to be consequential of cartilaginous damage sustained in the fall or a periosteal injury resulting in pleuritic discomfort; continue analgesic regimen as above #Sinus bradycardia // Sinus arrhythmia // First degree AV block Patient was found during physical exam and reviewed the patient's telemetry to be in persistent sinus bradycardia with irregular RR intervals; EKG was obtained which reveals sinus bradycardia with sinus arrhythmia and a persistent first- degree AV block, without significant change from previous EKG in 2023; this requires no further assessment during his hospitalization nor in the outpatient setting #Partial right supraspinatus tear // Tendinosis of right infraspinatus and subscapularis // Right anterior glenoid labrum injury //Subacromial, subdeltoid, and subcoracoid bursitis The patient was found during imaging obtained for his orthopedic injuries detail ed above to have multiple injuries to the right shoulder joint of varying degrees of acuity and chronicity; specifically there is noted partial tear of the right supraspinatus tendon insertion, tendinosis of the subscapularis and infraspinatus, a partial tear or degenerative change to the right glenoid labrum, as well as acute bursitis of multiple bursae within the right shoulder joint; at this time does not require further intervention during his hospitalization, can have further discussion in the outpatient setting with his orthopedic team to determine adequate/necessary treatment avenues Admission and Anticipated Discharge Date Admission Date: August 09, 2025 Subjective Mr. 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 Patient continues to have discomfort though it has improved since his initial presentation with his current pharmacologic and nonpharmacologic interventions. He is interested in discussing surgical options regarding his left hand. Pain management at this point is adequate, but he continues to develop new areas of soreness as he recovers from his incident. Review of Systems Review of Systems: Review of cardiovascular, pulmonary, neurologic, musculoskeletal systems was unremarkable except for pertinent positives and negatives detailed above Physical Exam Physical Exam: General: Elderly male in no acute distress Vital Signs: Reviewed; noted to be bradycardic with irregular RR intervals on telemetry HEENT: Dried blood overlying the nasal bridge without any evidence of acute fracture or injury; pupils equally round and reactive to light, extraocular motion intact Pulmonary: Symmetric chest wall excursion with slight restriction secondary to discomfort in the right 5th/6th intercostal space in anterior axillary line; clear to auscultation bilaterally Cardiovascular: Bradycardic rate with regular rhythm without murmurs, rubs, or gallops; S1 and S2 normal; right radial pulse 2+ with brisk capillary refill in the nailbeds bilaterally Musculoskeletal: right elbow is in ortho splint; left hand is in ortho splint; right shoulder remains with achiness and soreness, ROM was limited in assessment due to the associated fracture in the distal humerous Neurologic: Cranial nerves II through XII grossly intact; no discernible focal weakness nor paresthesia specifically involving the upper extremities Results & Data Results & Data Vital Signs (Past 12 Hours) Vital Signs Temp Pulse Pulse Resp BP Pulse Ox O2 Del Method 08/10/25 07:35 58 L 08/10/25 03:13 36.3 C L 67 18 125/74 95 Nasal Cannula 08/09/25 22:14 36.8 C 60 18 124/68 97 Nasal Cannula 08/09/25 22:02 63 O2 Flow Rate 08/10/25 07:35 08/10/25 03:13 2 08/09/25 22:14 2 08/09/25 22:02 PG Care Time/CCT Total # of Minutes Spent Total Time Spent with Patient: Total time spent is greater than 50% in coordination of care (as documented) at patient's floor/unit and/or counseling patient: Coding Level of Care Code 00036 SUB INP/OBS CARE MIN Diagnoses Other closed nondisplaced fracture of distal end of right humerus, initial encounter S42.494A Encounter type: initial encounter Fracture type: closed Fracture morphology: other fracture Fracture alignment: nondisplaced Fracture of metacarpal bone of left hand S62.309A Fall, initial encounter W19.XXXA Encounter type: initial encounter Sinus bradycardia R00.1 Sinus arrhythmia I49.8 First degree AV block I44.0 Tear of right supraspinatus tendon M75.101 Tendinosis of right rotator cuff M67.813 Injury of right glenoid labrum S49.91XA Bursitis of shoulder, right M75.51 (1) Fracture of distal end of right humerus Encounter type: initial encounter Fracture type: closed Fracture morphology: other fracture Fracture alignment: nondisplaced Qualified Code(s): S42.494A - Other nondisplaced fracture of lower end of right humerus, initial encounter for closed fracture (3) Fall Encounter type: initial encounter Qualified Code(s): W19.XXXA - Unspecified fall, initial encounter
[2025-08-10] MEDS: POLYETHYLENE (MIRALAX) 17 GM PACK PO SCH (11:35)
--- NOTE | 2025-08-10 15:14 | Electrocardiogram Report ---
Test Reason : Blood Pressure : */* mmHG Vent. Rate : 59 BPM Atrial Rate : 73 BPM P-R Int : 352 ms QRS Dur : 98 ms QT Int : 382 ms P-R-T Axes : 44 37 8 degrees QTcB Int : 378 ms Sinus rhythm with 1st degree A-V block with Blocked Premature atrial complexes Otherwise normal ECG When compared with ECG of 09-Aug-2025 11:57, Premature atrial complexes are now Present Confirmed by Jimmy Mcgee ([id number]) on 08/10/2025 3:13:44 PM Referred By: REFERRED SELF Confirmed By: Jimmy Mcgee
[2025-08-10] MEDS ORDERED: KETOROLAC TROMETHAMINE 10 MG TABLET PO PRN (21:04)
--- NOTE | 2025-08-11 06:59 | Hospitalist Progress Note ---
Date of Service August 11, 2025 Assessment & Plan (1) Fracture of distal end of right humerus: (2) Fracture of metacarpal bone of left hand: (3) Fall: (4) Sinus bradycardia: (5) Sinus arrhythmia: (6) First degree AV block: (7) Tear of right supraspinatus tendon: (8) Tendinosis of right rotator cuff: (9) Injury of right glenoid labrum: (10) Bursitis of shoulder, right: Plan In summary this is an 84-year-old male who presented to the [facility] after an unwitnessed fall without associated loss of consciousness resulting in multiple upper extremity orthopedic injuries #Right distal humeral fracture // Left fifth metacarpal fracture Patient was found to have a fracture of the left fifth metacarpal as well as the distal right humerus both of which have been splinted; patient follows in the outpatient setting with [facility] orthopedics, images will be provided on a disk at discharge, and a referral for close follow-up for continued care Continue acetaminophen 1000 mg p.o. every 8 hours Continue Toradol 15 mg IV every 6 hours scheduled through 08/14 or upon discharge, whichever occurs first - Continue IR oxycodone as needed for breakthrough pain - Bowel regimen ordered for opioid induced constipation Orthopedic surgery consulted; pending recommendations regarding surgical options with respect to left metacarpal fractures OT and PT consulted #Pleuritic chest wall pain, right anterior Without evidence of acute fracture in the area of discomfort, suspect this is more likely to be consequential of cartilaginous damage sustained in the fall or a periosteal injury resulting in pleuritic discomfort; continue analgesic regimen as above #Sinus bradycardia // Sinus arrhythmia // First degree AV block Patient was found during physical exam and reviewed the patient's telemetry to be in persistent sinus bradycardia with irregular RR intervals; EKG was obtained which reveals sinus bradycardia with sinus arrhythmia and a persistent first- degree AV block, without significant change from previous EKG in 2023; this requires no further assessment during his hospitalization nor in the outpatient setting #Partial right supraspinatus tear // Tendinosis of right infraspinatus and subscapularis // Right anterior glenoid labrum injury //Subacromial, subdeltoid, and subcoracoid bursitis The patient was found during imaging obtained for his orthopedic injuries detailed above to have multiple injuries to the right shoulder joint of varying degrees of acuity and chronicity; specifically there is noted partial tear of the right supraspinatus tendon insertion, tendinosis of the subscapularis and infraspinatus, a partial tear or degenerative change to the right glenoid labrum, as well as acute bursitis of multiple bursae within the right shoulder joint; at this time does not require further intervention during his hospitalization, can have further discussion in the outpatient setting with his orthopedic team to determine adequate/necessary treatment avenues Medically stable for discharge, pending insurance authorization for placement at [facility] Admission and Anticipated Discharge Date Admission Date: August 10, 2025 Subjective Mr. 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 No acute overnight events Review of Systems Review of Systems: Review of cardiovascular, pulmonary, neurologic, musculoskeletal systems was unremarkable except for pertinent positives and negatives detailed above Physical Exam Physical Exam: General: Elderly male in no acute distress Vital Signs: Reviewed; noted to be bradycardic with irregular RR intervals on telemetry HEENT: Dried blood overlying the nasal bridge without any evidence of acute fracture or injury; pupils equally round and reactive to light, extraocular motion intact Pulmonary: Symmetric chest wall excursion with slight restriction secondary to discomfort in the right 5th/6th intercostal space in anterior axillary line; clear to auscultation bilaterally Cardiovascular: Bradycardic rate with regular rhythm without murmurs, rubs, or gallops; S1 and S2 normal; right radial pulse 2+ with brisk capillary refill in the nailbeds bilaterally Musculoskeletal: right elbow is in ortho splint; left hand is in a [place] splint; right shoulder remains with achiness and soreness, ROM was limited in assessment due to the associated fracture in the distal humerus Neurologic: Cranial nerves II through XII grossly intact; no discernible focal weakness nor paresthesia specifically involving the upper extremities Results & Data Results & Data Vital Signs (Past 12 Hours) Vital Signs Temp Pulse Resp BP Pulse Ox O2 Del Method O2 Flow Rate 08/10/25 22:55 36.8 C 59 L 12 129/57 L 95 Nasal Cannula 2 08/10/25 22:51 Nasal Cannula 2 08/10/25 19:51 36.5 C 51 L 12 130/66 97 Nasal Cannula 2 PG Care Time/CCT Total # of Minutes Spent Total Time Spent with Patient: Total time spent is greater than 50% in coordination of care (as documented) at patient's floor/unit and/or counseling patient: Coding Diagnoses Other closed nondisplaced fracture of distal end of right humerus, initial encounter S42.494A Encounter type: initial encounter Fracture type: closed Fracture morphology: other fracture Fracture alignment: nondisplaced Fracture of metacarpal bone of left hand S62.309A Fall, initial encounter W19.XXXA Encounter type: initial encounter Sinus bradycardia R00.1 Sinus arrhythmia I49.8 First degree AV block I44.0 Tear of right supraspinatus tendon M75.101 Tendinosis of right rotator cuff M67.813 Injury of right glenoid labrum S49.91XA Bursitis of shoulder, right M75.51 (1) Fracture of distal end of right humerus Encounter type: initial encounter Fracture type: closed Fracture morphology: other fracture Fracture alignment: nondisplaced Qualified Code(s): S42.494A - Other nondisplaced fracture of lower end of right humerus, initial encounter for closed fracture (3) Fall Encounter type: initial encounter Qualified Code(s): W19.XXXA - Unspecified fall, initial encounter
[2025-08-11 08:22] VITALS: RESP 20
--- NOTE | 2025-08-11 11:10 | Orthopedic Progress Note ---
Date of Service August 11, 2025 Assessment & Plan (1) Fracture of metacarpal bone of left hand: Plan: Continue the short arm splint for his left hand. His posterior right arm splint was reassessed. He is comfortable with it and no modifications are needed at this time. Recommend another x-ray in 7 to 10 days for alignment check. [place] splint placed by DR. Handy yesterday. 4th and 5th fingers aliya taped Ice and elevate arms above heart to relieve swelling. continue finger motion as splints allow No use of left hand. Keep the splints on at all times and keep them clean and dry. the patient states he would like to discuss surgical intervention for his left hand, preferably before the weekend. Per Dr. Handy, surgical intervention not indicated for metacarpal fracture Follow up at [facility] as instruct in discharge instruction Will most likely need inpatient rehab. Case management following. (2) Fracture of distal end of right humerus: Plan: See above Admission and Anticipated Discharge Date Admission Date: August 10, 2025 Subjective This 84-year-old male is seen today for follow-up of a left fifth metacarpal fracture and right distal humerus fracture. He states that the [place] is fairly comfortable as a splint on his right upper extremity. Patient states that he would prefer to have his follow-ups in our clinic because we have managed him throughout his stay at the hospital. He states for other orthopedic issues he will primarily be followed at [facility] orthopedics with Dr. Ramirez. Currently the patient denies chest pain, shortness of breath, fever, chills, sweats, nausea, vomiting, diarrhea or difficulty voiding. He states he is able to ambulate assistance. Patient states that he is met with case management [facility] This is pending and insurance authorization. States he lives at home with his but is not sure that she will be able to fully care with him because she has a full-time job. Review of Systems Review of Systems: All systems reviewed & are unremarkable except as noted in Subjective Physical Exam Physical Exam: Left hand: [place] splint is removed. There is no skin breakdown. Patient continues to have tenderness to palpation over the fifth metacarpal. He is able to make a fist but not tightly. He is able to detect light sensation to touch over the pads of all digits. His peripheral pulses are 2+. His capillary fill is less than 2 seconds. Right upper extremity: Splint is clean dry and intact and left in place. Patient is able to lift at his shoulder in the abducted plane. He is able to move all his digits and able to detect light sensation to touch over the pads of all digits. He is neurovascularly intact. Results & Data Vital Signs (Past 12 Hours) Vital Signs Temp Pulse Resp BP Pulse Ox O2 Del Method O2 Flow Rate 08/11/25 10:38 Room Air 08/11/25 08:21 36.4 C L 58 L 20 124/71 95 Nasal Cannula 2 Diagnostic Findings Laboratory Results WBC 8.43 K/ul (4.8-10.8) 08/08/25 23:30 RBC 3.76 M/uL (4.70-6.10) L 08/08/25 23:30 Hgb 12.5 g/dl (14.0-18.0) L 08/08/25 23:30 POC Hgb 12.9 g/dl (14.0-18.0) L 08/09/25 00:02 Hct 36.9 % (42.0-52.0) L 08/08/25 23:30 POC Hct 38 % (42-52) L 08/09/25 00:02 MCV 98.1 fL (80.0-100.0) 08/08/25 23:30 MCH 33.2 pg (25.0-34.0) 08/08/25 23:30 MCHC 33.9 g/dL (32.0-36.0) 08/08/25 23:30 RDW Std Deviation 48.3 fL (36.4-46.3) H 08/08/25 23:30 RDW Coeff of Shona 13.5 % (11.5-14.5) 08/08/25 23:30 Plt Count 181 K/uL (130-400) 08/08/25 23:30 MPV 10.5 fL (9.4-12.4) 08/08/25 23:30 Immature Gran % (Auto) 0.4 % 08/08/25 23:30 Neut % (Auto) 74.6 % 08/08/25 23:30 Lymph % (Auto) 13.0 % 08/08/25 23:30 [place] % (Auto) 10.4 % 08/08/25 23:30 Eos % (Auto) 1.1 % 08/08/25 23:30 Baso % (Auto) 0.5 % 08/08/25 23:30 Neut # (Auto) 6.29 K/uL (1.40-6.50) 08/08/25 23:30 Lymph # (Auto) 1.10 K/uL (1.20-3.40) L 08/08/25 23:30 [place] # (Auto) 0.88 K/uL (0.11-0.59) H 08/08/25 23:30 Eos # (Auto) 0.09 K/uL (0.00-0.50) 08/08/25 23:30 Baso # (Auto) 0.04 K/uL (0.00-0.20) 08/08/25 23:30 Immature Gran # (Auto) 0.03 K/uL (0.01-0.20) 08/08/25 23:30 PT 10.3 Seconds (9.0-12.0) 08/08/25 23:30 INR 1.0 (0.9-1.1) 08/08/25 23:30 APTT 23 Seconds (21-31) 08/08/25 23:30 PTT Ratio 0.8 08/08/25 23:30 POC Sodium 139 mmol/L (135-144) 08/09/25 00:02 Sodium 138 mmol/L (136-145) 08/08/25 23:30 POC Potassium 4.0 mmol/L (3.3-5.0) 08/09/25 00:02 Potassium 4.0 mmol/L (3.5-5.1) 08/08/25 23:30 POC Chloride 105 mmol/L (101-112) 08/09/25 00:02 Chloride 105 mmol/L (98-107) 08/08/25 23:30 Carbon Dioxide 23 mmol/L (21-32) 08/08/25 23:30 POC Total CO2 22 mmol/L (24-31) L 08/09/25 00:02 Anion Gap 10 (3-11) 08/08/25 23:30 POC Anion Gap 16.0 mmol/L (16-25) 08/09/25 00:02 POC BUN 27 mg/dl (7-18) H 08/09/25 00:02 BUN 27 mg/dl (6-23) H 08/08/25 23:30 Creatinine 1.27 mg/dl (0.6-1.4) 08/08/25 23:30 POC Creatinine 1.4 mg/dl (0.6-1.3) H 08/09/25 00:02 Est Cr Clr Drug Dosing 48.9 ml/min 08/08/25 23:30 eGFR 55.36 08/08/25 23:30 BUN/Creatinine Ratio 21.3 (10-20) H 08/08/25 23:30 Glucose 101 mg/dl (70-99(Fasting)) H 08/08/25 23:30 POC Glucose (other) 102 mg/dl (70-99) H 08/09/25 00:02 Calcium 10.0 mg/dl (8.6-10.3) 08/08/25 23:30 POC Ioniz Calcium Devin 1.25 mmol/l (1.12-1.32) 08/09/25 00:02 Total Bilirubin 0.7 mg/dl (0.2-1.0) 08/08/25 23:30 AST 22 U/L (13-39) 08/08/25 23:30 ALT 19 U/L (7-52) 08/08/25 23:30 Alkaline Phosphatase 84 U/L (34-104) 08/08/25 23:30 Troponin I High Sens 5.9 pg/ml (0-20) 08/08/25 23:30 Total Protein 6.8 gm/dl (6.0-8.3) 08/08/25 23:30 Albumin 4.5 gm/dl (3.4-5.0) 08/08/25 23:30 Globulin 2.3 gm/dl (2.5-4.0) L 08/08/25 23:30 Albumin/Globulin Ratio 2.0 (0.9-2) 08/08/25 23:30 Lipase 57 U/L (11-82) 08/08/25 23:30 Urine Color Yellow 08/09/25 03:20 Urine Appearance Clear (Clear) 08/09/25 03:20 Urine pH 5.5 (4.5-7.5) 08/09/25 03:20 Ur Specific [place] > 1.045 (1.000-1.030) H 08/09/25 03:20 Urine Protein Negative (Negative) 08/09/25 03:20 Urine Glucose (UA) Negative (Negative) 08/09/25 03:20 Urine Ketones Trace (Negative) H 08/09/25 03:20 Urine Blood Negative (Negative) 08/09/25 03:20 Urine Nitrite Negative (Negative) 08/09/25 03:20 Urine Bilirubin Negative (Negative) 08/09/25 03:20 Urine Urobilinogen Negative (Negative) 08/09/25 03:20 Ur Leukocyte Esterase Negative (Negative) 08/09/25 03:20 Urine Comment 08/09/25 03:20 Impressions Abdomen/Pelvis CT 08/08/25 23:30 EXAM: CT abd pelvis IV con only CLINICAL HISTORY: Trauma TECHNIQUE: Contiguous axial images were obtained from the level of the diaphragm to the pubic symphysis with intravenous contrast. Coronal and sagittal reconstructions were likewise performed and indicated to increase the sensitivity for detecting clinically relevant pathology. If IV contrast material had not been administered, the likelihood of detecting abnormalities relevant to the patient's condition would have been substantially decreased. The CT scan was performed according to ALARA (as low as reasonably achievable). COMPARISON: 11:31:20 INSTRUMENT SPECIALIST. FINDINGS: The visualized lung bases are clear. The liver is normal in size and attenuation. No focal liver lesions are seen. There is no intra- or extrahepatic biliary ductal dilatation. Hepatic vasculature is patent. The gallbladder is present. The spleen, pancreas, and adrenal glands are unremarkable. The kidneys are normal in size and attenuation. There is no hydronephrosis or perinephric fat stranding. No renal calculi or renal masses are identified. The ureters are normal in caliber, and no ureteral calculi are seen. The bladder is normal in contour. The prostate appears enlarged in size, measuring about 48 x 42 mm. No focal or diffuse bowel wall thickening or evidence of bowel obstruction is identified. There is no imaging evidence of appendicitis. Abdominal and pelvic vasculature is patent. No adenopathy or fluid collections are seen. No aggressive-appearing osseous lesions are identified. Fat-containing bilateral inguinal herniae are present. Postoperative changes involving lumbar spine fixation screws are seen in situ. Degenerative changes seen in lumbar spine. IMPRESSION: Enlarged prostate?stable. Fat-containing bilateral inguinal herniae?stable. No acute trauma-related abnormality is seen. Electronically signed by Naga Skinner 08-09-2025 02:[address] 08/08/25 23:30 EXAM: CT cervical spine wo con CLINICAL HISTORY: Trauma TECHNIQUE: CT scan of the cervical spine was performed without the administration of intravenous contrast. Contiguous axial images were obtained from the skull base to the upper thoracic spine. Coronal and sagittal reformatted images were also reviewed. One of the following dose reduction techniques was utilized for this exam: automated exposure control, adjustment of the mA and/or kV according to patient size, and use of iterative reconstruction. COMPARISON: No previous studies are available for comparison. FINDINGS: Vertebrae: Internal fixation of the cervical spine from C4 down to C7 with related disc spacers has been applied. 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 The vertebral bodies are preserved in height. There is no evidence of acute fracture or dislocation. Grade 1 anterolisthesis of C7 over T1, without related fracture, is seen. Diffuse decreased bone densities of the examined bones are present. There are no signs of lytic or sclerotic lesions. The configuration of the posterior elements is normal. Intervertebral Discs: The C2-3 and C3-4 discs demonstrate marked narrowing with associated sclerosis. Facet Joints: There is no evidence of dislocation or subluxation. Significant degenerative changes are noted. Neural Foramina: The neural foramina are patent bilaterally at all levels, with mild narrowing. Prevertebral Soft Tissues: The prevertebral soft tissues are normal in thickness, without evidence of mass or abnormal fluid collection. IMPRESSION: 1. There is no evidence of acute fracture or dislocation. 2. Degenerative Grade 1 anterolisthesis of C7 over T1, without related fracture, is seen. 3. Internal fixation of the cervical spine from C4 down to C7, with related disc spacers, has been applied. 4. 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 Electronically signed by Kevin Palacios 08-09-2025 02:[address] 08/08/25 23:30 EXAM: CT chest diagnostic w con CLINICAL HISTORY: Trauma TECHNIQUE: Contiguous axial images were obtained from the neck base through the upper abdomen following intravenous administration of contrast material. If IV contrast material had not been administered, the likelihood of detecting abnormalities relevant to the patient's condition would have been substantially decreased. In addition, sagittal and coronal reconstructions were performed. CT scan was performed according to ALARA (as low as reasonably achievable). COMPARISON: 15:14:35 INSTRUMENT SPECIALIST. FINDINGS: Few atelectatic bands are noted involving the bilateral lung bases. Mild dilatation of the pulmonary trunk and bilateral main pulmonary arteries up to the subsegmental level, with mild tortuosity, suggests the possibility of pulmonary arterial hypertension. Old, healed fractures of multiple bilateral ribs. No pulmonary nodules are seen. The central airways are patent. There are no pleural effusions. No pneumothorax is seen. No axillary, hilar, or mediastinal adenopathy is identified. The visualized thyroid shows a small hypodense lesion in the right lobe; ultrasound correlation is suggested. The heart, aorta, and pulmonary arteries are of normal size and configuration. No pericardial effusion is identified. Imaged portions of the upper abdomen are unremarkable. No aggressive-appearing osseous lesions are identified. IMPRESSION: Few atelectatic bands are noted involving the bilateral lung bases. Stable. Mild dilatation of the pulmonary trunk and bilateral main pulmonary arteries up to the subsegmental level with mild tortuosity, suggesting the possibility of pulmonary arterial hypertension. Stable. Old, healed fractures of multiple bilateral ribs. Stable. No acute trauma-related abnormality is seen. Prior right-sided pleural effusion is resolved. Electronically signed by Naga Skinner 08-09-2025 02:08 AM Chest X-Ray 08/08/25 23:30 EXAM: XR chest 1V portable CLINICAL HISTORY: Trauma TECHNIQUE: An X-ray image of the chest is obtained in AP portable projection. COMPARISON: Prior study done on 07/15/2024 reviewed. FINDINGS: Pulmonary Parenchyma: Lungs are clear bilaterally. No evidence of consolidation, collapse, or focal opacities. No pulmonary nodules are identified. Obscured left costophrenic angle by the cardiomegaly. No evidence of right pleural effusion or pleural thickening. Heart and Mediastinum: Cardiomegaly (Interval increase in size). No mediastinal widening or masses. No hilar or mediastinal lymphadenopathy. Bony Thorax: Old fractures of left 7th, 8th, 9th and 10th ribs. Cervical screws are noted. Bony thorax appears intact without fractures or deformities. Soft Tissues: Soft tissues overlying the chest wall are unremarkable. IMPRESSION: 1. Cardiomegaly with interval increase in cardiac size compared to the prior study. 2. Old healed fractures of the left 7th?10th ribs. 3. No acute pulmonary, pleural, or bony abnormalities identified. Electronically signed by Kevin Palacios 08-09-2025 01:07 AM Hand X-Ray 08/08/25 23:30 EXAM: XR hand LT 2V CLINICAL HISTORY: L hand pain s/p fall. TECHNIQUE: X-ray images of the left hand were obtained in PA, lateral, and oblique projections. COMPARISON: None. FINDINGS: Bone Structure: The bone structure is normal and well aligned. There is cortical step-off/irregularity with angulation at the junction of the head and neck of the fifth metacarpal, suggesting fracture. It is associated with mild overlying soft tissue swelling. No osseous lesions or abnormalities are identified. Joint Spaces: Wrist, intercarpal, and diffuse interphalangeal joint osteoarthritis are seen in the form of subchondral sclerosis and articular surface irregularity. Soft Tissues: The soft tissues appear normal and unremarkable. There is no calcification, or foreign bodies noted. Additional Findings: No bone spurs, lytic lesions, or sclerotic lesions are identified. IMPRESSION: 1. There is cortical step-off/irregularity with angulation at the junction of the head and neck of the fifth metacarpal, suggesting fracture. It is associated with mild overlying soft tissue swelling. 2. Wrist, intercarpal, and diffuse interphalangeal joint osteoarthritis. Disclaimer: A subtle bone abnormality or fracture may not be readily apparent on X-rays; thus, clinical correlation and further imaging, including follow-up CT, MRI, or follow-up X-rays, are advised as needed. Electronically signed by Kevin Palacios 08-09-2025 01:[address] 08/08/25 23:30 EXAM: CT head/brain wo con CLINICAL HISTORY: trauma TECHNIQUE: Axial non-contrast CT scan of the brain was performed from the skull base to the high parietal region. One of the following dose reduction techniques were utilized for this exam: Automated exposure control, adjustment of the mA and/or kV according to patient size, use of iterative reconstruction. COMPARISON: 02/22/2024 CR FINDINGS: Brain Parenchyma: Multiple ill-defined hypodensities are appreciated in the bilateral periventricular and subcortical white matter, suggesting microvascular ischemic disease. Normal attenuation of the cerebellum and brainstem. No evidence of acute infarct, hemorrhage, or mass effect. No abnormal areas of hyperattenuation. Ventricular System: Ventricles are dilated in size and configuration. No masses. Subarachnoid Spaces: Prominent sulci and cisterns. No evidence of subarachnoid hemorrhage or extra-axial fluid collections. Cerebellum and Brainstem: No masses, lesions, or areas of abnormal density. Orbits: Normal appearance of the globes, optic nerves, and extraocular muscles. No evidence of orbital masses or abnormal density. Sinuses: Clear paranasal sinuses. No evidence of sinusitis or mucosal thickening. Mastoid Air Cells: Clear mastoid air cells. No evidence of mastoiditis. Skull: Normal skull morphology. IMPRESSION: 1. No acute hematoma or skull fracture. 2. 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 3. Mild progressive course regarding microvascular ischemic changes compared to the prior study. Electronically signed by Kevin Palacios 08-09-2025 02:09 AM Shoulder X-Ray 08/08/25 23:30 EXAM: XR shoulder RT min 2V routine CLINICAL HISTORY: R shoulder pain s/p fall. TECHNIQUE: X-ray images of the right shoulder were obtained in anteroposterior (AP) and Y-view projections. COMPARISON: No prior studies available for comparison. FINDINGS: Bone Structure: Old, healed fracture of the proximal right humerus. The humeral head is properly positioned in the glenoid fossa. No osseous lesions or abnormalities are identified. No lytic or sclerotic lesions. Joint Spaces: Degenerative changes in the right acromioclavicular joint, as evidenced by narrowing of the joint space. The glenohumeral joint is normal. No evidence of joint effusion or subluxation is present. Soft Tissues: The soft tissues appear normal and unremarkable. No soft tissue swelling, calcifications, or foreign bodies are noted. IMPRESSION: 1. Age indeterminate or probably old fracture of the proximal right humerus. Comparison with prior relevant studies, if available, is suggested. Clinical correlation is suggested. 2. Right acromioclavicular joint arthritic changes. Disclaimer: A subtle bone abnormality or fracture may not be readily apparent on X-rays, thus clinical correlation and further imaging including follow-up CT, MRI, or follow-up X-rays are advised as needed. Electronically signed by Kevin Palacios 08-09-2025 01:16 AM Shoulder MRI 08/09/25 04:23 EXAM: MR shoulder RT wo con CLINICAL HISTORY: right shoulder pain TECHNIQUE: Multiplanar MRI was performed through the right shoulder, acquiring PD axial, BASG axial, T1W coronal, T2W sagittal/coronal, and IR coronal sequences without intravenous contrast. COMPARISON: 08/08/2025 CR. FINDINGS: Glenohumeral Joint: The glenohumeral joint is normal in configuration without dislocation or subluxation. The joint space is intact without significant narrowing. Small osteophytes are noted at the joint edges. Minimal joint effusion is present. No intra-articular loose bodies are identified. Acromioclavicular (AC) Joint: There is no evidence of acromioclavicular (AC) joint separation. Hypertrophic degenerative changes of the AC joint are present. Bones: The humeral head preserves its spherical shape. There is an area of bone bruise at the superoanterior side of the humeral head, extending to the major tubercle. A few subcortical cysts up to 8 mm are present in the humeral head. There is an old, healed fracture at the proximal shaft of the humerus. Rotator Cuff: The supraspinatus tendon shows preserved continuity. There is increased signal on T1WI and T2WI of the supraspinatus tendon. There is a 6 x 3 mm partial-thickness tear at the articular surface at the insertion site of the supraspinatus tendon. The infraspinatus and subscapularis tendons demonstrate preserved continuity without a tear. Increased signal of the tendons is present on T1WI, denoting tendinosis. The teres minor tendon is normal. Labrum: The anterior glenoid labrum shows increased signal, suggesting labral injury or degeneration. Biceps Tendon: There is normal appearance and position of the biceps tendon. No evidence of tendinopathy or tears. Ligaments: The glenohumeral and coracohumeral ligaments demonstrate normal appearance. No evidence of ligamentous injury. Muscles: The surrounding musculature demonstrates normal appearance. There is no muscle atrophy or abnormal density changes. Bursae: There is increased fluid in the subacromial-subdeltoid and subcoracoid bursae, which is compatible with bursitis. Neurovascular Structures: There is normal appearance of the visualized neurovascular structures. No evidence of compression or abnormal density changes. IMPRESSION: 1. Bone edema in the humeral head. 2. Degenerative subcortical cysts in the humeral head. 3. Degenerative changes of the ACJ. 4. Mild effusion of the shoulder joint. 5. Partial tear of the supraspinatus tendon on top of the tendonitis. 6. Tendinosis of the infraspinatus and subscapularis tendons. 7. The anterior glenoid labrum shows increased signal, suggesting labral injury or degeneration. 8. Old, healed fracture of the proximal humeral shaft. 9. Subacromial-subdeltoid and subcoracoid bursitis. 10. Bony changes concur with prior X-ray findings. Electronically signed by Kevin Palacios 08-09-2025 06:59 AM Elbow X-Ray 08/09/25 10:44 XR elbow RT min 3V routine CLINICAL HISTORY: s/p fall; elbow pain COMPARISON: None FINDINGS: There is a large joint effusion. There is an acute nondisplaced fracture at the distal humerus. There are mild degenerative changes. IMPRESSION: Acute nondisplaced distal humerus fracture. ACT 112: Negative or not required by law. Electronically signed by: Charles Zarate M.D. 08/09/2025 12:46 PM (2) Fracture of distal end of right humerus Encounter type: initial encounter Fracture type: closed Fracture morphology: other fracture Fracture alignment: nondisplaced Qualified Code(s): S42.494A - Other nondisplaced fracture of lower end of right humerus, initial encounter for closed fracture
[2025-08-11 11:31] VITALS: BP 157/83; TEMP 97.3; O2SAT 92
[2025-08-11 13:43] VITALS: PULSE 66
--- NOTE | 2025-08-11 17:22 | Discharge Summary ---
Discharge Summary Date of Service August 11, 2025 Principal Dx & Hospital Course #1 = Principal Diagnosis (1) Fracture of distal end of right humerus: (2) Fracture of metacarpal bone of left hand: (3) Fall: (4) Sinus bradycardia: (5) Sinus arrhythmia: (6) First degree AV block: (7) Tear of right supraspinatus tendon: (8) Tendinosis of right rotator cuff: (9) Injury of right glenoid labrum: (10) Bursitis of shoulder, right: Plan In summary this is an 84-year-old male who presented to the [facility] after an unwitnessed fall without associated loss of consciousness resulting in multiple upper extremity orthopedic injuries #Right distal humeral fracture // Left fifth metacarpal fracture Patient was found to have a fracture of the left fifth metacarpal as well as the distal right humerus both of which have been splinted; patient will follow with [facility] upon discharge for continued care Continue acetaminophen 1000 mg p.o. every 8 hours Continue ibuprofen 400 mg p.o. every 6 hours as needed for pain Continue hydromorphone 2 mg p.o. every 6 hours as needed for severe pain Orthopedic surgery consulted; will follow upon discharge #Pleuritic chest wall pain, right anterior Without evidence of acute fracture in the area of discomfort, suspect this is more likely to be consequential of cartilaginous damage sustained in the fall or a periosteal injury resulting in pleuritic discomfort; continue analgesic regimen as above #Sinus bradycardia // Sinus arrhythmia // First degree AV block Patient was found during physical exam and reviewed the patient's telemetry to be in persistent sinus bradycardia with irregular RR intervals; EKG was obtained which reveals sinus bradycardia with sinus arrhythmia and a persistent first- degree AV block, without significant change from previous EKG in 2023; this requires no further assessment during his hospitalization nor in the outpatient setting #Partial right supraspinatus tear // Tendinosis of right infraspinatus and subscapularis // Right anterior glenoid labrum injury //Subacromial, subdeltoid, and subcoracoid bursitis The patient was found during imaging obtained for his orthopedic injuries detailed above to have multiple injuries to the right shoulder joint of varying degrees of acuity and chronicity; specifically there is noted partial tear of the right supraspinatus tendon insertion, tendinosis of the subscapularis and infraspinatus, a partial tear or degenerative change to the right glenoid labrum, as well as acute bursitis of multiple bursae within the right shoulder joint; at this time does not require further intervention during his hospitalization, can have further discussion in the outpatient setting with his orthopedic team to determine adequate/necessary treatment avenues Admission HPI Per Admitting Provider Patient is an 84-year-old male with past medical history of BPH, ISIS, diastolic CHF, GERD, depression, asthma. Patient presented due to left hand and right arm pain after being struck by his horse resulting in a ground-level fall onto his right shoulder. Diagnostic imaging revealed a left fifth metacarpal fracture and old proximal humerus fracture which patient reports occurred 30 years ago. He is being admitted for intractable pain. Patient seen at bedside with his present. He is a retired physician. His horse was spooked and hit him from behind which was unexpected so it knocked him forward at roughly 6pm 10/7. He fell onto his face and then onto his shoulder, denies any loss of consciousness. he has resulting right arm pain, left hand pain, bilateral knee pain. His arm pain at rest is a 6 out of 10 however 9 out of 10 with movements even after fentanyl 50 mcg x 2 and morphine 4mg IV in the ED. He had an old right humerus fracture 30 years ago in which he wore a splint for. He endorses dizziness if he goes from sitting to standing, denies abd pain, nausea, vomiting. He denies nicotine use. Drinks 2 alcohol beverages per day. He does not use oxygen at baseline. He wishes to be DNR/DNI, his POA is his - Lola. He got his evening medications last night, takes prn lasix every 2-3 weeks depending on weight. Discharge Exam General: Elderly male in no acute distress Vital Signs: Reviewed Pulmonary: Symmetric chest wall excursion with slight restriction secondary to discomfort in the right 5th/6th intercostal space in anterior axillary line; clear to auscultation bilaterally Cardiovascular: Bradycardic rate with regular rhythm without murmurs, rubs, or gallops; S1 and S2 normal; right radial pulse 2+ with brisk capillary refill in the nailbeds bilaterally Musculoskeletal: right elbow is in ortho splint; left hand is in [place] splint; right shoulder remains with achiness and soreness, ROM was limited in assessment due to the associated fracture in the distal humerus Neurologic: Cranial nerves II through XII grossly intact; no discernible focal weakness nor paresthesia specifically involving the upper extremities Discharge Plan Discharge Items Patient Disposition: Transfer Inpatient Rehab Fac Reason For Visit: INTRACTABLE PAIN, HYPOXIA Discharge Diagnosis: Right distal humeral shaft closed fracture, nondisplaced // Left fifth metacarpal closed fracture, displaced Condition on Discharge: Good Activity: Per Instructions section Non-emergency contact: Primary Care Provider and Specialist Call non-emergency contact if: you have any medication questions and your symptoms worsen Follow-up/Referrals: Bernice Alexis MD [Primary Care Provider] - Ravin Handy MD [Physician] - Mauro Ramirez MD [Physician] - () Diet: Regular Fluids: 2000ml (8 cups) Addtl Attending Provider Instructions: You were admitted to [facility] for multiple injuries after a ground-level fall sustained at home. You were found to have a distal right humeral shaft fracture as well as a left fifth metacarpal fracture; splints have been placed with maintenance recommendations provided by [facility]. For pain related to these injuries, we recommend acetaminophen 1000 mg p.o. 3 times daily and Ibuprofen for 100 mg p.o. 3 times daily with food. We will also provide a short-term prescription for hydromorphone 2 mg p.o. every 6 hours as needed for severe breakthrough pain. With respect to opioid induced constipation, please continue your regimen of Miralax and Bisacodyl, as we discussed during your hospital stay. It was noted during your hospitalization that you had a low resting heart rates; EKG found sinus bradycardia with sinus arrhythmia, and a first-degree AV block. This is unchanged from previous EKGs obtained in 2023, overall these do not indicative of any serious underlying cardiac condition that requires further assessment in the outpatient setting. Thank you for choosing [facility] [address] as your healthcare provider. Addtl Jury Consultant Provider Instructions: [place] splint use on Left hand. Remove daily to assess for skin breakdown Posterior long arm splint on Right upper extremity. Keep in place at all time and work on finger ROM Ice with EZ wrap Pain control with PO medications May need discharge to rehab facility Follow at [facility] in 7-10 days for new x-rays of left hand and Right upper arm ( Rhea Villagomez on 08/18/25 at 11:00 a.m.) With questions contact our clinic at [phone] Pending Studies at Discharge: No Stand-Alone Forms: My [facility] [address] Skilled Items Patient informed of condition?: Yes DNR: Yes Discharge Level of Care: Acute rehab Communicable Disease: No Discharge Prognosis: Improving Lines: None Urinary Catheter: No Medications and DC Order Prescriptions: New acetaminophen [Tylenol Extra Strength] 500 mg Tablet 1,000 mg PO Q8H 14 Days Qty: 84 0RF ibuprofen 400 mg tablet 400 mg PO Q8H 7 Days Qty: 21 0RF hydromorphone 2 mg tablet 2 mg PO Q6H PRN (Reason: breakthrough pain) 3 Days Qty: 12 0RF naloxone 4 mg/actuation spray,non-aerosol 1 spray intranasal ONCE PRN (Reason: opioid overdose) 1 Days Qty: 2 0RF Continued fluticasone furoate-vilanterol [Breo Ellipta] 100-25 mcg/dose blister with device 1 inh inhalation QAM Qty: 3 3RF tadalafil 20 mg tablet 20 mg PO Q24H PRN (Reason: Sexual Activity) Qty: 20 2RF tadalafil 5 mg tablet 5 mg PO HS Qty: 90 3RF montelukast 10 mg tablet 10 mg PO QPM Qty: 90 3RF atorvastatin [Lipitor] 40 mg tablet 40 mg PO QPM Qty: 90 3RF magnesium oxide 400 mg magnesium tablet 400 mg PO BID acetaminophen [Tylenol Arthritis Pain] 650 mg tablet extended release 1,300 mg PO QAM aspirin 81 mg tablet,delayed release (DR/EC) 81 mg PO DAILY Qty: 90 3RF furosemide 20 mg tablet 20 mg PO DAILY PRN (Reason: edema) Qty: 60 3RF duloxetine 60 mg capsule,delayed release(DR/EC) 60 mg PO QPM Qty: 90 3RF bupropion HCl 100 mg tablet sustained-release 12 hr 100 mg PO HS Qty: 90 3RF bupropion HCl 200 mg tablet sustained-release 12 hr 200 mg PO QAM Qty: 90 3RF pregabalin 150 mg capsule 150 mg PO BID Qty: 180 1RF multivitamin Tablet 1 tab PO QPM vitamin B complex Tablet 1 tab PO QPM albuterol sulfate 90 mcg/actuation Aerosol Powdr Breath Activated 1 puff INHALATION Q6H PRN (Reason: Wheezing) latanoprost 0.005 % drops 1 drp ophthalmic (eye) HS Patient Comments: both eyes cholecalciferol (vitamin D3) [Vitamin D3] 50 mcg (2,000 unit) Capsule 50 mcg PO QPM amoxicillin 500 mg Capsule 2,000 mg PRN (Reason: prophylactic for dental ) Rx Instructions: prior to dental appointments Discharge Orders: Discharge Order (Routine); Ordered 08/11/25 Ordered By: Rick Mata Admission Data Admit Date/Time: 08/10/25 17:29 Attending Provider: Rick Mata Admit Provider: Dharmesh Weir Primary Care Provider: Bernice Alexis Other Providers: Dharmesh Weir; Ravin Handy; [facility]; [facility] Stay Data Consultations 08/09/25 03:17 ED Decision to Admit Stat 08/09/25 04:32 Consult Orthopedic Surgery Routine Diagnostic Imagining Performed 08/08/25 23:30 CT abd pelvis IV con only Stat CT cervical spine wo con Stat CT chest diagnostic w con Stat CT head/brain wo con Stat 08/09/25 04:23 MRI Shoulder [MR shoulder RT wo con] Urgent Pending Results Patient Have Any Pending Studies at Discharge: No Discharge Instructions Given to Patient (Per Discharging Provider) You were admitted to [facility] for multiple injuries after a ground-level fall sustained at home. You were found to have a distal right humeral shaft fracture as well as a left fifth metacarpal fracture; splints have been placed with maintenance recommendations provided by [facility]. For pain related to these injuries, we recommend acetaminophen 1000 mg p.o. 3 times daily and Ibuprofen for 100 mg p.o. 3 times daily with food. We will also provide a short-term prescription for hydromorphone 2 mg p.o. every 6 hours as needed for severe breakthrough pain. With respect to opioid induced constipation, please continue your regimen of Miralax and Bisacodyl, as we discussed during your hospital stay. It was noted during your hospitalization that you had a low resting heart rates; EKG found sinus bradycardia with sinus arrhythmia, and a first-degree AV block. This is unchanged from previous EKGs obtained in 2023, overall these do not indicative of any serious underlying cardiac condition that requires further assessment in the outpatient setting. Thank you for choosing [facility] as your healthcare provider. Total Time Total Time Spent Total Time Spent (In Minutes): I personally spent 50 minutes in the coordination of the patient's discharge including counselling at bedside, physical exam, medication reconciliation, and coordination of care with case management Coding Level of Care Code 87102 INP/OBS DISCH >30 MIN Diagnoses Other closed nondisplaced fracture of distal end of right humerus, initial encounter S42.494A Encounter type: initial encounter Fracture type: closed Fracture morphology: other fracture Fracture alignment: nondisplaced Fracture of metacarpal bone of left hand S62.309A Fall, initial encounter W19.XXXA Encounter type: initial encounter Sinus bradycardia R00.1 Sinus arrhythmia I49.8 First degree AV block I44.0 Tear of right supraspinatus tendon M75.101 Tendinosis of right rotator cuff M67.813 Injury of right glenoid labrum S49.91XA Bursitis of shoulder, right M75.51
[2025-08-11] MEDS ORDERED: POLYETHYLENE (MIRALAX) 17 GM PACK PO SCH (21:00)
== END 2025-08-11 14:51 | DRG 563 ==
LOC: EDINP 23:14 → ED 23:14 → SUATTDRO 08-09 03:45 → 2N 08-09 04:26 → SUATTDRO 08-10 17:29